=== PATIENT | male | born 1955 | race Caucasian/White ===

== ENCOUNTER 2020-12-31 11:57 | Outpatient (CLI) | payer MEDICARE, SELFPAY ==
--- NOTE | 2020-12-31 12:44 | ECG_ITS ---
Measurements Intervals [place] Rate: 61 P: 73 [place]: 195 QRS: 36 QRSD: 105 T: 48 QT: 390 QTc: 395 Interpretive Statements SINUS RHYTHM BASELINE ARTIFACT- I, II, III, AVR, AVL, AVF NORMAL ECG Electronically Signed On 12-31-2020 13:18:14 CDT by Bob Harris D.O.
[2020-12-31 13:21] LABS: Basophils Absolute Auto 0.1 K/mm3 (0.0-0.1); Basophils Percent Auto 1.2 % (0.2-1.2); Eosinophils Absolute Auto 0.2 K/mm3 (0-0.3); Eosinophils Percent Auto 2.8 % (0-4.4); Hematocrit 41.8 % (42.0-52.0); Hemoglobin 14.5 g/dL (14.0-18.0); Immature Granulocyte Absolute 0.01 K/mm3 (0.00-0.031); Immature Granulocyte Percent A 0.2 % (0-0.5); Lymphocytes Absolute Auto 1.55 K/mm3 (0.9-3.2); Lymphocytes Percent Auto 25.9 % (18.3-44.2); Mean Corpuscular HGB Conc 34.7 g/dl (32-36); Mean Corpuscular Hemoglobin 32.6 pg (26-34); Mean Corpuscular Volume 93.9 fl (80-100); Mean Platelet Volume 9.1 fl (7.4-10.4); Monocytes Absolute Auto 0.6 K/mm3 (0.1-0.6); Monocytes Percent Auto 9.4 % (2.6-8.5); Neutrophils Absolute Auto 3.6 K/mm3 (1.3-6.7); Neutrophils Percent Auto 60.5 % (45.5-73.1); Platelet Count Result 246 k/mm3 (150-375); Red Blood Count 4.45 M/mm3 (4.6-6.20); Red Cell Distribution Width 11.6 % (11.5-14.5)
[2020-12-31 13:27] LABS: Urine Cotinine NEGATIVE
[2020-12-31 13:32] LABS: Hemoglobin A1C 4.9 % (<5.7)
[2020-12-31 13:37] LABS: Albumin Level 4.7 g/dL (3.5-5.1)
[2020-12-31 13:41] LABS: Anion Gap 7 mmol/L (8-16); Blood Urea Nitrogen 16 mg/dL (9-20); Calcium 9.3 mg/dL (8.4-10.2); Carbon Dioxide 32 mmol/L (22-30); Chloride 96 mmol/L (98-107); Estimated Glomerular Filt Rate > 60; Glucose 114 mg/dL (75-110); Potassium 3.9 mmol/L (3.4-5.0); Sodium 135 mmol/L (137-145)
== END 2020-12-31 11:58 | disposition home or self-care (01) ==
PROVIDERS: Anesthesiology; PCP Student in an Organized Health Care Education/Training Program; Visit Provider Orthopaedic Surgery
DX: Z01.818 Encounter for other preprocedural examination (principal); M17.12 Unilateral primary osteoarthritis, left knee; I10 Essential (primary) hypertension; Z51.81 Encounter for therapeutic drug level monitoring; Z79.899 Other long term (current) drug therapy
CPT/HCPCS: 36415; 80048; 80307; 82040; 83036; 85025; 93005

== ENCOUNTER → 2021-01-09 00:34 | Outpatient (CLI) | payer MEDICARE, BC, SELFPAY ==
[2021-01-09 18:53] LABS: SARS-CoV-2 RNA PCR Negative
== END ==
PROVIDERS: PCP Student in an Organized Health Care Education/Training Program; Visit Provider Orthopaedic Surgery
DX: Z01.812 Encounter for preprocedural laboratory examination (principal); Z20.822 Contact with and (suspected) exposure to COVID-19
CPT/HCPCS: C9803; U0003; U0005

== ENCOUNTER 2021-01-13 00:15 | Emergency (ER) | payer MEDICARE, BC, SELFPAY ==
[2021-01-13] VITALS (37 sets, daily range): BP systolic 133–188; BP diastolic 64–95; PULSE 86–103; RESP 16–32; TEMP 36.8–39.6; O2SAT 95–100
--- NOTE | ~2021-01-13 | XR_ITS ---
EXAMINATION: XR chest 1V portable EXAM DATE: 01/13/2021 01:52 INDICATION: Fever, back pain. TECHNIQUE: Frontal and lateral projections of the chest obtained and reviewed. There is no prior dede dy for comparison. FINDINGS: The lungs are clear. There are no pleural effusions. The cardiomediastinal silhouette is within normal limits. There is no pneumothorax suspected. The bones and soft tissues are unremarkab le. IMPRESSION: No acute cardiopulmonary findings. Reviewed, dictated and finalized at location A.
--- NOTE | ~2021-01-13 | CT_ITS ---
EXAMINATION: CT abdomen pelvis w con EXAM DATE: 01/13/2021 04:16 INDICATION: Abdominal pain, back pain TECHNIQUE: Spiral CT of the abdomen and pelvis was performed following intravenous injection of 100 m L Omnipaque 350. Axial, coronal and sagittal images of the abdomen and pelvis were reviewed. The do se-length product (DLP) for this examination was 719.72 mGy-cm. The exposure was tailored according to patient size (auto mA exposure control), and iterative reconstruction (ASIR) was used as additiona l dose reduction technique. Comparison is made to prior examination from 07/07/2010. FINDINGS: There is 2.1 cm left adrenal gland lesion, and a smaller right adrenal gland nodule, adenom as correlating with prior study. The liver, spleen and pancreas are unremarkable. There are cholecy stectomy clips. Portal and splenic veins are patent. Kidneys enhance symmetrically. There is no hy dronephrosis. There is mild prostatomegaly. The bladder is unremarkable. There is no retroperitone al or pelvic lymphadenopathy. There is mild to moderate scattered arteriosclerotic disease. Small bilateral inguinal fat-containing hernias. Small umbilical fat-containing hernia. There are no findings to suggest appendicitis. The stomach and small bowel are unremarkable. There is expected amount of colonic stool. There is mild sigmoid colonic diverticulosis. There is no adjac ent inflammatory change to suggest diverticulitis. No free intraperitoneal gas. The heart is bijan l in size. There are no pericardial or pleural effusions. Bibasilar subsegmental atelectasis. Right middle lobe granuloma. There are no osteoblastic or osteolytic lesions identified. Chronic bilatera l L5 spondylolysis with grade 2 anterolisthesis L5 on S1 and severe disc disease at that level. IMPRESSION: 0 1. No acute intra-abdominal findings. 2. Colonic diverticulosis. 3. Mild prostatomegaly. 4. Small fat-containing hernias. 5. Adrenal adenomas. 6. Chronic L5 spondylolysis, grade 2 anterolisthesis. Reviewed, dictated and finalized at location A.
--- NOTE | 2021-01-13 01:35 | ECG_ITS ---
Measurements Intervals [place] Rate: 93 P: 70 [place]: 173 QRS: -9 QRSD: 107 T: 34 QT: 347 QTc: 432 Interpretive Statements SINUS RHYTHM ATRIAL PREMATURE COMPLEXES BORDERLINE T WAVE ABNORMALITY- INFERIOR LEADS BASELINE ARTIFACT- I, II, III, AVR, AVL, AVF, V2-V6 BORDERLINE ECG Electronically Signed On 01-13-2021 8:27:45 CDT by Bob Harris D.O.
[2021-01-13] MEDS: SODIUM CHLORIDE 0.9% IV 1,000 ML 999 ML IV CONT ×3 (01:58→05:23)
[2021-01-13] MEDS: KETOROLAC 30 MG/ML VIAL (*BKC) IV PUSH (01:58)
--- NOTE | 2021-01-13 02:03 | ED.GENADULT ---
HPI - General Adult General Chief complaint: Back Pain/Injury Stated complaint: lower back pain Time Seen by Provider: 01/13/21 01:24 History of Present Illness HPI narrative: Patient is a 65-year-old gentleman with body aches. Patient reports that since Monday he has been having body aches to the point that he has pain with ambulating. Patient reports this began after he pushed a lawnmower up the hill and is subsequently felt sore since then. The patient reports the pain is worse with movement and improved with rest. Patient reported that he has been having fevers for the last 3 days reports that he has had some body aches with this as well patient denies sick contacts denies Covid exposure reports that he has had the Covid vaccine. Related Data Home Medications Medication Instructions Recorded Confirmed allopurinol 100 mg PO QAM 12/31/20 12/31/20 cholecalciferol (vitamin D3) 25 mcg PO DAILY 12/31/20 12/31/20 citalopram 20 mg PO QAM 12/31/20 12/31/20 lisinopril-hydrochlorothiazide 1 tablet PO QAM 12/31/20 12/31/20 loratadine [Claritin] 10 mg PO DAILY 12/31/20 12/31/20 Allergies Allergy/AdvReac Type Severity Reaction Status Date / Time No Known Allergies Allergy Mild Verified 01/13/21 01:13 Review of Systems Review of Systems: Narrative: A 10 system review of systems was completed on the patient and is negative except for what is stated in the HPI. Nursing and ancillary documentation was reviewed. [facility] Family History Family History Father Hypertension Mother Hypertension Other Diabetes mellitus Social History Social History Smoking status: Never smoker Additional smoking assessment comments: DENIES ANY FORM OF TOBACCO USE Alcohol intake: current Drinks per week: 21 Substance use: current Substance use type: marijuana Living arrangements: with family Gender identity (if verbalized by the patient): Male Spiritual care concerns: No Exam Narrative: Exam Narrative: GENERAL: Well-appearing, well-nourished, and in no acute distress. HEAD: Normocephalic, atraumatic. EYES: PERRLA and EOMI. ENT: Nares clear, no rhinorrhea or epistaxis. Mucous membranes moist. NECK: Supple. CHEST: Clear to auscultation. No respiratory distress. HEART: Regular rate and rhythm. No murmur heard. Normal peripheral pulses. ABDOMEN: Soft, nontender, nondistended, normal active bowel sounds. EXTREMITIES: Normal range of motion. No edema. SKIN: Warm, dry, no rash. NEURO: No focal deficits. Alert and oriented x3. PSYCH: Normal mood and affect. Course Vital Signs Vital signs: Vital Signs Temperature 36.9 C 01/13/21 00:27 Pulse Rate 92 01/13/21 00:27 Respiratory Rate 18 01/13/21 00:27 Blood Pressure 173/94 H 01/13/21 00:27 Pulse Oximetry 100 01/13/21 00:27 Temperature 36.8 C 01/13/21 05:01 Pulse Rate 96 01/13/21 06:01 Respiratory Rate 24 H 01/13/21 06:01 Blood Pressure 159/83 H 01/13/21 06:01 Pulse Oximetry 96 01/13/21 06:01 Medical Decision Making Vital Signs Vital Signs: Vital Signs Temperature 36.9 C 01/13/21 00:27 Pulse Rate 92 01/13/21 00:27 Respiratory Rate 18 01/13/21 00:27 Blood Pressure 173/94 H 01/13/21 00:27 Pulse Oximetry 100 01/13/21 00:27 Temperature 36.8 C 01/13/21 05:01 Pulse Rate 96 01/13/21 06:01 Respiratory Rate 24 H 01/13/21 06:01 Blood Pressure 159/83 H 01/13/21 06:01 Pulse Oximetry 96 01/13/21 06:01 Lab Data Result diagrams: 01/13/21 01:55 01/13/21 01:55 Labs: Lab Results 01/13/21 01/13/21 01/13/21 Range/Units 01:55 01:55 01:55 WBC 6.9 (4.5-10.0) K/mm3 RBC 4.77 (4.6-6.20) M/mm3 Hgb 15.7 (14.0-18.0) g/dL Hct 44.9 (42.0-52.0) % MCV 94.1 (80-100) fl MCH 32.9 (26-34) pg MCHC 35.0 (32-36) g/dl RDW 11.7 (11.
[2021-01-13 02:08] LABS: Basophils Percent Auto 0.3 % (0.2-1.2); Eosinophils Percent Auto 0.1 % (0-4.4); Hematocrit 44.9 % (42.0-52.0); Hemoglobin 15.7 g/dL (14.0-18.0); Immature Granulocyte Absolute 0.05 K/mm3 (0.00-0.031); Immature Granulocyte Percent A 0.7 % (0-0.5); Immature Platelet Fraction Pct 2.5 % (0.9-11.2); Lymphocytes Absolute Auto 0.29 K/mm3 (0.9-3.2); Lymphocytes Percent Auto 4.2 % (18.3-44.2); Mean Corpuscular Hemoglobin 32.9 pg (26-34); Mean Corpuscular Volume 94.1 fl (80-100); Mean Platelet Volume 9.3 fl (7.4-10.4); Monocytes Absolute Auto 0.2 K/mm3 (0.1-0.6); Monocytes Percent Auto 2.7 % (2.6-8.5); Neutrophils Absolute Auto 6.4 K/mm3 (1.3-6.7); Platelet Count Result 144 k/mm3 (150-375); Red Blood Count 4.77 M/mm3 (4.6-6.20); Red Cell Distribution Width 11.7 % (11.5-14.5); White Blood Count 6.9 K/mm3 (4.5-10.0)
[2021-01-13 02:22] LABS: Alanine Aminotransferase 33 U/L (4-50); Albumin Level 4.6 g/dL (3.5-5.1); Alkaline Phosphatase 81 U/L (38-126); Anion Gap 7 mmol/L (8-16); Aspartate Amino Transferase 53 U/L (17-59); Bilirubin,Total 0.8 mg/dL (0.2-1.3); Blood Urea Nitrogen 18 mg/dL (9-20); Calcium 9.5 mg/dL (8.4-10.2); Carbon Dioxide 30 mmol/L (22-30); Chloride 92 mmol/L (98-107); Estimated CRCL calculation 67 ml/min; Estimated Glomerular Filt Rate > 60; Glucose 178 mg/dL (75-110); Potassium 4.1 mmol/L (3.4-5.0); Sodium 129 mmol/L (137-145)
[2021-01-13 02:23] LABS: Lactic Acid Reflex 2.3 mmol/L (0.7-2.1)
[2021-01-13 02:29] LABS: Troponin I 0.023 ng/mL (0.000-0.034)
[2021-01-13] MEDS: MORPHINE SULFATE (*CRX) 4 MG/ML INJ IV PUSH (02:47)
[2021-01-13 03:32] LABS: Add Urine Microscopic? YES; Appearance Urine Clear (Clear); Bacteria Urine Trace /hpf; Bilirubin Urine Negative (Negative); Blood Urine 1+ (Negative); Color Urine Yellow (Yellow); Glucose Urine UA 1+ mg/dL (Negative); Ketones Urine 1+ mg/dL (Negative); Leukocyte Esterase Ur Negative LEU/UL (Negative); Mucus Urine Rare /lpf; Nitrate Urine Negative (Negative); Protein Urine 2+ mg/dL (Negative); Specific Grav Ur 1.029 (1.001-1.035); Urobilinogen Urine Negative mg/dL (<2.0); WBC Urine 0-3 /hpf
[2021-01-13] MEDS: HYDROmorphone HCL INJ (*CRX) 1 MG/ML SYR IV PUSH ×2 (04:01→05:24)
[2021-01-13 05:04] LABS: Reflex Lactic Acid Yes or No Add Lactic
[2021-01-13] MEDS: CYCLOBENZAPRINE HCL 10 MG TABLET PO (05:23)
--- NOTE | 2021-01-13 07:03 | PC.NURSE ---
PT requested discharge instructions prior to infusion being completed. RN to remove IV once medication is completed.
[2021-01-13 21:08] LABS: SARS-CoV-2 RNA PCR Negative
== END 2021-01-13 07:36 | disposition home or self-care (01) ==
PROVIDERS: Emergency Provider Emergency Medicine; PCP Student in an Organized Health Care Education/Training Program
DX: M54.5 Low back pain (principal); J01.91 Acute recurrent sinusitis, unspecified; Z20.822 Contact with and (suspected) exposure to COVID-19
CPT/HCPCS: 36415; 71045; 74177; 80053; 81001; 83605; 84484; 85025; 85055; 87040; 87077; 87147; 87181; 87186; 87804; 93005; 96361; 96365; 96366; 96375; 96376; 99284; A9270; C9803; J0131; J1170; J1885; J1956; J2270; J7030; Q9967; U0003; U0005

== ENCOUNTER 2021-01-14 06:40 | Inpatient (IN) | payer MEDICARE, BC, SELFPAY ==
[2021-01-14] VITALS (16 sets, daily range): BP systolic 117–159; BP diastolic 74–94; PULSE 86–125; RESP 12–32; TEMP 36.6–38.7; O2SAT 94–100; BMI 27.3
--- NOTE | 2021-01-14 | ECHO_ITS ---
Patient Info Name: Aly Bailey Age: 65 years : 1955 Gender: Male Ht: 70 in Wt: 190 lbs BSA: 2.08 m2 HR: 102 bpm BP: 136 / 92 mmHg Heart Rhythm: Sinus Rhythm, Tachycardia Technical Quality: Good Exam Date: 01/14/2021 4:23 PM Exam Location: [facility] Pulmonary Exam Room: 211 Patient Status: Inpatient Admit Date: 01/14/2021 Staff Ordering Physician: Rajinder Lamar MD Make Up Editor: Julieta Dey RDCS Attending Provider: Gurjit Andre MD Referring Physician: Willard RAMIREZ; Exam Type: CA echo doppler color flow Study Info Indications - AFIB BACTEREMIA Complete two-dimensional, color flow and Doppler transthoracic echocardiogram is performed. Summary 1. Complete two-dimensional, color flow and Doppler transthoracic echocardiogram is performed. 2. Normal left ventricular size with moderate concentric hypertrophy and good systolic function of all segments. No segmental wall motion abnormalities. Ejection fraction visually is 55-60%. Normal diastolic function. 3. Left atrial chamber dimension is moderately enlarged. 4. Mild pulmonary hypertension, estimated pulmonary arterial systolic pressure is 39 mmHg. 5. No vegetation seen. Trivial mitral and tricuspid regurgitation noted. 6. Normal sinus rhythm with frequent APCs. Left Ventricle Left ventricular chamber dimension is normal. Left ventricular systolic function is normal, estimated at 55-60%. There is moderately increased left ventricular wall thickness. Left ventricular septal wall motion is normal. The left ventricular diastolic function is normal. Right Ventricle Right ventricular chamber dimension is normal. Right ventricular systolic function is normal. Left Atria Left atrial chamber dimension is moderately enlarged. Right Atria Right atrial chamber dimension is normal. Aortic Valve The aortic valve is trileaflet. There is no aortic valve sclerosis. There is no aortic valve stenosis. There is no aortic valve regurgitation. Pulmonic Valve The pulmonic valve is normal. There is no pulmonic valve stenosis. There is no pulmonic regurgitation. Mitral Valve The mitral valve has thickened leaflets. There is no mitral valve stenosis. There is trace mitral valve regurgitation. Tricuspid Valve The tricuspid valve leaflets are normal. There is no significant tricuspid valve stenosis. There is trace tricuspid valve regurgitation. Mild pulmonary hypertension, estimated pulmonary arterial systolic pressure is 39 mmHg. Pericardium/Pleural The pericardium appears normal. There is no pericardial effusion. Inferior Vena Cava Normal inferior vena cava with >50% collapse upon inspiration consistent with Empty right atrial pressure, 10 mmHg. Aorta The aortic root size at the sinus of Valsalva is normal. The prox ascending aorta size is normal. Left Ventricular Outflow Tract Name Value Normal LVOT 2D LVOT Diameter 2.1 cm LVOT Doppler LVOT Peak Gradient 4 mmHg LVOT Mean Gradient 3 mmHg LVOT VTI 19 cm
--- NOTE | ~2021-01-14 | US_ITS ---
EXAMINATION: US venous doppler [facility] DATE: 01/22/2021 10:36 INDICATION: Fever. TECHNIQUE: Grayscale ultrasound images without and with compression and Doppler ultrasound images of the bilateral lower extremity veins were obtained. COMPARISON: None. FINDINGS: The visualized portions of right common femoral vein, profunda (deep) femoral vein, femoral vein, pop liteal vein, peroneal veins, posterior tibial veins, and greater saphenous vein outflow are patent. The visualized portions of left common femoral vein, profunda femoral vein, femoral vein, popliteal v ein, peroneal veins, posterior tibial veins, and greater saphenous vein outflow are patent. IMPRESSION: 1. No deep venous thrombosis. Reviewed, dictated and finalized at location B.
--- NOTE | ~2021-01-14 | XR_ITS ---
XR abdomen NG/feed tube rechec INDICATION: Evaluate feeding tube position. TECHNIQUE: Limited KUB perform for evaluating NG tube . COMPARISON: No prior studies for comparison. FINDINGS: NG tube tip in the duodenum. Visualized bowel gas pattern is unremarkable. IMPRESSION: 1: Feeding tube tip in the duodenum. Reviewed, dictated and finalized at location B.
--- NOTE | ~2021-01-14 | US_ITS ---
EXAMINATION: US abdomen limited DATE: 01/14/2021 14:07 INDICATION: Abnormal liver function tests. TECHNIQUE: Multiple grayscale and Doppler ultrasound images of the abdomen were obtained. COMPARISON: CT abdomen and pelvis 01/13/2021 FINDINGS: The visualized portions of the head and body of the pancreas are normal. The liver is bijan l without focal lesion. There is normal flow in main portal vein. The gallbladder is absent. The comm on duct is normal and measures 5 mm. Right kidney is normal in size. IMPRESSION: 1. Normal right upper quadrant ultrasound status post cholecystectomy. Reviewed, dictated and finalized at location A.
--- NOTE | ~2021-01-14 | XR_ITS ---
EXAMINATION: XR chest 1V portable INDICATION: Respiratory failure TECHNIQUE: Portable AP chest at 0520 hours COMPARISON: 02/02/2021 FINDINGS: The endotracheal tube ends approximately 2.8 cm above the carissa. The feeding tube is follo wed as far as the stomach. Its tip is beyond the inferior margin of the radiograph. Bibasilar airspac e opacities persist without significant change. There is no pleural effusion or pneumothorax. The car diomediastinal silhouette is stable. IMPRESSION: 1. Stable bibasilar airspace opacities, consistent with atelectasis versus pneumonia. Reviewed, dictated and finalized at location A. IMPRESSION: 1. Stable bibasilar airspace opacities, consistent with atelectasis versus pneu monia.
--- NOTE | ~2021-01-14 | CT_ITS ---
EXAMINATION: CT BRAIN W/O DATE: 01/23/2021 14:36 INDICATION: Confusion. Patient is combative. TECHNIQUE: Computed tomography (CT) of the head was performed without intravenous contrast. The dose- length product was 756.67 mGy-cm. Automated exposure control and iterative reconstruction technique w ere employed. COMPARISON: No prior studies for comparison. FINDINGS: Normal brain parenchymal volume for age. Normal peterson-white differentiation. No acute intrac ranial hemorrhage, infarction, mass or mass effect. There are scattered mild periventricular and subc ortical white matter changes, most likely related to small vessel ischemic disease (microangiopathy). There is intracranial atherosclerosis. No ventriculomegaly or midline shift. Midline sagittal images demonstrate a normal corpus callosum, c raniovertebral junction and sella turcica. Basilar cisterns are patent. Minimal mucosal thickening of the right maxillary sinus. Mastoids are pneumatized. IMPRESSION: 1. No acute intracranial abnormality. Reviewed, dictated and finalized at location A.
--- NOTE | ~2021-01-14 | XR_ITS ---
EXAMINATION: XR fl Dobhoff insert/rad w img DATE: 01/23/2021 14:20 INDICATION: Altered mental status. TECHNIQUE: I placed a nasoenteric tube with fluoroscopic guidance. One image was obtained. Fluoroscop y exposure time was 2.8 minutes. COMPARISON: CT abdomen and pelvis 01/13/2021 FINDINGS: The nasoenteric tube tip is in the second portion the duodenum. IMPRESSION: 1. Fluoroscopy guided nasoenteric tube placement with tip in the second portion of the duodenum. Reviewed, dictated and finalized at location A.
--- NOTE | ~2021-01-14 | XR_ITS ---
XR chest 1V portable 01/27/2021 10:40 Indication: Shortness of breath Procedure: AP portable chest Comparison: 01/15/2021 Findings: Feeding tube in the stomach. Heart size normal. Patchy bilateral infiltrates, right greater than left. No significant effusion or pneumothorax. No acute osseous abnormality. Impression: 1: Patchy bilateral infiltrates which may represent asymmetric edema or pneumonia. Reviewed, dictated and finalized at location B. Impression: 1: Patchy bilateral infiltrates which may represent asymmetric edema or pneumon ia.
--- NOTE | ~2021-01-14 | CT_ITS ---
EXAMINATION: CT brain wo con DATE: 01/27/2021 12:58 CDT INDICATION: Altered mental status TECHNIQUE: Computed tomography (CT) of the abdomen and pelvis was performed without and with intraven ous contrast using a total of 130 mL Omnipaque-350 intravenous contrast with a double-bolus technique for simultaneous opacification of the renal parenchyma and renal collecting system. The dose-length product was 681.00 mGy-cm. Automated exposure control and iterative reconstruction technique were emp loyed. COMPARISON: CT dated 01/23/2021 FINDINGS: Mild atrophy. There are scattered mild periventricular and subcortical white matter changes, most lik asa related to small vessel ischemic disease (microangiopathy). No ventriculomegaly or midline shift. No acute intracranial hemorrhage, infarction, mass or mass effect. Basilar cisterns are patent. Ther e is intracranial atherosclerosis. IMPRESSION: 1. No acute intracranial abnormality. Reviewed, dictated and finalized at location B.
--- NOTE | ~2021-01-14 | XR_ITS ---
EXAMINATION: XR chest 1V portable INDICATION: Possible aspiration, shortness of breath, fever TECHNIQUE: Portable AP chest at 0908 hours COMPARISON: 01/13/2021 FINDINGS: There is mild atelectasis. No focal airspace opacities are identified. The heart size is up per limits of normal for technique. There is no pleural effusion or pneumothorax. IMPRESSION: 1. No acute cardiopulmonary abnormality. Reviewed, dictated and finalized at location B.
--- NOTE | ~2021-01-14 | XR_ITS ---
EXAMINATION: XR lumbar puncture diagnostic DATE: 01/28/2021 14:00 INDICATION: Altered mental status. TECHNIQUE: A timeout was performed to verify the patient's name, date of , and procedure to be performed. The skin overlying the L3-L4 level was prepped and draped in usual sterile fashion. Sub cutaneous 1% lidocaine was used for local anesthesia. A 20 gauge spinal needle was advanced under fl uoroscopic guidance. The needle was removed and the entry site was cleaned and dressed. There were n o immediate complications. Fluoroscopy exposure time was 0.1 minutes. The total number of images was 1. FINDINGS: Real-time fluoroscopy demonstrates the needle at the L3-L4 level. The opening pressure was 21 cm water (Normal range is variably defined as 6-20 cm water and up to 25 cm water in obese patient s. Pressure >25 cm water is one of the modified Dandy criteria for idiopathic intracranial hypertensi on). 11 mL of clear, von-colored fluid was collected in 4 tubes. IMPRESSION: 1. Successful fluoro-guided lumbar puncture. Traumatic tap. Reviewed, dictated and finalized at location A.
--- NOTE | ~2021-01-14 | US_ITS ---
EXAMINATION: US venous doppler [facility] DATE: 02/02/2021 10:51 INDICATION: Left lower limb swelling TECHNIQUE: Nuno scale images without and with compression and Doppler images of the left lower extrem ity veins were obtained. COMPARISON: 01/22/2021 FINDINGS: The left common femoral vein, profunda femoral vein, femoral vein, popliteal vein, peroneal trunk, posterior tibial veins, and greater saphenous vein are patent. IMPRESSION: 1. Patent left lower extremity veins. No evidence of deep venous thrombosis. Reviewed, dictated and finalized at location A.
--- NOTE | ~2021-01-14 | XR_ITS ---
XR chest 1V portable DATE: 01/31/2021 05:55 INDICATION: Intubation TECHNIQUE: Portable AP chest on 01/31/2021 at 0515 hours COMPARISON: 01/30/2021 portable AP chest at 0515 hours FINDINGS: ET tube in satisfactory position 2.4 cm above carissa. Feeding tube in stomach. Mild elevation right diaphragm. Mild atelectasis or infiltrate at the lung bases. No pleural effusion or pneumothorax. Heart size likely within normal range considering magnification/with AP projection. Diffuse osteopenia. IMPRESSION: No significant change since 01/30/2021 Reviewed, dictated and finalized at location A.
--- NOTE | ~2021-01-14 | XR_ITS ---
XR chest 1V portable DATE: 01/30/2021 05:22 INDICATION: Intubation TECHNIQUE: Portable AP chest on 01/30/2021 at 0515 hours COMPARISON: 01/29/2021 portable AP chest at 0848 hours FINDINGS: ET tube in satisfactory position 4.5 cm above carissa. Mild elevation of right leaf of diaphragm. Minimal atelectasis at the lung bases. Lungs otherwise tatyana ear clear. No pleural effusion or pulmonary vascular congestion or pneumothorax. Diffuse osteopenia. Levoscoliosis and degenerative change of the thoracic spine. Heart size is within normal range. Aortic calcification. IMPRESSION: ET tube in satisfactory position Minimal atelectasis at the lung bases Reviewed, dictated and finalized at location A.
--- NOTE | ~2021-01-14 | CT_ITS ---
EXAMINATION: CT brain wo con DATE: 01/18/2021 11:59 INDICATION: Altered mental status. TECHNIQUE: Computed tomography (CT) of the head was performed without intravenous contrast. The mA wa s adjusted according to patient size. Iterative reconstruction technique was employed. The dose-lengt h product was 681.00 mGy-cm. COMPARISON: None FINDINGS: There is no intracranial hemorrhage, acute infarction, or abnormal intracranial mass lesion . There are scattered areas of low attenuation in the cerebral white matter, which is within normal l imits for the patient's age. The ventricles are normal in size. The orbits are normal. There is mild mucosal thickening in the paranasal sinuses. The mastoid air cells are normal. IMPRESSION: 1. Normal aging brain. Reviewed, dictated and finalized at location B. IMPRESSION: 1. Normal aging brain.
--- NOTE | ~2021-01-14 | XR_ITS ---
EXAMINATION: XR chest 1V portable INDICATION: Respiratory failure TECHNIQUE: Portable AP chest at 0520 hours COMPARISON: 02/01/2021 FINDINGS: The endotracheal tube ends approximately 2.8 cm above the carissa. The feeding tube is follo wed as far as the stomach. Its tip is beyond the inferior margin of the radiograph. Patchy bibasilar airspace opacities persist without significant change. There is no pleural effusion or pneumothorax. The cardiomediastinal silhouette is stable. Surgical clips in the right upper quadrant are likely fro m prior cholecystectomy. IMPRESSION: 1. Stable bibasilar airspace opacities, consistent with atelectasis versus pneumonia. Reviewed, dictated and finalized at location A. IMPRESSION: 1. Stable bibasilar airspace opacities, consistent with atelectasis versus pneu monia.
--- NOTE | ~2021-01-14 | MR_ITS ---
EXAMINATION: MR brain/brain stem wo/w con DATE: 01/28/2021 11:41 INDICATION: Altered mental status. TECHNIQUE: Magnetic resonance imaging (MRI) of the brain and brainstem was performed without and with 16 mL MultiHance intravenous contrast. Sequences included sagittal and axial T1-weighted FSE, axial diffusion-weighted FS EPI, axial T2*-weighted GRE, axial T2-weighted FLAIR Propeller, and axial T2-we ighted Propeller. Postcontrast sequences included axial and coronal T1-weighted FSE. Apparent diffusi on coefficient (ADC) maps were created. COMPARISON: Head CT 01/27/2021 FINDINGS: There are scattered areas of nonspecific increased T2-weighted signal intensity in the cere bral white matter, which is within normal limits for the patient's age. There is no intracranial hemo rrhage, acute infarction, or abnormal intracranial mass lesion. The ventricles are normal in size. Th ere is mild mucosal thickening in the paranasal sinuses. There is anteroposterior elongation of the o cular globes. The mastoid air cells are normal. IMPRESSION: 1. Normal aging brain. Reviewed, dictated and finalized at location A. IMPRESSION: 1. Normal aging brain.
--- NOTE | ~2021-01-14 | XR_ITS ---
EXAMINATION: XR chest ET placement EXAM DATE: 01/29/2021 08:54 INDICATION: Et tube placement TECHNIQUE: Portable AP frontal chest x-ray was obtained. Comparison is made to prior examination from 01/28/2021. FINDINGS: Endotracheal tube tip is 2.3 centimeters above the carissa. There is a nasogastric tube see n with tip collimated off the study, but below the left hemidiaphragm. There is been interval improvement in previously seen bilateral ill-defined abnormal reticulation, ai rspace disease, and in the cardiac size, which has normalized. Could be interval improvement in CHF e xacerbation. There are no sizable pleural effusions. There is no pneumothorax suspected. The bone s and soft tissues are unremarkable. There is no significant interval change compared to prior exam. IMPRESSION: 1. Tubes in position. 2. Normalization of heart size and improvement in edema or pneumonia, with some residual suspected o n the right. Reviewed, dictated and finalized at location A. IMPRESSION: 1. Tubes in position. 2. Normalization of heart size and improvement in edema or pneumonia, with alessandra e residual suspected on the right.
--- NOTE | ~2021-01-14 | CT_ITS ---
EXAMINATION: CTA chest PE protocol EXAM DATE: 01/14/2021 08:36 INDICATION: Tachypnea, elevated d dimer, fever. Back pain. TECHNIQUE: Spiral CTA of the chest (pulmonary arteries) was performed with 100 cc Omnipaque 350 intr avenous contrast injection. Images were acquired during the pulmonary arterial phase. Coronal maxi mum intensity projection 3D-reconstructions were created by the technologist on dedicated workstation . Axial, coronal and sagittal reformatted images were reviewed. The dose-length product (DLP) for t his examination was 578.03 mGy-cm. The exposure was tailored according to patient size (auto mA exp osure control), and iterative reconstruction (ASIR) was used as additional dose reduction technique. There is no prior study for comparison. FINDINGS: Pulmonary arteries are well opacified and without intraluminal filling defects. No thora cic aortic dissection. The lungs are clear. There is trace right pleural effusion. Small amount of dependent subsegmental atelectasis. Tracheobronchial tree is patent. There is no mediastinal, hil ar or axillary lymphadenopathy. There is no pneumothorax. Heart normal in size. There is mild c oronary arterial calcification, arterial sclerosis. Left adrenal 2.1 cm adenoma. There are cholecyst ectomy clips. There is thoracic spondylosis without osteoblastic or osteolytic lesions identified. IMPRESSION: 1. No pulmonary emboli. 2. Trace right pleural effusion. 3. Minimal dependent atelectasis. Reviewed, dictated and finalized at location A.
--- NOTE | ~2021-01-14 | XR_ITS ---
EXAMINATION: XR chest 1V portable INDICATION: Respiratory failure TECHNIQUE: Portable AP chest at 0518 hours COMPARISON: 02/04/2021 FINDINGS: The endotracheal tube ends approximately 3.7 cm above the carissa. The feeding tube is follo wed as far as the stomach. Its tip is beyond the inferior margin of the radiograph. Bibasilar airspac e opacities persist without significant change. There is no pleural effusion or pneumothorax. The car diomediastinal silhouette is stable. IMPRESSION: 1. Stable bibasilar airspace opacity, consistent with atelectasis versus pneumonia. Reviewed, dictated and finalized at location A. IMPRESSION: 1. Stable bibasilar airspace opacity, consistent with atelectasis versus pneumo gage.
--- NOTE | ~2021-01-14 | MR_ITS ---
EXAMINATION: MR thoracic spine wo/w con DATE: 02/11/2021 12:37 INDICATION: Epidural abscess. TECHNIQUE: Magnetic resonance imaging (MRI) of the thoracic spine was performed without and with 15 m L MultiHance intravenous contrast. Sequences included sagittal and axial T2-weighted FSE, sagittal ST IR FSE, and sagittal and axial T1-weighted FSE. Postcontrast sequences included sagittal and axial T1 -weighted FS FSE. COMPARISON: Chest CT 01/14/2021 FINDINGS: There is 7 degrees levocurvature of thoracic spine spine. There is mild chronic anterior we dging of T5-L1 vertebral bodies with Schmorl's nodes at many levels. There is mild to moderately decr eased disc height at most thoracic levels. At T5-T6, there is mildly decreased disc height loss and d isc enhancement. There is bone marrow edema and enhancement involving T5 and T6 vertebral bodies. The re is edema and enhancement of the paraspinal fat at T5-T6. The discs are bulging at T1-T2, T2-T3, T5 -T6, T7-T8, T8-T9, T9-T10, T10-T11, and T11-T12 with mild central canal stenosis. There is multilevel mild facet joint osteoarthritis. At T11-T12, there is severe right facet joint osteoarthritis. There is mild neural foraminal stenosis at a few levels bilaterally. At T11-T12, there is moderate right n eural foraminal stenosis. The spinal cord signal intensity is normal. IMPRESSION: 1. Discitis and osteomyelitis at T5-T6. Reviewed, dictated and finalized at location B.
--- NOTE | ~2021-01-14 | XR_ITS ---
EXAMINATION: XR chest 1V portable INDICATION: Respiratory failure TECHNIQUE: Portable AP chest at 0516 hours COMPARISON: 01/31/2021 FINDINGS: The endotracheal tube ends approximately 2.8 cm above the carissa. The feeding tube is follo wed as far as the stomach. Its tip is beyond the inferior margin of the radiograph. There is no pleur al effusion or pneumothorax. Patchy bibasilar airspace opacities are unchanged. The cardiomediastinal silhouette is stable. IMPRESSION: 1. Stable bibasilar airspace opacities, consistent with atelectasis versus pneumonia. Reviewed, dictated and finalized at location A. IMPRESSION: 1. Stable bibasilar airspace opacities, consistent with atelectasis versus pneu monia.
--- NOTE | ~2021-01-14 | XR_ITS ---
XR chest 1V portable 02/07/2021 12:55 Indication: Fever. Dyspnea. Procedure: AP portable chest Comparison: Comparison to multiple prior studies sequentially, with oldest reviewed study dated 12/2020. Findings: There is improving patchy bilateral airspace disease, compatible with pneumonia. No signifi cant pleural effusion or pneumothorax. Impression: 1: Improving patchy bilateral airspace disease, compatible with pneumonia. Reviewed, dictated and finalized at location A. Impression: 1: Improving patchy bilateral airspace disease, compatible with pneumonia.
--- NOTE | ~2021-01-14 | MR_ITS ---
EXAMINATION: MR lumbar spine wo/w con DATE: 02/11/2021 12:37 INDICATION: Epidural abscess. TECHNIQUE: Magnetic resonance imaging (MRI) of the lumbar spine was performed without and with 15 mL MultiHance intravenous contrast. Sequences included sagittal T2-weighted FSE, sagittal T2-weighted FS FSE, and sagittal and axial T1-weighted FSE. Postcontrast sequences included axial T2-weighted FSE a nd axial and sagittal T1-weighted FS FSE. COMPARISON: Lumbar spine CT 01/14/2021, CT abdomen and pelvis 07/07/2010 FINDINGS: There are chronic bilateral L5 pars defects. There is 6 mm anterolisthesis of L5 on S1. The re is chronic degenerative mild height loss of L5 inferior endplate and S1 superior endplate. There i s mildly decreased disc height at L1-L2 and moderately decreased disc height from L2-L3 through L4-L5 . There is chronic obliteration of the L5-S1 disc. There is now fluid in the L5-S1 disc space. The pr ior CT demonstrated [id number]. There is edema and enhancement of the epidural fat from L4-L5 throu gh S1. There is bone marrow edema and enhancement of the superior half of S1 vertebral body, all of L 5 vertebral body, and posterior third of L4 vertebral body. The distal spinal cord signal intensity i s normal. The conus medullaris is at L1. The following disc levels are specifically discussed: L1-L2: The disc is bulging and has an annular fissure. There is mild bilateral facet joint osteoarthr itis. There is no neural foraminal stenosis. There is mild central canal stenosis. L2-L3: The disc is bulging and has an annular fissure. There is moderate left facet joint osteoarthri tis. There is mild bilateral neural foraminal stenosis. There is mild central canal stenosis. L3-L4: The disc is bulging and has an annular fissure. There is mild bilateral facet joint osteoarthr itis. There is moderate bilateral neural foraminal stenosis. There is mild central canal stenosis. L4-L5: The disc is bulging and has an annular fissure. There is mild bilateral facet joint osteoarthr itis. There is mild bilateral neural foraminal stenosis. There is mild central canal stenosis. L5-S1: There is severe bilateral facet joint osteoarthritis. There is moderate right and mild left ne ural foraminal stenosis. There is mild central canal stenosis. IMPRESSION: 1. Bone marrow edema and enhancement involving L4, L5, and S1 with enhancement of the epidural fat fr om L4 to S1, consistent with osteomyelitis and epidural phlegmon. Fluid in the L5-S1 disc space may b e an expected finding given the severity of degenerative disc disease at this level, but the surround ing findings suggest superinfection of the fluid. Reviewed, dictated and finalized at location B. IMPRESSION: 1. Bone marrow edema and enhancement involving L4, L5, and S1 with enhancement of the epidural fat from L4 to S1, consistent with osteomyelitis and epidural p hlegmon. Fluid in the L5-S1 disc space may be an expected finding given the sev erity of degenerative disc disease at this level, but the surrounding findings suggest superinfection of the fluid.
--- NOTE | ~2021-01-14 | XR_ITS ---
XR chest 1V portable 02/06/2021 05:27 Indication: Respiratory failure Procedure: AP portable chest Comparison: Comparison to multiple prior studies sequentially, with oldest reviewed study dated 11/2020. Findings: Cardiomegaly with mild interstitial edema. Interval removal of endotracheal and NG tubes. N o significant effusion or pneumothorax. Impression: 1: Cardiomegaly with mild interstitial edema. Pneumonia less favored. Reviewed, dictated and finalized at location A. Impression: 1: Cardiomegaly with mild interstitial edema. Pneumonia less favored.
--- NOTE | ~2021-01-14 | XR_ITS ---
XR chest 1V portable 01/28/2021 16:35 Indication: Fever. History of hypertension. Procedure: AP portable chest Comparison: 01/27/2021 Findings: Bilateral perihilar interstitial infiltrates with peribronchial thickening. No pleural effu luana or pneumothorax. Feeding tube in the stomach. Impression: 1: Bilateral perihilar interstitial infiltrates both which may represent pneumonia or mild edema. Reviewed, dictated and finalized at location B. Impression: 1: Bilateral perihilar interstitial infiltrates both which may represent pneumo gage or mild edema.
--- NOTE | ~2021-01-14 | CT_ITS ---
EXAMINATION: CT lumbar spine wo [facility] EXAM DATE: 01/14/2021 08:36 INDICATION: Back pain. Fever. TECHNIQUE: Spiral CT of the lumbar spine was performed without contrast. Axial, coronal and sagittal images were reviewed. The dose-length product (DLP) for this examination was 646.61 mGy-cm. The e xposure was tailored according to patient size (auto mA exposure control), and iterative reconstructi on (ASIR) was used as additional dose reduction technique. There is no prior study for comparison. FINDINGS: Portions of the kidneys were imaged, there is no hydronephrosis. Chronic bilateral L5 spond ylolysis with 5 mm anterolisthesis grade 1 anterolisthesis L5 on S1, severe disc disease. I can disc phenomenon at this level. Moderate disc disease at the other imaged thoracolumbar levels. No endplate erosive change. Sacrum and sacroiliac joints appear intact, no fractures. Vertebral body heights rel atively well-maintained. Normal appendix. Level by level evaluation: T11-12: There is a mild diffuse disc bulge. Facet arthropathy: Mild to moderate right, mild left. Neural foraminal stenosis: Moderate to severe right, no left. Central canal stenosis: Minimal. T12-L1: There is a minimal diffuse disc bulge. Facet arthropathy: None. Neural foraminal stenosis: No stenosis. Central canal stenosis: No stenosis. L1-L2: There is a mild diffuse disc bulge. Facet arthropathy: Minimal. Neural foraminal stenosis: Mild to moderate left. Central canal stenosis: Mild. L2-L3: There is a mild to moderate diffuse disc bulge. Facet arthropathy: Mild. Neural foraminal stenosis: Moderate left, mild to moderate right. Central canal stenosis: Mild. L3-L4: There is a moderate diffuse disc bulge. Facet arthropathy: Mild. Neural foraminal stenosis: Moderate right, mild to moderate left. Central canal stenosis: Mild. L4-L5: There is a mild to moderate diffuse disc bulge. Facet arthropathy: Mild to moderate. Neural foraminal stenosis: Mild to moderate bilateral. Central canal stenosis: Mild. L5-S1: There is a moderate diffuse disc bulge. Facet arthropathy: Moderate. Neural foraminal stenosis: Moderate to severe right, moderate left. Central canal stenosis: No stenosis. IMPRESSION: 1. No acute lumbar findings. 2. L5-S1 grade 1 anterolisthesis, bilateral spondylolysis, moderate to severe disc disease and right neural foraminal stenosis. 3. Less spondylosis other levels. Reviewed, dictated and finalized at location A.
--- NOTE | 2021-01-14 06:54 | PC.NURSE ---
Pt presents to ED with . Pt states he had lab work done and was called this morning with positive culture results and was advised to present to ED. Pt states she noticed that pt was a little confused this morning and that he has been tachypneic with an elevated pulse. Pt febrile, tachycardic, tachypneic and diaphoretic at this time. Pt abdominal breathing and states he becomes sob with activity; covid negative. O2 saturation 96% on room air. Pt alert and oriented x4 at this time, per . Breathing is even but labored while at rest. Pt in no obvious distress and vitals are stable. Pt resting on cart in its lowest position with call button and personal items within reach. Advised to press call button for assistance.
--- NOTE | 2021-01-14 07:10 | ECG_ITS ---
Measurements Intervals [place] Rate: 111 P: [place]: 0 QRS: 70 QRSD: 95 T: 3 QT: 311 QTc: 424 Interpretive Statements MULTIFOCAL ATRIAL TACHYCARDIA ATRIAL PREMATURE COMPLEXES NONSPECIFIC T-WAVE ABNORMALITY- INFERIOR LEADS BASELINE ARTIFACT- I, III, AVR, AVL, AVF ABNORMAL ECG Electronically Signed On 01-14-2021 7:36:04 CDT by Bob Harris D.O.
[2021-01-14 07:23] LABS: Hemoglobin 13.9 g/dL (14.0-18.0); Immature Platelet Fraction Pct 5.1 % (0.9-11.2); Mean Corpuscular HGB Conc 35.6 g/dl (32-36); Mean Corpuscular Hemoglobin 32.3 pg (26-34); Mean Corpuscular Volume 90.7 fl (80-100); Mean Platelet Volume 10.2 fl (7.4-10.4); Platelet Count Result 74 k/mm3 (150-375); Red Cell Distribution Width 11.4 % (11.5-14.5); White Blood Count 7.3 K/mm3 (4.5-10.0)
[2021-01-14 07:27] LABS: Glucose Point of Care 181 (65-105)
--- NOTE | 2021-01-14 07:32 | ED.RECABL ---
HPI - Recheck/Abnormal Lab/Rx General Chief Complaint: Recheck/Abnormal Lab/Rx Stated Complaint: covid + Time Seen by Provider: 01/14/21 07:01 Source: patient Mode of arrival: ambulatory Limitations: no limitations History of Present Illness HPI narrative: This is 65 year old male who presents to ER for evaluation of positive blood cultures. Patient was evaluated in ER yesterday for low back pain, fever, and myalgia. He appears to have had an unremarkable chest xray, CT abdomen and pelvis so he was discharged home on levaquin . He reports he continues to have fever but his back pain has improved. He denies cough, chest pain, abdominal pain, urinary or bowel incontinence. HE denies leg weakness, numbness or tingling. His is also concerned because his heart rate and respiratory rate are elevated. His covid test was negative from yesterday. complaint: abnormal lab Related Data Home Medications Medication Instructions Recorded Confirmed allopurinol 100 mg PO QAM 12/31/20 12/31/20 cholecalciferol (vitamin D3) 25 mcg PO DAILY 12/31/20 01/14/21 citalopram 20 mg PO QAM 12/31/20 01/14/21 lisinopril-hydrochlorothiazide 1 tablet PO QAM 12/31/20 01/14/21 loratadine [Claritin] 10 mg PO DAILY 12/31/20 01/14/21 Allergies Allergy/AdvReac Type Severity Reaction Status Date / Time No Known Allergies Allergy Mild Verified 01/13/21 01:13 Review of Systems Review of Systems: All systems reviewed & are unremarkable except as noted in HPI and below Constitutional: Constitutional: Reports fever(s) Cardiovascular: Cardiovascular: Denies chest pain, Denies rapid heart rate and Denies slow heart rate Respiratory: Respiratory: Denies cough and Denies dyspnea Gastrointestinal: Gastrointestinal: Denies abdominal pain, Denies nausea and Denies vomiting Genitourinary: Genitourinary: Denies urinary frequency and Denies urinary incontinence Musculoskeletal: Musculoskeletal: Reports back pain and Reports myalgias Neurologic: Denies headache(s) and Denies numbness PMFSH Past Medical History Medical History (Updated 01/14/21 @ 17:44 by Blank Lagunas MD) Alcohol abuse Anxiety Gout Hypertension Osteoarthritis Wrists, knees. Surgical History Surgical History (Updated 01/14/21 @ 13:00 by Asha Pedersen PA-C) History of basal cell carcinoma excision Removed from the chest, arm, shoulder. History of cholecystectomy History of tonsillectomy Family History Family History Father Hypertension Cerebrovascular accident Mother Hypertension Other Diabetes mellitus Social History Social History (Updated 01/14/21 @ 13:09 by Asha Pedersen PA-C) Social History: Surrogate decision maker: Brenda Bailey, spouse. Code status: Full code. Smoking status: Never smoker Alcohol intake: current Drinks per week: 35 Substance use: never Substance use type: marijuana Additional living arrangements comments: Lives in [place] with his . 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 Gender identity (if verbalized by the patient): Male Spiritual care concerns: No Exam Const: General: alert Orientation/consciousness: patient oriented x3 Eyes: Pupils: Equal, round and reactive pupils present EOM: EOMs intact bilaterally Chest: Chest palpation & inspection: normal inspection of the chest Resp: Effort & Inspection: normal respiratory effort and no retractions Auscultation: clear to auscultation bilaterally Cardio: Rate: tachycardic Heart sounds: no murmurs GI: GI Palp: Yes Soft to palpation, No Tenderness to palpation present (GI), No Guarding due to palpation present (GI) and No Rigid due to palpation Auscultation: normal bowel sounds Skin: General skin exam: normal color Other: hot to touch, abrasion to his left leg but no infection seen Neuro: General: patient oriented x
[2021-01-14 07:34] LABS: INR 1.4; Prothrombin Time 17.4 Seconds (11.1-14.7)
[2021-01-14 07:37] LABS: Partial Thromboplastin Time 39.8 SECONDS (22.3-36.8)
[2021-01-14 07:44] LABS: Giant Platelets Present; Lymphocytes Absolute Manual 0.29 K/mm3 (1.1-4.5); Monocytes Absolute Manual 0.29 K/mm3 (0.1-0.90); Monocytes Percent Manual 4 % (3-9); Neutrophils Percent Manual 92 % (46-73); Platelet Estimate Decreased (Adequate); Total Cells Counted 100
[2021-01-14 07:46] LABS: Lactic Acid Reflex 1.6 mmol/L (0.7-2.1)
[2021-01-14 07:48] LABS: Alanine Aminotransferase 60 U/L (4-50); Albumin Level 3.7 g/dL (3.5-5.1); Alkaline Phosphatase 81 U/L (38-126); Anion Gap 10 mmol/L (8-16); Aspartate Amino Transferase 84 U/L (17-59); Bilirubin,Total 1.1 mg/dL (0.2-1.3); Blood Urea Nitrogen 16 mg/dL (9-20); Calcium 8.9 mg/dL (8.4-10.2); Carbon Dioxide 21 mmol/L (22-30); Chloride 92 mmol/L (98-107); Estimated CRCL calculation 94 ml/min; Estimated Glomerular Filt Rate > 60; Glucose 186 mg/dL (75-110); Sodium 123 mmol/L (137-145)
[2021-01-14] MEDS: SODIUM CHLORIDE 0.9% IV 1,000 ML 999 ML IV CONT (07:51)
[2021-01-14 08:02] LABS: Alveolar/Arterial O2 Gradient 46.5 mmHg; Base Excess ABG 0.6 mEq/l (+/-2.0); Carboxyhemoglobin 0.7 % THb (0-2.0); Fractional Inspired Oxygen 21 %; HCO3 ABG 23.2 mEq/l (22.0-26.0); Methemoglobin ABG 0.3 %THb (0-1.5); Oxygen Content ABG 17.7 %vol (16.0-22.0); Oxygen Saturation ABG 94.7 % (95.0-100.0); Oxyhemoglobin 93.1 % THb (90.0-100.0); PCO2 ABG 31.1 mmHg (35.0-45.0); PO2 FiO2 Ratio Arterial Blood 3.14 %; Reduced Hemoglobin 5.9 %THb (0-5.0); Total Hemoglobin 13.5 g/dL (12.0-18.0)
[2021-01-14 08:03] LABS: Device ROOM AIR; Site Drawn LEFT BRACHIAL
[2021-01-14 08:04] LABS: Add Urine Microscopic? YES; Appearance Urine Cloudy (Clear); Bilirubin Urine Negative (Negative); Blood Urine 1+ (Negative); Calcium Oxalate Crystals Urine Present /hpf; Color Urine Yellow (Yellow); Glucose Urine UA Negative (Negative); Ketones Urine Trace mg/dL (Negative); Leukocyte Esterase Ur Negative LEU/UL (Negative); Mucus Urine Rare /lpf; Nitrate Urine Negative (Negative); Protein Urine 2+ mg/dL (Negative); Specific Grav Ur 1.017 (1.001-1.035); Squamous Epithelial Cell Urine Rare /hpf (Few); Urobilinogen Urine Negative mg/dL (<2.0); WBC Urine 0-3 /hpf
[2021-01-14 08:18] LABS: CRP 31.3 mg/dL (<1.0)
--- NOTE | 2021-01-14 11:20 | ADMIMU ---
This patient, Aly Bailey, was admitted to IMU status, and placed in IMU Room 211-01. Patient/family oriented to hospital policies and general routines including ID bracelet, bed and alarms, visiting hours, pain management, procedures, bathroom and other care routines, personal items, smoking policy, room service/diet, and visiting hours. Valuables list has been completed. Information on how to activate the Rapid Response Team has been discussed. Patient/Family are encouraged to report perceived risks to care and to ask questions if they do not understand what they are told or what they should do.
--- NOTE | 2021-01-14 11:30 | PM.CNCAR ---
Assessment and Plan Assessment and plan (1) Atrial fibrillation: Code(s): I48.91 - Unspecified atrial fibrillation Status: Acute Assessment and Plan: He was found to be in AFib with controlled heart rate. Risk factor for AFib is alcoholism. Obtain echocardiogram. Start metoprolol 25 mg b.i.d. with holding parameters (2) Bacteremia: Code(s): R78.81 - Bacteremia Status: Acute Assessment and Plan: Unsure the source of bacteremia but patient has lower back pain. Will obtain echocardiogram. (3) Alcoholism: Code(s): F10.20 - Alcohol dependence, uncomplicated Status: Acute History of Present Illness History of Present Illness Consult date/time: Date of service 01/14/21 11:30 Requesting physician: Blank Lagunas MD Consult reason: chest pain Reason For Visit: bacteremia,new onset afib Narrative: This is a 65-year-old patient with past history of hypertension, gout who apparently came to [facility] on January 13 with back pain and had fever. He had blood cultures that came out positive. Patient was called and readmitted to the hospital. Cardiac consult was called because he was found to be in AFib with heart rate between 80-100 beats per minute. He denies chest pain, shortness of breath, palpitations, syncope. He admits to some dizziness when standing up from sitting position. He only has lower back pain. Week ago he was having some sinus issues but not anymore. He drinks 6-7 beers everyday but denies tobacco use. He reports a skin lesion was removed on his left lower extremity recently for suspicion for cancer. Temperature 38.6? centigrade, elevated heart rate at around 110 beats per minute, elevated blood pressure. White cell count 7 K, creatinine 0.7, mild elevation liver enzymes AST 86, serum sodium 123, blood cultures 2/2 g positive cocci in clusters. CTA thorax no pulmonary embolism. X-ray of the lumbar spine L5 and S1 there is some disc disease. EKG reviewed and analyzed myself shows sinus tachycardia with premature atrial contractions. Review of Systems Constitutional: Constitutional: Reports chills, Reports fever(s) and Denies poor appetite Eyes: Eyes: Denies eye discharge, Denies loss of vision, Denies eye pain and Denies photophobia ENT: Denies dizziness, Denies epistaxis, Denies nasal congestion and Denies sore throat Cardiovascular: Cardiovascular: Denies chest pain, Denies syncope, Denies pedal edema, Denies leg edema, Denies palpitations, Denies dyspnea, Denies dyspnea on exertion and Denies orthopnea Respiratory: Respiratory: Denies cough, Denies dyspnea, Denies dyspnea on exertion and Denies wheezing Gastrointestinal: Gastrointestinal: Denies abdominal pain, Denies diarrhea, Denies nausea and Denies vomiting Genitourinary: Genitourinary: Denies hematuria, Denies genital lesions and Denies dysuria Musculoskeletal: Musculoskeletal: Denies arthralgias, Denies joint swelling, Denies numbness and Reports other (Back pain) Integumentary/Breasts: Skin/Breast: Denies pruritus and Denies rash Neurologic: Denies dizziness, Denies syncope, Denies loss of vision and Denies numbness Psychiatric: Psychiatric: Denies anxiety and Denies depression Endocrine: Endocrine: Denies cold intolerance, Denies heat intolerance and Denies palpitations Hematologic/Lymphatic: Hematologic/Lymphatic: Denies easy bleeding and Denies easy bruising Allergic/Immunologic: Allergic/Immunologic: Denies urticaria and Denies wheezing PMFSH Past Medical History Medical History Cholecystectomy planned Gout Hypertension Family History Family History Father Hypertension Cerebrovascular accident Mother Hypertension Other Diabetes mellitus Social History Social History Smoking status: Never smoker Additional smoking
--- NOTE | 2021-01-14 12:45 | PM.IMHP ---
H&P: HPI History of Present Illness Date/Time: 01/14/21 12:45 Chief Complaint: Positive blood cultures. Narrative: This is a 65-year-old male with hypertension, gout, anxiety, and daily alcohol consumption who presented to the emergency department earlier today via private vehicle from home with reports of positive blood cultures that were obtained yesterday morning. He was scheduled for a left knee replacement yesterday however that was postponed as he has not been feeling well since the weekend. In fact he was seen in the emergency department in the engraver machine hours on 01/13/21 with complaints of pretty significant body aches and low back pain which he attributed to pushing his riding lawnmower up a hill after it . He was febrile with a temperature up to 101.7? but no obvious source of infection was found. He received 3 liters of normal saline due to a slight increase in his lactic acid, and he was sent home with Levaquin for possible sinusitis due to reports of congestion related to seasonal allergies. Today he received a phone call that his blood cultures were positive and he was directed to the emergency department. He was found to be in atrial fibrillation which is a new diagnosis for him. His sodium level was also moderately low, down 12 from labs drawn on 12/31/2020. At the time my evaluation he seems slightly disoriented and he was holding his IV catheter in his hand when I walked into the room; he was not able to tell me why he pulled out. He does admit to drinking approximately 6 beers every night and his last drink was about 3 days ago as he was told he had to stop drinking prior to his surgery. He denies ever having signs or symptoms of alcohol withdrawal. He currently denies headache, sweats, nausea, vomiting, diarrhea, dysuria, and hallucinations. He reports that his body aches and low back pain have significantly improved. No saddle anesthesia, paresthesias, or incontinence. He has no open wounds or injuries. Review of Systems Review of Systems: Narrative: Twelve systems were reviewed with pertinent positives and negatives as per HPI. He has seasonal rhinitis which has been pretty bad last couple of weeks due to the change in season. No anosmia or dysgeusia. He denies otalgia and odynophagia. He has not been exposed to COVID 19 to his knowledge and received both shots in the vaccine series a couple of months ago. Appetite has been a bit diminished but he denies nausea and vomiting. No dysuria. Except as documented, all other systems were reviewed and are negative. [facility] Past Medical History Medical History Alcohol abuse Anxiety Gout Hypertension Osteoarthritis Wrists, knees. Surgical History Surgical History (Updated 01/14/21 @ 13:00 by Asha Pedersen PA-C) History of basal cell carcinoma excision Removed from the chest, arm, shoulder. History of cholecystectomy History of tonsillectomy Family History Family History Father Hypertension Cerebrovascular accident Mother Hypertension Other Diabetes mellitus Social History Social History Social History: Surrogate decision maker: Brenda Bailey, spouse. Code status: Full code. Smoking status: Never smoker Alcohol intake: current Drinks per week: 35 Substance use: never Substance use type: marijuana Additional living arrangements comments: Lives in [place] with his . 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 Gender identity (if verbalized by the patient): Male Spiritual care concerns: No Meds Home Medications and Allergies Home Medications Medication Instructions Recorded Confirmed Type allopurinol 100 mg PO QAM 12/31/20 12/31/20 History cholecalciferol (vitamin D3) 25 mcg PO DAILY 12/31/20 0
--- NOTE | 2021-01-14 13:02 | WPDINFPN2 ---
Progress Note: A&P Assessment and Plan (1) Bacteremia: Code(s): R78.81 - Bacteremia Status: Acute Assessment and Plan: s aureus bacteremia REC Vanc and Ancef, TTE, LS spine MRI if deteriorates Subjective Date/time seen: 01/14/21 13:02 Objective Data Vital Signs Vital Signs: Vital Signs - 24 hr 01/14/21 06:43 01/14/21 06:48 01/14/21 07:28 Temperature 38.7 C H 38.7 C H Pulse Rate 125 H 121 H 111 H Respiratory Rate 24 H 32 H 31 H Blood Pressure 159/94 H 159/94 H 146/81 H Pulse Oximetry 94 96 94 01/14/21 08:43 01/14/21 09:35 01/14/21 10:57 Temperature 37.6 C H Pulse Rate 98 88 Respiratory Rate 17 18 Blood Pressure 132/85 132/84 Pulse Oximetry 100 99 01/14/21 12:00 Temperature 36.6 C Pulse Rate 86 Respiratory Rate 12 Blood Pressure 136/92 H Pulse Oximetry 97 Intake/Output Intake/Output: Intake & Output 01/11/21 01/12/21 01/13/21 01/14/21 23:59 23:59 23:59 23:59 Intake Total 1400 Balance 1400 Meds/Results Medications: Active Medications Generic Name Dose Route Start Last Admin Trade Name Freq PRN Reason Stop Dose Admin Vancomycin HCl 1,250 mg in 250 mls @ 200 mls/hr 01/14/21 21:00 Vancomycin 1,250 Mg/D5w 250 Ml IVPB Q12H APRYL Acetaminophen 1,000 mg in 100 mls @ 400 mls/hr 01/14/21 09:24 Ofirmev 1,000 Mg Ivpb IVPB 01/15/21 09:25 Q6H PRN Mild Pain (1-3) or Fever Sodium Chloride 1,000 mls @ 125 mls/hr 01/14/21 09:25 Normal Saline Iv IV CONT .Q8H APRYL Cefazolin Sodium 1 gm in 50 mls @ 100 mls/hr 01/14/21 13:05 Ancef 1 Gm/D5w 50 Ml Pm IVPB Q8H APRYL Metoprolol Tartrate 25 mg 01/14/21 12:00 Metoprolol Tartrate 25 Mg Tablet PO Q12HR APRYL Radiology Results: ITS Impressions Chest CTA 01/14/21 08:39 IMPRESSION: 1. No pulmonary emboli. 2. Trace right pleural effusion. 3. Minimal dependent atelectasis. Lumbar Spine CT 01/14/21 08:45 IMPRESSION: 1. No acute lumbar findings. 2. L5-S1 grade 1 anterolisthesis, bilateral spondylolysis, moderate to severe disc disease and right neural foraminal stenosis. 3. Less spondylosis other levels. Labs Labs: Laboratory Results - last 24 hr 01/14/21 01/14/21 01/14/21 07:15 07:16 07:16 WBC 7.3 RBC 4.30 L Hgb 13.9 L Hct 39.0 L MCV 90.7 MCH 32.3 MCHC 35.6 RDW 11.4 L Plt Count 74 L MPV 10.2 Immature Gran % (Auto) Not Reportable Neut % (Auto) Not Reportable Lymph % (Auto) Not Reportable [place] % (Auto) Not Reportable Eos % (Auto) Not Reportable Baso % (Auto) Not Reportable Lymph # (Auto) Not Reportable [place] # (Auto) Not Reportable Eos # (Auto) Not Reportable Baso # (Auto) Not Reportable Abs Immat Gran (auto) Not Reportable Absolute Neuts (auto) Not Reportable Absolute Nucleated RBC Not Reportable Total Counted 100 Neutrophils % (Manual) 92 H Lymphocytes % (Manual) 4.0 L Monocytes % (Manual) 4 Nucleated RBC % Not Reportable Abs Lymphs (Manual) 0.29 L Abs Monocytes (Manual) 0.29 Platelet Estimate Decreased Giant Platelets Present % Immature Plt Fraction 5.1 PT 17.4 H INR 1.4 APTT 39.8 H D-Dimer 7.40 H Puncture Site ABG pH ABG pCO2 ABG pO2 ABG PO2/FiO2 Ratio ABG HCO3 ABG O2 Saturation ABG O2 Content ABG Base Excess A-a Gradient Oxyhemoglobin Carboxyhemoglobin Methemoglobin Reduced Hemoglobin Total Hemoglobin O2 Delivery Device O2 Liters/Min FiO2 Sodium Potassium Chloride Carbon Dioxide Anion Gap BUN Creatinine Estim Creat Clear Calc Estimated GFR Glucose POC Capillary Glucose Lactic Acid Calcium Total Bilirubin AST ALT Alkaline Phosphatase C-Reactive Protein Total Protein Albumin Urine Color Urine Appearance Urine pH Ur Specific [place] Urine Protein Urine
[2021-01-14] MEDS: METOPROLOL TARTRATE 25 MG TABLET PO ×2 (13:14→20:37)
[2021-01-14 14:04] LABS: Sodium 129 mmol/L (137-145)
[2021-01-14 14:07] LABS: Magnesium 1.5 mg/dL (1.6-2.3)
[2021-01-14 14:13] LABS: Hemoglobin A1C 5.1 % (<5.7)
[2021-01-14 14:28] LABS: Creatinine Urine 16.5 mg/dL; Sodium Urine Random 17 meq/L
[2021-01-14 14:42] LABS: Hepatitis B Surface Antigen Negative (Negative)
[2021-01-14 14:48] LABS: HAV RESULT Negative (Negative); Hepatitis B Core IgM Result Negative (Negative)
[2021-01-14 15:00] LABS: Hepatitis C Virus Antibody Negative (Negative)
[2021-01-14] MEDS: allopurinoL 100 MG TABLET PO (15:44)
[2021-01-14] MEDS: CHOLECALCIFEROL 1,000 UNITS TABLET 1000 UNITS PO (15:44)
[2021-01-14] MEDS: lisinopriL 20 MG TABLET PO (15:45)
[2021-01-14] MEDS: THIAMINE HCL 200 MG/2 ML VIAL 100 MG IV PUSH (15:45)
[2021-01-14] MEDS: LORATADINE 10 MG TABLET PO (15:45)
[2021-01-14] MEDS: HYDROcodone/acetaminophen (*CRX) 5-325 MG TABLET 1 TAB PO (17:13)
[2021-01-14] MEDS: MAGNESIUM SULF 2 GM/WATER 50ML 2 GM/50 ML BAG IVPB (17:23)
[2021-01-14 18:17] LABS: Sodium 126 mmol/L (137-145)
[2021-01-14 22:22] LABS: Anion Gap 2 mmol/L (8-16); Blood Urea Nitrogen 15 mg/dL (9-20); Calcium 8.4 mg/dL (8.4-10.2); Carbon Dioxide 31 mmol/L (22-30); Chloride 90 mmol/L (98-107); Estimated CRCL calculation 94 ml/min; Estimated Glomerular Filt Rate > 60; Glucose 148 mg/dL (75-110); Potassium 3.2 mmol/L (3.4-5.0); Sodium 123 mmol/L (137-145)
[2021-01-14] MEDS: chlordiazePOXIDE (*CRX) 25 MG CAPSULE PO (23:57)
[2021-01-14] MEDS: SODIUM CHLORIDE 0.9% IV 1,000 ML 100 ML IV CONT (23:57)
[2021-01-14] MEDS: LORazepam INJ (*CRX) 2 MG/ML VIAL IV PUSH (23:57)
[2021-01-15] VITALS (39 sets, daily range): BP systolic 65–175; BP diastolic 46–119; PULSE 56–131; RESP 16–44; TEMP 36.2–39.5; O2SAT 84–100
[2021-01-15] MEDS: HALOPERIDOL LACTATE 5 MG/ML VIAL 10 MG IM (01:38)
[2021-01-15 01:49] LABS: Sodium 125 mmol/L (137-145)
[2021-01-15] MEDS: LORazepam INJ (*CRX) 2 MG/ML VIAL IV PUSH ×3 (03:03→09:39)
--- NOTE | 2021-01-15 06:18 | PM.EVENT ---
Event Note Event Note Event Note: Nursing staff called to notify me that the patient had a CIWA score of 23. Patient reported having visual hallucinations of bugs on the ceiling. He was also reporting that the nursing staff had dropped his pills into the water pitcher in that he could see his pills sitting at the bottom other water pitcher. The patient was restless and unable to remain in bed. He was moderately tremulous. The patient told nursing staff that this is usually how he gets when he cannot drink alcohol. Subsequently Librium was ordered. The patient already had an order for Ativan 1 mg q.3 hours p.r.n. for CIWA scores greater than 8. However the and 1 time order of Ativan 2 mg IV was ordered. Nursing staff initially reported to me that the patient did not improve with Ativan and seemed to be more agitated. A 1 time order for IM Haldol was given. However, on repeat discussion nursing staff actually stated that the patient did improve for approximately 30 minutes but then became progressively worse. As the patient at the time of my evaluation was having mumbling nonsensical speech. He was unable to follow commands and was restless. He was mildly diaphoretic. He was unable to answer orientation questions. He was tremulous at rest. His CIWA score was again 22 or 23. The patient was given additional 2 mg of IV Ativan and was mildly improved in his level of agitation but his CIWA score remained at 21. I initially gave orders to increase the patient's Librium up to 50 mg p.o. q.6 hours but given the patient's altered mental status I am unsure if he can safely take oral medications. Instead the patient Ativan has been increased to 2 mg of Ativan to 2 hours. Will monitor the patient's condition closely. If he becomes more agitated or worsening symptoms of withdrawal he may benefit from transfer to the ICU for Precedex drip. 40 minutes was spent in critical care activities including multiple reassessments the patient's condition. This case had a high probability of a clinically significant, sudden, or life threatening deterioration of this patient's condition which required my full and direct attention, intervention and personal management.
--- NOTE | 2021-01-15 06:33 | CONS_ITS ---
DATE OF CONSULTATION: 01/14/2021 REASON FOR CONSULTATION: Staph aureus bacteremia. HISTORY OF PRESENT ILLNESS: I was not notified of this consult until approximately 45 minutes ago. The patient was in his usual state of health until about a day and a half before the present admission when he developed lumbosacral back pain both central and bilaterally with radiation to the bilateral hips. 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 No sweats. He presented to the emergency room, was given levofloxacin and an oral prescription to take home with him, also analgesics and muscle relaxers. Fever became worse early this morning and he presented back to the emergency room. He also was called with positive blood cultures. He has had no recent antibiotics. Otherwise, no new chest pain, cough, dyspnea, abdominal HISTORY OF PRESENT ILLNESS: The patient denies prior bloodstream infection. He has multiple skin trauma due to yard work and housework. He has arthralgias in his wrists and hands as well, more long-term. He has no prosthetic devices in place. ALLERGIES: NONE KNOWN. PRESENT MEDICATIONS: No immunosuppressants systemically. HABITS: No tobacco. Uses marijuana. Alcohol to excess. PAST MEDICAL HISTORY: Skin lesion, left posterior calf, seen by Dr. Marie and no intervention is planned. He has had previous basal cell carcinoma, cholecystectomy, anxiety, gout, hypertension. He reports his left knee is [id number]. FAMILY HISTORY: Not pertinent to his present illness. SOCIAL HISTORY: He is . Works. Lives locally. REVIEW OF SYSTEMS: 14-point review otherwise negative. PHYSICAL EXAMINATION: GENERAL: Middle-aged male, appears his actual age. No acute distress. VITAL SIGNS: On the , his T-max up to 39.6, and he was afebrile by the time of discharge. On return early this morning, temperature 38.7, 86, 12, 136/92. SKIN: Warm and dry. He has multiple abrasions. No cellulitis. EENT: The conjunctivae are normal. Pupils equal, round. The oropharynx, oral mucosa normal. Teeth in good repair. NECK: No masses or meningismus. LUNGS: Clear to auscultation and percussion. BACK: Tender in the sacral region. There is no cellulitis. No sinus tracts. CARDIAC: Regular rate and rhythm. No murmur, gallop, or rub. Pulses are 2+. ABDOMEN: Nontender, soft. No organomegaly. No masses. EXTREMITIES: No clubbing, cyanosis, or edema. MUSCULOSKELETAL: He has no joint effusions on the left. Good range of motion. No erythema. LABORATORY DATA: Blood cultures from first emergency room visit, Staph aureus, susceptibilities pending. Repeat blood cultures done. White count normal, hemoglobin 13.9, platelets are 74,000 down from 246,000 two weeks ago. Differential showed a left shift. Blood gases 7.49, 31, 66, 95% on room air. He has hyponatremia. BUN 16, creatinine 0.7, glucose 186. His hemoglobin A1c on 12/31 was 4.9%. Transaminases twice normal. CRP 31. Urinalysis, multiple abnormalities not suggestive of infection. RADIOLOGY: Lumbar spine CT, chronic skeletal abnormalities. No evidence of infection. CT of the chest, atelectasis and tiny pleural effusion. CT of the abdomen and pelvis yesterday, adrenal adenomas, prostatomegaly, diverticulosis. Chest x-ray normal. ASSESSMENT: 1. Fever, back pain, and myalgias due to Staph aureus bacteremia. Suspect cutaneous source. Less likely endocarditis, other endovascular infection, lower respiratory tract infection, bone and joint. Other causes of his fever are unlikely including coronavirus infection. 2. Degenerative joint disease, left knee, not infected by symptoms nor exam. 3. Alcohol to excess. RECOMMENDATIO
[2021-01-15 06:40] LABS: Hematocrit 36.3 % (42.0-52.0); Hemoglobin 13.1 g/dL (14.0-18.0); Immature Platelet Fraction Pct 5.7 % (0.9-11.2); Mean Corpuscular HGB Conc 36.1 g/dl (32-36); Mean Corpuscular Hemoglobin 32.8 pg (26-34); Mean Corpuscular Volume 90.8 fl (80-100); Mean Platelet Volume 10.2 fl (7.4-10.4); Platelet Count Result 72 k/mm3 (150-375); Red Cell Distribution Width 11.4 % (11.5-14.5); White Blood Count 7.2 K/mm3 (4.5-10.0)
[2021-01-15 06:49] LABS: Alanine Aminotransferase 59 U/L (4-50); Albumin Level 3.5 g/dL (3.5-5.1); Alkaline Phosphatase 77 U/L (38-126); Anion Gap 5 mmol/L (8-16); Aspartate Amino Transferase 77 U/L (17-59); Bilirubin,Total 0.8 mg/dL (0.2-1.3); Blood Urea Nitrogen 14 mg/dL (9-20); Calcium 8.1 mg/dL (8.4-10.2); Carbon Dioxide 29 mmol/L (22-30); Chloride 92 mmol/L (98-107); Estimated CRCL calculation 74 ml/min; Estimated Glomerular Filt Rate > 60; Glucose 124 mg/dL (75-110); Magnesium 1.6 mg/dL (1.6-2.3); Partial Thromboplastin Time 39.9 SECONDS (22.3-36.8); Potassium 3.3 mmol/L (3.4-5.0); Sodium 126 mmol/L (137-145)
[2021-01-15 06:55] LABS: INR 1.1; Prothrombin Time 15.1 Seconds (11.1-14.7)
[2021-01-15] MEDS: METOPROLOL TARTRATE INJ 5 MG/5 ML VIAL IV PUSH ×2 (08:59→21:03)
--- NOTE | 2021-01-15 09:03 | PM.IMPN ---
Progress Note: A&P Assessment and Plan (1) Septicemia: Code(s): A41.9 - Sepsis, unspecified organism Status: Acute Assessment and Plan: Present on admission and supported by fever, tachycardia, and tachypnea in the setting of bacteremia. Lactic acid level was elevated in the ED on 01/13 for which he received 3 liters normal saline. Lactic acid today was improved. / blood cultures positive for Staphylococcus aureus in both aerobic and anaerobic bottles. He returned to the ED and BCx repeated. He received 1 dose of cefepime and vancomycin the emergency department on 01/14/2021. Dr. Sorensen was consulted and his input is appreciated. He recommends vancomycin and Ancef day #2. Consider TTE and lumbar MRI if deteriorates. Surface Echo does not show any vegetations. Lumbar CT showing no acute findings. BCx growing ENRIKE so Vanco stopped; Repeat BCx have also returned positive. Source unclear but possibly skin. Contineu abx. (2) Alcohol withdrawal delirium: Code(s): F10.231 - Alcohol dependence with withdrawal delirium Status: Acute Assessment and Plan: Patient A&O x4 initially but seemed a bit confused. He developed acute delirium from alcohol withdrawal. Doubt meningitis. Not controlled with Ativan. He micheal be moved to the ICU for Precedex. Consider CT brain once stable. Discussed with director of social media marketing. updated. Critical care time spent 42 minutes. (3) Tachyarrhythmia: Code(s): R00.0 - Tachycardia, unspecified Status: Acute Assessment and Plan: EKG consistent with MAT. Rhythm strips also consistent with MAT. Do not see any evidence of AFib. Oral metoprolol started but was stopped since patient is NPO. Echo with EF 55-60% with normal diastolic dysfunction and mild pulm HTN. TSH normal. Will change to IV Lopressor. Discussed with cardiology. 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 (4) Hyponatremia: Code(s): E87.1 - Hypo-osmolality and hyponatremia Status: Acute Assessment and Plan: Sodium was 135 on 12/31/2020 but down to 129 on 01/13. Probably multifactorial from his Celexa, HCTZ, beer potanemia and/or dehydration. Jesús low at 17. He received appropriate IV fluids in the ED. Na dropped to 123 but better today at 126. Monitor closely. Continue IV fluids (5) Hypertension: Code(s): I10 - Essential (primary) hypertension Status: Inactive Assessment and Plan: Blood pressures were reviewed on 01/15. BP elevated related to his withdrawal symptoms. Lisinopril and HCTZ on hold. Monitor. (6) Elevated LFTs: Code(s): R79.89 - Other specified abnormal findings of blood chemistry Status: Acute Assessment and Plan: Likely due to longstanding alcohol abuse as his coags are slightly prolonged and platelets are moderately decreased. RUQ showing normal right upper quadrant ultrasound status post cholecystectomy. Hepatitis panel negative. Suspect alcoholic hepatitis. (7) Alcoholism: Code(s): F10.20 - Alcohol dependence, uncomplicated Status: Acute Assessment and Plan: present who states patient only drinks beer and can drink 12-18 beers per day. Continue Folate and Thiamine IV. As above. Will provide information about AA when he is more awake and alert (8) Thrombocytopenia: Code(s): D69.6 - Thrombocytopenia, unspecified Status: Acute Assessment and Plan: Plt count was normal earlier this month but 144K on his first ED visit and now 72K. Suspect related to the toxic effects of the alcohol. Could be sequestered if he has enlarged spleen or from the septicemia. Follow. (9) Anxiety: Code(s): F41.9 - Anxiety disorder, unspecified Status: Inactive Assessment and Plan: As above. Citalopram currently on hold given hyponatremia and his clinical condition. (10) Gout: Code(s): M10.9 - Gout, unspecified Status
[2021-01-15 09:06] LABS: Alveolar/Arterial O2 Gradient 157.3 mmHg; Base Excess ABG 2.2 mEq/l (+/-2.0); Device NASAL CANNULA; Fractional Inspired Oxygen 36 %; HCO3 ABG 24.8 mEq/l (22.0-26.0); Oxygen Content ABG 17.4 %vol (16.0-22.0); Oxygen Saturation ABG 93.9 % (95.0-100.0); Oxyhemoglobin 92.4 % THb (90.0-100.0); PCO2 ABG 32.2 mmHg (35.0-45.0); PO2 FiO2 Ratio Arterial Blood 1.72 %; Site Drawn LEFT BRACHIAL; Total Hemoglobin 13.4 g/dL (12.0-18.0)
[2021-01-15 09:07] LABS: pH ABG 7.504 (7.350-7.450)
[2021-01-15 10:17] LABS: Sodium 126 mmol/L (137-145)
--- NOTE | 2021-01-15 10:35 | PM.PNCARD ---
Progress Note: A&P Additional Plan 65-year-old man with: Multifocal atrial tachycardia in the setting of ethanol withdrawal/delirium tremens. I do not believe the patient has atrial fibrillation. For the time being I will leave him on a low dose of metoprolol that was started yesterday. This probably does not have to be continued once his state of sympathetic tone settles down. Will follow with you peripherally at this does not appear to be primarily a cardiac matter however. Nic Gregorio MD [facility] Subjective Date/time seen: Date of service: 01/15/21 10:35 Interval history: Follow-up visit in this 65-year-old man with: Concern regarding atrial fibrillation with rapid ventricular response. Personal review of the patient's electrocardiogram strip that are on the chart appears more likely the patient has multifocal atrial tachycardia than zee atrial fibrillation. Since yesterday patient has developed zee delirium tremens related to ethanol withdrawal. He remains on low-dose of metoprolol. Discussion with the patient's in the room regarding the cardiac rhythm and that I do not do not believe he has atrial fibrillation which is obviously very favorable new since he does not have to be anticoagulated. Exam Const: Other: Incoherent 65-year-old man Obtunded in zee delirium tremens Eyes: Sclera: sclerae normal Neck: Neck: supple Cardio: Rate: tachycardic Rhythm: abnormal rhythm irregularly irregular GI: GI Palp: Yes Soft to palpation Neuro: Other: Incoherent patient and delirium tremens Extrem: General: normal to inspection Objective Data Vital Signs Vital Signs: Vital Signs - 24 hr 01/14/21 10:57 01/14/21 12:00 01/14/21 13:14 Temperature 36.6 C Pulse Rate 88 86 91 Respiratory Rate 18 12 Blood Pressure 132/84 136/92 H Pulse Oximetry 99 97 01/14/21 14:00 01/14/21 16:00 01/14/21 18:00 Temperature 37.3 C Pulse Rate 86 93 98 Respiratory Rate 12 Blood Pressure 122/74 Pulse Oximetry 94 01/14/21 19:44 01/14/21 19:53 01/14/21 20:00 Temperature 37.3 C Pulse Rate 98 98 Respiratory Rate 16 16 Blood Pressure 117/75 117/75 Pulse Oximetry 94 97 94 01/14/21 20:37 01/14/21 22:00 01/15/21 00:00 Temperature 36.2 C L Pulse Rate 109 H 109 H 111 H Respiratory Rate 22 H Blood Pressure 145/73 H Pulse Oximetry 92 01/15/21 02:00 01/15/21 03:00 01/15/21 03:15 Temperature Pulse Rate 114 H Respiratory Rate Blood Pressure 169/96 H 154/72 H Pulse Oximetry 01/15/21 03:40 01/15/21 05:27 01/15/21 05:46 Temperature 36.6 C Pulse Rate 114 H 122 H Respiratory Rate 22 H Blood Pressure 154/72 H 158/76 H Pulse Oximetry 94 01/15/21 05:50 01/15/21 08:00 01/15/21 09:16 Temperature 37.6 C H Pulse Rate 128 H Respiratory Rate 36 H Blood Pressure 158/76 H 167/118 H Pulse Oximetry 84 L 94 Intake/Output Intake/Output: Intake & Output 01/12/21 01/13/21 01/14/21 01/15/21 23:59 23:59 23:59 23:59 Intake Total 2090 450 Output Total 300 550 Balance 1790 -100 Meds/Results Medications: Active Medications Generic Name Dose Route Start Last Admin Trade Name Freq PRN Reason Stop Dose Admin Hydrocodone Bitart/Acetaminophen 1 tab 01/14/21 13:52 01/14/21 17:13 Hydrocodone/Acetaminophen (*Crx) 5-325 Mg Tablet PO 1 tab Q6H PRN Administration pain Allopurinol 100 mg 01/14/21 09:00 01/15/21 10:30 Allopurinol 100 Mg Tablet PO Not Given QAM APRYL Folic Acid 1 mg 01/16/21 09:00 Folic Acid 1 Mg/0.2 Ml Inj IV PUSH QAM APRYL Vancomycin HCl 1,250 mg in 250 mls @ 200 mls/hr 01/14/21 21:00 01/14/21 20:40 Vancomycin 1,250 Mg/D5w 250 Ml IVPB Infused Q12H APRYL Infusion Sodium Chloride 1,000 mls @ 125 mls/hr 01/14/21 09:25 01/14/21 20:06 Normal Saline Iv IV CONT Not Given .Q8H APRYL Cefazolin Sodium 1 gm in 50 mls @ 100 mls/hr 01/14/21 14:00 01/15/21 06:00 Ancef 1 Gm/D5w 50 Ml Pm
[2021-01-15] MEDS: FOLIC ACID 1 MG/0.2 ML INJ IV PUSH (10:36)
[2021-01-15] MEDS: THIAMINE HCL 200 MG/2 ML VIAL 100 MG IV PUSH (10:37)
[2021-01-15] MEDS: SODIUM CHLORIDE 0.9% IV 1,000 ML 100 ML IV CONT ×2 (10:38→21:01)
[2021-01-15] MEDS: dexmedeTOMIDine 400 MCG/100 ML 400 MCG/100 ML BAG 21.65 MCG IV CONT (11:34)
--- NOTE | 2021-01-15 11:42 | WPDCNINT ---
Assessment and Plan Assessment and plan (1) Bacteremia: Code(s): R78.81 - Bacteremia Status: Acute Assessment and Plan: Patient Staph aureus bacteremia -infectious disease following the patient, continue vancomycin Ancef -echocardiogram 01/14/2021: Showed normal LV size with moderate concentric hypertrophy and good systolic function, EF 55-60%. Normal diastolic dysfunction. Left atrium moderately enlarged, mild pulmonary hypertension with RVSP of 39 mmHg, no vegetations seen. -repeat blood cultures also positive for gram-positive cocci 2/2 bottles (2) Sepsis: Code(s): A41.9 - Sepsis, unspecified organism Status: Acute Assessment and Plan: Sepsis due staph bacteremia -patient tachycardic tachypneic which also be secondary to alcohol withdrawal -patient is febrile, Tylenol has been ordered -continue antibiotics as above (3) Tachyarrhythmia: Code(s): R00.0 - Tachycardia, unspecified Status: Acute Assessment and Plan: Tachyarrhythmias likely related to her adrenergic surge secondary to sepsis, alcohol withdrawal -EKG showed multifocal atrial tachycardia, cardiology following the patient -continue metoprolol (4) Thrombocytopenia: Code(s): D69.6 - Thrombocytopenia, unspecified Status: Acute Assessment and Plan: Thrombocytopenia likely related to sepsis and/or chronic alcohol abuse -no obvious bleeding noted, will continue to monitor platelet level (5) Alcoholism: Code(s): F10.20 - Alcohol dependence, uncomplicated Status: Acute Assessment and Plan: Patient is a chronic alcoholic, has not been drinking 2-3 days prior to admission as he was not feeling too well -currently no alcohol withdrawal with possible delirium tremens, received multiple doses of Ativan and Haldol -patient transferred to ICU and started on Precedex infusion -continue thiamine, folic acid Additional Plan Discuss with patient's at bedside and updated her with patient's condition, plan of care. I answered all questions regarding the staph bacteremia, updated her with results of the echocardiogram and the right upper quadrant ultrasound. Code status: Full code Critical care time spent: 49 minutes This dictation may have been done utilizing a voice recognition system. Attempts have been made to correct errors. However, there may be uncorrected grammatical, spelling, and recognition errors present. Due to a high probability of clinically significant, life threatening deterioration, the patient required my highest level of preparedness to intervene emergently and I personally spent this critical care time directly and personally managing the patient. This critical care time included obtaining a history; examining the patient; pulse oximetry; ordering and review of studies; arranging urgent treatment with development of a management plan; evaluation of patient's response to treatment; frequent reassessment; and discussions with other providers. It was exclusive of separately billable procedures and treating other patients and teaching time. 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 He denies any leg weakness, numbness, tingling, cough, chest pain, abdominal pain, E urea bowel incontinence. Patient was tachycardic and tachypn
[2021-01-15] MEDS: MAGNESIUM SULF 2 GM/WATER 50ML 2 GM/50 ML BAG IVPB (11:44)
[2021-01-15] MEDS: SODIUM CHLORIDE 0.9% IV 1,000 ML 999 ML (14:19)
[2021-01-15 14:42] LABS: Sodium 126 mmol/L (137-145)
--- NOTE | 2021-01-15 14:59 | WPDINFPN2 ---
Progress Note: A&P Assessment and Plan (1) Bacteremia: Code(s): R78.81 - Bacteremia Status: Acute Assessment and Plan: 1. ENRIKE bacteremia with infection, skin source likely, still + 2. Alcoholism 3. Hypotension, possibly due to septic shock REC Stop Vanc and adjsut Ancef dosing. Await TTE. Redo BCs. Subjective Date/time seen: 01/15/21 14:59 Interval history: Lightly sedated. Exam Narrative: Exam Narrative: t max 39.5 Const: General: no acute distress Other: appears ill Eyes: General: appearance normal, both eyes and all related structures Resp: Effort & Inspection: normal respiratory effort Auscultation: clear to auscultation bilaterally Cardio: Rate: bradycardic Rhythm: regular rhythm Heart sounds: no gallops and no murmurs GI: Inspection: non-distended GI Palp: Yes Soft to palpation, No Tenderness to palpation present (GI) and No Guarding due to palpation present (GI) Skin: General skin exam: normal color and no rashes or lesions noted Objective Data Vital Signs Vital Signs: Vital Signs - 24 hr 01/14/21 16:00 01/14/21 18:00 01/14/21 19:44 Temperature 37.3 C 37.3 C Pulse Rate 93 98 98 Pulse Rate [Bilateral Monitor] Respiratory Rate 12 16 Blood Pressure 122/74 117/75 Pulse Oximetry 94 94 01/14/21 19:53 01/14/21 20:00 01/14/21 20:37 Temperature Pulse Rate 98 109 H Pulse Rate [Bilateral Monitor] Respiratory Rate 16 Blood Pressure 117/75 Pulse Oximetry 97 94 01/14/21 22:00 01/15/21 00:00 01/15/21 02:00 Temperature 36.2 C L Pulse Rate 109 H 111 H 114 H Pulse Rate [Bilateral Monitor] Respiratory Rate 22 H Blood Pressure 145/73 H Pulse Oximetry 92 01/15/21 03:00 01/15/21 03:15 01/15/21 03:40 Temperature 36.6 C Pulse Rate 114 H Pulse Rate [Bilateral Monitor] Respiratory Rate 22 H Blood Pressure 169/96 H 154/72 H 154/72 H Pulse Oximetry 94 01/15/21 05:27 01/15/21 05:46 01/15/21 05:50 Temperature Pulse Rate 122 H Pulse Rate [Bilateral Monitor] Respiratory Rate Blood Pressure 158/76 H 158/76 H Pulse Oximetry 01/15/21 08:00 01/15/21 09:16 01/15/21 10:00 Temperature 37.6 C H Pulse Rate 131 H 122 H Pulse Rate [Bilateral Monitor] Respiratory Rate 36 H Blood Pressure 167/118 H Pulse Oximetry 92 94 01/15/21 11:34 01/15/21 11:46 01/15/21 11:47 Temperature 39.5 C H Pulse Rate 126 H 120 H 130 H Pulse Rate [Bilateral Monitor] Respiratory Rate 44 H 30 H 41 H Blood Pressure 175/119 H Pulse Oximetry 93 01/15/21 11:54 01/15/21 11:56 01/15/21 12:00 Temperature 39.5 C H Pulse Rate 121 H 101 H Pulse Rate [Bilateral Monitor] 129 H Respiratory Rate 35 H Blood Pressure Pulse Oximetry 92 01/15/21 12:26 01/15/21 12:32 01/15/21 13:01 Temperature 38.9 C H Pulse Rate 97 72 Pulse Rate [Bilateral Monitor] Respiratory Rate 29 H 30 H Blood Pressure Pulse Oximetry 01/15/21 13:16 01/15/21 13:25 01/15/21 13:29 Temperature Pulse Rate 67 62 61 Pulse Rate [Bilateral Monitor] Respiratory Rate 23 H 29 H Blood Pressure Pulse Oximetry 01/15/21 13:31 01/15/21 14:00 01/15/21 14:17 Temperature 37.4 C Pulse Rate 62 66 56 L Pulse Rate [Bilateral Monitor] Respiratory Rate 28 H 24 H 29 H Blood Pressure 66/48 L 65/46 L Pulse Oximetry 100 98 01/15/21 14:30 Temperature Pulse Rate Pulse Rate [Bilateral Monitor] Respiratory Rate Blood Pressure 77/66 L Pulse Oximetry Intake/Output Intake/Output: Intake & Output 01/12/21 01/13/21 01/14/21 01/15/21 23:59 23:59 23:59 23:59 Intake Total 0 2160 Output Total 300 550 Balance 1790 1610 Meds/Results Medications: Active Medications Generic Name Dose Route Start Last Admin Trade Name Freq PRN Reason Stop Dose Admin Allopurinol 100 mg 01/14/21 09:00 01/15/21 10:30 Allopurinol 100 Mg Tablet PO Not Given QAM [facility] Folic Acid 1 mg 01/16/21 09:00
[2021-01-15 18:18] LABS: Sodium 126 mmol/L (137-145)
[2021-01-15] MEDS: ceFAZolin 2 GM/D5W 50 ML 2 GM/50 ML BAG IVPB (21:04)
[2021-01-15] MEDS: dexmedeTOMIDine 400 MCG/100 ML 400 MCG/100 ML BAG 6.5 MCG IV CONT (22:09)
[2021-01-16] VITALS (34 sets, daily range): BP systolic 101–147; BP diastolic 63–109; PULSE 64–101; RESP 17–32; TEMP 36.4–38.5; O2SAT 90–97
[2021-01-16] MEDS: dexmedeTOMIDine 400 MCG/100 ML 400 MCG/100 ML BAG 28.15 MCG IV CONT ×2 (03:38→06:57)
[2021-01-16] MEDS: METOPROLOL TARTRATE INJ 5 MG/5 ML VIAL IV PUSH (04:10)
[2021-01-16 05:09] LABS: Basophils Percent Auto 0.2 % (0.2-1.2); Eosinophils Percent Auto 0.2 % (0-4.4); Hemoglobin 10.7 g/dL (14.0-18.0); Immature Granulocyte Absolute 0.03 K/mm3 (0.00-0.031); Immature Granulocyte Percent A 0.6 % (0-0.5); Immature Platelet Fraction Pct 9.8 % (0.9-11.2); Lymphocytes Absolute Auto 0.55 K/mm3 (0.9-3.2); Lymphocytes Percent Auto 11.9 % (18.3-44.2); Mean Corpuscular HGB Conc 35.7 g/dl (32-36); Mean Corpuscular Hemoglobin 32.2 pg (26-34); Mean Corpuscular Volume 90.4 fl (80-100); Mean Platelet Volume 11.1 fl (7.4-10.4); Monocytes Absolute Auto 0.5 K/mm3 (0.1-0.6); Monocytes Percent Auto 9.9 % (2.6-8.5); Neutrophils Absolute Auto 3.6 K/mm3 (1.3-6.7); Neutrophils Percent Auto 77.2 % (45.5-73.1); Platelet Count Result 56 k/mm3 (150-375); Red Blood Count 3.32 M/mm3 (4.6-6.20); Red Cell Distribution Width 11.7 % (11.5-14.5); White Blood Count 4.6 K/mm3 (4.5-10.0)
[2021-01-16 05:13] LABS: Lactic Acid Reflex 1.4 mmol/L (0.7-2.1)
[2021-01-16 05:38] LABS: Alanine Aminotransferase 81 U/L (4-50); Alkaline Phosphatase 134 U/L (38-126); Anion Gap 6 mmol/L (8-16); Aspartate Amino Transferase 115 U/L (17-59); Bilirubin,Total 0.8 mg/dL (0.2-1.3); Blood Urea Nitrogen 24 mg/dL (9-20); CRP 20.5 mg/dL (<1.0); Carbon Dioxide 24 mmol/L (22-30); Chloride 98 mmol/L (98-107); Estimated CRCL calculation 94 ml/min; Estimated Glomerular Filt Rate > 60; Glucose 130 mg/dL (75-110); Phosphorus 2.2 mg/dL (2.5-4.5); Potassium 3.6 mmol/L (3.4-5.0); Sodium 128 mmol/L (137-145)
[2021-01-16] MEDS: ceFAZolin 2 GM/D5W 50 ML 2 GM/50 ML BAG IVPB ×3 (05:57→21:08)
[2021-01-16 06:21] LABS: Folic Acid 18.4 ng/mL (2.76->20); Vitamin B12 > 1000.0 pg/mL (239-931)
[2021-01-16] MEDS: SODIUM CHLORIDE 0.9% IV 1,000 ML 100 ML IV CONT ×2 (06:56→21:23)
[2021-01-16] MEDS: SODIUM PHOSPHATE 20 MM in DEXTROSE 5% IN WATER 250 ML 50 MM IVPB (08:29)
[2021-01-16] MEDS: THIAMINE HCL 200 MG/2 ML VIAL 100 MG IV PUSH (08:29)
--- NOTE | 2021-01-16 08:57 | WPDINTPN ---
Progress Note: A&P Assessment and Plan (1) Bacteremia: Code(s): R78.81 - Bacteremia Status: Acute Assessment and Plan: Patient Staph aureus bacteremia 01/13/2021 -infectious disease following the patient, continue Ancef,, mycin discontinue -echocardiogram 01/14/2021: Showed normal LV size with moderate concentric hypertrophy and good systolic function, EF 55-60%. Normal diastolic dysfunction. Left atrium moderately enlarged, mild pulmonary hypertension with RVSP of 39 mmHg, no vegetations seen. -repeat blood cultures 01/14/2021 also positive for gram-positive cocci 2/2 bottles -another set of cultures have been obtained this morning on 01/16/2021 (2) Sepsis: Code(s): A41.9 - Sepsis, unspecified organism Status: Acute Assessment and Plan: Sepsis due staph bacteremia -patient tachycardic tachypneic which also be secondary to alcohol withdrawal -patient is febrile, Tylenol has been ordered -continue antibiotics as above (3) Tachyarrhythmia: Code(s): R00.0 - Tachycardia, unspecified Status: Acute Assessment and Plan: Improved with possible Precedex Tachyarrhythmias likely related to her adrenergic surge secondary to sepsis, alcohol withdrawal -EKG showed multifocal atrial tachycardia, cardiology following the patient -metoprolol on hold as patient was slightly hypotensive last evening which improved with IV fluid bolus (4) Thrombocytopenia: Code(s): D69.6 - Thrombocytopenia, unspecified Status: Acute Assessment and Plan: Thrombocytopenia likely related to sepsis and/or chronic alcohol abuse -no obvious bleeding noted, will continue to monitor platelet level (5) Alcoholism: Code(s): F10.20 - Alcohol dependence, uncomplicated Status: Acute Assessment and Plan: Patient is a chronic alcoholic, has not been drinking 2-3 days prior to admission as he was not feeling too well -transferred to the ICU on 01/15/2021 for alcohol withdrawal with possible delirium tremens, received multiple doses of Ativan and Haldol in the IMU -on Precedex infusion, p.r.n. Ativan -continue thiamine, folic acid Additional Plan Discuss with patient's at bedside and updated her with patient's condition, plan of care. I answered all questions.. Code status: Full code Critical care time spent: 35 minutes This dictation may have been done utilizing a voice recognition system. Attempts have been made to correct errors. However, there may be uncorrected grammatical, spelling, and recognition errors present. Due to a high probability of clinically significant, life threatening deterioration, the patient required my highest level of preparedness to intervene emergently and I personally spent this critical care time directly and personally managing the patient. This critical care time included obtaining a history; examining the patient; pulse oximetry; ordering and review of studies; arranging urgent treatment with development of a management plan; evaluation of patient's response to treatment; frequent reassessment; and discussions with other providers. It was exclusive of separately billable procedures and treating other patients and teaching time. Please see Assessment and Plan section and the rest of the note for further information on patient assessment and treatment Subjective Date/time seen: 01/16/21 08:57 Interval history: Reason for consult: Alcohol withdrawal, delirium tremens, staph aureus bacteremia 01/16/2021: Patient on Precedex infusion, sedated, does not open his eyes or follow simple commands, adequate urine output, hemodynamically stable, on 3 L nasal cannula with good O2 sats. Patient has been febrile with a T-max of 101.3? this morning. No issues overnight Review of Systems Review of Systems: ROS unobtainable: Yes unobtainable due to medical condition and unobtainable due to mental status Exam Const: General: comfortable and no acute distress H
[2021-01-16] MEDS: FOLIC ACID 1 MG/0.2 ML INJ IV PUSH (09:33)
--- NOTE | 2021-01-16 14:15 | PM.IMPN ---
Progress Note: A&P Assessment and Plan (1) Septicemia: Code(s): A41.9 - Sepsis, unspecified organism Status: Acute Assessment and Plan: Present on admission and supported by fever, tachycardia, and tachypnea in the setting of bacteremia. Lactic acid level was elevated in the ED on 01/13 for which he received 3 liters normal saline. Lactic acid today was improved. Blood cultures 01/13 positive for Staphylococcus aureus in both aerobic and anaerobic bottles. He returned to the ED and BCx repeated. He received 1 dose of cefepime and vancomycin the emergency department on 01/14/2021. Dr. Sorensen was consulted and his input is appreciated. He recommended vancomycin and Ancef but BCx growing ENRIKE so abx narrowed to Ancef Day #3. Repeat BCx 01/14 also positive for Staph aureus. Consider TTE and/or lumbar MRI if needed. Surface Echo does not show any vegetations. Lumbar CT showing no acute findings. Repeat BCx 01/16 pending. Source unclear but possibly skin. (2) Alcohol withdrawal delirium: Code(s): F10.231 - Alcohol dependence with withdrawal delirium Status: Acute Assessment and Plan: Patient A&O x4 initially but seemed a bit confused. He then developed acute delirium from alcohol withdrawal. Doubt meningitis. Not controlled with Ativan so he was moved to the ICU for Precedex. Consider CT brain once stable. (3) Tachyarrhythmia: Code(s): R00.0 - Tachycardia, unspecified Status: Acute Assessment and Plan: EKG consistent with MAT. Rhythm strips also consistent with MAT. Do not see any evidence of AFib. Oral metoprolol started but was stopped since patient is NPO. Echo with EF 55-60% with normal diastolic dysfunction and mild pulm HTN. TSH normal. Currently on scheduled IV Lopressor. 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 Continue tele (4) Hyponatremia: Code(s): E87.1 - Hypo-osmolality and hyponatremia Status: Acute Assessment and Plan: Sodium was 135 on 12/31/2020 but down to 129 on 01/13. Probably multifactorial from his Celexa, HCTZ, beer potanemia and/or dehydration. Jesús low at 17. He received appropriate IV fluids in the ED. Na dropped to 123 but better today at 128. Monitor closely. Continue IV fluids (5) Hypertension: Code(s): I10 - Essential (primary) hypertension Status: Inactive Assessment and Plan: Blood pressures were reviewed on 01/16. BP elevated related to his withdrawal symptoms. Lisinopril and HCTZ on hold. BP better with the Precedex. Monitor. (6) Elevated LFTs: Code(s): R79.89 - Other specified abnormal findings of blood chemistry Status: Acute Assessment and Plan: Likely due to longstanding alcohol abuse as his coags are slightly prolonged and platelets are decreased. RUQ showing normal right upper quadrant ultrasound status post cholecystectomy. Hepatitis panel negative. Suspect alcoholic hepatitis. Follow LFTs. (7) Alcoholism: Code(s): F10.20 - Alcohol dependence, uncomplicated Status: Acute Assessment and Plan: present who states patient only drinks beer and can drink 12-18 beers per day. Continue Folate and Thiamine IV. As above. Will provide information about AA when he is more awake and alert (8) Thrombocytopenia: Code(s): D69.6 - Thrombocytopenia, unspecified Status: Acute Assessment and Plan: Plt count was normal earlier this month but 144K on his first ED visit and now 56K today. Suspect related to the toxic effects of the alcohol. Could be sequestered if he has enlarged spleen or from the septicemia. Follow. (9) Anxiety: Code(s): F41.9 - Anxiety disorder, unspecified Status: Inactive Assessment and Plan: As above. Citalopram currently on hold given hyponatremia and his clinical condition. (10) Gout: Code(s): M10.9 - Gout, unspecified Status: Inactive
[2021-01-16] MEDS: dexmedeTOMIDine 400 MCG/100 ML 400 MCG/100 ML BAG 21.65 MCG IV CONT (14:57)
--- NOTE | 2021-01-16 15:30 | PM.PNCARD ---
Progress Note: A&P Assessment and Plan (1) Atrial arrhythmia: Code(s): I49.8 - Other specified cardiac arrhythmias Status: Acute Assessment and Plan: Probable multifocal atrial tachycardia rather than atrial fibrillation although P waves are not clearly seen on the telemetry strips today. On IV metoprolol, for the time being. Will check an EKG. Discussed with the patient's . (2) Bacteremia: Code(s): R78.81 - Bacteremia Status: Acute Assessment and Plan: Unsure the source of bacteremia; Dr. Sorensen thought it may be from skin lesions. Echo showed no vegetations. BAck pain but No obvious diskitis. On antibiotic therapy. (3) Alcoholism: Code(s): F10.20 - Alcohol dependence, uncomplicated Status: Acute Assessment and Plan: In withdrawal, on Precedex now. Subjective Date/time seen: 01/16/21 15:30 Interval history: Follow-up visit in this 65-year-old man with: Atrial arrhythmia which appears to be atrial tachycardia. Also bacteremia, and alcohol withdrawal. Echo showed EF 55-60%, no significant valve disease, no vegetations. 01/15/2021: Personal review of the patient's electrocardiogram strip that are on the chart appears more likely the patient has multifocal atrial tachycardia than zee atrial fibrillation. Since yesterday patient has developed zee delirium tremens related to ethanol withdrawal. He remains on low-dose of metoprolol. Discussion with the patient's in the room regarding the cardiac rhythm and that I do not do not believe he has atrial fibrillation which is obviously very favorable new since he does not have to be anticoagulated. Date of service 01/16/2021: Patient went into DT's; transferred to ICU and sedated with Precedex. Metoprolol changed to IV. Getting IV antibiotic. Family at bedside. Telemetry shows occasional irregular rhythm, difficult to see P waves, probably multifocal atrial tachycardia, some pauses of less than 3 seconds. 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 Repeat blood cultures done this morning. Review of Systems Review of Systems: Narrative: ROS obtained from EMR, , nursing staff ROS unobtainable: Yes unobtainable due to medical condition and unobtainable due to mental status Cardiovascular: Cardiovascular: Reports no additional cardiovascular complaints Respiratory: Respiratory: Reports no additional respiratory complaints Gastrointestinal: Gastrointestinal: Reports no additional gastrointestinal complaints Integumentary/Breasts: Skin/Breast: Reports system reviewed and no additional complaints, except as docu Neurologic: Reports Abnormal speech present Psychiatric: Psychiatric: Reports confusion Exam Narrative: Exam Narrative: Sedated, confused, somewhat tachypneic white male with at bedside, mumbling incoherently at times. Const: General: no acute distress and uncomfortable HENMT: Mouth: Yes dry mucous membranes Eyes: EOM: EOMs intact bilaterally Neck: Neck: supple Resp: Effort & Inspection: abnormal respiratory effort (Tachypneic) Auscultation: clear to auscultation bilaterally Cardio: Rate: regular rate Rhythm: regular rhythm Heart sounds: no murmurs GI: Inspection: non-distended GI Palp: Yes Soft to palpation, No Firmness to palpation present (GI) and No Tenderness to palpation present (GI) Urinary Catheter: Urinary Catheter: patent and draining and urine clear Skin: Lesions: lesion noted (Excoriation of right lower extremity) Neuro: Cognition (Neuro): abnormal cognition Speech: No normal speech Extrem: General: no edema and no pedal edema Psych: Mental Status: mental status grossly abnormal Objective Data Vital Signs Vital Signs: Vital Signs - 24 hr 01/15/21 16:00 01/15/21 16:02 01/15/21 16:08 Temperature Pulse Rate 73 65 Pulse Rate [Bilateral Monitor] 81 Respiratory Rat
[2021-01-16] MEDS: dexmedeTOMIDine 400 MCG/100 ML 400 MCG/100 ML BAG 25.98 MCG IV CONT (19:29)
[2021-01-16] MEDS: dexmedeTOMIDine 400 MCG/100 ML 400 MCG/100 ML BAG 23.82 MCG IV CONT (23:35)
[2021-01-17] VITALS (37 sets, daily range): BP systolic 110–157; BP diastolic 67–107; PULSE 74–121; RESP 15–39; TEMP 36.8–37.6; O2SAT 87–99
[2021-01-17] MEDS: dexmedeTOMIDine 400 MCG/100 ML 400 MCG/100 ML BAG 28.15 MCG IV CONT ×3 (02:00→11:15)
[2021-01-17 03:57] LABS: Hematocrit 35.8 % (42.0-52.0); Hemoglobin 12.7 g/dL (14.0-18.0); Immature Platelet Fraction Pct 7.5 % (0.9-11.2); Mean Corpuscular HGB Conc 35.5 g/dl (32-36); Mean Corpuscular Hemoglobin 32.2 pg (26-34); Mean Corpuscular Volume 90.6 fl (80-100); Mean Platelet Volume 11.4 fl (7.4-10.4); Platelet Count Result 106 k/mm3 (150-375); Red Blood Count 3.95 M/mm3 (4.6-6.20); Red Cell Distribution Width 11.9 % (11.5-14.5)
[2021-01-17 04:29] LABS: Alanine Aminotransferase 66 U/L (4-50); Alkaline Phosphatase 123 U/L (38-126); Anion Gap 6 mmol/L (8-16); Aspartate Amino Transferase 70 U/L (17-59); Bilirubin,Total 0.8 mg/dL (0.2-1.3); Blood Urea Nitrogen 24 mg/dL (9-20); CRP 21.7 mg/dL (<1.0); Calcium 8.1 mg/dL (8.4-10.2); Carbon Dioxide 26 mmol/L (22-30); Chloride 101 mmol/L (98-107); Estimated CRCL calculation 108 ml/min; Estimated Glomerular Filt Rate > 60; Glucose 131 mg/dL (75-110); Magnesium 1.8 mg/dL (1.6-2.3); Phosphorus 2.3 mg/dL (2.5-4.5); Potassium 3.7 mmol/L (3.4-5.0); Sodium 133 mmol/L (137-145)
[2021-01-17 05:49] LABS: Osmolality, Urine 176 mOsm/kg (50-1200)
[2021-01-17] MEDS: ceFAZolin 2 GM/D5W 50 ML 2 GM/50 ML BAG IVPB ×3 (06:00→21:06)
[2021-01-17] MEDS: SODIUM CHLORIDE 0.9% IV 1,000 ML 100 ML IV CONT ×2 (06:00→18:16)
--- NOTE | 2021-01-17 07:00 | ECG_ITS ---
Measurements Intervals [place] Rate: 85 P: [place]: 0 QRS: 81 QRSD: 99 T: 20 QT: 402 QTc: 479 Interpretive Statements ATRIAL FIBRILLATION T WAVE ABNORMALITY IN ANTERIOR LEADS- CONSIDER ISCHEMIA BASELINE ARTIFACT- V4-V5 ABNORMAL ECG Electronically Signed On 01-17-2021 9:08:31 CDT by Bob Harris D.O.
[2021-01-17] MEDS: chlordiazePOXIDE (*CRX) 25 MG CAPSULE 50 MG PO ×4 (08:11→23:51)
[2021-01-17] MEDS: dexmedeTOMIDine 400 MCG/100 ML 400 MCG/100 ML BAG 32.48 MCG IV CONT (08:13)
--- NOTE | 2021-01-17 09:00 | WPDINTPN ---
Progress Note: A&P Assessment and Plan (1) Bacteremia: Code(s): R78.81 - Bacteremia Status: Acute Assessment and Plan: Patient Staph aureus bacteremia 01/13/2021 -infectious disease following the patient, continue Ancef, vancomycin was discontinued -echocardiogram 01/14/2021: Showed normal LV size with moderate concentric hypertrophy and good systolic function, EF 55-60%. Normal diastolic dysfunction. Left atrium moderately enlarged, mild pulmonary hypertension with RVSP of 39 mmHg, no vegetations seen. -repeat blood cultures 01/14/2021 also positive for gram-positive cocci 2/2 bottles -another set of cultures have been obtained this morning on 01/16/2021 which is pending - Lumbar CT showing no acute findings (2) Sepsis: Code(s): A41.9 - Sepsis, unspecified organism Status: Acute Assessment and Plan: Sepsis due staph bacteremia -patient tachycardic tachypneic which also be secondary to alcohol withdrawal -patient is febrile, Tylenol has been ordered -continue antibiotics as above (3) Tachyarrhythmia: Code(s): R00.0 - Tachycardia, unspecified Status: Acute Assessment and Plan: Improved with possible Precedex Tachyarrhythmias likely related to her adrenergic surge secondary to sepsis, alcohol withdrawal -EKG showed multifocal atrial tachycardia, cardiology following the patient -metoprolol on hold as patient was slightly hypotensive last evening which improved with IV fluid bolus (4) Thrombocytopenia: Code(s): D69.6 - Thrombocytopenia, unspecified Status: Acute Assessment and Plan: Thrombocytopenia likely related to sepsis and/or chronic alcohol abuse -no obvious bleeding noted, will continue to monitor platelet level -improving (5) Alcoholism: Code(s): F10.20 - Alcohol dependence, uncomplicated Status: Acute Assessment and Plan: Patient is a chronic alcoholic, has not been drinking 2-3 days prior to admission as he was not feeling too well -transferred to the ICU on 01/15/2021 for alcohol withdrawal with possible delirium tremens, received multiple doses of Ativan and Haldol in the IMU -on Precedex infusion, p.r.n. Ativan -wean Precedex as tolerated -continue thiamine, folic acid Additional Plan Discuss with patient's at bedside and updated her with patient's condition, plan of care. I answered all questions.. Code status: Full code Critical care time spent: 33 minutes This dictation may have been done utilizing a voice recognition system. Attempts have been made to correct errors. However, there may be uncorrected grammatical, spelling, and recognition errors present. Due to a high probability of clinically significant, life threatening deterioration, the patient required my highest level of preparedness to intervene emergently and I personally spent this critical care time directly and personally managing the patient. This critical care time included obtaining a history; examining the patient; pulse oximetry; ordering and review of studies; arranging urgent treatment with development of a management plan; evaluation of patient's response to treatment; frequent reassessment; and discussions with other providers. It was exclusive of separately billable procedures and treating other patients and teaching time. 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 Patient denies any chest pain, shortness of breath abdominal pain. Patient able to follow all commands. States he is hungry and was to eat some breakfast. Patient remains on Precedex infusion at 1.3
[2021-01-17] MEDS: THIAMINE HCL 200 MG/2 ML VIAL 100 MG IV PUSH (09:23)
[2021-01-17] MEDS: FOLIC ACID 1 MG/0.2 ML INJ IV PUSH (09:24)
--- NOTE | 2021-01-17 09:49 | PM.PNCARD ---
Progress Note: A&P Assessment and Plan (1) Atrial arrhythmia: Code(s): I49.8 - Other specified cardiac arrhythmias Status: Acute Assessment and Plan: Has multifocal atrial tachycardia and now atrial fibrillation with a controlled rate. IV metoprolol held because of low blood pressure which has resolved. Resume low dose BB. Discussed with Dr. Lei; will start a heparin drip to prevent cardioembolic events (2) Abnormal EKG: Code(s): R94.31 - Abnormal electrocardiogram [ECG] [EKG] Status: Acute Assessment and Plan: EKG now shows some anterior T-wave inversions suggestive of ischemia/CAD. Asymptomatic. Add aspirin/PPI. Resume low dose BB. Hold off on statin 2nd elevated LFTs. Ischemia evaluation at a later date. (3) Bacteremia: Code(s): R78.81 - Bacteremia Status: Acute Assessment and Plan: Unsure the source of bacteremia; Dr. Sorensen thought it may be from skin lesions. Echo showed no vegetations. BAck pain but No obvious diskitis. Repeat blood cultures pending On antibiotic therapy. (4) Alcoholism: Code(s): F10.20 - Alcohol dependence, uncomplicated Status: Acute Assessment and Plan: In withdrawal, on Precedex now, improving. Subjective Date/time seen: 01/17/21 09:49 Interval history: Follow-up visit in this 65-year-old man with: Atrial arrhythmia which appears to be atrial tachycardia and atrial fib. Also bacteremia, and alcohol withdrawal. Echo showed EF 55-60%, no significant valve disease, no vegetations. 01/15/2021: Personal review of the patient's electrocardiogram strip that are on the chart appears more likely the patient has multifocal atrial tachycardia than zee atrial fibrillation. Since yesterday patient has developed zee delirium tremens related to ethanol withdrawal. He remains on low-dose of metoprolol. Discussion with the patient's in the room regarding the cardiac rhythm and that I do not do not believe he has atrial fibrillation which is obviously very favorable new since he does not have to be anticoagulated. 01/16/2021: Patient went into DT's; transferred to ICU and sedated with Precedex. Metoprolol changed to IV. Getting IV antibiotic. Family at bedside. Telemetry shows occasional irregular rhythm, difficult to see P waves, probably multifocal atrial tachycardia, some pauses of less than 3 seconds. 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 Repeat blood cultures done this morning. Date of service 01/17/2021: Patient stable overnight, waking up, a little more oriented. Denies any chest discomfort, shortness of breath or stomach problems. Telemetry suggests AFib rather than MAT. Review of Systems Constitutional: Constitutional: Reports fatigue, Reports lethargy and Reports weakness Eyes: Eyes: Reports no additional eye complaints ENT: Denies epistaxis Cardiovascular: Cardiovascular: Denies chest pain, Denies leg edema, Denies lightheadedness and Denies palpitations Respiratory: Respiratory: Denies cough, Denies dyspnea and Denies dyspnea on exertion Gastrointestinal: Gastrointestinal: Denies abdominal pain, Denies hematochezia and Denies hematemesis Genitourinary: Genitourinary: Reports no additional male genitourinary complaints Musculoskeletal: Musculoskeletal: Reports back pain and Reports arthralgias (Chronic knee pain and back pain) Integumentary/Breasts: Skin/Breast: Reports wounds (Small excoriations lower extremity) Neurologic: Reports confusion Psychiatric: Psychiatric: Reports confusion Exam Narrative: Exam Narrative: Patient arouses easily, sitting up in bed, answers questions, rambling and confused historian. Const: General: comfortable, no acute distress and confusion Orientation/consciousness: confusion HENMT: Gris
[2021-01-17 11:03] LABS: INR 1.5
[2021-01-17 11:04] LABS: Partial Thromboplastin Time 34.2 SECONDS (22.3-36.8)
[2021-01-17 11:20] LABS: Basophils Percent Auto 0.3 % (0.2-1.2); Eosinophils Percent Auto 0.2 % (0-4.4); Hematocrit 34.5 % (42.0-52.0); Hemoglobin 12.1 g/dL (14.0-18.0); Immature Granulocyte Absolute 0.09 K/mm3 (0.00-0.031); Immature Granulocyte Percent A 1.4 % (0-0.5); Immature Platelet Fraction Pct 7.7 % (0.9-11.2); Lymphocytes Absolute Auto 0.69 K/mm3 (0.9-3.2); Mean Corpuscular HGB Conc 35.1 g/dl (32-36); Mean Corpuscular Hemoglobin 31.8 pg (26-34); Mean Corpuscular Volume 90.6 fl (80-100); Mean Platelet Volume 11.1 fl (7.4-10.4); Monocytes Absolute Auto 0.5 K/mm3 (0.1-0.6); Monocytes Percent Auto 8.3 % (2.6-8.5); Neutrophils Percent Auto 78.8 % (45.5-73.1); Platelet Count Result 117 k/mm3 (150-375); Red Blood Count 3.81 M/mm3 (4.6-6.20); Red Cell Distribution Width 12.1 % (11.5-14.5); White Blood Count 6.3 K/mm3 (4.5-10.0)
[2021-01-17] MEDS: HEPARIN SODIUM 5,000 UNITS/ML VIAL 6500 UNITS IV PUSH (11:21)
[2021-01-17] MEDS: HEPARIN SOD/D5W 100 UNITS/ML 25,000 UNITS/250 ML BAG 14 UNITS IV CONT (11:22)
[2021-01-17] MEDS: METOPROLOL TARTRATE INJ 5 MG/5 ML VIAL IV PUSH ×3 (11:32→23:51)
--- NOTE | 2021-01-17 17:41 | PM.IMPN ---
Progress Note: A&P Assessment and Plan (1) Septicemia: Code(s): A41.9 - Sepsis, unspecified organism Status: Acute Assessment and Plan: Present on admission and supported by fever, tachycardia, and tachypnea in the setting of bacteremia. Lactic acid level was elevated in the ED on 01/13 for which he received 3 liters normal saline. Lactic acid improved. Blood cultures 01/13 positive for Staphylococcus aureus in both aerobic and anaerobic bottles. He returned to the ED and received 1 dose of cefepime and vancomycin on 01/14/[address] Sorensen was consulted and he recommended vancomycin and Ancef. BCx from 01/13 and 01/14 both growing ENRIKE so abx narrowed to Ancef Day #4. Surface Echo does not show any vegetations. Lumbar CT showing no acute findings. Repeat BCx 01/16 (1of2) are positive still. Consider TTE and/or lumbar MRI. Source unclear but possibly skin. Continue the same. (2) Alcohol withdrawal delirium: Code(s): F10.231 - Alcohol dependence with withdrawal delirium Status: Acute Assessment and Plan: Patient A&O x4 initially but seemed a bit confused. He then developed acute delirium from alcohol withdrawal 01/15 and moved to ICU for Precedex. Consider CT brain once stable. Weaning off Precedex as he toelrates. Continue Thiamine and Folate. (3) Tachyarrhythmia: Code(s): R00.0 - Tachycardia, unspecified Status: Acute Assessment and Plan: EKG on admission consistent with MAT. Rhythm strips also consistent with MAT. Oral metoprolol started but changed to IV metoprolol since patient is NPO. Echo with EF 55-60% with normal diastolic dysfunction and mild pulm HTN. TSH normal. Metoprolol IV stopped yesterday morning but back on this now since it appears patient is in AFib. Heparin drip started. Continue tele. Appreciate Cardiology input. (4) Hyponatremia: Code(s): E87.1 - Hypo-osmolality and hyponatremia Status: Acute Assessment and Plan: Sodium was 135 on 12/31/2020 but down to 129 on 01/13. Probably multifactorial from his Celexa, HCTZ, beer potanemia and/or dehydration. Jesús low at 17. He received appropriate IV fluids in the ED. Na dropped to 123 but better today at 133. Monitor closely. Continue IV fluids (5) Hypertension: Code(s): I10 - Essential (primary) hypertension Status: Inactive Assessment and Plan: Blood pressures were reviewed on 01/17. BP still elevated at times. Lisinopril and HCTZ on hold. Oral Metoprolol also placed on hold. BP better overall with the Precedex and IV Lopressor resumed. Monitor. (6) Elevated LFTs: Code(s): R79.89 - Other specified abnormal findings of blood chemistry Status: Acute Assessment and Plan: Likely due to longstanding alcohol abuse as his coags are slightly prolonged and platelets are decreased. RUQ showing normal right upper quadrant ultrasound status post cholecystectomy. Hepatitis panel negative. LFTs improving. Suspect alcoholic hepatitis. Follow LFTs. (7) Alcoholism: Code(s): F10.20 - Alcohol dependence, uncomplicated Status: Acute Assessment and Plan: stated patient only drinks beer and can drink 12-18 beers per day. As above. Continue Folate and Thiamine IV. Will provide information about AA when he is more awake and alert. (8) Thrombocytopenia: Code(s): D69.6 - Thrombocytopenia, unspecified Status: Acute Assessment and Plan: Plt count was normal earlier this month but dropped to 56K; better at 106K today. Suspect related to the toxic effects of the alcohol. Could be sequestered if he has enlarged spleen and/or from the septicemia. Follow. (9) Anxiety: Code(s): F41.9 - Anxiety disorder, unspecified Status: Inactive Assessment and Plan: As above. Citalopram currently on hold given hyponatremia and his clinical condition. Hyponatremia
[2021-01-17 18:55] LABS: Partial Thromboplastin Time 63.5 SECONDS (22.3-36.8)
[2021-01-17] MEDS: HEPARIN SODIUM 5,000 UNITS/ML VIAL 3000 UNITS IV PUSH (19:32)
[2021-01-17] MEDS: ALBUTEROL SULFATE NEB 2.5 MG/0.5 ML INH INHALATION (20:58)
[2021-01-17] MEDS: IPRATROPIUM BR 0.02% INH SOLN 0.5 MG/2.5 ML VIAL INHALATION (20:59)
[2021-01-18] VITALS (42 sets, daily range): BP systolic 124–166; BP diastolic 55–87; PULSE 63–108; RESP 18–40; TEMP 36.4–37.1; O2SAT 92–100
[2021-01-18] MEDS: HEPARIN SOD/D5W 100 UNITS/ML 25,000 UNITS/250 ML BAG 16 UNITS IV CONT ×2 (01:50→18:56)
[2021-01-18] MEDS: ALBUTEROL SULFATE NEB 2.5 MG/0.5 ML INH INHALATION ×4 (01:53→20:30)
[2021-01-18] MEDS: IPRATROPIUM BR 0.02% INH SOLN 0.5 MG/2.5 ML VIAL INHALATION ×4 (01:53→20:30)
[2021-01-18] MEDS: dexmedeTOMIDine 400 MCG/100 ML 400 MCG/100 ML BAG IV CONT (02:50)
[2021-01-18 02:52] LABS: Basophils Percent Auto 0.4 % (0.2-1.2); Eosinophils Percent Auto 0.1 % (0-4.4); Hematocrit 34.6 % (42.0-52.0); Hemoglobin 12.1 g/dL (14.0-18.0); Immature Granulocyte Percent A 1.4 % (0-0.5); Lymphocytes Absolute Auto 0.73 K/mm3 (0.9-3.2); Lymphocytes Percent Auto 10.1 % (18.3-44.2); Mean Corpuscular Hemoglobin 32.3 pg (26-34); Mean Corpuscular Volume 92.3 fl (80-100); Mean Platelet Volume 10.7 fl (7.4-10.4); Monocytes Absolute Auto 0.5 K/mm3 (0.1-0.6); Monocytes Percent Auto 6.2 % (2.6-8.5); Neutrophils Absolute Auto 5.9 K/mm3 (1.3-6.7); Neutrophils Percent Auto 81.8 % (45.5-73.1); Platelet Count Result 162 k/mm3 (150-375); Red Blood Count 3.75 M/mm3 (4.6-6.20); Red Cell Distribution Width 12.4 % (11.5-14.5); White Blood Count 7.2 K/mm3 (4.5-10.0)
[2021-01-18 03:14] LABS: Alanine Aminotransferase 53 U/L (4-50); Albumin Level 2.8 g/dL (3.5-5.1); Alkaline Phosphatase 137 U/L (38-126); Anion Gap 6 mmol/L (8-16); Aspartate Amino Transferase 74 U/L (17-59); Bilirubin,Total 0.8 mg/dL (0.2-1.3); Blood Urea Nitrogen 14 mg/dL (9-20); Calcium 7.8 mg/dL (8.4-10.2); Carbon Dioxide 27 mmol/L (22-30); Chloride 99 mmol/L (98-107); Estimated CRCL calculation 94 ml/min; Estimated Glomerular Filt Rate > 60; Glucose 101 mg/dL (75-110); Magnesium 1.7 mg/dL (1.6-2.3); Phosphorus 2.4 mg/dL (2.5-4.5); Potassium 2.9 mmol/L (3.4-5.0); Sodium 132 mmol/L (137-145)
[2021-01-18] MEDS: SODIUM CHLORIDE 0.9% IV 1,000 ML 100 ML IV CONT (03:22)
[2021-01-18] MEDS: ceFAZolin 2 GM/D5W 50 ML 2 GM/50 ML BAG IVPB ×3 (05:54→21:00)
[2021-01-18] MEDS: METOPROLOL TARTRATE INJ 5 MG/5 ML VIAL IV PUSH (06:10)
[2021-01-18] MEDS: chlordiazePOXIDE (*CRX) 25 MG CAPSULE 50 MG PO ×2 (06:28→17:10)
--- NOTE | 2021-01-18 06:38 | PC.NURSE ---
At 0510 this morning, artifact was noted on the pharmacy operations coordinator. This nurse went to check on patient. Patient was pulling telemetry leads off, trying to bite his pulse oximeter off, taking oxygen per nasal cannula off, and had removed his gown. Charge nurse was called in to assist with patient. Patient at this time was alert only to self with garbled speech and poor safety awareness. He continued to remove monitoring devices as we were placing them back on him. It was noted that patient had also removed both his peripheral IV accesses. Patient is very agitated at this time. Precedex was turned up to maximum ordered dose.
[2021-01-18 08:54] LABS: Partial Thromboplastin Time 88.7 SECONDS (22.3-36.8)
--- NOTE | 2021-01-18 08:55 | WPDINTPN ---
Progress Note: A&P Assessment and Plan (1) Bacteremia: Code(s): R78.81 - Bacteremia Status: Acute Assessment and Plan: Patient Staph aureus bacteremia 01/13/2021 -infectious disease following the patient, continue Ancef, vancomycin was discontinued -echocardiogram 01/14/2021: Showed normal LV size with moderate concentric hypertrophy and good systolic function, EF 55-60%. Normal diastolic dysfunction. Left atrium moderately enlarged, mild pulmonary hypertension with RVSP of 39 mmHg, no vegetations seen. -repeat blood cultures 01/14/2021 also positive for gram-positive cocci 2/2 bottles -another set of cultures have been obtained this morning on 01/16/2021 gram-positive cocci in 1/2 bottles - Lumbar CT showing no acute findings (2) Sepsis: Code(s): A41.9 - Sepsis, unspecified organism Status: Acute Assessment and Plan: Sepsis due staph bacteremia -patient tachycardic tachypneic which also be secondary to alcohol withdrawal secondary to adrenergic surge -patient is afebrile -continue antibiotics as above (3) Tachyarrhythmia: Code(s): R00.0 - Tachycardia, unspecified Status: Acute Assessment and Plan: EKG on 0 01/17 showed atrial fibrillation, cardiology started patient on metoprolol -initial EKG did show multifocal atrial tachycardia but now in AFib with and rate controlled. -started on heparin infusion to prevent cardioembolic event (4) Thrombocytopenia: Code(s): D69.6 - Thrombocytopenia, unspecified Status: Acute Assessment and Plan: RESOLVED Thrombocytopenia likely related to sepsis and/or chronic alcohol abuse -no obvious bleeding noted, will continue to monitor platelet level -improving (5) Alcoholism: Code(s): F10.20 - Alcohol dependence, uncomplicated Status: Acute Assessment and Plan: Patient is a chronic alcoholic, has not been drinking 2-3 days prior to admission as he was not feeling too well. (patient drinks approximately 18 beers per day) -transferred to the ICU on 01/15/2021 for alcohol withdrawal with possible delirium tremens, received multiple doses of Ativan and Haldol in the IMU -on Precedex infusion, p.r.n. Ativan, wean Precedex as tolerated -continue thiamine, folic acid -patient was agitated earlier this morning, pulling on leads, lines. Precedex was increased -if patient is more awake during the day, will try a low dose of Seroquel at night Additional Plan Discuss with patient's at bedside and updated her with patient's condition, plan of care. I answered all questions.. Code status: Full code Critical care time spent: 34 minutes This dictation may have been done utilizing a voice recognition system. Attempts have been made to correct errors. However, there may be uncorrected grammatical, spelling, and recognition errors present. Due to a high probability of clinically significant, life threatening deterioration, the patient required my highest level of preparedness to intervene emergently and I personally spent this critical care time directly and personally managing the patient. This critical care time included obtaining a history; examining the patient; pulse oximetry; ordering and review of studies; arranging urgent treatment with development of a management plan; evaluation of patient's response to treatment; frequent reassessment; and discussions with other providers. It was exclusive of separately billable procedures and treating other patients and teaching time. Please see Assessment and Plan section and the rest of the note for further information on patient assessment and treatment Subjective Date/time seen: 01/18/21 08:55 Interval history: Reason for consult: Alcohol withdrawal, delirium tremens, staph aureus bacteremia 01/18/2021: Patient has been okay until this morning when he started getting restless, pulling out his leads an IV lines. Patient has been agitated early this morning a bedside RN, Pr
[2021-01-18] MEDS: dexmedeTOMIDine 400 MCG/100 ML 400 MCG/100 ML BAG 28.15 MCG IV CONT (08:58)
[2021-01-18] MEDS: FOLIC ACID 1 MG/0.2 ML INJ IV PUSH (09:00)
[2021-01-18] MEDS: PANTOPRAZOLE SODIUM IV 40 MG VIAL IV PUSH (09:00)
[2021-01-18] MEDS: FUROSEMIDE INJ 40 MG/4 ML VIAL IV PUSH (09:00)
[2021-01-18] MEDS: THIAMINE HCL 200 MG/2 ML VIAL 100 MG IV PUSH (09:01)
--- NOTE | 2021-01-18 09:22 | PM.PNCARD ---
Progress Note: A&P Additional Plan 65-year-old man with: Atrial arrhythmias, last week appear to be in multifocal atrial tachycardia. Now appears to have zee atrial fibrillation but heart rate is very well controlled. He is anticoagulated with heparin. Principal health problem is decompensated delirium tremens. We will continue to follow with you but at this time there are no specific additional cardiac recommendations. Nic Gregorio MD [facility] Subjective Date/time seen: Date of service: 01/18/21 09:22 Interval history: Follow-up visit in this 65-year-old man with: Atrial arrhythmia which appears to be atrial tachycardia and atrial fib. Also bacteremia, and alcohol withdrawal. Echo showed EF 55-60%, no significant valve disease, no vegetations. 01/15/2021: Personal review of the patient's electrocardiogram strip that are on the chart appears more likely the patient has multifocal atrial tachycardia than zee atrial fibrillation. Since yesterday patient has developed zee delirium tremens related to ethanol withdrawal. He remains on low-dose of metoprolol. Discussion with the patient's in the room regarding the cardiac rhythm and that I do not do not believe he has atrial fibrillation which is obviously very favorable new since he does not have to be anticoagulated. 01/16/2021: Patient went into DT's; transferred to ICU and sedated with Precedex. Metoprolol changed to IV. Getting IV antibiotic. Family at bedside. Telemetry shows occasional irregular rhythm, difficult to see P waves, probably multifocal atrial tachycardia, some pauses of less than 3 seconds. 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 Repeat blood cultures done this morning. Date of service 01/17/2021: Patient stable overnight, waking up, a little more oriented. Denies any chest discomfort, shortness of breath or stomach problems. Telemetry suggests AFib rather than MAT. Date of service 01/18/2021: Patient in the ICU sedated with Precedex still having problems with decompensated delirium tremens. Telemetry appears to show atrial fibrillation heart rate is well controlled and the patient is anticoagulated with heparin. Does respond to noxious stimulation Exam Const: Other: Sedated white male in ICU room 5. Does respond to painful stimuli. HENMT: Mouth: Yes dry mucous membranes Eyes: Sclera: sclerae normal Neck: Neck: supple and no JVD Resp: Effort & Inspection: normal respiratory effort Other: Scattered rhonchi Cardio: Rhythm: abnormal rhythm irregularly irregular GI: GI Palp: Yes Soft to palpation Auscultation: normal bowel sounds Skin: General skin exam: normal color Neuro: Other: Sedated Extrem: General: normal to inspection Objective Data Vital Signs Vital Signs: Vital Signs - 24 hr 01/17/21 10:00 01/17/21 10:15 01/17/21 11:15 Temperature Pulse Rate 80 80 80 Pulse Rate [Bilateral Monitor] Respiratory Rate 24 H 24 H 24 H Blood Pressure 119/103 H Pulse Oximetry 93 01/17/21 12:00 01/17/21 12:15 01/17/21 12:30 Temperature 37.2 C Pulse Rate 121 H 92 121 H Pulse Rate [Bilateral Monitor] Respiratory Rate 26 H 26 H Blood Pressure 133/76 Pulse Oximetry 98 01/17/21 14:00 01/17/21 15:00 01/17/21 16:00 Temperature 36.8 C Pulse Rate 74 74 74 Pulse Rate [Bilateral Monitor] Respiratory Rate 18 26 H 26 H Blood Pressure 134/77 125/67 Pulse Oximetry 95 96 01/17/21 17:00 01/17/21 18:00 01/17/21 18:50 Temperature Pulse Rate 83 83 83 Pulse Rate [Bilateral Monitor] Respiratory Rate 15 15 15 Blood Pressure 138/81 Pulse Oximetry 95 01/17/21 20:00 01/17/21 20:23 01/17/21 20:59 Temperature 37.5 C Pulse Rate 101 H 93 97 Pulse Rate [Bilateral Monitor] 96 Respiratory Rate 32 H 24 H 28 H Blood Pressure 151/85 H Pulse Oximetry 98 93 01/17/21 21:05 01/17/21 22:00 01/17/21 23:49 Temperature 37.6 C H Pulse Rate 100 101 H 101 H Pulse Rate [Bilateral
--- NOTE | 2021-01-18 10:20 | PC.NURSE ---
Spouse to bedside. Updated her on plan of care and overnight changes. Spouse stated I asked for me to be called about any changes .
--- NOTE | 2021-01-18 11:40 | PC.NURSE ---
Patient transferred to CT scan via bed without issue with RN x2 at bedside.
[2021-01-18] MEDS: dexmedeTOMIDine 400 MCG/100 ML 400 MCG/100 ML BAG 17.32 MCG IV CONT (13:09)
--- NOTE | 2021-01-18 13:20 | PM.IMPN ---
Progress Note: A&P Assessment and Plan (1) Septicemia: Code(s): A41.9 - Sepsis, unspecified organism Status: Acute Assessment and Plan: Present on admission and supported by fever, tachycardia, and tachypnea in the setting of bacteremia. Seen in ED on 01/13 and had BCx drawn. BCX 01/13 positive for Staphylococcus aureus and he returned to the ED on 01/14 and received 1 dose of cefepime and vancomycin. BCx repeated. Dr. Sorensen was consulted and he recommended vancomycin and Ancef. BCx from 01/13 and 01/14 both growing ENRIKE so abx narrowed to Ancef Day #5. Surface Echo does not show any vegetations. Lumbar CT showing no acute findings. Repeat BCx 01/16 (1of2) are positive still. Consider TTE and/or lumbar MRI. Source unclear but possibly skin. No fevers and WBC normal. Continue the same. (2) Alcohol withdrawal delirium: Code(s): F10.231 - Alcohol dependence with withdrawal delirium Status: Acute Assessment and Plan: Patient A&O x4 on admission but seemed a bit confused. He then developed acute delirium from alcohol withdrawal 01/15 and moved to ICU for Precedex. CT brain normal. Better day yesterday but much worse today. Continue Precedex and wean as he tolerates. Continue Thiamine and Folate. (3) Atrial fibrillation: Code(s): I48.91 - Unspecified atrial fibrillation Status: Acute Assessment and Plan: EKG on admission consistent with MAT. Rhythm strips also consistent with MAT. Oral metoprolol started but changed to IV metoprolol since patient was NPO. Echo with EF 55-60% with normal diastolic dysfunction and mild pulm HTN. TSH normal. Patient did convert to AFib. Lopressor IV stopped today. Heparin drip started. Continue tele. Appreciate Cardiology input. (4) Hyponatremia: Code(s): E87.1 - Hypo-osmolality and hyponatremia Status: Acute Assessment and Plan: Sodium was 135 on 12/31/2020 but down to 129 on 01/13. Probably multifactorial from his Celexa, HCTZ, beer potomania and/or dehydration. Jesús low at 17. He received appropriate IV fluids in the ED. Na dropped to 123 but better today at 132. Monitor closely. Continue IV fluids (5) Hypertension: Code(s): I10 - Essential (primary) hypertension Status: Inactive Assessment and Plan: Blood pressures were reviewed on 01/18. BP stable. Lisinopril and HCTZ on hold. Oral Metoprolol also placed on hold. IV Lopressor stopped. Monitor. (6) Elevated LFTs: Code(s): R79.89 - Other specified abnormal findings of blood chemistry Status: Acute Assessment and Plan: Likely due to longstanding alcohol abuse as his coags are slightly prolonged and platelets are decreased. RUQ showing normal right upper quadrant ultrasound status post cholecystectomy. Hepatitis panel negative. LFTs up and down but stable overall. Suspect alcoholic hepatitis. Follow LFTs. (7) Alcoholism: Code(s): F10.20 - Alcohol dependence, uncomplicated Status: Acute Assessment and Plan: stated patient only drinks beer and can drink 12-18 beers per day. As above. Continue Folate and Thiamine IV. Will provide information about AA when he is more awake and alert. (8) Thrombocytopenia: Code(s): D69.6 - Thrombocytopenia, unspecified Status: Acute Assessment and Plan: Plt count was normal earlier this month but dropped to 56K but now normal today. Suspect related to the toxic effects of the alcohol. Could be sequestered if he has enlarged spleen and/or from the septicemia. Follow. (9) Anxiety: Code(s): F41.9 - Anxiety disorder, unspecified Status: Inactive Assessment and Plan: As above. Citalopram currently on hold given hyponatremia and his clinical condition. Hyponatremia better. Resume when taking oral intake and mental status better. (10) Gout: Code(s): M10.9 - Gout, unspecified S
[2021-01-18] MEDS: ASPIRIN 81 MG CHEWABLE TABLET PO (17:11)
[2021-01-18] MEDS: dexmedeTOMIDine 400 MCG/100 ML 400 MCG/100 ML BAG 12.99 MCG IV CONT (18:55)
[2021-01-19] VITALS (28 sets, daily range): BP systolic 114–159; BP diastolic 63–100; PULSE 67–116; RESP 20–31; TEMP 36.4–38.6; O2SAT 90–98
[2021-01-19] MEDS: chlordiazePOXIDE (*CRX) 25 MG CAPSULE 50 MG PO ×5 (00:28→23:20)
[2021-01-19] MEDS: dexmedeTOMIDine 400 MCG/100 ML 400 MCG/100 ML BAG 12.99 MCG IV CONT (00:42)
[2021-01-19] MEDS: ALBUTEROL SULFATE NEB 2.5 MG/0.5 ML INH INHALATION ×4 (02:27→20:51)
[2021-01-19] MEDS: IPRATROPIUM BR 0.02% INH SOLN 0.5 MG/2.5 ML VIAL INHALATION ×4 (02:28→20:51)
[2021-01-19 04:58] LABS: Hematocrit 35.2 % (42.0-52.0); Hemoglobin 12.5 g/dL (14.0-18.0); Mean Corpuscular HGB Conc 35.5 g/dl (32-36); Mean Corpuscular Hemoglobin 31.8 pg (26-34); Mean Corpuscular Volume 89.6 fl (80-100); Mean Platelet Volume 10.3 fl (7.4-10.4); Platelet Count Result 256 k/mm3 (150-375); Red Blood Count 3.93 M/mm3 (4.6-6.20); Red Cell Distribution Width 12.2 % (11.5-14.5); White Blood Count 9.2 K/mm3 (4.5-10.0)
[2021-01-19 05:11] LABS: Partial Thromboplastin Time 80.7 SECONDS (22.3-36.8)
[2021-01-19 05:13] LABS: Alanine Aminotransferase 37 U/L (4-50); Albumin Level 2.7 g/dL (3.5-5.1); Alkaline Phosphatase 106 U/L (38-126); Anion Gap 4 mmol/L (8-16); Aspartate Amino Transferase 42 U/L (17-59); Bilirubin,Total 0.7 mg/dL (0.2-1.3); Blood Urea Nitrogen 15 mg/dL (9-20); Calcium 7.7 mg/dL (8.4-10.2); Carbon Dioxide 29 mmol/L (22-30); Chloride 99 mmol/L (98-107); Estimated CRCL calculation 108 ml/min; Estimated Glomerular Filt Rate > 60; Glucose 130 mg/dL (75-110); Magnesium 1.7 mg/dL (1.6-2.3); Phosphorus 2.7 mg/dL (2.5-4.5); Potassium 3.3 mmol/L (3.4-5.0); Sodium 132 mmol/L (137-145)
[2021-01-19] MEDS: ceFAZolin 2 GM/D5W 50 ML 2 GM/50 ML BAG IVPB ×3 (05:33→21:50)
[2021-01-19] MEDS: THIAMINE HCL 200 MG/2 ML VIAL 100 MG IV PUSH (08:36)
[2021-01-19] MEDS: ASPIRIN 81 MG CHEWABLE TABLET PO (08:37)
[2021-01-19] MEDS: PANTOPRAZOLE SODIUM IV 40 MG VIAL IV PUSH (08:37)
[2021-01-19] MEDS: POTASSIUM CHLORIDE 20 MEQ TABLET 40 MEQ PO (08:38)
[2021-01-19] MEDS: FOLIC ACID 1 MG/0.2 ML INJ IV PUSH (08:42)
[2021-01-19] MEDS: dexmedeTOMIDine 400 MCG/100 ML 400 MCG/100 ML BAG 10.83 MCG IV CONT (08:42)
[2021-01-19] MEDS: MAGNESIUM SULF 2 GM/WATER 50ML 2 GM/50 ML BAG IVPB (08:49)
--- NOTE | 2021-01-19 10:12 | PM.PNCARD ---
Progress Note: A&P Assessment and Plan (1) Atrial arrhythmia: Code(s): I49.8 - Other specified cardiac arrhythmias Status: Acute Assessment and Plan: Patient remains in atrial fibrillation with controlled ventricular rate. IV metoprolol held because of low blood pressure. May resume low dose BB. Patient is on unfractionated heparin, may switch low molecular weight heparin (2) Abnormal EKG: Code(s): R94.31 - Abnormal electrocardiogram [ECG] [EKG] Status: Acute Assessment and Plan: EKG now shows some anterior T-wave inversions suggestive of ischemia/CAD. Asymptomatic. May add low-dose beta-giuliano Ischemia evaluation at a later date as clinically indicated. (3) Bacteremia: Code(s): R78.81 - Bacteremia Status: Acute Assessment and Plan: Management as per ICU team and Infectious Disease (4) Alcoholism: Code(s): F10.20 - Alcohol dependence, uncomplicated Status: Acute Assessment and Plan: Management as per primary team. Patient was in DTs Additional Plan Plan discussed with the ICU physician and ICU team Subjective Date/time seen: 01/19/21 10:12 Interval history: 65yo male with alcoholism and HTN here for bacteremia. Patient initially seen in ED clergy member hours of 01/13 for body aches, low back pain and fever and felt to have sinusitis and d/c home with Levaquin. BCx drawn returned positive and pateint directed back to the ED on 01/14 and admitted. He developed DTs and ultimately moved to ICU on 01/15 and started on Precedex. No issues overnight but this morning he became agitated requiring Precedex to be advanced to 1.6. SOme improvement and bale to decrease to 0.9mcg/kg/hr now. Patient unable to provide history. Date of service 01/19/2021-patient remains delirious. His was patient's bedside. On telemetry, he is in atrial fibrillation with heart rates in 80s. Exam Narrative: Exam Narrative: PHYSICAL EXAMINATION: GENERAL: Delirious, mildly agitated MENTAL STATUS: Delirious EYES: eyes closed EARS: External ears appear normal NOSE: Normal and patent, no discharge MOUTH: Mucous membranes dry NECK: Supple, no JVD CHEST: Decreased breath sounds HEART: Normal rate, irregular rhythm ABDOMEN: Soft NEUROLOGICAL: Delirious, mildly agitated MUSCULOSKELETAL: No major deformity, no amputation EXTREMITIES: No pedal edema, no clubbing, no cyanosis SKIN: no rash on the exposed area, no cyanosis Objective Data Vital Signs Vital Signs: Vital Signs - 24 hr 01/18/21 10:23 01/18/21 12:00 01/18/21 12:12 Temperature 36.4 C L Pulse Rate 63 74 74 Pulse Rate [Bilateral Monitor] 76 Respiratory Rate 24 H 32 H 32 H Blood Pressure 131/76 Pulse Oximetry 98 01/18/21 13:09 01/18/21 13:42 01/18/21 13:52 Temperature Pulse Rate 72 75 79 Pulse Rate [Bilateral Monitor] Respiratory Rate 26 H 20 20 Blood Pressure Pulse Oximetry 01/18/21 14:00 01/18/21 16:00 01/18/21 18:00 Temperature 36.9 C Pulse Rate 75 76 73 Pulse Rate [Bilateral Monitor] 76 Respiratory Rate 25 H 23 H 23 H Blood Pressure 131/76 128/78 133/87 Pulse Oximetry 97 95 94 01/18/21 18:55 01/18/21 20:00 01/18/21 20:30 Temperature 36.8 C Pulse Rate 69 70 70 Pulse Rate [Bilateral Monitor] 70 Respiratory Rate 26 H 24 H 24 H Blood Pressure 147/64 H Pulse Oximetry 95 96 01/18/21 20:38 01/18/21 22:00 01/19/21 00:00 Temperature 36.7 C Pulse Rate 71 73 71 Pulse Rate [Bilateral Monitor] 71 Respiratory Rate 22 H 26 H 27 H Blood Pressure 150/71 H 145/93 H Pulse Oximetry 93 97 01/19/21 02:00 01/19/21 02:28 01/19/21 02:36 Temperature Pulse Rate 69 67 73 Pulse Rate [Bilateral Monitor] Respiratory Rate 30 H 24 H 24 H Blood Pressure 116/79 Pulse Oximetry 91
--- NOTE | 2021-01-19 10:49 | WPDINTPN ---
Progress Note: A&P Assessment and Plan (1) Bacteremia: Code(s): R78.81 - Bacteremia Status: Acute Assessment and Plan: Patient Staph aureus bacteremia 01/13/2021 -infectious disease following the patient, continue Ancef, vancomycin was discontinued -echocardiogram 01/14/2021: Showed normal LV size with moderate concentric hypertrophy and good systolic function, EF 55-60%. Normal diastolic dysfunction. Left atrium moderately enlarged, mild pulmonary hypertension with RVSP of 39 mmHg, no vegetations seen. -repeat blood cultures 01/14/2021 also positive for gram-positive cocci 2/2 bottles -another set of cultures have been obtained this morning on 01/16/2021 gram-positive cocci in 1/2 bottles - Lumbar CT showing no acute findings (2) Sepsis: Code(s): A41.9 - Sepsis, unspecified organism Status: Acute Assessment and Plan: Sepsis due staph bacteremia -patient tachycardic tachypneic which also be secondary to alcohol withdrawal secondary to adrenergic surge -patient is afebrile -continue antibiotics as above (3) Tachyarrhythmia: Code(s): R00.0 - Tachycardia, unspecified Status: Acute Assessment and Plan: EKG on 0 01/17 showed atrial fibrillation, cardiology started patient on metoprolol -initial EKG did show multifocal atrial tachycardia but now in AFib with and rate controlled. -discussed with Cardiology, switch heparin infusion to therapeutic Lovenox (4) Thrombocytopenia: Code(s): D69.6 - Thrombocytopenia, unspecified Status: Acute Assessment and Plan: RESOLVED Thrombocytopenia likely related to sepsis and/or chronic alcohol abuse -no obvious bleeding noted, will continue to monitor platelet level -improving (5) Alcoholism: Code(s): F10.20 - Alcohol dependence, uncomplicated Status: Acute Assessment and Plan: Patient is a chronic alcoholic, has not been drinking 2-3 days prior to admission as he was not feeling too well. (patient drinks approximately 18 beers per day) -transferred to the ICU on 01/15/2021 for alcohol withdrawal with possible delirium tremens, received multiple doses of Ativan and Haldol in the IMU -continue thiamine, folic acid -on Precedex infusion, wean Precedex as tolerated -have ordered low-dose Seroquel Additional Plan Discuss with patient's at bedside and updated her with patient's condition, plan of care. I answered all questions.. Code status: Full code Critical care time spent: 33 minutes This dictation may have been done utilizing a voice recognition system. Attempts have been made to correct errors. However, there may be uncorrected grammatical, spelling, and recognition errors present. Due to a high probability of clinically significant, life threatening deterioration, the patient required my highest level of preparedness to intervene emergently and I personally spent this critical care time directly and personally managing the patient. This critical care time included obtaining a history; examining the patient; pulse oximetry; ordering and review of studies; arranging urgent treatment with development of a management plan; evaluation of patient's response to treatment; frequent reassessment; and discussions with other providers. It was exclusive of separately billable procedures and treating other patients and teaching time. Please see Assessment and Plan section and the rest of the note for further information on patient assessment and treatment Subjective Date/time seen: 01/19/21 10:49 Interval history: Reason for consult: Alcohol withdrawal, delirium tremens, staph aureus bacteremia 01/19/2021: Patient more awake this morning, oriented x3, answers to questions with a little garbled speech. Complains of pain in his back. Denies any shortness of breath, abdominal pain, nausea vomiting denies any chest pain. Patient is hemodynamically stable. Patient currently on Precedex which is being weaned. Rev
[2021-01-19] MEDS: QUEtiapine FUMARATE 12.5 MG TABLET PO ×2 (11:39→20:17)
[2021-01-19] MEDS: ENOXAPARIN 100 MG/ML SYRINGE 87 MG SUB-Q ×2 (11:39→20:16)
--- NOTE | 2021-01-19 17:27 | PM.IMPN ---
Progress Note: A&P Assessment and Plan (1) Abnormal EKG: Code(s): R94.31 - Abnormal electrocardiogram [ECG] [EKG] Status: Acute (2) Atrial arrhythmia: Code(s): I49.8 - Other specified cardiac arrhythmias Status: Acute (3) Atrial fibrillation: Code(s): I48.91 - Unspecified atrial fibrillation Status: Acute (4) Bacteremia: Code(s): R78.81 - Bacteremia Status: Acute (5) Alcoholism: Code(s): F10.20 - Alcohol dependence, uncomplicated Status: Acute (6) Alcohol abuse: Code(s): F10.10 - Alcohol abuse, uncomplicated Status: Acute (7) Elevated LFTs: Code(s): R79.89 - Other specified abnormal findings of blood chemistry Status: Acute (8) Sepsis: Code(s): A41.9 - Sepsis, unspecified organism Status: Acute (9) Hyponatremia: Code(s): E87.1 - Hypo-osmolality and hyponatremia Status: Acute (10) Thrombocytopenia: Code(s): D69.6 - Thrombocytopenia, unspecified Status: Acute (11) Bacteremia: Code(s): R78.81 - Bacteremia Status: Acute (12) Confusion: Code(s): R41.0 - Disorientation, unspecified Status: Acute (13) Alcohol withdrawal delirium: Code(s): F10.231 - Alcohol dependence with withdrawal delirium Status: Acute (14) Septicemia: Code(s): A41.9 - Sepsis, unspecified organism Status: Acute Additional Plan # sepsis: Present on admission and supported by fever, tachycardia, and tachypnea in the setting of bacteremia. Seen in ED on 01/13 and had BCx drawn. BCX 01/13 positive for Staphylococcus aureus and he returned to the ED on 01/14 and received 1 dose of cefepime and vancomycin. BCx repeated. Dr. Sorensen was consulted and he recommended vancomycin and Ancef. BCx from 01/13 and 01/14 both growing ENRIKE so abx narrowed to Ancef Day #6. Echo does not show any vegetations. Lumbar CT showing no acute findings. Repeat BCx 01/16 (1of2) are positive still. Consider CALIN and/or lumbar MRI. Source unclear but possibly skin. No fevers and WBC normal. Continue the same. # MSSA bacteremia: on ancef. vancomycin discontinued. ECHo 01/14/2021: Showed normal LV size with moderate concentric hypertrophy and good systolic function, EF 55-60%. Normal diastolic dysfunction. Left atrium moderately enlarged, mild pulmonary hypertension with RVSP of 39 mmHg, no vegetations seen. # Alcohol withdrawal delirium: Patient A&O x4 on admission but seemed a bit confused. He then developed acute delirium from alcohol withdrawal 01/15 and moved to ICU for Precedex. CT brain normal. Continue Precedex and wean as he tolerates. Continue Thiamine and Folate. # Atrial fibrillation: EKG on admission consistent with MAT. Rhythm strips also consistent with MAT. Oral metoprolol started but changed to IV metoprolol since patient was NPO. Echo with EF 55-60% with normal diastolic dysfunction and mild pulm HTN. TSH normal. Patient did convert to AFib. Lopressor IV stopped . Heparin drip started. Continue tele. Appreciate Cardiology input. # Hyponatremia: Sodium was 135 on 12/31/2020 but down to 129 on 01/13. Probably multifactorial from his Celexa, HCTZ, beer potomania and/or dehydration. Jesús low at 17. He received appropriate IV fluids in the ED. Na dropped to 123 but better today at 132. Monitor closely. Continue IV fluids # Hypertension: BP stable. Lisinopril and HCTZ on hold. Oral Metoprolol also placed on hold. IV Lopressor stopped. Monitor. # Elevated LFTs: Likely due to longstanding alcohol abuse as his coags are slightly prolonged and platelets are decreased. RUQ showing normal right upper quadrant ultrasound status post cholecystectomy. Hepatitis panel negative. LFTs up and down but stable overall. Suspect alcoholic hepatitis. Follow LFTs. # Alcoholism: stated patient only drinks beer and can drink 12-18 beers per day. As above. Continue Folate and Thiamine IV. Will pr
[2021-01-19] MEDS: dexmedeTOMIDine 400 MCG/100 ML 400 MCG/100 ML BAG IV CONT (19:50)
[2021-01-20] VITALS (23 sets, daily range): BP systolic 103–155; BP diastolic 58–97; PULSE 80–143; RESP 18–31; TEMP 36.4–37.1; O2SAT 91–98; BMI 27.6
[2021-01-20] MEDS: ALBUTEROL SULFATE NEB 2.5 MG/0.5 ML INH INHALATION ×4 (02:19→19:43)
[2021-01-20] MEDS: IPRATROPIUM BR 0.02% INH SOLN 0.5 MG/2.5 ML VIAL INHALATION ×4 (02:19→19:43)
[2021-01-20 04:56] LABS: Hematocrit 40.3 % (42.0-52.0); Hemoglobin 13.9 g/dL (14.0-18.0); Mean Corpuscular HGB Conc 34.5 g/dl (32-36); Mean Corpuscular Volume 92.6 fl (80-100); Mean Platelet Volume 9.7 fl (7.4-10.4); Platelet Count Result 357 k/mm3 (150-375); Red Blood Count 4.35 M/mm3 (4.6-6.20); Red Cell Distribution Width 12.7 % (11.5-14.5); White Blood Count 9.4 K/mm3 (4.5-10.0)
[2021-01-20 05:11] LABS: Alanine Aminotransferase 43 U/L (4-50); Albumin Level 2.9 g/dL (3.5-5.1); Alkaline Phosphatase 133 U/L (38-126); Anion Gap 4 mmol/L (8-16); Aspartate Amino Transferase 65 U/L (17-59); Bilirubin,Total 0.8 mg/dL (0.2-1.3); Blood Urea Nitrogen 12 mg/dL (9-20); Calcium 7.9 mg/dL (8.4-10.2); Carbon Dioxide 31 mmol/L (22-30); Chloride 99 mmol/L (98-107); Estimated CRCL calculation 108 ml/min; Estimated Glomerular Filt Rate > 60; Glucose 107 mg/dL (75-110); Magnesium 1.8 mg/dL (1.6-2.3); Partial Thromboplastin Time 48.4 SECONDS (22.3-36.8); Phosphorus 2.7 mg/dL (2.5-4.5); Potassium 3.4 mmol/L (3.4-5.0); Sodium 134 mmol/L (137-145)
[2021-01-20] MEDS: chlordiazePOXIDE (*CRX) 25 MG CAPSULE 50 MG PO ×3 (06:00→17:53)
[2021-01-20] MEDS: ceFAZolin 2 GM/D5W 50 ML 2 GM/50 ML BAG IVPB ×3 (06:01→21:05)
--- NOTE | 2021-01-20 08:22 | PM.PNCARD ---
Progress Note: A&P Additional Plan 65-year-old man with: Acute onset of atrial fibrillation during this hospitalization in the setting of alcoholic withdrawal/delirium tremens. His delirium seems to be clearing he persists in atrial fibrillation he is hemodynamically stable in the arrhythmia. He has been anticoagulated since the onset of the AF with heparin and now with Lovenox. If this persists we should be planning to electrically cardiovert him during this admission. Nic Gregorio MD [facility] Subjective Date/time seen: Date of service: 01/20/21 08:22 Interval history: 65yo male with alcoholism and HTN here for bacteremia. 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 BCx drawn returned positive and pateint directed back to the ED on 01/14 and admitted. He developed DTs and ultimately moved to ICU on 01/15 and started on Precedex. No issues overnight but this morning he became agitated requiring Precedex to be advanced to 1.6. SOme improvement and bale to decrease to 0.9mcg/kg/hr now. Patient unable to provide history. Date of service 01/19/2021-patient remains delirious. His was patient's bedside. On telemetry, he is in atrial fibrillation with heart rates in 80s. Date of service 01/20/2021: Patient is more coherent today, DTs appear to be clearing. He is no longer sedated with Precedex and probably for that reason is more tachycardic. Low-dose of beta-giuliano started today by the core shaper, patient has not received dosage yet. Currently anticoagulated with low molecular weight heparin Exam Const: General: comfortable and no acute distress Other: Chronically ill-appearing white male who is responsive and answers questions appropriately. No longer delirious HENMT: Mouth: Yes moist mucous membranes Eyes: Sclera: sclerae normal Pupils: Equal, round and reactive pupils present Neck: Neck: supple and no JVD Thyroid: thyroid normal Resp: Other: Breath sounds with some central rhonchi bilaterally Cardio: Rhythm: abnormal rhythm irregularly irregular GI: GI Palp: Yes Soft to palpation Auscultation: normal bowel sounds Skin: General skin exam: normal color Neuro: Other: Appears to be oriented answers questions appropriately, not oriented to date Extrem: General: normal to inspection Objective Data Vital Signs Vital Signs: Vital Signs - 24 hr 01/19/21 08:42 01/19/21 10:00 01/19/21 12:00 Temperature 36.9 C Pulse Rate 90 80 80 Pulse Rate [Bilateral Monitor] 82 Respiratory Rate 26 H 31 H 28 H Blood Pressure 142/79 H 138/88 Pulse Oximetry 91 92 01/19/21 13:00 01/19/21 13:05 01/19/21 13:27 Temperature Pulse Rate 80 71 74 Pulse Rate [Bilateral Monitor] Respiratory Rate 28 H 20 Blood Pressure Pulse Oximetry 92 01/19/21 13:39 01/19/21 14:00 01/19/21 14:56 Temperature Pulse Rate 87 84 77 Pulse Rate [Bilateral Monitor] Respiratory Rate 20 27 H 21 H Blood Pressure 114/90 Pulse Oximetry 95 01/19/21 16:00 01/19/21 18:00 01/19/21 19:50 Temperature 36.4 C Pulse Rate 77 97 116 H Pulse Rate [Bilateral Monitor] 77 Respiratory Rate 25 H 22 H 20 Blood Pressure 125/63 151/97 H Pulse Oximetry 93 93 01/19/21 19:57 01/19/21 20:00 01/19/21 20:27 Temperature 38.2 C H 38.2 C H 38.6 C H Pulse Rate 106 H Pulse Rate [Bilateral Monitor] 98 Respiratory Rate 28 H Blood Pressure 159/98 H Pulse Oximetry 93 01/19/21 20:51 01/19/21 20:52 01/19/21 20:59 Temperature Pulse Rate 98 103 H 95 Pulse Rate [Bilateral Monitor] Respiratory Rate 22 H 25 H 24 H Blood Pressure Pulse Oximetry 94 01/19/21 22:00 01/19/21 23:50 01/20/21 00:00 Temperature 37.0 C Pulse Rate 92 81 Pulse Rate [Bilateral Monitor] 80 Respiratory Rate 29 H 21 H Blood Pressure 130/76 113/77 Pulse Oximetry 94 95 92 01/20/21 02:00 01/20/21 02:19
[2021-01-20] MEDS: ENOXAPARIN 100 MG/ML SYRINGE 87 MG SUB-Q ×2 (08:59→20:59)
[2021-01-20] MEDS: PANTOPRAZOLE SODIUM IV 40 MG VIAL IV PUSH (08:59)
[2021-01-20] MEDS: QUEtiapine FUMARATE 12.5 MG TABLET PO ×2 (09:00→21:08)
[2021-01-20] MEDS: THIAMINE HCL 200 MG/2 ML VIAL 100 MG IV PUSH (09:00)
[2021-01-20] MEDS: ASPIRIN 81 MG CHEWABLE TABLET PO (09:00)
[2021-01-20] MEDS: POTASSIUM CHLORIDE 20 MEQ TABLET 40 MEQ PO (09:05)
[2021-01-20] MEDS: FUROSEMIDE INJ 40 MG/4 ML VIAL IV PUSH (09:05)
[2021-01-20] MEDS: MAGNESIUM SULF 2 GM/WATER 50ML 2 GM/50 ML BAG IVPB (09:05)
[2021-01-20] MEDS: METOPROLOL TARTRATE 25 MG TABLET PO ×2 (09:29→20:59)
--- NOTE | 2021-01-20 09:41 | WPDINTPN ---
Progress Note: A&P Assessment and Plan (1) Bacteremia: Code(s): R78.81 - Bacteremia Status: Acute Assessment and Plan: Patient Staph aureus bacteremia 01/13/2021 -infectious disease following the patient, continue Ancef, vancomycin was discontinued -echocardiogram 01/14/2021: Showed normal LV size with moderate concentric hypertrophy and good systolic function, EF 55-60%. Normal diastolic dysfunction. Left atrium moderately enlarged, mild pulmonary hypertension with RVSP of 39 mmHg, no vegetations seen. -repeat blood cultures 01/14/2021 also positive for gram-positive cocci 2/2 bottles -another set of cultures have been obtained this morning on 01/16/2021 gram-positive cocci in 1/2 bottles - Lumbar CT showing no acute findings (2) Sepsis: Code(s): A41.9 - Sepsis, unspecified organism Status: Acute Assessment and Plan: Sepsis due staph bacteremia -patient tachycardic tachypneic which also be secondary to alcohol withdrawal secondary to adrenergic surge -patient is afebrile -continue antibiotics as above (3) Tachyarrhythmia: Code(s): R00.0 - Tachycardia, unspecified Status: Acute Assessment and Plan: EKG on 0 01/17 showed atrial fibrillation, cardiology started patient on metoprolol -initial EKG did show multifocal atrial tachycardia but now in AFib with and rate controlled. -patient in AFib RVR, hypertensive, will start oral metoprolol -p.r.n. hydralazine for blood pressures -discuss with Cardiology, possible plan for electrical cardioversion in 1-2 days (4) Thrombocytopenia: Code(s): D69.6 - Thrombocytopenia, unspecified Status: Acute Assessment and Plan: RESOLVED Thrombocytopenia likely related to sepsis and/or chronic alcohol abuse -no obvious bleeding noted, will continue to monitor platelet level -improving (5) Alcoholism: Code(s): F10.20 - Alcohol dependence, uncomplicated Status: Acute Assessment and Plan: Patient is a chronic alcoholic, has not been drinking 2-3 days prior to admission as he was not feeling too well. (patient drinks approximately 18 beers per day) -transferred to the ICU on 01/15/2021 for alcohol withdrawal with possible delirium tremens, received multiple doses of Ativan and Haldol in the IMU -continue thiamine, folic acid -patient has been off Precedex infusion -continue Librium and low-dose Seroquel Additional Plan Discuss with patient's at bedside and updated her with patient's condition, plan of care. I answered all questions.. Code status: Full code Critical care time spent: 34 minutes This dictation may have been done utilizing a voice recognition system. Attempts have been made to correct errors. However, there may be uncorrected grammatical, spelling, and recognition errors present. Due to a high probability of clinically significant, life threatening deterioration, the patient required my highest level of preparedness to intervene emergently and I personally spent this critical care time directly and personally managing the patient. This critical care time included obtaining a history; examining the patient; pulse oximetry; ordering and review of studies; arranging urgent treatment with development of a management plan; evaluation of patient's response to treatment; frequent reassessment; and discussions with other providers. It was exclusive of separately billable procedures and treating other patients and teaching time. Please see Assessment and Plan section and the rest of the note for further information on patient assessment and treatment Subjective Date/time seen: 01/20/21 09:41 Interval history: Reason for consult: Alcohol withdrawal, delirium tremens, staph aureus bacteremia 01/20/2021: Patient more awake this morning, oriented x3, answers to questions, continues to have garbled speech, he does follow commands in all extremities. Complains of pain in his back and thigh he denies any short
[2021-01-20] MEDS: FOLIC ACID 1 MG/0.2 ML INJ IV PUSH (09:49)
[2021-01-20] MEDS: LORazepam INJ (*CRX) 2 MG/ML VIAL 1 MG IV PUSH (12:11)
--- NOTE | 2021-01-20 13:24 | PM.IMPN ---
Progress Note: A&P Additional Plan # sepsis: Present on admission and supported by fever, tachycardia, and tachypnea in the setting of bacteremia. Seen in ED on 01/13 and had BCx drawn. BCX 01/13 positive for Staphylococcus aureus and he returned to the ED on 01/14 and received 1 dose of cefepime and vancomycin. BCx repeated. Dr. Sorensen was consulted and he recommended vancomycin and Ancef. BCx from 01/13 and 01/14 both growing ENRIKE so abx narrowed to Ancef Day #6. Echo does not show any vegetations. Lumbar CT showing no acute findings. Repeat BCx 01/16 (1of2) are positive still. Consider CALIN and/or lumbar MRI. Source unclear but possibly skin. No fevers and WBC normal. Continue the same. # MSSA bacteremia: on ancef. vancomycin discontinued. ECHO 01/14/2021: Showed normal LV size with moderate concentric hypertrophy and good systolic function, EF 55-60%. Normal diastolic dysfunction. Left atrium moderately enlarged, mild pulmonary hypertension with RVSP of 39 mmHg, no vegetations seen. # Alcohol withdrawal delirium: Patient A&O x4 on admission but seemed a bit confused. He then developed acute delirium from alcohol withdrawal 01/15 and moved to ICU for Precedex. CT brain normal. Continue Precedex and wean as he tolerates. Continue Thiamine and Folate. continue current care for his alcohol withdrawal, slowing improving. # Atrial fibrillation: EKG on admission consistent with MAT. Rhythm strips also consistent with MAT. Oral metoprolol started but changed to IV metoprolol since patient was NPO. ECHO with EF 55-60% with normal diastolic dysfunction and mild pulm HTN. TSH normal. Patient did convert to AFib. Lopressor IV stopped . Heparin drip started. Continue tele. Appreciate Cardiology input. # Hyponatremia: Sodium was 135 on 12/31/2020 but down to 129 on 01/13. Probably multifactorial from his Celexa, HCTZ, beer potomania and/or dehydration. Jesús low at 17. He received appropriate IV fluids in the ED. Na dropped to 123 but better today at 132. Monitor closely. Continue IV fluids # Hypertension: BP stable. Lisinopril and HCTZ on hold. Oral Metoprolol also placed on hold. IV Lopressor stopped. Monitor. # Elevated LFTs: Likely due to longstanding alcohol abuse as his coags are slightly prolonged and platelets are decreased. RUQ showing normal right upper quadrant ultrasound status post cholecystectomy. Hepatitis panel negative. LFTs up and down but stable overall. Suspect alcoholic hepatitis. Follow LFTs. # Alcoholism: stated patient only drinks beer and can drink 12-18 beers per day. As above. Continue Folate and Thiamine IV. Will provide information about AA when he is more awake and alert. # Thrombocytopenia: Plt count was normal earlier this month but dropped to 56K but now normal. Suspect related to the toxic effects of the alcohol. Could be sequestered if he has enlarged spleen and/or from the septicemia. Follow. # Anxiety: As above. Citalopram currently on hold given hyponatremia and his clinical condition. Hyponatremia better. Resume when taking oral intake and mental status better. # Gout: No acute issues. Holding allopurinol for now. # DVT prophylaxis: lovenox # code status: full code Subjective Date/time seen: 01/20/21 13:24 Interval history: 65yo male with alcoholism and HTN here for bacteremia. 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 BCx drawn returned positive and pateint directed back to the ED on 01/14 and admitted. He developed DTs and ultimately moved to ICU on 01/15 and started on Precedex. No issues overnight, he is more awke, working with therapyp this am, no sob, chest pain.no fever. he is off precedex since this am. at bedside. Review of Systems Review of Systems: ROS unobtainable: Yes unobtainable due to mental status Exam Narrative: Exam Narr
--- NOTE | 2021-01-20 14:40 | WPDINFPN2 ---
Progress Note: A&P Assessment and Plan (1) Bacteremia: Code(s): R78.81 - Bacteremia Status: Acute Assessment and Plan: 1. ENRIKE bacteremia with infection, skin source likely, still + 01/16 1/2 sets. TTE no significant valvular heart disease 2. Alcoholism 3. Hypotension, possibly due to septic shock REC (antibiotic #7 / 4-6 weeks) Ancef # 6. Suggest CALIN. Redo BCs. Subjective Date/time seen: 01/20/21 14:40 Interval history: feels ok eating a little Exam Narrative: Exam Narrative: t max 38.6 Const: General: no acute distress Eyes: General: appearance normal, both eyes and all related structures Resp: Effort & Inspection: normal respiratory effort Auscultation: clear to auscultation bilaterally and diminished lung sounds Cardio: Rate: regular rate Rhythm: regular rhythm Heart sounds: no murmurs GI: Inspection: non-distended GI Palp: Yes Soft to palpation and No Tenderness to palpation present (GI) Objective Data Vital Signs Vital Signs: Vital Signs - 24 hr 01/19/21 14:56 01/19/21 16:00 01/19/21 18:00 Temperature 36.4 C Pulse Rate 77 77 97 Pulse Rate [Bilateral Monitor] 77 Respiratory Rate 21 H 25 H 22 H Blood Pressure 125/63 151/97 H Pulse Oximetry 93 93 01/19/21 19:50 01/19/21 19:57 01/19/21 20:00 Temperature 38.2 C H 38.2 C H Pulse Rate 116 H 106 H Pulse Rate [Bilateral Monitor] 98 Respiratory Rate 20 28 H Blood Pressure 159/98 H Pulse Oximetry 93 01/19/21 20:27 01/19/21 20:51 01/19/21 20:52 Temperature 38.6 C H Pulse Rate 98 103 H Pulse Rate [Bilateral Monitor] Respiratory Rate 22 H 25 H Blood Pressure Pulse Oximetry 94 01/19/21 20:59 01/19/21 22:00 01/19/21 23:50 Temperature Pulse Rate 95 92 Pulse Rate [Bilateral Monitor] Respiratory Rate 24 H 29 H Blood Pressure 130/76 Pulse Oximetry 94 95 01/20/21 00:00 01/20/21 02:00 01/20/21 02:19 Temperature 37.0 C Pulse Rate 81 81 97 Pulse Rate [Bilateral Monitor] 80 Respiratory Rate 21 H 28 H 24 H Blood Pressure 113/77 155/97 H Pulse Oximetry 92 96 01/20/21 02:28 01/20/21 04:00 01/20/21 06:00 Temperature 37.1 C Pulse Rate 96 100 106 H Pulse Rate [Bilateral Monitor] 100 Respiratory Rate 23 H 20 31 H Blood Pressure 151/80 H 146/77 H Pulse Oximetry 97 94 01/20/21 07:35 01/20/21 07:46 01/20/21 08:00 Temperature 36.7 C Pulse Rate 110 H 102 H 118 H Pulse Rate [Bilateral Monitor] 118 H Respiratory Rate 18 18 28 H Blood Pressure 154/69 H Pulse Oximetry 97 96 01/20/21 09:29 01/20/21 10:00 01/20/21 12:00 Temperature 36.4 C Pulse Rate 131 H 106 H 97 Pulse Rate [Bilateral Monitor] 97 Respiratory Rate 29 H 23 H Blood Pressure 127/64 116/85 Pulse Oximetry 91 98 01/20/21 14:00 Temperature Pulse Rate 95 Pulse Rate [Bilateral Monitor] Respiratory Rate 24 H Blood Pressure 103/79 Pulse Oximetry 93 Intake/Output Intake/Output: Intake & Output 01/17/21 01/18/21 01/19/21 01/20/21 23:59 23:59 23:59 23:59 Intake Total 5190 2927 1720 960 Output Total 1400 3850 1675 575 Balance 3790 -923 45 385 Meds/Results Medications: Active Medications Generic Name Dose Route Start Last Admin Trade Name Freq PRN Reason Stop Dose Admin Albuterol 2.5 mg 01/17/21 20:00 01/20/21 13:21 Albuterol Sulfate Neb 2.5 Mg/0.5 Ml Inh INHALATION 2.5 mg Q6HRT [facility] Administration Allopurinol 100 mg 01/14/21 09:00 01/15/21 10:30 Allopurinol 100 Mg Tablet PO Not Given QAM [facility] Aspirin 81 mg 01/18/21 08:00 01/20/21 09:00 Aspirin 81 Mg Chewable Tablet PO 81 mg DAILY@0800 [facility] Administration Chlordiazepoxide HCl 50 mg 01/17/21 07:10 01/20/21 12:11 Chlordiazepoxide (*Crx) 25 Mg Capsule PO 50 mg Q6HR [facility] Administration Enoxaparin Sodium 87 mg 01/19/21 10:50 01/20/21 08:59 Enoxaparin 100 Mg/Ml Syringe SUB-Q 87 mg Q12HR [facility] Administration Folic Acid 1 mg 01/16/21 09:00 01/20/21 09:49 Folic Acid 1 Mg
[2021-01-20] MEDS: METOPROLOL TARTRATE INJ 5 MG/5 ML VIAL IV PUSH (19:55)
[2021-01-21] VITALS (31 sets, daily range): BP systolic 113–166; BP diastolic 60–97; PULSE 82–138; RESP 18–36; TEMP 36.8–38; O2SAT 92–97
--- NOTE | 2021-01-21 | PC.NURSE ---
Held 0000 librium dose, patient drowsy and not wanting to drink any fluids at this time.
[2021-01-21] MEDS: IPRATROPIUM BR 0.02% INH SOLN 0.5 MG/2.5 ML VIAL INHALATION ×4 (01:47→19:35)
[2021-01-21] MEDS: ALBUTEROL SULFATE NEB 2.5 MG/0.5 ML INH INHALATION ×4 (01:47→19:35)
[2021-01-21] MEDS: chlordiazePOXIDE (*CRX) 25 MG CAPSULE 50 MG PO (02:25)
[2021-01-21] MEDS: hydrALAZINE HCL 20 MG/ML VIAL 10 MG IV PUSH ×2 (02:26→18:15)
[2021-01-21] MEDS: METOPROLOL TARTRATE INJ 5 MG/5 ML VIAL IV PUSH ×3 (03:26→16:33)
[2021-01-21 04:45] LABS: Basophils Percent Auto 0.4 % (0.2-1.2); Eosinophils Absolute Auto 0.1 K/mm3 (0-0.3); Eosinophils Percent Auto 0.6 % (0-4.4); Hematocrit 38.7 % (42.0-52.0); Hemoglobin 13.3 g/dL (14.0-18.0); Immature Granulocyte Absolute 0.14 K/mm3 (0.00-0.031); Immature Granulocyte Percent A 1.3 % (0-0.5); Lymphocytes Absolute Auto 1.22 K/mm3 (0.9-3.2); Lymphocytes Percent Auto 11.2 % (18.3-44.2); Mean Corpuscular HGB Conc 34.4 g/dl (32-36); Mean Platelet Volume 9.5 fl (7.4-10.4); Monocytes Absolute Auto 0.7 K/mm3 (0.1-0.6); Monocytes Percent Auto 6.6 % (2.6-8.5); Neutrophils Absolute Auto 8.7 K/mm3 (1.3-6.7); Neutrophils Percent Auto 79.9 % (45.5-73.1); Platelet Count Result 444 k/mm3 (150-375); Red Blood Count 4.16 M/mm3 (4.6-6.20); Red Cell Distribution Width 12.9 % (11.5-14.5); White Blood Count 10.9 K/mm3 (4.5-10.0)
[2021-01-21 05:14] LABS: Alanine Aminotransferase 51 U/L (4-50); Alkaline Phosphatase 158 U/L (38-126); Anion Gap 5 mmol/L (8-16); Aspartate Amino Transferase 85 U/L (17-59); Bilirubin,Total 0.8 mg/dL (0.2-1.3); Blood Urea Nitrogen 14 mg/dL (9-20); Calcium 7.9 mg/dL (8.4-10.2); Carbon Dioxide 28 mmol/L (22-30); Chloride 102 mmol/L (98-107); Estimated CRCL calculation 94 ml/min; Estimated Glomerular Filt Rate > 60; Glucose 111 mg/dL (75-110); Magnesium 1.9 mg/dL (1.6-2.3); Phosphorus 2.9 mg/dL (2.5-4.5); Potassium 3.6 mmol/L (3.4-5.0); Sodium 135 mmol/L (137-145)
[2021-01-21] MEDS: ceFAZolin 2 GM/D5W 50 ML 2 GM/50 ML BAG IVPB ×3 (05:51→21:39)
[2021-01-21] MEDS: ASPIRIN 81 MG CHEWABLE TABLET PO (08:44)
[2021-01-21] MEDS: FUROSEMIDE INJ 40 MG/4 ML VIAL IV PUSH (08:44)
[2021-01-21] MEDS: THIAMINE HCL 200 MG/2 ML VIAL 100 MG IV PUSH (08:45)
[2021-01-21] MEDS: chlordiazePOXIDE (*CRX) 25 MG CAPSULE PO ×3 (08:45→21:35)
[2021-01-21] MEDS: QUEtiapine FUMARATE 12.5 MG TABLET PO ×2 (08:45→21:31)
[2021-01-21] MEDS: ENOXAPARIN 100 MG/ML SYRINGE 87 MG SUB-Q ×2 (08:45→21:31)
[2021-01-21] MEDS: PANTOPRAZOLE SODIUM IV 40 MG VIAL IV PUSH (08:46)
[2021-01-21] MEDS: FOLIC ACID 1 MG/0.2 ML INJ IV PUSH (08:48)
[2021-01-21] MEDS: METOPROLOL TARTRATE 50 MG TAB PO ×2 (08:49→21:31)
--- NOTE | 2021-01-21 09:19 | WPDINTPN ---
Progress Note: A&P Assessment and Plan (1) Bacteremia: Code(s): R78.81 - Bacteremia Status: Acute Assessment and Plan: Patient Staph aureus bacteremia 01/13/2021 -infectious disease following the patient, continue Ancef, -transthoracic echocardiogram 01/14/2021: Showed normal LV size with moderate concentric hypertrophy and good systolic function, EF 55-60%. Normal diastolic dysfunction. Left atrium moderately enlarged, mild pulmonary hypertension with RVSP of 39 mmHg, no vegetations seen. - 01/14/2021 blood cultures also positive Staph aureus 2/2 bottles -01/16/2021 blood cultures staph aureus 1 of 2 bottless - Lumbar CT showing no acute findings -discussed with infectious disease, requested the patient get a CALIN, have updated cardiology -repeated blood cultures on 01/21/2021 (2) Sepsis: Code(s): A41.9 - Sepsis, unspecified organism Status: Acute Assessment and Plan: Sepsis due staph bacteremia -patient tachycardic tachypneic which also be secondary to alcohol withdrawal secondary to adrenergic surge -patient is afebrile -continue antibiotics as above (3) Tachyarrhythmia: Code(s): R00.0 - Tachycardia, unspecified Status: Acute Assessment and Plan: EKG on 0 01/17 showed atrial fibrillation, cardiology started patient on metoprolol -initial EKG did show multifocal atrial tachycardia but now in AFib with and rate controlled. -patient in AFib RVR, hypertensive, will start oral metoprolol -p.r.n. hydralazine for blood pressures -therapeutic low -discuss with Cardiology, possible plan for electrical cardioversion (4) Thrombocytopenia: Code(s): D69.6 - Thrombocytopenia, unspecified Status: Acute Assessment and Plan: RESOLVED Thrombocytopenia likely related to sepsis and/or chronic alcohol abuse -no obvious bleeding noted, will continue to monitor platelet level -improving (5) Alcoholism: Code(s): F10.20 - Alcohol dependence, uncomplicated Status: Acute Assessment and Plan: Patient is a chronic alcoholic, has not been drinking 2-3 days prior to admission as he was not feeling too well. (patient drinks approximately 18 beers per day) -transferred to the ICU on 01/15/2021 for alcohol withdrawal with possible delirium tremens, received multiple doses of Ativan and Haldol in the IMU -continue thiamine, folic acid -patient has been off Precedex infusion -Decrease dose of Librium Librium and continue low-dose Seroquel Additional Plan Discuss with patient's at bedside and updated her with patient's condition, plan of care. I answered all questions.. Code status: Full code Critical care time spent: 35 minutes This dictation may have been done utilizing a voice recognition system. Attempts have been made to correct errors. However, there may be uncorrected grammatical, spelling, and recognition errors present. Due to a high probability of clinically significant, life threatening deterioration, the patient required my highest level of preparedness to intervene emergently and I personally spent this critical care time directly and personally managing the patient. This critical care time included obtaining a history; examining the patient; pulse oximetry; ordering and review of studies; arranging urgent treatment with development of a management plan; evaluation of patient's response to treatment; frequent reassessment; and discussions with other providers. It was exclusive of separately billable procedures and treating other patients and teaching time. Please see Assessment and Plan section and the rest of the note for further information on patient assessment and treatment Subjective Date/time seen: 01/21/21 09:19 Interval history: Reason for consult: Alcohol withdrawal, delirium tremens, staph aureus bacteremia 01/21/2021: Patient awake but less perked up this morning though answers a few questions, knows he is in the hospital but did not kno
--- NOTE | 2021-01-21 10:49 | PCDIET ---
ICU Rounding Note: Patient consumed 0-15% of meals on 01/20/21. Per , patient taking some of the supplements, but is inconsistent with intake. Recommend changing Ensure Compact (220kcal, 9g protein) to Ensure Enlive (350kcal, 20g protein) twice daily and continuing Frozen Nutritional Treat (300kcal, 9g protein) once per day. Diet has been liberalized to regular. Encouraged to request snacks between meals to maximize intake. MD considering NG placement if no significant improvement in intakes over the next 24 hours. Last recorded weight is 87kg which is stable. Bowel Motility: Last documented BM on 01/17/21. Labs Reviewed: WBC (10.9), Hct (13.3), Hct (38.7), Glu (111), Na (135), Alb (3.0), Stephanie Ca (8.7) Meds Noted: Albuterol, Ancef, Librium, Folic Acid, Hydralazine, Atrovent, Lopressor, Protonix, Thiamine, Vitamin D, Lasix Additional Notes: No pressure sores reported. Following daily in ICU rounds. Assessing/reassessing every 3 days.
--- NOTE | 2021-01-21 11:00 | PM.PNCARD ---
Progress Note: A&P Assessment and Plan (1) Atrial arrhythmia: Code(s): I49.8 - Other specified cardiac arrhythmias Status: Acute Assessment and Plan: Patient remains in atrial fibrillation with controlled ventricular rate. Heart rate is uncontrolled. Will change his metoprolol to 50 mg Q 8 hours. Continue anticoagulation. Replace potassium 40 mEq p.o. x1 (2) Abnormal EKG: Code(s): R94.31 - Abnormal electrocardiogram [ECG] [EKG] Status: Acute Assessment and Plan: EKG now shows some anterior T-wave inversions suggestive of ischemia/CAD. Asymptomatic. Ischemia evaluation at a later date as clinically indicated. (3) Bacteremia: Code(s): R78.81 - Bacteremia Status: Acute Assessment and Plan: Management as per ICU team and Infectious Disease (4) Alcoholism: Code(s): F10.20 - Alcohol dependence, uncomplicated Status: Acute Assessment and Plan: Management as per primary team. Patient was in DTs Subjective Date/time seen: 01/21/21 11:00 Interval history: 65yo male with alcoholism and HTN here for bacteremia. Patient initially seen in ED early morning babysitter hours of 01/13 for body aches, low back pain and fever and felt to have sinusitis and d/c home with Levaquin. BCx drawn returned positive and pateint directed back to the ED on 01/14 and admitted. He developed DTs and ultimately moved to ICU on 01/15 and started on Precedex. No issues overnight but this morning he became agitated requiring Precedex to be advanced to 1.6. SOme improvement and bale to decrease to 0.9mcg/kg/hr now. Patient unable to provide history. Date of service 01/19/2021-patient remains delirious. His was patient's bedside. On telemetry, he is in atrial fibrillation with heart rates in 80s. Date of service 01/20/2021: Patient is more coherent today, DTs appear to be clearing. He is no longer sedated with Precedex and probably for that reason is more tachycardic. Low-dose of beta-giuliano started today by the formulator, patient has not received dosage yet. Currently anticoagulated with low molecular weight heparin foot Date of service 01/21/2021: Confused but does respond and answer some basic questions. He denies any chest pain or shortness of breath. He is tachycardic this morning. Still in atrial fibrillation Review of Systems Review of Systems: ROS unobtainable: Yes unobtainable due to medical condition and unobtainable due to mental status Constitutional: Constitutional: Reports chills, Reports fatigue, Reports fever(s), Reports lethargy, Denies poor appetite and Reports weakness Eyes: Eyes: Reports no additional eye complaints, Denies eye discharge, Denies loss of vision, Denies eye pain and Denies photophobia ENT: Denies dizziness, Denies epistaxis, Denies nasal congestion and Denies sore throat Cardiovascular: Cardiovascular: Reports no additional cardiovascular complaints, Denies chest pain, Denies syncope, Denies pedal edema, Denies leg edema, Denies lightheadedness, Denies palpitations, Denies dyspnea, Denies dyspnea on exertion and Denies orthopnea Respiratory: Respiratory: Reports no additional respiratory complaints, Denies cough, Denies dyspnea, Denies dyspnea on exertion and Denies wheezing Gastrointestinal: Gastrointestinal: Reports no additional gastrointestinal complaints, Denies abdominal pain, Denies hematochezia, Denies diarrhea, Denies nausea, Denies vomiting and Denies hematemesis Genitourinary: Genitourinary: Reports no additional male genitourinary complaints, Denies hematuria, Denies genital lesions and Denies dysuria Musculoskeletal: Musculoskeletal: Reports back pain, Reports arthralgias (Chronic knee pain and back pain), Denies joint swelling, Denies numbness and Reports other (Back pain) Integume
[2021-01-21] MEDS: lisinopriL 20 MG TABLET PO (12:05)
--- NOTE | 2021-01-21 13:09 | PM.IMPN ---
Progress Note: A&P Assessment and Plan (1) Atrial arrhythmia: Code(s): I49.8 - Other specified cardiac arrhythmias Status: Acute (2) Sepsis: Code(s): A41.9 - Sepsis, unspecified organism Status: Acute (3) Hyponatremia: Code(s): E87.1 - Hypo-osmolality and hyponatremia Status: Acute (4) Thrombocytopenia: Code(s): D69.6 - Thrombocytopenia, unspecified Status: Acute (5) Bacteremia: Code(s): R78.81 - Bacteremia Status: Acute (6) Confusion: Code(s): R41.0 - Disorientation, unspecified Status: Acute (7) Alcohol withdrawal delirium: Code(s): F10.231 - Alcohol dependence with withdrawal delirium Status: Acute (8) Alcohol abuse: Code(s): F10.10 - Alcohol abuse, uncomplicated Status: Acute (9) Elevated LFTs: Code(s): R79.89 - Other specified abnormal findings of blood chemistry Status: Acute Additional Plan # sepsis: Present on admission and supported by fever, tachycardia, and tachypnea in the setting of bacteremia. Seen in ED on 01/13 and had BCx drawn. BCX 01/13 positive for Staphylococcus aureus and he returned to the ED on 01/14 and received 1 dose of cefepime and vancomycin. BCx repeated. Dr. Sorensen was consulted and he recommended vancomycin and Ancef. BCx from 01/13 and 01/14 both growing ENRIKE so abx narrowed to Ancef Day #6. Echo does not show any vegetations. Lumbar CT showing no acute findings. Repeat BCx 01/16 (1of2) are positive still. Consider CALIN and/or lumbar MRI. Source unclear but possibly skin. No fevers and WBC normal. Continue the same. CALIN planed this evenign or tomororw by cardiology. # MSSA bacteremia: on ancef. vancomycin discontinued. ECHO 01/14/2021: Showed normal LV size with moderate concentric hypertrophy and good systolic function, EF 55-60%. Normal diastolic dysfunction. Left atrium moderately enlarged, mild pulmonary hypertension with RVSP of 39 mmHg, no vegetations seen. # Alcohol withdrawal delirium: Patient A&O x4 on admission but seemed a bit confused. He then developed acute delirium from alcohol withdrawal 01/15 and moved to ICU for Precedex. CT brain normal. Continue Precedex and wean as he tolerates. Continue Thiamine and Folate. continue current care for his alcohol withdrawal, slowing improving. more somonlent today. suggest dc seroquel? limit use of librium # Atrial fibrillation: EKG on admission consistent with MAT. Rhythm strips also consistent with MAT. Oral metoprolol started but changed to IV metoprolol since patient was NPO. ECHO with EF 55-60% with normal diastolic dysfunction and mild pulm HTN. TSH normal. Patient did convert to AFib. Lopressor IV stopped . Heparin drip started. Continue tele. Appreciate Cardiology input. # Hyponatremia: Sodium was 135 on 12/31/2020 but down to 129 on 01/13. Probably multifactorial from his Celexa, HCTZ, beer potomania and/or dehydration. Jesús low at 17. He received appropriate IV fluids in the ED. Na dropped to 123 but better today at 132. Monitor closely. Continue IV fluids # Hypertension: BP stable. Lisinopril and HCTZ on hold. Oral Metoprolol also placed on hold. IV Lopressor stopped. Monitor. # Elevated LFTs: Likely due to longstanding alcohol abuse as his coags are slightly prolonged and platelets are decreased. RUQ showing normal right upper quadrant ultrasound status post cholecystectomy. Hepatitis panel negative. LFTs up and down but stable overall. Suspect alcoholic hepatitis. Follow LFTs. # Alcoholism: stated patient only drinks beer and can drink 12-18 beers per day. As above. Continue Folate and Thiamine IV. Will provide information about AA when he is more awake and alert. # Thrombocytopenia: Plt count was normal earlier this month but dropped to 56K but now normal. Suspect related to the toxic effects of the alcohol. Could be sequestered if he has enlarged spleen and/or from the septi
[2021-01-21] MEDS: LORazepam INJ (*CRX) 2 MG/ML VIAL 1 MG IV PUSH (18:45)
--- NOTE | 2021-01-21 18:52 | PC.NURSE ---
PATIENT VERY AGITATED, PULLING OFF CLOTHES, TRYING TO GET OUT OF BED. HR 130, RESP 30. GAVE HIM HIS SCHEDULED DOSE OF LIBRIUM WITH ICE CREAM. STILL CURSING, TRYING TO GET OUT OF BED AND PULLING ON EVERYTHING. GAVE ATIVAN 1 MG IV ORDERED FOR AGITATION,. WILL CONTINEU
[2021-01-22] VITALS (45 sets, daily range): BP systolic 114–169; BP diastolic 10–109; PULSE 75–124; RESP 14–27; TEMP 36.5–38.7; O2SAT 93–97
[2021-01-22] MEDS: ALBUTEROL SULFATE NEB 2.5 MG/0.5 ML INH INHALATION ×4 (02:04→20:46)
[2021-01-22] MEDS: IPRATROPIUM BR 0.02% INH SOLN 0.5 MG/2.5 ML VIAL INHALATION ×4 (02:04→20:46)
--- NOTE | 2021-01-22 03:08 | PC.NURSE ---
Attempted to give pt librium in approx. 1/2 teaspoon pudding. Pt spit pill and pudding out.
[2021-01-22 04:09] LABS: Basophils Percent Auto 0.3 % (0.2-1.2); Eosinophils Percent Auto 0.3 % (0-4.4); Hematocrit 36.9 % (42.0-52.0); Hemoglobin 12.5 g/dL (14.0-18.0); Immature Granulocyte Absolute 0.15 K/mm3 (0.00-0.031); Immature Granulocyte Percent A 1.3 % (0-0.5); Lymphocytes Absolute Auto 1.08 K/mm3 (0.9-3.2); Lymphocytes Percent Auto 9.4 % (18.3-44.2); Mean Corpuscular HGB Conc 33.9 g/dl (32-36); Mean Corpuscular Hemoglobin 32.1 pg (26-34); Mean Corpuscular Volume 94.9 fl (80-100); Mean Platelet Volume 9.2 fl (7.4-10.4); Monocytes Absolute Auto 0.7 K/mm3 (0.1-0.6); Monocytes Percent Auto 5.9 % (2.6-8.5); Neutrophils Absolute Auto 9.5 K/mm3 (1.3-6.7); Neutrophils Percent Auto 82.8 % (45.5-73.1); Platelet Count Result 456 k/mm3 (150-375); Red Blood Count 3.89 M/mm3 (4.6-6.20); White Blood Count 11.5 K/mm3 (4.5-10.0)
[2021-01-22 04:21] LABS: Anion Gap 4 mmol/L (8-16); Blood Urea Nitrogen 15 mg/dL (9-20); Carbon Dioxide 29 mmol/L (22-30); Chloride 103 mmol/L (98-107); Estimated CRCL calculation 94 ml/min; Estimated Glomerular Filt Rate > 60; Glucose 119 mg/dL (75-110); INR 1.8; Prothrombin Time 21.6 Seconds (11.1-14.7); Sodium 136 mmol/L (137-145)
[2021-01-22 04:22] LABS: Partial Thromboplastin Time 43.9 SECONDS (22.3-36.8)
[2021-01-22] MEDS: METOPROLOL TARTRATE 50 MG TAB PO (06:13)
[2021-01-22] MEDS: ceFAZolin 2 GM/D5W 50 ML 2 GM/50 ML BAG IVPB ×3 (06:23→22:52)
[2021-01-22] MEDS: hydrALAZINE HCL 20 MG/ML VIAL 10 MG IV PUSH (06:28)
--- NOTE | 2021-01-22 06:45 | PC.NURSE ---
Pt will not keep O2 sat on, kicking legs out of bed, continually moaning, restless and confused. Continues to pull at [place], repeatedly disconnecting stat lock.
--- NOTE | 2021-01-22 08:30 | WPDINTPN ---
Progress Note: A&P Assessment and Plan (1) Bacteremia: Code(s): R78.81 - Bacteremia Status: Acute Assessment and Plan: Patient Staph aureus bacteremia 01/13/2021 -infectious disease following the patient, continue Ancef, -transthoracic echocardiogram 01/14/2021: Showed normal LV size with moderate concentric hypertrophy and good systolic function, EF 55-60%. Normal diastolic dysfunction. Left atrium moderately enlarged, mild pulmonary hypertension with RVSP of 39 mmHg, no vegetations seen. - 01/14/2021 blood cultures also positive Staph aureus 2/2 bottles -01/16/2021 blood cultures staph aureus 1 of 2 bottless - Lumbar CT showing no acute findings -discussed with infectious disease, requested the patient get a CALIN, cardiology has plan for CALIN today -repeated blood cultures on 01/21/2021 - (2) Sepsis: Code(s): A41.9 - Sepsis, unspecified organism Status: Acute Assessment and Plan: Sepsis due staph bacteremia -patient tachycardic tachypneic which also be secondary to alcohol withdrawal secondary to adrenergic surge -patient is afebrile -continue antibiotics as above (3) Tachyarrhythmia: Code(s): R00.0 - Tachycardia, unspecified Status: Acute Assessment and Plan: EKG on 0 01/17 showed atrial fibrillation, cardiology started patient on metoprolol -initial EKG did show multifocal atrial tachycardia but now in AFib with and rate controlled. -patient in AFib RVR, hypertensive, will start oral metoprolol -p.r.n. hydralazine for blood pressures -therapeutic low -discuss with Cardiology, possible plan for electrical cardioversion today (4) Thrombocytopenia: Code(s): D69.6 - Thrombocytopenia, unspecified Status: Acute Assessment and Plan: RESOLVED Thrombocytopenia likely related to sepsis and/or chronic alcohol abuse -no obvious bleeding noted, will continue to monitor platelet level -improving (5) Alcoholism: Code(s): F10.20 - Alcohol dependence, uncomplicated Status: Acute Assessment and Plan: Patient is a chronic alcoholic, has not been drinking 2-3 days prior to admission as he was not feeling too well. (patient drinks approximately 18 beers per day) -transferred to the ICU on 01/15/2021 for alcohol withdrawal with possible delirium tremens, received multiple doses of Ativan and Haldol in the IMU -continue thiamine, folic acid -patient has been off Precedex infusion -patient delirious, will hold Librium and Seroquel. -also has a history of chronic back pain on Flexeril and Sutton at home, will restart Sutton patient could going into opioid withdrawal. If unable to take oral pills, will give a dose of morphine (6) Delirium: Code(s): R41.0 - Disorientation, unspecified Status: Acute Assessment and Plan: Could be multifactorial, related to Staph aureus bacteremia, encephalopathy related to alcohol and/or opioid withdrawal -patient more somnolent this morning, will hold Librium and Seroquel -have ordered Sutton for pain and possible opioid withdrawal. If unable to take pills will give a dose of morphine IV Additional Plan Discuss with patient's at bedside and updated her with patient's condition, plan of care. I answered all questions.. Code status: Full code Critical care time spent: 33 minutes This dictation may have been done utilizing a voice recognition system. Attempts have been made to correct errors. However, there may be uncorrected grammatical, spelling, and recognition errors present. Due to a high probability of clinically significant, life threatening deterioration, the patient required my highest level of preparedness to intervene emergently and I personally spent this critical care time directly and personally managing the patient. This critical care time included obtaining a history; examining the patient; pulse oximetry; ordering and review of studies; arranging urgent treatment with development of a manag
--- NOTE | 2021-01-22 08:33 | PCPTNOTE ---
Attempted PT eval. RN stated to hold therapy as pt has fever and decreased level of alertness. Will try again at later time.
[2021-01-22] MEDS: PANTOPRAZOLE SODIUM IV 40 MG VIAL IV PUSH (09:19)
[2021-01-22] MEDS: ENOXAPARIN 100 MG/ML SYRINGE 87 MG SUB-Q ×2 (09:19→19:49)
[2021-01-22] MEDS: THIAMINE HCL 200 MG/2 ML VIAL 100 MG IV PUSH (09:20)
--- NOTE | 2021-01-22 09:24 | PCOTNOTE ---
Attempted to see patient for skilled OT session this AM. GALO spoke with RN before entering pt's room. Per RN, patient is very out of it today and even more sedated than yesterday, and reports patient would have increased difficulty with participating and does not see benefit of therapy this date. Hold therapy this date and will continue per Plan of Care tomorrow.
[2021-01-22] MEDS: HYDROcodone/acetaminophen (*CRX) 5-325 MG TABLET 1 TAB PO (09:31)
[2021-01-22] MEDS: ASPIRIN 81 MG CHEWABLE TABLET PO (09:33)
[2021-01-22] MEDS: lisinopriL 20 MG TABLET PO (09:33)
[2021-01-22] MEDS: FOLIC ACID 1 MG/0.2 ML INJ IV PUSH (10:08)
--- NOTE | 2021-01-22 10:52 | PCDIET ---
Nutrition Follow-Up Complete: Nutrition Diagnosis: Inadequate oral intake related to poor appetite as evidenced by intakes 15-40%. Nutrition Goal: Patient to consume 75% of meals/supplements or greater. Goal not met. Patient currently NPO for CALIN, but intakes have been relatively poor for 7 days. Discussed with team during rounds. Recommend Jevity 1.2 at 20mL/hr via NG tube. Would advance by 10mL/hr every 8 hours, as tolerated, toward goal of 75mL/hr which will provide 1980kcal, 91g protein and 1331mL free water over 22 hours/day. Recommend 30mL water flush every 4 hours. Recommend close monitoring for signs/symptoms of refeeding syndrome. Last recorded weight is 86.5 kg which is down slightly from last review. -I/O. Bowel Motility: Last documented BM on 01/17/21. Recommend adding medication(s) to promote BM, if medically appropriate. Labs Reviewed: WBC (11.5), Hgb (12.5), Hct (36.9), Glu (119), Na (136), Ca (8.0) Meds Noted: Protonix, Vitamin D, Thiamine, [place], Albuterol, Ancef, MVI/minerals, Folic Acid, Hydralazine, Atrovent, Lisinopril, Lopressor Additional Notes: Left lower leg with documented scab; no pressure sores. Will continue to monitor with same goal. Nutrition Monitoring and Evaluation: Follow up in 3 days.
[2021-01-22] MEDS: SODIUM CHLORIDE 0.9% IV 500 ML (11:02)
--- NOTE | 2021-01-22 11:36 | PC.NURSE ---
1132 - pt confused and uncooperative prior to procedure, at bedside and consented for procedure. in waiting room during procedure, Dr Deng spoke to post procedure. Pt cardioverted after CALIN with 150 joules.
--- NOTE | 2021-01-22 11:43 | ECG_ITS ---
Measurements Intervals [place] Rate: 85 P: [place]: 0 QRS: 72 QRSD: 84 T: 31 QT: 395 QTc: 471 Interpretive Statements SINUS RHYTHM ATRIAL COUPLET AND ATRIAL PREMATURE COMPLEXES DELAYED PRECORDIAL R/S TRANSITION T WAVE ABNORMALITY IN ANTERIOR LEADS- CONSIDER ISCHEMIA BASELINE ARTIFACT- I, II, III, AVL ABNORMAL ECG Electronically Signed On 01-22-2021 12:47:18 CDT by Bob Harris D.O.
--- NOTE | 2021-01-22 11:44 | WPDTECDV ---
CALIN with Cardioversion Date of procedure: 01/22/21 Procedure Type: 1. Multiplanar transesophageal echocardiography with color flow and pulse wave Doppler 2. Agitated saline study 3. Electrical cardioversion 4. Moderate sedation Diagnosis: Persistent staphylococcus bacteremia-rule out endocarditis, atrial fibrillation Indications: Bacteremia, atrial fibrillation Description of Procedure: Patient cannot give consent on his own. Consent was obtained by talking to the patient's . Risks discussed included esophageal rupture perforation, need for emergency surgery, bleeding, pain, infection, adverse reaction to anesthesia, a skin irritation burn from a shocking pad, shocking into a more problematic heart rhythm, stroke, . Verbal consent was obtained over the phone. Patient is in the ICU and was kept in the ICU. 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 After time-out was taken, procedure was started. Procedure start time 11:09 a.m. Procedure stop time 11:30 a.m. Benzocaine spray to hypopharynx x1 for topical anesthetic as well as a total of 5 mg of Versed and 100 mcg of fentanyl given in divided dosages for moderate sedation. Medications were administered patient was monitored by Aye Castro RN Complications: None Blood loss: None Sedation: As above Findings: Left ventricular size and function was normal with ejection fraction 65-70%. LVH was seen. At least moderate left atrial enlargement. Left atrial appendage was free of thrombus. Pulse wave velocities of 50 70 centimeters/second. No pericardial effusion. Aortic root is normal in size measuring 3.4 cm. There is mild atherosclerosis of the aorta. Atrial septum is intact without color flow or agitated saline evidence of shunting. The mitral valve is normal with [id number] mitral regurgitation. No evidence of endocarditis. The tricuspid valve is also normal with mild tricuspid regurgitation. Pulmonic valve is grossly normal without significant pulmonic insufficiency. Aortic valve is trileaflet with trace to mild aortic insufficiency. No clear evidence of vegetation noted on any valves. Right atrium is normal in size. Normal right ventricular size and function. Cardioversion: 150 joules of biphasic synchronized energy was used x1 to restore sinus rhythm from atrial fibrillation. Conclusion: 1. Normal left ventricular size and function with ejection fraction 65-70% 2. Moderate left atrial enlargement 3. Normal left atrial appendage 4. [id number] mitral regurgitation with mild tricuspid regurgitation 5. No evidence of endocarditis 6. Negative agitated saline study 7. Successful cheondoism of sinus rhythm using 150 joules of biphasic synchronized energy 8. Moderate sedation
--- NOTE | 2021-01-22 12:22 | PC.NURSE ---
ACLIN/Cardioversion done at [address] Deng. Converted to sinus rhythm with PACs. Tolerated procedure well.
[2021-01-22] MEDS: METOPROLOL TARTRATE INJ 5 MG/5 ML VIAL IV PUSH ×2 (15:11→19:46)
--- NOTE | 2021-01-22 16:09 | PM.IMPN ---
Progress Note: A&P Assessment and Plan (1) Delirium: Code(s): R41.0 - Disorientation, unspecified Status: Acute (2) Septicemia: Code(s): A41.9 - Sepsis, unspecified organism Status: Acute (3) Alcohol withdrawal delirium: Code(s): F10.231 - Alcohol dependence with withdrawal delirium Status: Acute (4) Tachyarrhythmia: Code(s): R00.0 - Tachycardia, unspecified Status: Acute (5) Thrombocytopenia: Code(s): D69.6 - Thrombocytopenia, unspecified Status: Acute (6) Bacteremia: Code(s): R78.81 - Bacteremia Status: Acute (7) Atrial fibrillation: Code(s): I48.91 - Unspecified atrial fibrillation Status: Acute (8) Elevated LFTs: Code(s): R79.89 - Other specified abnormal findings of blood chemistry Status: Acute (9) Sepsis: Code(s): A41.9 - Sepsis, unspecified organism Status: Acute Additional Plan # sepsis: Present on admission and supported by fever, tachycardia, and tachypnea in the setting of bacteremia. Seen in ED on 01/13 and had BCx drawn. BCX 01/13 positive for Staphylococcus aureus and he returned to the ED on 01/14 and received 1 dose of cefepime and vancomycin. BCx repeated. Dr. Sorensen was consulted and he recommended vancomycin and Ancef. BCx from 01/13 and 01/14 both growing ENRIKE so abx narrowed to Ancef Day #6. Echo does not show any vegetations. Lumbar CT showing no acute findings. Repeat BCx 01/16 (1of2) are positive still. Consider CALIN and/or lumbar MRI. Source unclear but possibly skin. No fevers and WBC normal. Continue the same. CALIN 01/22: no signs of endocarditis. 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 potentially could be the inciting event for his sepsis. # MSSA bacteremia: on ancef. vancomycin discontinued. ECHO 01/14/2021: Showed normal LV size with moderate concentric hypertrophy and good systolic function, EF 55-60%. Normal diastolic dysfunction. Left atrium moderately enlarged, mild pulmonary hypertension with RVSP of 39 mmHg, no vegetations seen. CALIN negative for Endocarditis. still febrile. repeat cutlures pending. on ancef per infecitous disease. # Alcohol withdrawal delirium: Patient A&O x4 on admission but seemed a bit confused. He then developed acute delirium from alcohol withdrawal 01/15 and moved to ICU for Precedex. CT brain normal. Continue Precedex and wean as he tolerates. Continue Thiamine and Folate. continue current care for his alcohol withdrawal, slowing improving. more somonlent today. suggest dc seroquel? limit use of librium # Atrial fibrillation: EKG on admission consistent with MAT. Rhythm strips also consistent with MAT. Oral metoprolol started but changed to IV metoprolol since patient was NPO. ECHO with EF 55-60% with normal diastolic dysfunction and mild pulm HTN. TSH normal. Patient did convert to AFib. Lopressor IV stopped . Heparin drip started. Continue tele. Appreciate Cardiology input. s/p cardioverson this am. on sinus rhythm now. # Hyponatremia: Sodium was 135 on 12/31/2020 but down to 129 on 01/13. Probably multifactorial from his Celexa, HCTZ, beer potomania and/or dehydration. Jesús low at 17. He received appropriate IV fluids in the ED. Na dropped to 123 but better today at 132. Monitor closely. Continue IV fluids # Hypertension: BP stable. Lisinopril and HCTZ on hold. Oral Metoprolol also placed on hold. IV Lopressor stopped. Monitor. # Elevated LFTs: Likely due to longstanding alcohol abuse as his coags are slightly prolonged and platelets are decreased. RUQ showing normal right upper quadrant ultrasound status post cholecystectomy. Hepatitis panel negative. LFTs up and down but stable overall. Suspect alcoholic hepatitis. Follow LFTs. # Alcoholism: stated patient only drinks beer and can drink 12-18 beers per day. As above. Continue Folate and Thiamine IV. Will provide information about AA whe
--- NOTE | 2021-01-22 16:14 | WPDINFPN2 ---
Progress Note: A&P Assessment and Plan (1) Bacteremia: Code(s): R78.81 - Bacteremia Status: Acute Assessment and Plan: 1. ENRIKE bacteremia with infection, skin source likely, CALIN demonstrates no IE. Other causes of his fever are unlikely 2. Alcoholism 3. Hypotension, possibly due to septic shock REC (antibiotic #9 / 28 days) Ancef # 8, continue. Updated family at bedside Subjective Date/time seen: 01/22/21 16:14 Interval history: arouses but lethargic, sedated for his CALIN earlier today Exam Narrative: Exam Narrative: t max 38.7 Const: General: no acute distress Eyes: General: appearance normal, both eyes and all related structures Resp: Effort & Inspection: normal respiratory effort Auscultation: clear to auscultation bilaterally and diminished lung sounds Cardio: Rate: tachycardic Rhythm: regular rhythm Heart sounds: no murmurs GI: Inspection: non-distended GI Palp: Yes Soft to palpation and No Tenderness to palpation present (GI) Skin: General skin exam: no rashes or lesions noted Objective Data Vital Signs Vital Signs: Vital Signs - 24 hr 01/21/21 16:33 01/21/21 16:34 01/21/21 18:00 Temperature Pulse Rate 113 H 129 H 125 H Pulse Rate [Bilateral Monitor] Respiratory Rate 20 Blood Pressure 166/97 H Pulse Oximetry 94 01/21/21 18:15 01/21/21 19:00 01/21/21 19:35 Temperature 37.3 C Pulse Rate 108 H Pulse Rate [Bilateral Monitor] 128 H Respiratory Rate 24 H Blood Pressure Pulse Oximetry 01/21/21 19:45 01/21/21 20:00 01/21/21 21:20 Temperature 36.9 C Pulse Rate 99 101 H 104 H Pulse Rate [Bilateral Monitor] 104 H Respiratory Rate 26 H 18 20 Blood Pressure 128/76 Pulse Oximetry 94 94 01/21/21 21:31 01/21/21 22:00 01/22/21 00:00 Temperature 38.7 C H Pulse Rate 101 H 102 H 106 H Pulse Rate [Bilateral Monitor] 120 H Respiratory Rate 20 27 H Blood Pressure 149/60 H 145/61 H Pulse Oximetry 93 94 01/22/21 00:22 01/22/21 00:29 01/22/21 00:59 Temperature 38.7 C H 38.7 C H 37.0 C Pulse Rate 110 H Pulse Rate [Bilateral Monitor] Respiratory Rate Blood Pressure Pulse Oximetry 01/22/21 02:00 01/22/21 02:05 01/22/21 02:12 Temperature Pulse Rate 106 H 110 H 108 H Pulse Rate [Bilateral Monitor] Respiratory Rate 24 H 22 H 20 Blood Pressure 120/70 Pulse Oximetry 93 01/22/21 03:03 01/22/21 04:00 01/22/21 06:00 Temperature 37.0 C Pulse Rate 97 110 H Pulse Rate [Bilateral Monitor] 117 H 86 Respiratory Rate 23 H 14 Blood Pressure 133/93 H 132/82 169/109 H Pulse Oximetry 93 94 01/22/21 06:13 01/22/21 07:16 01/22/21 07:52 Temperature Pulse Rate 120 H 110 H Pulse Rate [Bilateral Monitor] 108 H Respiratory Rate 18 Blood Pressure 155/98 H Pulse Oximetry 96 01/22/21 08:00 01/22/21 08:33 01/22/21 09:42 Temperature 37.6 C H 37.7 C H 37.6 C H Pulse Rate 115 H Pulse Rate [Bilateral Monitor] 115 H Respiratory Rate 23 H Blood Pressure 144/106 H Pulse Oximetry 95 01/22/21 10:00 01/22/21 11:08 01/22/21 11:15 Temperature Pulse Rate 86 117 H 107 H Pulse Rate [Bilateral Monitor] Respiratory Rate 16 16 Blood Pressure 126/92 H 155/101 H Pulse Oximetry 94 96 01/22/21 11:20 01/22/21 11:25 01/22/21 11:32 Temperature Pulse Rate 107 H 110 H 83 Pulse Rate [Bilateral Monitor] Respiratory Rate 16 16 16 Blood Pressure 165/10 H 138/96 H 122/82 Pulse Oximetry 96 96 95 01/22/21 11:45 01/22/21 12:00 01/22/21 12:15 Temperature 37.3 C Pulse Rate 89 79 83 Pulse Rate [Bilateral Monitor] 75 Respiratory Rate 18 16 26 H Blood Pressure 141/56 H 138/68 114/74 Pulse Oximetry 95 97 94 01/22/21 12:30 01/22/21 12:45 01/22/21 13:00 Temperature Pulse Rate 81 81 81 Pulse Rate [Bilateral Monitor] Respiratory Rate 22 H 21 H 21 H Blood Pressure 132/74 121/78 132/81 Pulse Oximetry 96 97 97 01/22/21 13:50 01/22/21 14:00 01/22/21 15:11 Temperat
[2021-01-22] MEDS: LORazepam INJ (*CRX) 2 MG/ML VIAL 1 MG IV PUSH (21:47)
[2021-01-22] MEDS: dexmedeTOMIDine 400 MCG/100 ML 400 MCG/100 ML BAG IV CONT (22:14)
[2021-01-23] VITALS (29 sets, daily range): BP systolic 106–173; BP diastolic 46–90; PULSE 70–102; RESP 13–29; TEMP 36.8–37.6; O2SAT 92–100
[2021-01-23] MEDS: ALBUTEROL SULFATE NEB 2.5 MG/0.5 ML INH INHALATION ×2 (02:41→08:18)
[2021-01-23] MEDS: IPRATROPIUM BR 0.02% INH SOLN 0.5 MG/2.5 ML VIAL INHALATION ×2 (02:41→08:18)
[2021-01-23] MEDS: dexmedeTOMIDine 400 MCG/100 ML 400 MCG/100 ML BAG 12.98 MCG IV CONT (03:13)
[2021-01-23] MEDS: METOPROLOL TARTRATE INJ 5 MG/5 ML VIAL IV PUSH ×4 (04:03→20:15)
[2021-01-23] MEDS: ceFAZolin 2 GM/D5W 50 ML 2 GM/50 ML BAG IVPB ×3 (05:03→22:50)
--- NOTE | 2021-01-23 09:17 | PM.PNCARD ---
Progress Note: A&P Assessment and Plan (1) Atrial arrhythmia: Code(s): I49.8 - Other specified cardiac arrhythmias Status: Acute Assessment and Plan: Patient remains in atrial fibrillation with controlled ventricular rate. Heart rate is uncontrolled. Continue anticoagulation. (2) Abnormal EKG: Code(s): R94.31 - Abnormal electrocardiogram [ECG] [EKG] Status: Acute Assessment and Plan: EKG now shows some anterior T-wave inversions suggestive of ischemia/CAD. Asymptomatic. Ischemia evaluation at a later date as clinically indicated. (3) Bacteremia: Code(s): R78.81 - Bacteremia Status: Acute Assessment and Plan: Management as per ICU team and Infectious Disease (4) Alcoholism: Code(s): F10.20 - Alcohol dependence, uncomplicated Status: Acute Assessment and Plan: Management as per primary team. Patient was in DTs Subjective Date/time seen: 01/23/21 09:17 Interval history: 65yo male with alcoholism and HTN here for bacteremia. Patient initially seen in ED rig operator hours of 01/13 for body aches, low back pain and fever and felt to have sinusitis and d/c home with Levaquin. BCx drawn returned positive and pateint directed back to the ED on 01/14 and admitted. He developed DTs and ultimately moved to ICU on 01/15 and started on Precedex. No issues overnight but this morning he became agitated requiring Precedex to be advanced to 1.6. SOme improvement and bale to decrease to 0.9mcg/kg/hr now. Patient unable to provide history. Date of service 01/19/2021-patient remains delirious. His was patient's bedside. On telemetry, he is in atrial fibrillation with heart rates in 80s. Date of service 01/20/2021: Patient is more coherent today, DTs appear to be clearing. He is no longer sedated with Precedex and probably for that reason is more tachycardic. Low-dose of beta-giuliano started today by the tool grinder operator surface, patient has not received dosage yet. Currently anticoagulated with low molecular weight heparin foot Date of service 01/21/2021: Confused but does respond and answer some basic questions. He denies any chest pain or shortness of breath. He is tachycardic this morning. Still in atrial fibrillation Date of service 01/23/2021: Successful CALIN guided cardioversion yesterday. Remains in sinus rhythm. Still confused. No evidence of vegetations seen on valves. No chest pain Review of Systems Review of Systems: ROS unobtainable: Yes unobtainable due to medical condition and unobtainable due to mental status Constitutional: Constitutional: Reports chills, Reports fatigue, Reports fever(s), Reports lethargy, Denies poor appetite and Reports weakness Eyes: Eyes: Reports no additional eye complaints, Denies eye discharge, Denies loss of vision, Denies eye pain and Denies photophobia ENT: Denies dizziness, Denies epistaxis, Denies nasal congestion and Denies sore throat Cardiovascular: Cardiovascular: Reports no additional cardiovascular complaints, Denies chest pain, Denies syncope, Denies pedal edema, Denies leg edema, Denies lightheadedness, Denies palpitations, Denies dyspnea, Denies dyspnea on exertion and Denies orthopnea Respiratory: Respiratory: Reports no additional respiratory complaints, Denies cough, Denies dyspnea, Denies dyspnea on exertion and Denies wheezing Gastrointestinal: Gastrointestinal: Reports no additional gastrointestinal complaints, Denies abdominal pain, Denies hematochezia, Denies diarrhea, Denies nausea, Denies vomiting and Denies hematemesis Genitourinary: Genitourinary: Reports no additional male genitourinary complaints, Denies hematuria, Denies genital lesions and Denies dysuria Musculoskeletal: Musculoskeletal: Reports back pain, Reports arthralgias (Chronic kn
[2021-01-23] MEDS: ENOXAPARIN 100 MG/ML SYRINGE 87 MG SUB-Q ×2 (09:50→20:15)
[2021-01-23] MEDS: FOLIC ACID 1 MG/0.2 ML INJ IV PUSH (09:50)
[2021-01-23] MEDS: PANTOPRAZOLE SODIUM IV 40 MG VIAL IV PUSH (09:51)
[2021-01-23] MEDS: ASPIRIN 81 MG CHEWABLE TABLET PO (09:51)
[2021-01-23] MEDS: THIAMINE HCL 200 MG/2 ML VIAL 100 MG IV PUSH (09:52)
[2021-01-23] MEDS: lisinopriL 20 MG TABLET PO (09:52)
[2021-01-23] MEDS: HYDROcodone/acetaminophen (*CRX) 5-325 MG TABLET 1 TAB PO (09:54)
--- NOTE | 2021-01-23 11:46 | WPDINTPN ---
Progress Note: A&P Assessment and Plan (1) Bacteremia: Code(s): R78.81 - Bacteremia Status: Acute Assessment and Plan: ENRIKE bacteremia 01/13/2021 -infectious disease following the patient, continue Ancef, -transthoracic echocardiogram 01/14/2021: Showed normal LV size with moderate concentric hypertrophy and good systolic function, EF 55-60%. Normal diastolic dysfunction. Left atrium moderately enlarged, mild pulmonary hypertension with RVSP of 39 mmHg, no vegetations seen. - 01/14/2021 blood cultures also positive Staph aureus 2/2 bottles -01/16/2021 blood cultures staph aureus 1 of 2 bottless - Lumbar CT showing no acute findings -discussed with infectious disease, requested the patient get a CALIN, cardiology has plan for CALIN today -repeated blood cultures on 01/21/2021 negative to date (2) Sepsis: Code(s): A41.9 - Sepsis, unspecified organism Status: Acute Assessment and Plan: Sepsis due staph bacteremia -patient tachycardic tachypneic which also be secondary to alcohol withdrawal secondary to adrenergic surge -patient is afebrile -continue antibiotics as above (3) Tachyarrhythmia: Code(s): R00.0 - Tachycardia, unspecified Status: Acute Assessment and Plan: EKG on 0 01/17 showed atrial fibrillation, cardiology started patient on metoprolol -initial EKG did show multifocal atrial tachycardia but now in AFib with and rate controlled. -patient in AFib RVR, hypertensive, will start oral metoprolol -p.r.n. hydralazine for blood pressures -therapeutic low -discuss with Cardiology, possible plan for electrical cardioversion today (4) Thrombocytopenia: Code(s): D69.6 - Thrombocytopenia, unspecified Status: Acute Assessment and Plan: RESOLVED Thrombocytopenia likely related to sepsis and/or chronic alcohol abuse -no obvious bleeding noted, will continue to monitor platelet level -improving (5) Alcoholism: Code(s): F10.20 - Alcohol dependence, uncomplicated Status: Acute Assessment and Plan: Patient is a chronic alcoholic, has not been drinking 2-3 days prior to admission as he was not feeling too well. (patient drinks approximately 18 beers per day) -transferred to the ICU on 01/15/2021 for alcohol withdrawal with possible delirium tremens, received multiple doses of Ativan and Haldol in the IMU -continue thiamine, folic acid -patient has been off Precedex infusion -patient delirious, will hold Librium and Seroquel. -also has a history of chronic back pain on Flexeril and Ethel at home, will restart Ethel patient could going into opioid withdrawal. If unable to take oral pills, will give a dose of morphine (6) Delirium: Code(s): R41.0 - Disorientation, unspecified Status: Acute Assessment and Plan: Could be multifactorial, related to Staph aureus bacteremia, encephalopathy related to alcohol and/or opioid withdrawal -patient more somnolent this morning, will hold Librium and Seroquel -have ordered Ethel for pain and possible opioid withdrawal. If unable to take pills will give a dose of morphine IV Additional Plan Will attempt to place Dobb Brenda feeding tube and start low dose tube feedings with head of the bed elevated to > 30 degrees at all times. Discuss with patient's at bedside and updated her with patient's condition, plan of care. I answered all questions.. Code status: Full code Critical care time spent: 33 minutes This dictation may have been done utilizing a voice recognition system. Attempts have been made to correct errors. However, there may be uncorrected grammatical, spelling, and recognition errors present. Due to a high probability of clinically significant, life threatening deterioration, the patient required my highest level of preparedness to intervene emergently and I personally spent this critical care time directly and personally managing the patient. This critical care time included obtai
[2021-01-23 13:52] LABS: Hematocrit 36.1 % (42.0-52.0); Hemoglobin 11.9 g/dL (14.0-18.0); Mean Corpuscular Hemoglobin 32.2 pg (26-34); Mean Corpuscular Volume 97.8 fl (80-100); Mean Platelet Volume 9.2 fl (7.4-10.4); Platelet Count Result 508 k/mm3 (150-375); Red Blood Count 3.69 M/mm3 (4.6-6.20); Red Cell Distribution Width 13.1 % (11.5-14.5); White Blood Count 9.8 K/mm3 (4.5-10.0)
[2021-01-23 14:02] LABS: Alanine Aminotransferase 39 U/L (4-50); Alkaline Phosphatase 123 U/L (38-126); Anion Gap 3 mmol/L (8-16); Aspartate Amino Transferase 54 U/L (17-59); Bilirubin,Total 0.7 mg/dL (0.2-1.3); Blood Urea Nitrogen 22 mg/dL (9-20); Calcium 8.5 mg/dL (8.4-10.2); Carbon Dioxide 33 mmol/L (22-30); Chloride 103 mmol/L (98-107); Estimated CRCL calculation 83 ml/min; Estimated Glomerular Filt Rate > 60; Glucose 104 mg/dL (75-110); Potassium 4.5 mmol/L (3.4-5.0); Sodium 139 mmol/L (137-145)
--- NOTE | 2021-01-23 14:16 | PM.IMPN ---
Progress Note: A&P Assessment and Plan (1) Delirium: Code(s): R41.0 - Disorientation, unspecified Status: Acute (2) Septicemia: Code(s): A41.9 - Sepsis, unspecified organism Status: Acute (3) Alcohol withdrawal delirium: Code(s): F10.231 - Alcohol dependence with withdrawal delirium Status: Acute (4) Tachyarrhythmia: Code(s): R00.0 - Tachycardia, unspecified Status: Acute (5) Thrombocytopenia: Code(s): D69.6 - Thrombocytopenia, unspecified Status: Acute (6) Bacteremia: Code(s): R78.81 - Bacteremia Status: Acute (7) Atrial fibrillation: Code(s): I48.91 - Unspecified atrial fibrillation Status: Acute (8) Elevated LFTs: Code(s): R79.89 - Other specified abnormal findings of blood chemistry Status: Acute (9) Sepsis: Code(s): A41.9 - Sepsis, unspecified organism Status: Acute Additional Plan # sepsis: Present on admission and supported by fever, tachycardia, and tachypnea in the setting of bacteremia. Seen in ED on 01/13 and had BCx drawn. BCX 01/13 positive for Staphylococcus aureus and he returned to the ED on 01/14 and received 1 dose of cefepime and vancomycin. BCx repeated. Dr. Sorensen was consulted and he recommended vancomycin and Ancef. BCx from 01/13 and 01/14 both growing ENRIKE so abx narrowed to Ancef Day #6. Echo does not show any vegetations. Lumbar CT showing no acute findings. Repeat BCx 01/16 (1of2) are positive still. Consider CALIN and/or lumbar MRI. Source unclear but possibly skin. No fevers and WBC normal. Continue the same. CALIN 01/22: no signs of endocarditis. he had a insect bite ACID DUMPER on his calf area which has now scabbed. potentially could be the inciting event for his sepsis. will check MRI lumbar and thoracic spine. contineu to remain febrile and encephalopathic. ? lumbar puncutre. will get ct head to further evaluate if any new changes. # MSSA bacteremia: on ancef. vancomycin discontinued. ECHO 01/14/2021: Showed normal LV size with moderate concentric hypertrophy and good systolic function, EF 55-60%. Normal diastolic dysfunction. Left atrium moderately enlarged, mild pulmonary hypertension with RVSP of 39 mmHg, no vegetations seen. CALIN negative for Endocarditis. still febrile. repeat cutlures pending. on ancef per infecitous disease. # Alcohol withdrawal delirium: Patient A&O x4 on admission but seemed a bit confused. He then developed acute delirium from alcohol withdrawal 01/15 and moved to ICU for Precedex. CT brain normal. Continue Precedex and wean as he tolerates. Continue Thiamine and Folate. continue current care for his alcohol withdrawal, slowing improving. remains somnolent. dc seroquel and librium . currently on precedex as well. # Atrial fibrillation: EKG on admission consistent with MAT. Rhythm strips also consistent with MAT. Oral metoprolol started but changed to IV metoprolol since patient was NPO. ECHO with EF 55-60% with normal diastolic dysfunction and mild pulm HTN. TSH normal. Patient did convert to AFib. Lopressor IV stopped . Heparin drip started. Continue tele. Appreciate Cardiology input. s/p cardioverson 01/21. currently on sinus rhythm now. # Hyponatremia: Sodium was 135 on 12/31/2020 but down to 129 on 01/13. Probably multifactorial from his Celexa, HCTZ, beer potomania and/or dehydration. Jesús low at 17. He received appropriate IV fluids in the ED. Na dropped to 123 but better today at 132. Monitor closely. Continue IV fluids # Hypertension: BP stable. Lisinopril and HCTZ on hold. Oral Metoprolol also placed on hold. IV Lopressor stopped. Monitor. # Elevated LFTs: Likely due to longstanding alcohol abuse as his coags are slightly prolonged and platelets are decreased. RUQ showing normal right upper quadrant ultrasound status post cholecystectomy. Hepatitis panel negative. LFTs up and down but stable overall. Suspect alcoholic hepatitis.
[2021-01-23] MEDS: HYDROcodone/acetaminophen (*CRX) 5-325 MG TABLET 1 TAB FEED TUBE (15:32)
[2021-01-23] MEDS: MIDAZOLAM HCL (*CRX) 2 MG/2 ML VIAL 1 MG IV PUSH ×2 (15:32→19:26)
[2021-01-23] MEDS: LORazepam INJ (*CRX) 2 MG/ML VIAL 1 MG IV PUSH (16:21)
[2021-01-23] MEDS: HALOPERIDOL LACTATE 5 MG/ML VIAL IV PUSH ×2 (17:34→20:19)
[2021-01-23] MEDS: dexmedeTOMIDine 400 MCG/100 ML 400 MCG/100 ML BAG IV CONT (17:51)
[2021-01-24] VITALS (22 sets, daily range): BP systolic 104–168; BP diastolic 59–106; PULSE 70–106; RESP 11–20; TEMP 36.7–37.8; O2SAT 95–100
[2021-01-24] MEDS: dexmedeTOMIDine 400 MCG/100 ML 400 MCG/100 ML BAG 15.14 MCG IV CONT (01:42)
[2021-01-24] MEDS: METOPROLOL TARTRATE INJ 5 MG/5 ML VIAL IV PUSH ×2 (03:45→08:04)
[2021-01-24 04:28] LABS: Basophils Absolute Auto 0.1 K/mm3 (0.0-0.1); Basophils Percent Auto 0.5 % (0.2-1.2); Eosinophils Absolute Auto 0.1 K/mm3 (0-0.3); Eosinophils Percent Auto 0.8 % (0-4.4); Hematocrit 37.7 % (42.0-52.0); Hemoglobin 12.4 g/dL (14.0-18.0); Lymphocytes Absolute Auto 1.08 K/mm3 (0.9-3.2); Lymphocytes Percent Auto 11.3 % (18.3-44.2); Mean Corpuscular HGB Conc 32.9 g/dl (32-36); Mean Corpuscular Volume 97.4 fl (80-100); Mean Platelet Volume 8.9 fl (7.4-10.4); Monocytes Absolute Auto 0.7 K/mm3 (0.1-0.6); Monocytes Percent Auto 7.4 % (2.6-8.5); Neutrophils Absolute Auto 7.6 K/mm3 (1.3-6.7); Platelet Count Result 518 k/mm3 (150-375); Red Blood Count 3.87 M/mm3 (4.6-6.20); Red Cell Distribution Width 12.9 % (11.5-14.5); White Blood Count 9.6 K/mm3 (4.5-10.0)
[2021-01-24] MEDS: fentaNYL CITRATE INJ (*CRX) 100 MCG/2 ML VIAL 25 MCG IV PUSH ×3 (04:36→16:31)
[2021-01-24 04:40] LABS: Alanine Aminotransferase 33 U/L (4-50); Albumin Level 3.3 g/dL (3.5-5.1); Alkaline Phosphatase 126 U/L (38-126); Anion Gap 5 mmol/L (8-16); Aspartate Amino Transferase 48 U/L (17-59); Bilirubin,Total 0.8 mg/dL (0.2-1.3); Blood Urea Nitrogen 22 mg/dL (9-20); Carbon Dioxide 32 mmol/L (22-30); Chloride 102 mmol/L (98-107); Estimated CRCL calculation 83 ml/min; Estimated Glomerular Filt Rate > 60; Glucose 126 mg/dL (75-110); Potassium 4.1 mmol/L (3.4-5.0); Sodium 139 mmol/L (137-145)
[2021-01-24] MEDS: ceFAZolin 2 GM/D5W 50 ML 2 GM/50 ML BAG IVPB ×3 (05:11→22:54)
[2021-01-24] MEDS: ENOXAPARIN 100 MG/ML SYRINGE 87 MG SUB-Q ×2 (08:00→20:35)
[2021-01-24] MEDS: PANTOPRAZOLE SODIUM IV 40 MG VIAL IV PUSH (08:01)
[2021-01-24] MEDS: lisinopriL 20 MG TABLET FEED TUBE (08:01)
[2021-01-24] MEDS: ASPIRIN 81 MG CHEWABLE TABLET FEED TUBE (08:01)
[2021-01-24] MEDS: FOLIC ACID 1 MG/0.2 ML INJ IV PUSH (08:46)
--- NOTE | 2021-01-24 09:30 | PM.PNCARD ---
Progress Note: A&P Assessment and Plan (1) Atrial arrhythmia: Code(s): I49.8 - Other specified cardiac arrhythmias Status: Acute Assessment and Plan: Status post CALIN guided cardioversion 2 days ago. Remains in sinus rhythm. Will discontinue his IV metoprolol and switch him to metoprolol tartrate 50 mg p.o. q.12 hours. Continue anticoagulation (2) Abnormal EKG: Code(s): R94.31 - Abnormal electrocardiogram [ECG] [EKG] Status: Acute Assessment and Plan: EKG now shows some anterior T-wave inversions suggestive of ischemia/CAD. Asymptomatic. Ischemia evaluation at a later date as clinically indicated. (3) Bacteremia: Code(s): R78.81 - Bacteremia Status: Acute Assessment and Plan: Management as per ICU team and Infectious Disease (4) Alcoholism: Code(s): F10.20 - Alcohol dependence, uncomplicated Status: Acute Assessment and Plan: Management as per primary team. Patient was in DTs Subjective Date/time seen: 01/24/21 09:30 Interval history: 65yo male with alcoholism and HTN here for bacteremia. 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 BCx drawn returned positive and pateint directed back to the ED on 01/14 and admitted. He developed DTs and ultimately moved to ICU on 01/15 and started on Precedex. No issues overnight but this morning he became agitated requiring Precedex to be advanced to 1.6. SOme improvement and bale to decrease to 0.9mcg/kg/hr now. Patient unable to provide history. Date of service 01/19/2021-patient remains delirious. His was patient's bedside. On telemetry, he is in atrial fibrillation with heart rates in 80s. Date of service 01/20/2021: Patient is more coherent today, DTs appear to be clearing. He is no longer sedated with Precedex and probably for that reason is more tachycardic. Low-dose of beta-giuliano started today by the property maintenance supervisor, patient has not received dosage yet. Currently anticoagulated with low molecular weight heparin foot Date of service 01/21/2021: Confused but does respond and answer some basic questions. He denies any chest pain or shortness of breath. He is tachycardic this morning. Still in atrial fibrillation Date of service 01/23/2021: Successful CALIN guided cardioversion yesterday. Remains in sinus rhythm. Still confused. No evidence of vegetations seen on valves. No chest pain Date of service 01/24/2021: Remains in sinus rhythm. Still confused and unfortunately received a lot of sedatives last night. No chest pain Review of Systems Review of Systems: ROS unobtainable: Yes unobtainable due to medical condition and unobtainable due to mental status Constitutional: Constitutional: Reports chills, Reports fatigue, Reports fever(s), Reports lethargy, Denies poor appetite and Reports weakness Eyes: Eyes: Reports no additional eye complaints, Denies eye discharge, Denies loss of vision, Denies eye pain and Denies photophobia ENT: Denies dizziness, Denies epistaxis, Denies nasal congestion and Denies sore throat Cardiovascular: Cardiovascular: Reports no additional cardiovascular complaints, Denies chest pain, Denies syncope, Denies pedal edema, Denies leg edema, Denies lightheadedness, Denies palpitations, Denies dyspnea, Denies dyspnea on exertion and Denies orthopnea Respiratory: Respiratory: Reports no additional respiratory complaints, Denies cough, Denies dyspnea, Denies dyspnea on exertion and Denies wheezing Gastrointestinal: Gastrointestinal: Reports no additional gastrointestinal complaints, Denies abdominal pain, Denies hematochezia, Denies diarrhea, Denies nausea, Denies vomiting and Denies hematemesis Genitourinary: Genitourinary: Reports no additional male gen
[2021-01-24] MEDS: METOPROLOL TARTRATE 50 MG TAB PO ×2 (10:42→20:36)
[2021-01-24] MEDS: LACTATED RINGERS 1,000 ML 50 ML IV CONT (11:12)
--- NOTE | 2021-01-24 12:00 | WPDINTPN ---
Progress Note: A&P Assessment and Plan (1) Bacteremia: Code(s): R78.81 - Bacteremia Status: Acute Assessment and Plan: ENRIKE bacteremia 01/13/2021 -infectious disease following the patient, continue Ancef, -transthoracic echocardiogram 01/14/2021: Showed normal LV size with moderate concentric hypertrophy and good systolic function, EF 55-60%. Normal diastolic dysfunction. Left atrium moderately enlarged, mild pulmonary hypertension with RVSP of 39 mmHg, no vegetations seen. - 01/14/2021 blood cultures also positive Staph aureus 2/2 bottles -01/16/2021 blood cultures staph aureus 1 of 2 bottless - Lumbar CT showing no acute findings -discussed with infectious disease, requested the patient get a CALIN, cardiology has plan for CALIN today -repeated blood cultures on 01/21/2021 negative to date (2) Sepsis: Code(s): A41.9 - Sepsis, unspecified organism Status: Acute Assessment and Plan: Sepsis due staph bacteremia -patient tachycardic tachypneic which also be secondary to alcohol withdrawal secondary to adrenergic surge -patient is afebrile -continue antibiotics as above (3) Tachyarrhythmia: Code(s): R00.0 - Tachycardia, unspecified Status: Acute Assessment and Plan: EKG on 0 01/17 showed atrial fibrillation, cardiology started patient on metoprolol -initial EKG did show multifocal atrial tachycardia but now in AFib with and rate controlled. -patient in AFib RVR, hypertensive, will start oral metoprolol -p.r.n. hydralazine for blood pressures -therapeutic low -discuss with Cardiology, possible plan for electrical cardioversion today (4) Thrombocytopenia: Code(s): D69.6 - Thrombocytopenia, unspecified Status: Acute Assessment and Plan: RESOLVED Thrombocytopenia likely related to sepsis and/or chronic alcohol abuse -no obvious bleeding noted, will continue to monitor platelet level -improving (5) Alcoholism: Code(s): F10.20 - Alcohol dependence, uncomplicated Status: Acute Assessment and Plan: Patient is a chronic alcoholic, has not been drinking 2-3 days prior to admission as he was not feeling too well. (patient drinks approximately 18 beers per day) -transferred to the ICU on 01/15/2021 for alcohol withdrawal with possible delirium tremens, received multiple doses of Ativan and Haldol in the IMU -continue thiamine, folic acid -patient has been off Precedex infusion -patient delirious, will hold Librium and Seroquel. -also has a history of chronic back pain on Flexeril and [place] at home, will restart [place] patient could going into opioid withdrawal. If unable to take oral pills, will give a dose of morphine (6) Delirium: Code(s): R41.0 - Disorientation, unspecified Status: Acute Assessment and Plan: Could be multifactorial, related to Staph aureus bacteremia, encephalopathy related to alcohol and/or opioid withdrawal Currently on Precedex at low-dose drip as well as p.r.n. Versed and fentanyl as needed. The patient is high risk for re-intubation and will continue to monitor him closely in the intensive care unit. Subjective Date/time seen: 01/24/21 12:00 Interval history: The patient became very agitated last night and required multiple doses of IV narcotics, IV benzodiazepines and an increase in his Precedex dose. This morning he is more lethargic than he was yesterday but still protecting his airway and still able to follow some commands. His Precedex doses down to 0.2 mcg/kg/min this morning. I have discontinued his haloperidol. He does not appear to be in any pain. An NG tube was placed yesterday successfully and he is tolerating trophic tube feeds with his head of the bed elevated. Review of Systems Review of Systems: All systems reviewed & are unremarkable except as noted in HPI and below Exam Const: General: comfortable, no acute distress, confusion and lethargic HENMT: Head: normocephalic and atraumat
--- NOTE | 2021-01-24 12:34 | PCPTNOTE ---
Pt unable to participate in therapy today due to disorientation and confusion. Due to current status, PT to be decreased to 2-3days a week until pt status improved. Re-assess for changes prn.
--- NOTE | 2021-01-24 12:35 | PM.IMPN ---
Progress Note: A&P Assessment and Plan (1) Delirium: Code(s): R41.0 - Disorientation, unspecified Status: Acute (2) Atrial arrhythmia: Code(s): I49.8 - Other specified cardiac arrhythmias Status: Acute (3) Alcohol withdrawal delirium: Code(s): F10.231 - Alcohol dependence with withdrawal delirium Status: Acute (4) Atrial fibrillation: Code(s): I48.91 - Unspecified atrial fibrillation Status: Acute (5) Bacteremia: Code(s): R78.81 - Bacteremia Status: Acute (6) Sepsis: Code(s): A41.9 - Sepsis, unspecified organism Status: Acute Additional Plan # sepsis: Present on admission and supported by fever, tachycardia, and tachypnea in the setting of bacteremia. Seen in ED on 01/13 and had BCx drawn. BCX 01/13 positive for Staphylococcus aureus and he returned to the ED on 01/14 and received 1 dose of cefepime and vancomycin. BCx repeated. Dr. Sorensen was consulted and he recommended vancomycin and Ancef. BCx from 01/13 and 01/14 both growing ENRIKE so abx narrowed to Ancef Day #6. Echo does not show any vegetations. Lumbar CT showing no acute findings. Repeat BCx 01/16 (1of2) are positive still. Consider CALIN and/or lumbar MRI. Source unclear but possibly skin. No fevers and WBC normal. Continue the same. CALIN 01/22: no signs of endocarditis. he had a insect bite [employer]PECT[employer] on his calf area which has now scabbed. potentially could be the inciting event for his sepsis. will check MRI lumbar and thoracic spine. contineu to remain febrile and encephalopathic. ? lumbar puncutre. CT head negative for any new changes. # MSSA bacteremia: on ancef. vancomycin discontinued. ECHO 01/14/2021: Showed normal LV size with moderate concentric hypertrophy and good systolic function, EF 55-60%. Normal diastolic dysfunction. Left atrium moderately enlarged, mild pulmonary hypertension with RVSP of 39 mmHg, no vegetations seen. CALIN negative for Endocarditis. still febrile. repeat cutlures pending. on ancef per infectious disease. # Alcohol withdrawal delirium: Patient A&O x4 on admission but seemed a bit confused. He then developed acute delirium from alcohol withdrawal 01/15 and moved to ICU for Precedex. CT brain normal. Continue Precedex and wean as he tolerates. Continue Thiamine and Folate. continue current care for his alcohol withdrawal, slowing improving. remains somnolent. dc seroquel and librium . currently on precedex as well. # Atrial fibrillation: EKG on admission consistent with MAT. Rhythm strips also consistent with MAT. Oral metoprolol started but changed to IV metoprolol since patient was NPO. ECHO with EF 55-60% with normal diastolic dysfunction and mild pulm HTN. TSH normal. Patient did convert to AFib. Lopressor IV stopped . Heparin drip started. Continue tele. Appreciate Cardiology input. s/p cardioverson 01/21. currently on sinus rhythm now. # Hyponatremia: Sodium was 135 on 12/31/2020 but down to 129 on 01/13. Probably multifactorial from his Celexa, HCTZ, beer potomania and/or dehydration. Jesús low at 17. He received appropriate IV fluids in the ED. Na dropped to 123 but better today at 132. Monitor closely. Continue IV fluids # Hypertension: BP stable. Lisinopril and HCTZ on hold. Oral Metoprolol also placed on hold. IV Lopressor stopped. Monitor. # Elevated LFTs: Likely due to longstanding alcohol abuse as his coags are slightly prolonged and platelets are decreased. RUQ showing normal right upper quadrant ultrasound status post cholecystectomy. Hepatitis panel negative. LFTs up and down but stable overall. Suspect alcoholic hepatitis. Follow LFTs. # Alcoholism: stated patient only drinks beer and can drink 12-18 beers per day. As above. Continue Folate and Thiamine IV. Will provide information about AA when he is more awake and alert. # Thrombocytopenia: Plt count was normal earlier this month but dropped to 56K but now normal. Mary Jane
[2021-01-24] MEDS: ACETAMINOPHEN 325 MG TABLET 650 MG FEED TUBE (13:33)
[2021-01-24] MEDS: hydrALAZINE HCL 20 MG/ML VIAL 10 MG IV PUSH ×2 (13:36→22:54)
--- NOTE | 2021-01-24 13:44 | PCOTNOTE ---
OT skilled treatment frequency decreased to 2-3x/wk due to patient cognitive status and ability to participate in skilled therapy at this time. Will increase/alter frequency as medically appropriate.
[2021-01-24] MEDS: dexmedeTOMIDine 400 MCG/100 ML 400 MCG/100 ML BAG IV CONT (19:51)
[2021-01-25] VITALS (20 sets, daily range): BP systolic 115–174; BP diastolic 51–97; PULSE 83–148; RESP 16–35; TEMP 36.8–38.2; O2SAT 96–98
[2021-01-25 01:10] LABS: Glucose Point of Care 119 (65-105)
[2021-01-25 04:42] LABS: Basophils Percent Auto 0.4 % (0.2-1.2); Eosinophils Percent Auto 0.5 % (0-4.4); Hematocrit 36.4 % (42.0-52.0); Hemoglobin 12.3 g/dL (14.0-18.0); Immature Granulocyte Absolute 0.07 K/mm3 (0.00-0.031); Immature Granulocyte Percent A 0.9 % (0-0.5); Lymphocytes Absolute Auto 1.03 K/mm3 (0.9-3.2); Lymphocytes Percent Auto 13.2 % (18.3-44.2); Mean Corpuscular HGB Conc 33.8 g/dl (32-36); Mean Corpuscular Hemoglobin 31.5 pg (26-34); Mean Corpuscular Volume 93.3 fl (80-100); Mean Platelet Volume 8.7 fl (7.4-10.4); Monocytes Absolute Auto 0.7 K/mm3 (0.1-0.6); Monocytes Percent Auto 9.2 % (2.6-8.5); Neutrophils Absolute Auto 5.9 K/mm3 (1.3-6.7); Neutrophils Percent Auto 75.8 % (45.5-73.1); Platelet Count Result 525 k/mm3 (150-375); Red Cell Distribution Width 12.8 % (11.5-14.5); White Blood Count 7.8 K/mm3 (4.5-10.0)
[2021-01-25 04:58] LABS: Alanine Aminotransferase 30 U/L (4-50); Alkaline Phosphatase 119 U/L (38-126); Anion Gap 3 mmol/L (8-16); Aspartate Amino Transferase 44 U/L (17-59); Bilirubin,Total 0.6 mg/dL (0.2-1.3); Blood Urea Nitrogen 17 mg/dL (9-20); Calcium 8.3 mg/dL (8.4-10.2); Carbon Dioxide 31 mmol/L (22-30); Chloride 104 mmol/L (98-107); Estimated CRCL calculation 94 ml/min; Estimated Glomerular Filt Rate > 60; Glucose 133 mg/dL (75-110); Potassium 3.8 mmol/L (3.4-5.0); Sodium 138 mmol/L (137-145)
[2021-01-25] MEDS: ceFAZolin 2 GM/D5W 50 ML 2 GM/50 ML BAG IVPB ×3 (05:30→21:59)
[2021-01-25] MEDS: LACTATED RINGERS 1,000 ML 50 ML IV CONT (05:49)
[2021-01-25] MEDS: METOPROLOL TARTRATE 50 MG TAB PO ×2 (08:02→20:36)
[2021-01-25] MEDS: ENOXAPARIN 100 MG/ML SYRINGE 87 MG SUB-Q ×2 (08:02→20:36)
[2021-01-25] MEDS: lisinopriL 20 MG TABLET FEED TUBE (08:02)
[2021-01-25] MEDS: PANTOPRAZOLE SODIUM IV 40 MG VIAL IV PUSH (08:02)
[2021-01-25] MEDS: ASPIRIN 81 MG CHEWABLE TABLET FEED TUBE (08:04)
[2021-01-25] MEDS: FOLIC ACID 1 MG/0.2 ML INJ IV PUSH (08:04)
--- NOTE | 2021-01-25 11:33 | PCDIET ---
Nutrition Follow-Up Complete: Nutrition Diagnosis: Inadequate oral intake related to poor appetite as evidenced by intakes 15-40%. Nutrition Goal: Patient to consume 75% of meals/supplements or greater. Goal no longer applicable. Dobhoff in place with Jevity 1.5 at 20mL/hr infusing. Recommend increasing slowly toward goal of 70mL/hr x 22 hours/day for 2310kcal, 98g protein and 1170mL free water. Recommend continuing with 30mL water flush every 4 hours. MD provided verbal order with plan to discontinue IV fluids once tube feedings reach goal. Last recorded weight is 80.1 kg which is down from last review. -I/O. Bowel Motility: No documented BM. Discussed with MD. Labs Reviewed: Hgb (12.3), Hct (36.4), Glu (133), Alb (3.0), Stephanie Ca (9.1) Meds Noted: Albuterol, Ancef, Fentanyl, Folic Acid, Hydralazine, LR at 50mL/hr, Lisinopril, Lopressor, Versed, Protonix, Vitamin D Additional Notes: Left lower leg and back scabs documented. Will continue to monitor with new goal: patient to meet estimated nutritional needs. Nutrition Monitoring and Evaluation: Follow up every Monday/Monday.
[2021-01-25] MEDS: hydrALAZINE HCL 20 MG/ML VIAL 10 MG IV PUSH ×2 (12:06→16:11)
[2021-01-25] MEDS: ACETAMINOPHEN 325 MG TABLET 650 MG FEED TUBE ×2 (12:11→18:08)
--- NOTE | 2021-01-25 13:20 | WPDINTPN ---
Progress Note: A&P Assessment and Plan (1) Bacteremia: Code(s): R78.81 - Bacteremia Status: Acute Assessment and Plan: ENRIKE bacteremia 01/13/2021 -infectious disease following the patient, continue Ancef, -transthoracic echocardiogram 01/14/2021: Showed normal LV size with moderate concentric hypertrophy and good systolic function, EF 55-60%. Normal diastolic dysfunction. Left atrium moderately enlarged, mild pulmonary hypertension with RVSP of 39 mmHg, no vegetations seen. - 01/14/2021 blood cultures also positive Staph aureus 2/2 bottles -01/16/2021 blood cultures staph aureus 1 of 2 bottless -01/21/2021 blood cultures negative x2 - Lumbar CT showing no acute findings -CALIN on 01/22/2021 showed no evidence of endocarditis -repeated blood cultures on 01/21/2021 negative to date (2) Sepsis: Code(s): A41.9 - Sepsis, unspecified organism Status: Acute Assessment and Plan: Sepsis due staph bacteremia -patient tachycardic tachypneic which also be secondary to alcohol withdrawal secondary to adrenergic surge -patient is afebrile -continue antibiotics as above (3) Tachyarrhythmia: Code(s): R00.0 - Tachycardia, unspecified Status: Acute Assessment and Plan: EKG on 01/17 showed atrial fibrillation, cardiology started patient on metoprolol -initial EKG did show multifocal atrial tachycardia but now in AFib with and rate controlled. -patient in AFib RVR, hypertensive, will start oral metoprolol -p.r.n. hydralazine for blood pressures -continue therapeutic Lovenox -cardioversion on 01/22/2021 with successful conversion to sinus rhythm (4) Thrombocytopenia: Code(s): D69.6 - Thrombocytopenia, unspecified Status: Acute Assessment and Plan: RESOLVED (5) Alcoholism: Code(s): F10.20 - Alcohol dependence, uncomplicated Status: Acute Assessment and Plan: Patient is a chronic alcoholic, has not been drinking 2-3 days prior to admission as he was not feeling too well. (patient drinks approximately 18 beers per day) -transferred to the ICU on 01/15/2021 for alcohol withdrawal with possible delirium tremens, received multiple doses of Ativan and Haldol in the IMU -continue thiamine, folic acid -patient has been off Precedex infusion -patient delirious, will hold Librium and Seroquel. -also has a history of chronic back pain on Flexeril and [place] at home, will restart [place] patient could going into opioid withdrawal. Patient has been fentanyl p.r.n. (6) Delirium: Code(s): R41.0 - Disorientation, unspecified Status: Acute Assessment and Plan: Could be multifactorial, related to Staph aureus bacteremia, encephalopathy related to alcohol and/or opioid withdrawal Currently on Precedex at low-dose drip as well as p.r.n. -p.r.n. fentanyl and Versed also been ordered The patient is high risk for re-intubation and will continue to monitor him closely in the intensive care unit. Additional Plan Patient has a Dobbhoff tube and started on tube feeds, will increase to goal since he is tolerating well. Discuss with patient's at bedside and updated her with patient's condition, plan of care. I answered all questions.. Code status: Full code Critical care time spent: 35 minutes This dictation may have been done utilizing a voice recognition system. Attempts have been made to correct errors. However, there may be uncorrected grammatical, spelling, and recognition errors present. Due to a high probability of clinically significant, life threatening deterioration, the patient required my highest level of preparedness to intervene emergently and I personally spent this critical care time directly and personally managing the patient. This critical care time included obtaining a history; examining the patient; pulse oximetry; ordering and review of studies; arranging urgent treatment with development of a management plan; evaluation of patient's r
--- NOTE | 2021-01-25 14:33 | PM.PNCARD ---
Progress Note: A&P Assessment and Plan (1) Atrial arrhythmia: Code(s): I49.8 - Other specified cardiac arrhythmias Status: Acute Assessment and Plan: Appears to be back in multifocal atrial tachycardia but not atrial fibrillation status post CALIN guided cardioversion. Continue systemic anticoagulation and metoprolol tartrate. Treatment for MAT to focus on underlying medical conditions and supportive care. Continue telemetry. (2) Atrial fibrillation: Code(s): I48.91 - Unspecified atrial fibrillation Status: Acute Assessment and Plan: Resolved status post cardioversion. Continue systemic anticoagulation without interruption. Continue beta-giuliano therapy. (3) Altered mental status: Code(s): R41.82 - Altered mental status, unspecified Status: Acute Assessment and Plan: Per primary service. Off sedation, remains unresponsive. (4) Abnormal EKG: Code(s): R94.31 - Abnormal electrocardiogram [ECG] [EKG] Status: Acute Assessment and Plan: EKG now shows some anterior T-wave inversions suggestive of ischemia/CAD. Asymptomatic. Ischemia evaluation at a later date as clinically indicated. Patient remains confused. This will be deferred until he is further recovered. (5) Bacteremia: Code(s): R78.81 - Bacteremia Status: Acute Assessment and Plan: Management as per ICU team and Infectious Disease (6) Alcoholism: Code(s): F10.20 - Alcohol dependence, uncomplicated Status: Acute Assessment and Plan: Management as per primary team. Patient was in DTs Time Spent With Patient Time with patient: 15 - 25 minutes Subjective Date/time seen: Date of service: 01/25/21 14:33 Interval history: 65yo male with alcoholism and HTN here for bacteremia. 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 BCx drawn returned positive and pateint directed back to the ED on 01/14 and admitted. He developed DTs and ultimately moved to ICU on 01/15 and started on Precedex. Telemetry reveals probable multifocal atrial tachycardia not atrial fibrillation. Off sedation, at bedside states patient is still not interacting with her. Hemodynamically stable, BP elevated. Intermittent low-grade fevers noted. Not answering questions or following commands at bedside. Review of Systems Review of Systems: ROS unobtainable: Yes unobtainable due to medical condition and unobtainable due to mental status Constitutional: Constitutional: Reports chills, Reports fatigue, Reports fever(s), Reports lethargy, Denies poor appetite and Reports weakness Eyes: Eyes: Reports no additional eye complaints, Denies eye discharge, Denies loss of vision, Denies eye pain and Denies photophobia ENT: Denies dizziness, Denies epistaxis, Denies nasal congestion and Denies sore throat Cardiovascular: Cardiovascular: Reports no additional cardiovascular complaints, Denies chest pain, Denies syncope, Denies pedal edema, Denies leg edema, Denies lightheadedness, Denies palpitations, Denies dyspnea, Denies dyspnea on exertion and Denies orthopnea Respiratory: Respiratory: Reports no additional respiratory complaints, Denies cough, Denies dyspnea, Denies dyspnea on exertion and Denies wheezing Gastrointestinal: Gastrointestinal: Reports no additional gastrointestinal complaints, Denies abdominal pain, Denies hematochezia, Denies diarrhea, Denies nausea, Denies vomiting and Denies hematemesis Genitourinary: Genitourinary: Reports no additional male genitourinary complaints, Denies hematuria, Denies genital lesions and Denies dysuria Musculoskeletal: Musculoskeletal: Reports back pain, Reports arthralgias (Chronic knee pain and back pain), Denies joint swelling, Denies
--- NOTE | 2021-01-25 14:38 | PM.IMPN ---
Progress Note: A&P Additional Plan # sepsis: Present on admission and supported by fever, tachycardia, and tachypnea in the setting of bacteremia. Seen in ED on 01/13 and had BCx drawn. BCX 01/13 positive for Staphylococcus aureus and he returned to the ED on 01/14 and received 1 dose of cefepime and vancomycin. BCx repeated. Dr. Sorensen was consulted and he recommended vancomycin and Ancef. BCx from 01/13 and 01/14 both growing ENRIKE so abx narrowed to Ancef Day #6. Echo does not show any vegetations. Lumbar CT showing no acute findings. Repeat BCx 01/16 (1of2) are positive still. Consider CALIN and/or lumbar MRI. Source unclear but possibly skin. No fevers and WBC normal. Continue the same. CALIN 01/22: no signs of endocarditis. he had a insect bite [employer]OB PL[employer]SEL[employer] on his calf area which has now scabbed. potentially could be the inciting event for his sepsis. will check MRI lumbar and thoracic spine, this could not be done due to restlessness. continue to remain febrile and encephalopathic. ? lumbar puncture. CT head negative for any new changes. # MSSA bacteremia: on ancef. vancomycin discontinued. ECHO 01/14/2021: Showed normal LV size with moderate concentric hypertrophy and good systolic function, EF 55-60%. Normal diastolic dysfunction. Left atrium moderately enlarged, mild pulmonary hypertension with RVSP of 39 mmHg, no vegetations seen. CALIN negative for Endocarditis. still febrile. repeat cutlures pending. on ancef per infectious disease. last blood culture has been negative so far which is reassuring. # Alcohol withdrawal delirium: Patient A&O x4 on admission but seemed a bit confused. He then developed acute delirium from alcohol withdrawal 01/15 and moved to ICU for Precedex. CT brain normal. Continue Precedex and wean as he tolerates. Continue Thiamine and Folate. continue current care for his alcohol withdrawal, slowing improving. remains somnolent. dc seroquel and librium . currently on precedex as well. precedex has been now truned off. still deliriious signficantly. intensivit considering neuro consult, EEG # Atrial fibrillation: EKG on admission consistent with MAT. Rhythm strips also consistent with MAT. Oral metoprolol started but changed to IV metoprolol since patient was NPO. ECHO with EF 55-60% with normal diastolic dysfunction and mild pulm HTN. TSH normal. Patient did convert to AFib. Lopressor IV stopped . Heparin drip started. Continue tele. Appreciate Cardiology input. s/p cardioverson 01/21. currently on sinus rhythm now. # Hyponatremia: Sodium was 135 on 12/31/2020 but down to 129 on 01/13. Probably multifactorial from his Celexa, HCTZ, beer potomania and/or dehydration. Jesús low at 17. He received appropriate IV fluids in the ED. Na dropped to 123 but better today at 132. Monitor closely. Continue IV fluids # Hypertension: BP stable. Lisinopril and HCTZ on hold. Oral Metoprolol also placed on hold. IV Lopressor stopped. Monitor. # Elevated LFTs: Likely due to longstanding alcohol abuse as his coags are slightly prolonged and platelets are decreased. RUQ showing normal right upper quadrant ultrasound status post cholecystectomy. Hepatitis panel negative. LFTs up and down but stable overall. Suspect alcoholic hepatitis. Follow LFTs. # Alcoholism: stated patient only drinks beer and can drink 12-18 beers per day. As above. Continue Folate and Thiamine IV. Will provide information about AA when he is more awake and alert. # Thrombocytopenia: Plt count was normal earlier this month but dropped to 56K but now normal. Suspect related to the toxic effects of the alcohol. Could be sequestered if he has enlarged spleen and/or from the septicemia. Follow. # Anxiety: As above. Citalopram currently on hold given hyponatremia and his clinical condition. Hyponatremia better. Resume when taking oral intake and mental status better. # Gout: No acute issues. Holding allopurinol for now. # DVT prophylax
[2021-01-25] MEDS: METOPROLOL TARTRATE INJ 5 MG/5 ML VIAL IV PUSH (18:48)
[2021-01-25] MEDS: QUEtiapine FUMARATE 12.5 MG TABLET PO (20:37)
[2021-01-26] VITALS (23 sets, daily range): BP systolic 108–161; BP diastolic 38–84; PULSE 76–140; RESP 21–34; TEMP 36.8–37.6; O2SAT 96–98
[2021-01-26] MEDS: hydrALAZINE HCL 20 MG/ML VIAL 10 MG IV PUSH ×2 (01:02→07:16)
[2021-01-26] MEDS: LACTATED RINGERS 1,000 ML 50 ML IV CONT (02:26)
[2021-01-26 04:55] LABS: Basophils Absolute Auto 0.1 K/mm3 (0.0-0.1); Basophils Percent Auto 0.6 % (0.2-1.2); Eosinophils Percent Auto 0.3 % (0-4.4); Hematocrit 36.1 % (42.0-52.0); Hemoglobin 12.1 g/dL (14.0-18.0); Immature Granulocyte Absolute 0.07 K/mm3 (0.00-0.031); Immature Granulocyte Percent A 0.8 % (0-0.5); Lymphocytes Absolute Auto 1.19 K/mm3 (0.9-3.2); Lymphocytes Percent Auto 13.8 % (18.3-44.2); Mean Corpuscular HGB Conc 33.5 g/dl (32-36); Mean Corpuscular Hemoglobin 31.8 pg (26-34); Mean Corpuscular Volume 94.8 fl (80-100); Mean Platelet Volume 8.9 fl (7.4-10.4); Monocytes Absolute Auto 0.7 K/mm3 (0.1-0.6); Monocytes Percent Auto 8.1 % (2.6-8.5); Neutrophils Absolute Auto 6.6 K/mm3 (1.3-6.7); Neutrophils Percent Auto 76.4 % (45.5-73.1); Platelet Count Result 599 k/mm3 (150-375); Red Blood Count 3.81 M/mm3 (4.6-6.20); Red Cell Distribution Width 12.9 % (11.5-14.5); White Blood Count 8.7 K/mm3 (4.5-10.0)
[2021-01-26 05:08] LABS: Alanine Aminotransferase 28 U/L (4-50); Albumin Level 2.9 g/dL (3.5-5.1); Alkaline Phosphatase 103 U/L (38-126); Anion Gap 3 mmol/L (8-16); Aspartate Amino Transferase 39 U/L (17-59); Bilirubin,Total 0.4 mg/dL (0.2-1.3); Blood Urea Nitrogen 20 mg/dL (9-20); Calcium 8.6 mg/dL (8.4-10.2); Carbon Dioxide 32 mmol/L (22-30); Chloride 106 mmol/L (98-107); Estimated CRCL calculation 108 ml/min; Estimated Glomerular Filt Rate > 60; Glucose 142 mg/dL (75-110); Phosphorus 3.5 mg/dL (2.5-4.5); Potassium 3.7 mmol/L (3.4-5.0); Sodium 141 mmol/L (137-145)
[2021-01-26] MEDS: ceFAZolin 2 GM/D5W 50 ML 2 GM/50 ML BAG IVPB ×3 (06:19→21:02)
[2021-01-26] MEDS: METOPROLOL TARTRATE 50 MG TAB PO ×2 (07:17→20:16)
[2021-01-26] MEDS: ENOXAPARIN 100 MG/ML SYRINGE 87 MG SUB-Q ×2 (07:17→20:16)
[2021-01-26] MEDS: ASPIRIN 81 MG CHEWABLE TABLET FEED TUBE (07:18)
[2021-01-26] MEDS: lisinopriL 20 MG TABLET FEED TUBE (07:18)
[2021-01-26] MEDS: PANTOPRAZOLE SODIUM IV 40 MG VIAL IV PUSH (07:18)
[2021-01-26] MEDS: FOLIC ACID 1 MG/0.2 ML INJ IV PUSH (07:25)
--- NOTE | 2021-01-26 08:15 | WPDINTPN ---
Progress Note: A&P Assessment and Plan (1) Bacteremia: Code(s): R78.81 - Bacteremia Status: Acute Assessment and Plan: ENRIKE bacteremia 01/13/2021 -infectious disease following the patient, continue Ancef (initiated on 01/15/2021) -transthoracic echocardiogram 01/14/2021: Showed normal LV size with moderate concentric hypertrophy and good systolic function, EF 55-60%. Normal diastolic dysfunction. Left atrium moderately enlarged, mild pulmonary hypertension with RVSP of 39 mmHg, no vegetations seen. - 01/14/2021 blood cultures also positive Staph aureus 2/2 bottles -01/16/2021 blood cultures staph aureus 1 of 2 bottless -01/21/2021 blood cultures negative x2 - Lumbar CT showing no acute findings -CALIN on 01/22/2021 showed no evidence of endocarditis -repeated blood cultures on 01/21/2021 negative to date (2) Sepsis: Code(s): A41.9 - Sepsis, unspecified organism Status: Acute Assessment and Plan: Sepsis due staph bacteremia -patient tachycardic tachypneic which also be secondary to alcohol withdrawal secondary to adrenergic surge -patient is afebrile -continue antibiotics as above (3) Tachyarrhythmia: Code(s): R00.0 - Tachycardia, unspecified Status: Acute Assessment and Plan: EKG on 01/17 showed atrial fibrillation, cardiology started patient on metoprolol -initial EKG did show multifocal atrial tachycardia but now in AFib with and rate controlled. -patient in AFib RVR, hypertensive, will start oral metoprolol -p.r.n. hydralazine for blood pressures -continue therapeutic Lovenox -cardioversion on 01/22/2021 with successful conversion to sinus rhythm (4) Thrombocytopenia: Code(s): D69.6 - Thrombocytopenia, unspecified Status: Acute Assessment and Plan: RESOLVED (5) Alcoholism: Code(s): F10.20 - Alcohol dependence, uncomplicated Status: Acute Assessment and Plan: Patient is a chronic alcoholic, has not been drinking 2-3 days prior to admission as he was not feeling too well. (patient drinks approximately 18 beers per day) -transferred to the ICU on 01/15/2021 for alcohol withdrawal with possible delirium tremens, received multiple doses of Ativan and Haldol in the IMU -continue thiamine, folic acid -patient has been off Precedex infusion -patient delirious, will hold Librium and Seroquel. -also has a history of chronic back pain on Flexeril and Bicknell at home, will restart Bicknell patient could going into opioid withdrawal. (6) Delirium: Code(s): R41.0 - Disorientation, unspecified Status: Acute Assessment and Plan: Could be multifactorial, related to Staph aureus bacteremia, encephalopathy related to alcohol and/or opioid withdrawal Currently on Precedex at low-dose drip as well as p.r.n. -p.r.n. fentanyl and Versed also been ordered -The patient is high risk for re-intubation and will continue to monitor him closely in the intensive care unit. -neurology has been consulted Additional Plan Patient has a Dobbhoff tube and started on tube feeds, will increase to goal since he is tolerating well. Discuss with patient's at bedside and updated her with patient's condition, plan of care. I answered all questions.. Code status: Full code Critical care time spent: 34 minutes This dictation may have been done utilizing a voice recognition system. Attempts have been made to correct errors. However, there may be uncorrected grammatical, spelling, and recognition errors present. Due to a high probability of clinically significant, life threatening deterioration, the patient required my highest level of preparedness to intervene emergently and I personally spent this critical care time directly and personally managing the patient. This critical care time included obtaining a history; examining the patient; pulse oximetry; ordering and review of studies; arranging urgent treatment with development of a management plan; kina
--- NOTE | 2021-01-26 09:13 | PM.PNCARD ---
Progress Note: A&P Assessment and Plan (1) Atrial arrhythmia: Code(s): I49.8 - Other specified cardiac arrhythmias Status: Acute Assessment and Plan: Patient is CALIN guided cardioversion; on telemetry, sinus rhythm with PACs. Continue systemic anticoagulation and metoprolol tartrate. Continue telemetry. (2) Atrial fibrillation: Code(s): I48.91 - Unspecified atrial fibrillation Status: Acute Assessment and Plan: Resolved status post cardioversion. Continue systemic anticoagulation and beta-giuliano (3) Altered mental status: Code(s): R41.82 - Altered mental status, unspecified Status: Acute Assessment and Plan: Per primary service. Off sedation, remains unresponsive. Neurological evaluation for encephalopathy (4) Abnormal EKG: Code(s): R94.31 - Abnormal electrocardiogram [ECG] [EKG] Status: Acute Assessment and Plan: (5) Bacteremia: Code(s): R78.81 - Bacteremia Status: Acute Assessment and Plan: Management as per ICU team and Infectious Disease (6) Alcoholism: Code(s): F10.20 - Alcohol dependence, uncomplicated Status: Acute Assessment and Plan: Management as per primary team. Patient was in DTs Subjective Date/time seen: 01/26/21 09:13 Interval history: 01/25/2021: Patient OFF Precedex infusion since 01/25/2021. Patient has not been agitated through the night. He is confused, withdrawn and not communicating. Patient does open his eyes but does not follow commands. Hemodynamically stable, rate controlled, sinus rhythm with possible PVCs PACs. Urine output has been adequate, patient is afebrile urine output has been low, patient tolerating tube feeds at 60 mL/hr via at Dobbhoff tube Date of Service: 01/26/2021: Patient remains delirious. On telemetry, he is in sinus rhythm with PACs. Exam Narrative: Exam Narrative: PHYSICAL EXAMINATION: GENERAL: Obtunded MENTAL STATUS: Obtained EYES: Eyes closed EARS: External ears appear normal NOSE: NG tube in place MOUTH: Mucous membranes dry NECK: no JVD CHEST: Degrees of HEART: Normal rate, ectopic beats ABDOMEN: Soft NEUROLOGICAL: Obtunded MUSCULOSKELETAL: no amputation EXTREMITIES: No pedal edema, Objective Data Vital Signs Vital Signs: Vital Signs - 24 hr 01/25/21 10:00 01/25/21 12:00 01/25/21 12:11 Temperature 37.2 C 37.6 C H Pulse Rate 86 94 Respiratory Rate 24 H 34 H Blood Pressure 140/74 174/94 H Pulse Oximetry 96 96 01/25/21 12:21 01/25/21 13:11 01/25/21 14:00 Temperature 37.6 C H 37.7 C H Pulse Rate 106 H Respiratory Rate 32 H Blood Pressure 155/63 H Pulse Oximetry 96 01/25/21 16:00 01/25/21 18:00 01/25/21 18:08 Temperature 38.2 C H Pulse Rate 114 H 124 H Respiratory Rate 34 H 20 Blood Pressure 167/79 H 164/76 H Pulse Oximetry 96 96 01/25/21 18:44 01/25/21 18:48 01/25/21 20:00 Temperature 36.8 C Pulse Rate 148 H 141 H 98 Respiratory Rate 30 H Blood Pressure 115/54 L Pulse Oximetry 98 01/25/21 20:36 01/25/21 22:00 01/26/21 00:00 Temperature 36.8 C Pulse Rate 104 H 83 91 Respiratory Rate 35 H 34 H Blood Pressure 153/51 H 156/54 H Pulse Oximetry 98 97 01/26/21 02:00 01/26/21 04:00 01/26/21 05:48 Temperature Pulse Rate 97 118 H 107 H Respiratory Rate 23 H 28 H Blood Pressure 143/63 H 145/70 H Pulse Oximetry 97 97 01/26/21 06:00 01/26/21 07:17 01/26/21 07:19 Temperature 37.6 C H 37.1 C Pulse Rate 102 H 109 H 102 H Respiratory Rate 26 H 22 H Blood Pressure 161/46 H Pulse Oximetry 96 98 01/26/21 07:32 01/26/21 08:00 Temperature 37.1 C Pulse Rate 119 H 91 Respiratory Rate 27 H 28 H Blood Pressure 108/38 L Pulse Oximetry 97 98 Intake/Output Intake/Output: Intake & Output 01/23/21 01/24/21 01/25/21 0
--- NOTE | 2021-01-26 09:37 | PCOTNOTE ---
Addendum entered by GALO Rothman 01/26/21 13:00: Orders cancelled, will renew orders when patient is able to increase participation Original Note: Per RN, patient unable to awaken today and previous date and patient would not benefit from OT/PT. Patient being placed on hold for therapy until able to participate more. Will continue plan of care or re-assess then.
--- NOTE | 2021-01-26 10:19 | PM.IMPN ---
Progress Note: A&P Assessment and Plan (1) Septicemia: Code(s): A41.9 - Sepsis, unspecified organism Status: Acute Assessment and Plan: Present on admission and supported by fever, tachycardia, and tachypnea in the setting of bacteremia. Seen in ED on 01/13 and had BCx drawn. BCX 01/13 positive for Staphylococcus aureus and he returned to the ED on 01/14 and received 1 dose of cefepime and vancomycin. BCx repeated. Dr. Sorensen was consulted and he recommended vancomycin and Ancef. BCx from 01/13 and 01/14 both growing ENRIKE so abx narrowed to Ancef. Echo 01/14 does not show any vegetations. Lumbar CT showing no acute findings. Repeat BCx 01/16 (1of2) are positive still. BCx 01/21 NGTD. Source unclear but possibly skin. Still with low grade fevers but WBC normal. CALIN 01/22: no signs of endocarditis. Continue Cefazolin (antibiotic #13 / days) Ancef # 12. (2) Alcohol withdrawal delirium: Code(s): F10.231 - Alcohol dependence with withdrawal delirium Status: Acute Assessment and Plan: Patient A&O x4 on admission but seemed a bit confused. He then developed acute delirium from alcohol withdrawal 01/15 and moved to ICU for Precedex. CT brain normal. Precedex was weaned off. Librium on hold as well due to the somnolent state. Has been on Thiamine and Folate. Remains on a low dose Seroquiel. Neurology following. EEG ordered. CT brain from 01/23 showing no acute findings. Consider MRI brain. (3) Atrial fibrillation: Code(s): I48.91 - Unspecified atrial fibrillation Status: Acute Assessment and Plan: EKG on admission consistent with MAT. Rhythm strips also consistent with MAT. Oral metoprolol started but changed to IV metoprolol since patient was NPO. Echo with EF 55-60% with normal diastolic dysfunction and mild pulm HTN. TSH normal. Patient did convert to AFib. Heparin drip started but changed to Lovenox. Cardioversion 01/22 successfully back to NSR. Still with PACs and probable MAT on tele. Continue tele. Appreciate Cardiology input. Contineu metoprolol. (4) Hyponatremia: Code(s): E87.1 - Hypo-osmolality and hyponatremia Status: Acute Assessment and Plan: Sodium was 135 on 12/31/2020 but down to 129 on 01/13. Probably multifactorial from his Celexa, HCTZ, beer potomania and/or dehydration. Jesús low at 17. He received appropriate IV fluids in the ED. Na normal now. (5) Alcoholism: Code(s): F10.20 - Alcohol dependence, uncomplicated Status: Acute Assessment and Plan: stated patient only drinks beer and can drink 12-18 beers per day. As above. Continue Folate and Thiamine IV. Will provide information about AA when he is more awake and alert. (6) DVT prophylaxis: Code(s): Z29.9 - Encounter for prophylactic measures, unspecified Status: Acute Assessment and Plan: Lovenox Subjective Date/time seen: 01/26/21 10:19 Interval history: 65yo male with alcoholism and HTN here for bacteremia. 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 BCx drawn returned positive and pateint directed back to the ED on 01/14 and admitted. He developed DTs and ultimately moved to ICU on 01/15 and started on Precedex. Off precedex on 01/25. CALIN with cardioversion 01/22. Patietn taking off Precedex and restraints yesterday. Not waking up much. Neurology plans for EEG. Pateint unresponsive and unable to provide hx. His was in the room and she was updated on course of treatment. Review of Systems Review of Systems: ROS unobtainable: Yes unobtainable due to mental status Exam Narrative: Exam Narrative: Tm 100.8 98.7 123/44 91 25 98% ra Gen - somnolent, NARD HEENT - NGT secured. PERRL. dry mm Neck - supple. negative Kernigs Chest - clear anteriorly and i the flanks CV - irregularly irregular; t
--- NOTE | 2021-01-26 10:56 | WPDNEURCNPN ---
Assessment and Plan Assessment and plan (1) Altered mental status: Code(s): R41.82 - Altered mental status, unspecified Status: Acute Additional Plan the whole record has been reviewed , Examination today at time consistent with less movement on the left side as compared to the right, will obtain the EEG and consider further discussion with the family at this stage eeg will be guiding factor pursue further for the CT scan to evaluate with the he has any focal brain involvement Consult date: 01/26/21 Time Seen: 10:00 HPI: Aly Bailey is a 65 year old male admitted to the hospital on 01/14 for the positive blood culture in addition to the history of underlying 1. Hypertension 2. Gout 3. Anxiety 4. Daily alcohol consumption. 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 but he was febrile with temperature of up to 101.7 initially he received 3L of normal saline due to slight increase in lactic acid was sent home with [facility] for possible sinusitis due to report of congestion related to seasonal allergies subsequently received a call that the blood cultures were positive and was directed to the emergency room that time he was found to be in atrial fibrillation with sodium was low repeat lab was drawn he was noted to be disoriented he was unable to tell anything further to the physician at that time as trying to pull out his IV catheter he was drinking 6 beers every night and his last drink was about 3 days ago though he denied ever having the test signs of alcohol withdrawal. During the hospitalization he was noted to have bacteremia with Staph aureus and he was started on vanc and Ancef and further studies were recommended including TTE and lumbosacral spine MRI most recently is being treated with obstructive sleep apnea bacteremia with infection he TTE was nonsignificant involvement of valve and was also being treated for septic shock. Transesophageal echocardiogram did not reveal shunt from right to left but he had some valvular disease. Neurology consultation has been obtained because still is unresponsive to the verbal commands and rather restless EEG has also been requested Review of Systems Review of Systems: All systems reviewed & are unremarkable except as noted in HPI and below PMFSH Past Medical History Medical History Alcohol abuse Anxiety Gout Hypertension Osteoarthritis Wrists, knees. Surgical History Surgical History History of basal cell carcinoma excision Removed from the chest, arm, shoulder. History of cholecystectomy History of tonsillectomy Family History Family History Father Hypertension Cerebrovascular accident Mother Hypertension Other Diabetes mellitus Social History Social History Social History: Surrogate decision maker: Brenda Bailey, spouse. Code status: Full code. Smoking status: Never smoker Alcohol intake: current Drinks per week: 35 Substance use: never Substance use type: marijuana Additional living arrangements comments: Lives in [place] with his . 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 Gender identity (if verbalized by the patient): Male Spiritual care concerns: No Meds Home Medications and Allergies Home Medications Medication Instructions Recorded Confirmed Type allopurinol 100 mg PO QAM 12/31/20 01/18/21 History cholecalciferol (vitamin D3) 25 mcg PO DAILY 12/31/20 01/14/21 History citalopram 20 mg PO QAM 12/31/20 01/14/21 History lisinop
--- NOTE | 2021-01-26 11:03 | PCDIET ---
Nutrition Follow-Up Complete: Nutrition Diagnosis: Inadequate oral intake related to poor appetite as evidenced by intakes 15-40%. Nutrition Goal: Patient to meet estimated nutritional needs. Goal in progress. Patient tolerating Jevity 1.5 at 60mL/hr via Dobhoff which is advancing toward goal rate of 70mL/hr. Receiving 30mL water flush every 4 hours. Last recorded weight is 79.6 kg which is slightly decreased from last review. Bowel Motility: RN reports small BM earlier this morning. Discussed during rounds. Labs Reviewed: Hgb (12.1), Hct (36.1), Glu (142), Cr (0.6), Alb (2.9) Meds Noted: Albuterol, Fentanyl, Lisinopril, Lopressor, Ancef, Folic Acid, Precedex, Hydralazine, Protonix, LR at 50mL/hr Additional Notes: Neurology has been consulted. No pressure ulcers reported. Will continue to monitor with same goal. Nutrition Monitoring and Evaluation: Follow up every Monday/Monday.
[2021-01-26] MEDS: THIAMINE HCL 200 MG/2 ML VIAL 100 MG IV PUSH (11:05)
--- NOTE | 2021-01-26 13:00 | PCPTNOTE ---
PT orders are being cancelled due to change in medical status.
[2021-01-26] MEDS: METOPROLOL TARTRATE INJ 5 MG/5 ML VIAL IV PUSH (15:00)
[2021-01-27] VITALS (17 sets, daily range): BP systolic 111–166; BP diastolic 46–82; PULSE 65–132; RESP 18–41; TEMP 36.5–37.2; O2SAT 91–98
[2021-01-27] MEDS: hydrALAZINE HCL 20 MG/ML VIAL 10 MG IV PUSH (00:06)
[2021-01-27] MEDS: fentaNYL CITRATE INJ (*CRX) 100 MCG/2 ML VIAL 25 MCG IV PUSH ×2 (00:06→04:19)
[2021-01-27] MEDS: LACTATED RINGERS 1,000 ML 50 ML IV CONT (00:08)
[2021-01-27] MEDS: METOPROLOL TARTRATE INJ 5 MG/5 ML VIAL IV PUSH ×2 (04:20→16:23)
[2021-01-27 04:41] LABS: Basophils Absolute Auto 0.1 K/mm3 (0.0-0.1); Basophils Percent Auto 0.7 % (0.2-1.2); Eosinophils Absolute Auto 0.1 K/mm3 (0-0.3); Eosinophils Percent Auto 0.7 % (0-4.4); Hematocrit 37.5 % (42.0-52.0); Hemoglobin 12.2 g/dL (14.0-18.0); Immature Granulocyte Percent A 0.9 % (0-0.5); Lymphocytes Absolute Auto 1.35 K/mm3 (0.9-3.2); Lymphocytes Percent Auto 12.6 % (18.3-44.2); Mean Corpuscular HGB Conc 32.5 g/dl (32-36); Mean Corpuscular Hemoglobin 31.1 pg (26-34); Mean Corpuscular Volume 95.7 fl (80-100); Monocytes Absolute Auto 0.8 K/mm3 (0.1-0.6); Monocytes Percent Auto 7.8 % (2.6-8.5); Neutrophils Absolute Auto 8.3 K/mm3 (1.3-6.7); Neutrophils Percent Auto 77.3 % (45.5-73.1); Platelet Count Result 702 k/mm3 (150-375); Red Blood Count 3.92 M/mm3 (4.6-6.20); White Blood Count 10.7 K/mm3 (4.5-10.0)
[2021-01-27 04:59] LABS: Anion Gap 1 mmol/L (8-16); Blood Urea Nitrogen 21 mg/dL (9-20); CRP 7.7 mg/dL (<1.0); Calcium 8.9 mg/dL (8.4-10.2); Carbon Dioxide 34 mmol/L (22-30); Chloride 107 mmol/L (98-107); Estimated CRCL calculation 108 ml/min; Estimated Glomerular Filt Rate > 60; Glucose 154 mg/dL (75-110); Phosphorus 3.5 mg/dL (2.5-4.5); Potassium 4.1 mmol/L (3.4-5.0); Sodium 142 mmol/L (137-145)
[2021-01-27] MEDS: ceFAZolin 2 GM/D5W 50 ML 2 GM/50 ML BAG IVPB (05:00)
[2021-01-27] MEDS: ENOXAPARIN 100 MG/ML SYRINGE 87 MG SUB-Q (08:07)
[2021-01-27] MEDS: PANTOPRAZOLE SODIUM IV 40 MG VIAL IV PUSH (08:08)
[2021-01-27] MEDS: THIAMINE HCL 200 MG/2 ML VIAL 100 MG IV PUSH (08:08)
[2021-01-27] MEDS: METOPROLOL TARTRATE 50 MG TAB PO ×2 (08:08→20:11)
[2021-01-27] MEDS: lisinopriL 20 MG TABLET FEED TUBE (08:09)
[2021-01-27] MEDS: ASPIRIN 81 MG CHEWABLE TABLET FEED TUBE (08:13)
--- NOTE | 2021-01-27 10:01 | PM.IMPN ---
Progress Note: A&P Assessment and Plan (1) Septicemia: Code(s): A41.9 - Sepsis, unspecified organism Status: Acute Assessment and Plan: Present on admission and supported by fever, tachycardia, and tachypnea in the setting of bacteremia. Seen in ED on 01/13 and had BCx drawn. BCX 01/13 positive for Staphylococcus aureus and he returned to the ED on 01/14 and received 1 dose of cefepime and vancomycin. BCx repeated. Dr. Sorensen was consulted and he recommended vancomycin and Ancef. BCx from 01/13 and 01/14 both growing ENRIKE so abx narrowed to Ancef. Echo 01/14 does not show any vegetations. Lumbar CT showing no acute findings. Repeat BCx 01/16 (1of2) are positive still. BCx 01/21 NGTD. Source unclear but possibly skin. Still with low grade fevers but WBC normal. CALIN 01/22 showing no signs of endocarditis. Given his persistent symptoms and tachypnea, will adjust abx to Rocephin and Vacno at meningitic doses. Antibiotic # days. Also add Acyclovir. Check brain MRI. If this show no acute findings or evidence of recent CVA, then will proceed with LP. Hold Lovenox 40 minutes spent on critical care time for this pateint (2) Alcohol withdrawal delirium: Code(s): F10.231 - Alcohol dependence with withdrawal delirium Status: Acute Assessment and Plan: Patient A&O x4 on admission but seemed a bit confused. He then developed acute delirium from alcohol withdrawal 01/15 and moved to ICU for Precedex. CT brain normal. Precedex was weaned off. Librium on hold as well due to the somnolent state. Has been on Thiamine and Folate. Remains on a low dose Seroquiel. Neurology following. EEG showing abnormal record due to the presence of bihemispheric theta and delta activity. These abnormalities are suggestive of organic or metabolic encephalopathy or postictal state. CT brain from 01/23 showing no acute findings. As above. Check MRI brain. Also check ABG and CXR now. (3) Atrial fibrillation: Code(s): I48.91 - Unspecified atrial fibrillation Status: Acute Assessment and Plan: EKG on admission consistent with MAT. Rhythm strips also consistent with MAT. Oral metoprolol started but changed to IV metoprolol since patient was NPO. Echo with EF 55-60% with normal diastolic dysfunction and mild pulm HTN. TSH normal. Patient developed AFib. Heparin drip started but changed to Lovenox. Cardioversion 01/22 successfully back to NSR. Still with PACs and probable MAT on tele. Continue tele. Appreciate Cardiology input. Contineu metoprolol. Hold Lovenox in case LP needed. (4) Hyponatremia: Code(s): E87.1 - Hypo-osmolality and hyponatremia Status: Acute Assessment and Plan: Sodium was 135 on 12/31/2020 but down to 129 on 01/13. Probably multifactorial from his Celexa, HCTZ, beer potomania and/or dehydration. Jesús low at 17. He received appropriate IV fluids in the ED. Na normal now. Stop IV fluids since at TF goal. (5) Alcoholism: Code(s): F10.20 - Alcohol dependence, uncomplicated Status: Acute Assessment and Plan: stated patient only drinks beer and can drink 12-18 beers per day. As above. Continue Folate and Thiamine IV. Will provide information about AA when he is more awake and alert. (6) DVT prophylaxis: Code(s): Z29.9 - Encounter for prophylactic measures, unspecified Status: Acute Assessment and Plan: Lovenox on hold; continue SCDs Subjective Date/time seen: 01/27/21 10:01 Interval history: 65yo male with alcoholism and HTN here for bacteremia. Patient initially seen in ED case briefer hours of 01/13 for body aches, low back pain and fever and felt to have sinusitis and d/c home with Levaquin. BCx drawn returned positive and pateint directed back to the ED on 01/14 and admitted. He developed DTs and ultimately moved to ICU on 01/15 and started on Precedex. Off precedex on 01/25. CALIN with cardi
--- NOTE | 2021-01-27 10:02 | WPDNEUROLOGY ---
Neurology EEG Report General Information Date of Study: 01/26/21 TEST EEG DIAGNOSIS encephalopathy CONDITION OF RECORDING lethargic EEG NUMBER [id number] CLINICAL HISTORY no particular history available patient is in ICU unresponsive to commands and at this particular time is not on sedation EEG DESCRIPTION whole record consists of low to medium voltage 5 to 7 hertz per 2nd theta admixed with 3 to 4 hertz per 2nd low to medium voltage delta activity. No evidence of any paroxysmal .non paroxysmal, nonfocal, nonlateralizing. IMPRESSION abnormal record due to the presence of bihemispheric theta and delta activity. These abnormalities are suggestive of organic or metabolic encephalopathy or postictal state clinical correlation recommended. There is no evidence of any paroxysmal activity throughout the tracing.
[2021-01-27 10:47] LABS: Alveolar/Arterial O2 Gradient 24.1 mmHg; Base Excess ABG 5.1 mEq/l (+/-2.0); Fractional Inspired Oxygen 21 %; HCO3 ABG 29.6 mEq/l (22.0-26.0); Oxygen Content ABG 16.8 %vol (16.0-22.0); Oxygen Saturation ABG 95.5 % (95.0-100.0); Oxyhemoglobin 93.6 % THb (90.0-100.0); PCO2 ABG 43.1 mmHg (35.0-45.0); PO2 FiO2 Ratio Arterial Blood 3.52 %; Total Hemoglobin 12.7 g/dL (12.0-18.0); pH ABG 7.454 (7.350-7.450)
[2021-01-27 10:48] LABS: Device ROOM AIR; Modified Allen's Test Pass; Site Drawn LEFT RADIAL
--- NOTE | 2021-01-27 10:51 | PM.PNCARD ---
Progress Note: A&P Additional Plan 65-year-old man with: Paroxysmal atrial fibrillation also previous to that evidence of multifocal atrial tachycardia maintaining sinus rhythm following CALIN/cardioversion earlier this week. We will continue to follow the patient during this hospital stay but at this point there are no additional cardiac recommendations to make. Obviously the principal clinical concern is the patient's very poor mental status. Nic Gregorio MD [facility] Subjective Date/time seen: Date of service: 01/27/21 10:51 Interval history: 65-year-old man with: Evidence on telemetry initially of multifocal atrial tachycardia than zee atrial fibrillation in the setting of alcoholic delirium tremens. Patient is now out of ICU on the floor is maintaining sinus rhythm following CALIN cardioversion earlier this week. He is being treated with metoprolol. He mental status is still very poor patient is largely obtunded Exam Const: Other: Chronically ill-appearing gentleman with NG tube in place for feeding in IMU room 205 very poorly responsive HENMT: Mouth: Yes dry mucous membranes Eyes: Sclera: sclerae normal Neck: Neck: supple and no JVD Resp: Effort & Inspection: normal respiratory effort Auscultation: clear to auscultation bilaterally Cardio: Rate: regular rate Rhythm: regular rhythm Other: No significant murmur or gallop GI: GI Palp: Yes Soft to palpation Auscultation: normal bowel sounds Objective Data Vital Signs Vital Signs: Vital Signs - 24 hr 01/26/21 11:12 01/26/21 12:00 01/26/21 13:03 Temperature 37.4 C 37.6 C Pulse Rate 116 H 107 H 112 H Respiratory Rate 21 H 28 H 28 H Blood Pressure 122/57 L 112/62 Pulse Oximetry 96 98 98 01/26/21 13:51 01/26/21 14:16 01/26/21 15:00 Temperature 37.2 C Pulse Rate 93 140 H Respiratory Rate Blood Pressure Pulse Oximetry 01/26/21 15:18 01/26/21 16:00 01/26/21 16:08 Temperature 37.2 C Pulse Rate 106 H 100 Respiratory Rate 34 H 29 H Blood Pressure 157/84 H 139/61 Pulse Oximetry 97 98 01/26/21 18:00 01/26/21 20:00 01/26/21 20:16 Temperature 36.8 C Pulse Rate 94 80 98 Respiratory Rate 24 H Blood Pressure 144/82 H Pulse Oximetry 97 01/26/21 22:00 01/27/21 00:00 01/27/21 02:00 Temperature 36.8 C Pulse Rate 84 89 96 Respiratory Rate 36 H Blood Pressure 166/82 H Pulse Oximetry 97 01/27/21 04:00 01/27/21 04:20 01/27/21 06:00 Temperature 37.1 C Pulse Rate 132 H 125 H 116 H Respiratory Rate 41 H Blood Pressure 166/77 H Pulse Oximetry 98 01/27/21 08:00 01/27/21 08:08 Temperature 36.8 C Pulse Rate 108 H 118 H Respiratory Rate 18 Blood Pressure 150/80 H Pulse Oximetry 98 Intake/Output Intake/Output: Intake & Output 01/24/21 01/25/21 01/26/21 01/27/21 23:59 23:59 23:59 23:59 Intake Total 747 1445 3993 1266 Output Total 800 223 450 7271 Balance -53 670 3418 266 Meds/Results Medications: Active Medications Generic Name Dose Route Start Last Admin Trade Name Freq PRN Reason Stop Dose Admin Acetaminophen 650 mg 01/24/21 12:48 01/25/21 18:08 Acetaminophen 325 Mg Tablet FEED TUBE 650 mg Q6H PRN Administration Mild Pain (1-3) or Fever Albuterol 2.5 mg 01/23/21 12:00 Albuterol Sulfate Neb 2.5 Mg/0.5 Ml Inh INHALATION Q6HRT PRN Dyspnea Allopurinol 100 mg 01/14/21 09:00 01/15/21 10:30 Allopurinol 100 Mg Tablet PO Not Given [facility] Aspirin 81 mg 01/24/21 08:00 01/27/21 08:13 Aspirin 81 Mg Chewable Tablet FEED TUBE 81 mg DAILY@0800 [facility] Administration Chlordiazepoxide HCl 25 mg 01/21/21 09:00 01/22/21 03:07 Chlordiazepoxide (*Crx) 25 Mg Capsule PO Not Given Q6H [facility] Enoxaparin Sodium 87 mg 01/19/21 10:50 01/27/21 08:07 Enoxaparin 100 Mg/Ml Syringe SUB-Q 87 mg Q12HR [facility] Administration Fentanyl Citrate 25 mcg 01/23/21 21:10 01/27/21 04:19 Fentanyl Citrate Inj (*Crx) 100 Mcg/2 Ml Vial
--- NOTE | 2021-01-27 11:34 | PCDIET ---
Nutrition Follow-Up Complete: Nutrition Diagnosis: Inadequate oral intake related to poor appetite as evidenced by intakes 15-40%. Nutrition Goal: Patient to meet estimated nutritional needs. Goal met. Patient tolerating Jevity 1.5 at 70mL/hr with 30mL water flush every 4 hours. Discussed recommendation to stop IV fluids with Dr. Fernández earlier today; noted fluids have been discontinued. Last recorded weight is 80.6 kg which is increased from last review. +I/O. Bowel Motility: BM x 1 today. Labs Reviewed: WBC (10.7), Hct (12.2), Hct (37.5), Glu (154), BUN (21), Cr (0.6), Alb (3.0) Meds Noted: Ancef, Fentanyl, Lisinopril, Protonix, Folic Acid, Lopressor, Versed, Thiamine, Apresoline, MVI/minerals, Vitamin D Additional Notes: Left lower leg and back with scabs. No documented pressure ulcers. Transfer to IMU noted. Nutrition Monitoring and Evaluation: Follow up every Monday/Monday.
[2021-01-27] MEDS: FOLIC ACID 1 MG/0.2 ML INJ IV PUSH (11:56)
--- NOTE | 2021-01-27 12:42 | WPDNEUROPN ---
Objective Data Vital Signs Vital Signs: Vital Signs - 24 hr 01/26/21 13:03 01/26/21 13:51 01/26/21 14:16 Temperature 37.6 C 37.2 C Pulse Rate 112 H 93 Respiratory Rate 28 H Blood Pressure 112/62 Pulse Oximetry 98 01/26/21 15:00 01/26/21 15:18 01/26/21 16:00 Temperature 37.2 C Pulse Rate 140 H 106 H 100 Respiratory Rate 34 H 29 H Blood Pressure 157/84 H Pulse Oximetry 97 98 01/26/21 16:08 01/26/21 18:00 01/26/21 20:00 Temperature 36.8 C Pulse Rate 94 80 Respiratory Rate 24 H Blood Pressure 139/61 144/82 H Pulse Oximetry 97 01/26/21 20:16 01/26/21 22:00 01/27/21 00:00 Temperature 36.8 C Pulse Rate 98 84 89 Respiratory Rate 36 H Blood Pressure 166/82 H Pulse Oximetry 97 01/27/21 02:00 01/27/21 04:00 01/27/21 04:20 Temperature 37.1 C Pulse Rate 96 132 H 125 H Respiratory Rate 41 H Blood Pressure 166/77 H Pulse Oximetry 98 01/27/21 06:00 01/27/21 08:00 01/27/21 08:08 Temperature 36.8 C Pulse Rate 116 H 108 H 118 H Respiratory Rate 18 Blood Pressure 150/80 H Pulse Oximetry 98 01/27/21 12:00 Temperature 36.5 C Pulse Rate 82 Respiratory Rate 28 H Blood Pressure 132/79 Pulse Oximetry 91 Intake/Output Intake/Output: Intake & Output 01/24/21 01/25/21 01/26/21 01/27/21 23:59 23:59 23:59 23:59 Intake Total 747 1445 3993 1528 Output Total 800 473 817 2058 Balance -53 670 4298 528 Meds/Results Medications: Active Medications Generic Name Dose Route Start Last Admin Trade Name Freq PRN Reason Stop Dose Admin Acetaminophen 650 mg 01/24/21 12:48 01/25/21 18:08 Acetaminophen 325 Mg Tablet FEED TUBE 650 mg Q6H PRN Administration Mild Pain (1-3) or Fever Albuterol 2.5 mg 01/23/21 12:00 Albuterol Sulfate Neb 2.5 Mg/0.5 Ml Inh INHALATION Q6HRT PRN Dyspnea Allopurinol 100 mg 01/14/21 09:00 01/15/21 10:30 Allopurinol 100 Mg Tablet PO Not Given QAM [facility] Aspirin 81 mg 01/24/21 08:00 01/27/21 08:13 Aspirin 81 Mg Chewable Tablet FEED TUBE 81 mg DAILY@0800 [facility] Administration Chlordiazepoxide HCl 25 mg 01/21/21 09:00 01/22/21 03:07 Chlordiazepoxide (*Crx) 25 Mg Capsule PO Not Given Q6H [facility] Enoxaparin Sodium 87 mg 01/19/21 10:50 01/27/21 08:07 Enoxaparin 100 Mg/Ml Syringe SUB-Q 87 mg Q12HR [facility] Administration Fentanyl Citrate 25 mcg 01/23/21 21:10 01/27/21 04:19 Fentanyl Citrate Inj (*Crx) 100 Mcg/2 Ml Vial IV PUSH 25 mcg Q4H PRN Administration Pain Rated 7-10 Folic Acid 1 mg 01/16/21 09:00 01/27/21 11:56 Folic Acid 1 Mg/0.2 Ml Inj IV PUSH 1 mg QAM [facility] Administration Hydralazine HCl 10 mg 01/20/21 09:40 01/27/21 00:06 Hydralazine Hcl 20 Mg/Ml Vial IV PUSH 10 mg Q4H PRN Administration Blood Pressure - High Ceftriaxone Sodium 2 gm in 100 mls @ 200 mls/hr 01/27/21 12:00 Rocephin 2 Gm/D5w 100 Ml IVPB Q12H [facility] Acyclovir Sodium 800 mg/ 266 mls @ 266 mls/hr 01/27/21 14:00 Dextrose IVPB Q8HR [facility] Vancomycin HCl 1,250 mg in 250 mls @ 200 mls/hr 01/27/21 11:00 01/27/21 11:56 Vancomycin 1,250 Mg/D5w 250 Ml IVPB 200 mls/hr Q12H [facility] Administration Dextrose/Sodium Chloride 1,000 mls @ 100 mls/hr 01/27/21 12:10 Dextrose 5% Sodium Chloride 0.45% IV CONT .Q10H [facility] Ampicillin Sodium 2 gm in 100 mls @ 200 mls/hr 01/27/21 13:00 Ampicillin 2 Gm/Ns 100 Ml IVPB Q4HR [facility] Lisinopril 20 mg 01/24/21 09:00 01/27/21 08:09 Lisinopril 20 Mg Tablet FEED TUBE 02/14/21 09:01 20 mg QAM [facility] Administration Metoprolol Tartrate 50 mg 01/24/21 09:35 01/27/21 08:08 Metoprolol Tartrate 50 Mg Tab PO 50 mg Q12HR [facility] Administration Metoprolol Tartrate 5 mg 01/25/21 18:43 01/27/21 04:20 Metoprolol Tartrate Inj 5 Mg/5 Ml Vial IV PUSH 5 mg Q2HR PRN Administration increased heart rate Midazolam HCl 1 mg 01/23/21 14:55 01/23/21 19:26 Midazolam Hcl (*Crx) 2 Mg/2 Ml Vial
[2021-01-27] MEDS: DEXTROSE 5%/0.45% SOD CHL 1,000 ML 100 ML IV CONT (14:34)
[2021-01-27] MEDS: AMPICILLIN 2 GM/NS 100 ML 2 GM/100 ML BAG IVPB ×3 (14:39→20:07)
[2021-01-27] MEDS: ACYCLOVIR SODIUM IVPB 800 MG in DEXTROSE 5% IN WATER 250 ML 266 MG IVPB ×2 (14:43→21:11)
[2021-01-27 18:08] LABS: Glucose Point of Care 151 (65-105)
[2021-01-28] VITALS (25 sets, daily range): BP systolic 115–183; BP diastolic 54–93; PULSE 77–147; RESP 19–30; TEMP 36.6–39.1; O2SAT 94–99
[2021-01-28 00:30] LABS: Glucose Point of Care 169 (65-105)
[2021-01-28] MEDS: AMPICILLIN 2 GM/NS 100 ML 2 GM/100 ML BAG IVPB ×6 (01:12→21:35)
[2021-01-28] MEDS: DEXTROSE 5%/0.45% SOD CHL 1,000 ML 100 ML IV CONT ×2 (01:17→17:49)
[2021-01-28] MEDS: ACYCLOVIR SODIUM IVPB 800 MG in DEXTROSE 5% IN WATER 250 ML 266 MG IVPB ×3 (05:09→21:40)
[2021-01-28 05:33] LABS: Basophils Absolute Auto 0.1 K/mm3 (0.0-0.1); Eosinophils Absolute Auto 0.1 K/mm3 (0-0.3); Eosinophils Percent Auto 0.9 % (0-4.4); Hematocrit 37.5 % (42.0-52.0); Hemoglobin 12.2 g/dL (14.0-18.0); Immature Granulocyte Absolute 0.07 K/mm3 (0.00-0.031); Immature Granulocyte Percent A 0.8 % (0-0.5); Lymphocytes Absolute Auto 1.63 K/mm3 (0.9-3.2); Lymphocytes Percent Auto 18.2 % (18.3-44.2); Mean Corpuscular HGB Conc 32.5 g/dl (32-36); Mean Corpuscular Hemoglobin 31.1 pg (26-34); Mean Corpuscular Volume 95.7 fl (80-100); Mean Platelet Volume 9.3 fl (7.4-10.4); Monocytes Absolute Auto 0.8 K/mm3 (0.1-0.6); Monocytes Percent Auto 9.4 % (2.6-8.5); Neutrophils Absolute Auto 6.3 K/mm3 (1.3-6.7); Neutrophils Percent Auto 69.7 % (45.5-73.1); Platelet Count Result 616 k/mm3 (150-375); Red Blood Count 3.92 M/mm3 (4.6-6.20); Red Cell Distribution Width 12.7 % (11.5-14.5)
[2021-01-28] MEDS: METOPROLOL TARTRATE INJ 5 MG/5 ML VIAL IV PUSH ×3 (05:44→17:44)
[2021-01-28 05:55] LABS: Alanine Aminotransferase 34 U/L (4-50); Albumin Level 3.1 g/dL (3.5-5.1); Alkaline Phosphatase 82 U/L (38-126); Anion Gap 4 mmol/L (8-16); Aspartate Amino Transferase 45 U/L (17-59); Bilirubin,Total 0.5 mg/dL (0.2-1.3); Blood Urea Nitrogen 18 mg/dL (9-20); Calcium 8.5 mg/dL (8.4-10.2); Carbon Dioxide 32 mmol/L (22-30); Chloride 103 mmol/L (98-107); Estimated CRCL calculation 94 ml/min; Estimated Glomerular Filt Rate > 60; Glucose 119 mg/dL (75-110); Magnesium 1.9 mg/dL (1.6-2.3); Phosphorus 3.7 mg/dL (2.5-4.5); Potassium 4.2 mmol/L (3.4-5.0); Sodium 139 mmol/L (137-145)
[2021-01-28] MEDS: lisinopriL 20 MG TABLET FEED TUBE (08:20)
[2021-01-28] MEDS: METOPROLOL TARTRATE 50 MG TAB PO ×2 (08:20→21:40)
[2021-01-28] MEDS: PANTOPRAZOLE SODIUM IV 40 MG VIAL IV PUSH (08:20)
[2021-01-28] MEDS: THIAMINE HCL 200 MG/2 ML VIAL 100 MG IV PUSH (08:20)
[2021-01-28] MEDS: FOLIC ACID 1 MG/0.2 ML INJ IV PUSH (08:23)
[2021-01-28] MEDS: ASPIRIN 81 MG CHEWABLE TABLET FEED TUBE (08:23)
--- NOTE | 2021-01-28 12:09 | PM.PNCARD ---
Progress Note: A&P Assessment and Plan (1) Atrial arrhythmia: Code(s): I49.8 - Other specified cardiac arrhythmias Status: Acute Assessment and Plan: Maintaining sinus rhythm with PACs and history of multifocal atrial tachycardia. No sustained recurrence of atrial fibrillation thus far. Treatment of underlying medical conditions recommendation for multifocal atrial tachycardia. (2) Atrial fibrillation: Code(s): I48.91 - Unspecified atrial fibrillation Status: Acute Assessment and Plan: Resolved status post cardioversion. Continue systemic anticoagulation and beta-giuliano. May increase beta-giuliano if tachyarrhythmia more frequent and or sustained. Discussed at length with pt's at bedside. We will continue to monitor and provide supportive care as appropriate. Prognosis is poor. Please do not hesitate to contact us. All questions answered to his 's satisfaction. (3) Altered mental status: Code(s): R41.82 - Altered mental status, unspecified Status: Acute Assessment and Plan: Per primary service. Off sedation, remains unresponsive. Neurological evaluation for encephalopathy, EEG yesterday, MRI today normal. LP anticipated. (4) Bacteremia: Code(s): R78.81 - Bacteremia Status: Acute Assessment and Plan: Management as per primary service and Infectious Disease (5) Alcoholism: Code(s): F10.20 - Alcohol dependence, uncomplicated Status: Acute Assessment and Plan: Management as per primary team. Patient was in DTs Subjective Date/time seen: Date of service: 01/28/21 12:09 Follow-up for atrial fibrillation status post cardioversion, MAT Patient remains unresponsive. at bedside states he is opening his eyes more, breathing appears more calm. Able to tolerate MRI earlier today. Heart rate had been reasonably controlled sinus rhythm with frequent PACs with intermittent runs of sinus tachycardia with frequent PACs and probable brief SVT runs. He is not responsive to questioning and history is obtained through electronic medical record and his who was at bedside. Review of Systems Review of Systems: All systems reviewed & are unremarkable except as noted in HPI and below ROS unobtainable: Yes unobtainable due to medical condition and unobtainable due to mental status Constitutional: Constitutional: Reports as per HPI, Reports fever(s) and Denies poor appetite Eyes: Eyes: Reports as per HPI, Denies eye discharge, Denies loss of vision and Denies eye pain ENT: Reports as per HPI, Denies dizziness and Denies sore throat Cardiovascular: Cardiovascular: Reports as per HPI, Denies syncope, Denies dyspnea, Denies dyspnea on exertion and Denies orthopnea Respiratory: Respiratory: Reports as per HPI Gastrointestinal: Gastrointestinal: Reports as per HPI Genitourinary: Genitourinary: Reports as per HPI and Denies genital lesions Musculoskeletal: Musculoskeletal: Reports as per HPI, Denies numbness and Reports other (Back pain) Neurologic: Reports as per HPI, Denies dizziness, Denies syncope, Denies loss of vision and Reports weakness Psychiatric: Psychiatric: Reports as per HPI and Reports confusion Endocrine: Endocrine: Denies cold intolerance and Denies heat intolerance Hematologic/Lymphatic: Hematologic/Lymphatic: Reports as per HPI Allergic/Immunologic: Allergic/Immunologic: Reports as per HPI, Denies urticaria and Denies wheezing Exam Narrative: Exam Narrative: PHYSICAL EXAMINATION: GENERAL: Unresponsive, mouth open heavy breathing MENTAL STATUS: unable to obtain as above EYES: Eyes closed EARS: External ears appear normal NOSE: NG tube in place MOUTH: Mucous membranes dry NECK: no JVD CHEST: diminished breath sounds, transmitted upper airway sounds HEART: Regular rate and rhythm, ectopic beats, ml S1/S2, no appreciable murmurs
--- NOTE | 2021-01-28 12:37 | PM.IMPN ---
Progress Note: A&P Assessment and Plan (1) Septicemia: Code(s): A41.9 - Sepsis, unspecified organism Status: Acute Assessment and Plan: Present on admission and supported by fever, tachycardia, and tachypnea in the setting of bacteremia. Seen in ED on 01/13 and had BCx drawn. BCX 01/13 positive for Staphylococcus aureus and he returned to the ED on 01/14 and received 1 dose of cefepime and vancomycin. BCx repeated. Dr. Sorensen was consulted and he recommended vancomycin and Ancef. BCx from 01/13 and 01/14 both growing ENRIKE so abx narrowed to Ancef. Echo 01/14 does not show any vegetations. Lumbar CT showing no acute findings. Repeat BCx 01/16 (1of2) are positive still. BCx 01/21 NGTD. Source unclear but possibly skin. WBC normal and no fevers. CALIN 01/22 showing no signs of endocarditis. Given his persistent symptoms and tachypnea, abx adjusted to Rocephin, Amp and Vacno at meningitic doses. Antibiotic # days. Continue Acyclovir. LP ordered. (2) Alcohol withdrawal delirium: Code(s): F10.231 - Alcohol dependence with withdrawal delirium Status: Acute Assessment and Plan: Patient A&O x4 on admission but seemed a bit confused. He then developed acute delirium from alcohol withdrawal 01/15 and moved to ICU for Precedex. CT brain normal. Precedex was weaned off. Librium on hold as well due to the somnolent state. Has been on Thiamine and Folate. Was on a low dose Seroquel but stopped now. Neurology following. EEG showing abnormal record due to the presence of bihemispheric theta and delta activity. These abnormalities are suggestive of organic or metabolic encephalopathy or postictal state. CT brain from 01/27 showing no acute findings. MRI brain showing no acute findings. LP ordered for today. Ammonia level negative. Neurology following. (3) Atrial fibrillation: Code(s): I48.91 - Unspecified atrial fibrillation Status: Acute Assessment and Plan: EKG on admission consistent with MAT. Rhythm strips also consistent with MAT. Oral metoprolol started but changed to IV metoprolol since patient was NPO. Echo with EF 55-60% with normal diastolic dysfunction and mild pulm HTN. TSH normal. Patient developed AFib. Heparin drip started but changed to Lovenox. Cardioversion 01/22 successfully back to NSR. Still with PACs and probable MAT on tele. Continue tele. Appreciate Cardiology input. Continue metoprolol. Hold Lovenox for LP. (4) Hyponatremia: Code(s): E87.1 - Hypo-osmolality and hyponatremia Status: Acute Assessment and Plan: Sodium was 135 on 12/31/2020 but down to 129 on 01/13. Probably multifactorial from his Celexa, HCTZ, beer potomania and/or dehydration. Jesús low at 17. He received appropriate IV fluids in the ED. Na normal now. (5) Alcoholism: Code(s): F10.20 - Alcohol dependence, uncomplicated Status: Acute Assessment and Plan: stated patient only drinks beer and can drink 12-18 beers per day. As above. Continue Folate and Thiamine IV. Will provide information about AA when he is more awake and alert. (6) DVT prophylaxis: Code(s): Z29.9 - Encounter for prophylactic measures, unspecified Status: Acute Assessment and Plan: Lovenox on hold; continue SCDs Subjective Date/time seen: 01/28/21 12:37 Interval history: 65yo male with alcoholism and HTN here for bacteremia. Patient initially seen in ED supply manager hours of 01/13 for body aches, low back pain and fever and felt to have sinusitis and d/c home with Levaquin. BCx drawn returned positive and pateint directed back to the ED on 01/14 and admitted. He developed DTs and ultimately moved to ICU on 01/15 and started on Precedex. Off precedex on 01/25. CALIN with cardioversion 01/22. Patient has altered mental status. Not able to provide history. Discussed with in the room. Discussed with frame builder. Plan for transfer.
[2021-01-28 14:37] LABS: Glucose CSF 48 mg/dL (40-70)
[2021-01-28 14:38] LABS: Total Protein CSF 597 mg/dL (12-60)
--- NOTE | 2021-01-28 14:43 | PC.NURSE ---
Dr. Fernández notified of patient having shivering/tremor like movements since LP. Pt was stable after procedure but once arriving to the floor while still on stretcher patient started shaking. VS stable: BP 148/102, P 86, T 97.6, 99% RA. Dr. Fernández stated that he will come see patient
[2021-01-28 16:07] LABS: Ammonia < 9 umol/L (9-30)
[2021-01-28] MEDS: hydrALAZINE HCL 20 MG/ML VIAL 10 MG IV PUSH (16:54)
[2021-01-28] MEDS: ACETAMINOPHEN 325 MG TABLET 650 MG FEED TUBE ×2 (16:55→23:22)
[2021-01-28 17:49] LABS: Appearance CSF Clear (Clear); CSF source CSF; Color CSF Colorless (Colorless); Lymphocytes CSF 96 % (40-80); Monocytes CSF 3 % (15-45); Neutrophils CSF 1 % (0-6); Nucleated Cell CSF 40 /uL (0-5); Red Blood Cell CSF 767 (0-2)
--- NOTE | 2021-01-28 20:19 | PC.NURSE ---
This patient, Aly Bailey, was transferred to ICU on 01/28/21 at 2020 per provider order. Personal belongings sent with patient. Report given to Uche BALDERAS. Appropriate documentation sent with patient.
[2021-01-28 23:47] LABS: Vancomycin Trough 8.4 ug/mL (10.0-20.0)
[2021-01-29] VITALS (35 sets, daily range): BP systolic 99–160; BP diastolic 54–93; PULSE 76–134; RESP 16–42; TEMP 36.7–38.7; O2SAT 88–100
[2021-01-29] MEDS: AMPICILLIN 2 GM/NS 100 ML 2 GM/100 ML BAG IVPB ×4 (00:24→14:08)
[2021-01-29 04:49] LABS: Hematocrit 34.5 % (42.0-52.0); Hemoglobin 11.3 g/dL (14.0-18.0); Mean Corpuscular HGB Conc 32.8 g/dl (32-36); Mean Corpuscular Hemoglobin 31.4 pg (26-34); Mean Corpuscular Volume 95.8 fl (80-100); Platelet Count Result 586 k/mm3 (150-375); Red Cell Distribution Width 12.2 % (11.5-14.5); White Blood Count 9.5 K/mm3 (4.5-10.0)
[2021-01-29 05:03] LABS: Anion Gap 3 mmol/L (8-16); Blood Urea Nitrogen 14 mg/dL (9-20); CRP 7.7 mg/dL (<1.0); Calcium 8.5 mg/dL (8.4-10.2); Carbon Dioxide 31 mmol/L (22-30); Chloride 96 mmol/L (98-107); Estimated CRCL calculation 94 ml/min; Estimated Glomerular Filt Rate > 60; Glucose 160 mg/dL (75-110); Sodium 130 mmol/L (137-145)
[2021-01-29] MEDS: ACYCLOVIR SODIUM IVPB 800 MG in DEXTROSE 5% IN WATER 250 ML 266 MG IVPB ×3 (05:21→21:04)
[2021-01-29] MEDS: METOPROLOL TARTRATE INJ 5 MG/5 ML VIAL IV PUSH (06:06)
[2021-01-29] MEDS: FUROSEMIDE INJ 40 MG/4 ML VIAL IV PUSH (07:31)
[2021-01-29 07:34] LABS: Alveolar/Arterial O2 Gradient 30.7 mmHg; Base Excess ABG 0.2 mEq/l (+/-2.0); Fractional Inspired Oxygen 21 %; HCO3 ABG 23.2 mEq/l (22.0-26.0); Oxygen Content ABG 15.5 %vol (16.0-22.0); Oxygen Saturation ABG 96.6 % (95.0-100.0); Oxyhemoglobin 94.8 % THb (90.0-100.0); PCO2 ABG 32.3 mmHg (35.0-45.0); PO2 ABG 80.4 mmHg (80.0-100.0); PO2 FiO2 Ratio Arterial Blood 3.83 %; Total Hemoglobin 11.6 g/dL (12.0-18.0); pH ABG 7.475 (7.350-7.450)
[2021-01-29 07:35] LABS: Device ROOM AIR; Modified Allen's Test Pass; Site Drawn LEFT RADIAL
[2021-01-29 07:50] LABS: Add Urine Microscopic? YES; Appearance Urine Cloudy (Clear); Bacteria Urine Trace /hpf; Bilirubin Urine Negative (Negative); Blood Urine 3+ (Negative); Color Urine Yellow (Yellow); Glucose Urine UA Negative (Negative); Ketones Urine Negative (Negative); Leukocyte Esterase Ur Negative LEU/UL (Negative); Mucus Urine Rare /lpf; Nitrate Urine Negative (Negative); Protein Urine 1+ mg/dL (Negative); RBC Urine >75 /hpf (0-2); Specific Grav Ur 1.019 (1.001-1.035)
[2021-01-29] MEDS: RAPID SEQUENCE INTUBATION KIT 1 EACH (08:05)
[2021-01-29] MEDS: PROPOFOL IV EMULSION 100 ML 7.4 MG (08:15)
[2021-01-29] MEDS: SODIUM CHLORIDE 0.9% IV 500 ML IV CONT (08:50)
[2021-01-29] MEDS: MIDAZOLAM 100MG/NS 100ML(*CRX) 100 MG/100 ML BAG IV CONT (09:00)
[2021-01-29] MEDS: FENTANYL 2,500MCG/NS250ML(*CRX 2,500 MCG/250 ML BAG IV CONT (09:00)
[2021-01-29] MEDS: PANTOPRAZOLE SODIUM IV 40 MG VIAL IV PUSH (09:51)
[2021-01-29] MEDS: THIAMINE HCL 200 MG/2 ML VIAL 100 MG IV PUSH (09:53)
[2021-01-29] MEDS: ASPIRIN 81 MG CHEWABLE TABLET FEED TUBE (09:55)
[2021-01-29] MEDS: METOPROLOL TARTRATE 50 MG TAB PO ×2 (09:55→20:08)
--- NOTE | 2021-01-29 10:16 | PM.IMPN ---
Progress Note: A&P Assessment and Plan (1) Encephalopathy acute: Code(s): G93.40 - Encephalopathy, unspecified Status: Acute Assessment and Plan: While still on Precedex, patient was noted to be somewhat oriented up until 01/21. Librium on hold since 01/21. Precedex was weaned off 01/25. Has been on Thiamine and Folate. Was on a low dose Seroquel but this has been stopped as well. Patient has remained encephalopathic since being off Precedex. Neurology following. EEG 01/27 showing abnormal record due to the presence of bihemispheric theta and delta activity. These abnormalities are suggestive of organic or metabolic encephalopathy or postictal state. CT brain from 01/27 showing no acute findings. MRI brain 01/28 showing no acute findings. Ammonia level negative. LP showing TP 597, R767, W40 with 96% lymphocytes. Path showing chronic inflammation. Gram stain showing moderate WBC but no MO. Sputum growing GPB. CXR showing improvement possibly from atelectasis. Continue IV abx and anti-virals. (2) Acute respiratory failure: Code(s): J96.00 - Acute respiratory failure, unspecified whether with hypoxia or hypercapnia Status: Acute Assessment and Plan: Patient with tachypnea and concern that he was unable to protect his airway and my tire out soon so elected for intubation this morning. Minimize sedation. Appreciate nephrologist input. (3) Septicemia: Code(s): A41.9 - Sepsis, unspecified organism Status: Acute Assessment and Plan: Present on admission and supported by fever, tachycardia, and tachypnea in the setting of ENRIKE bacteremia. Seen in ED on 01/13 and sent home but BCx 01/13 returned positive for Staphylococcus aureus and he returned to the ED on 01/14 and received 1 dose of cefepime and vancomycin and was admitted. Dr. Sorensen was consulted and he recommended vancomycin and Ancef. BCx from 01/13 and 01/14 both growing ENRIKE so abx narrowed to Ancef. TTE 01/14 does not show any vegetations. Lumbar CT showing no acute findings. Repeat BCx 01/16 (1of2) were still positive. BCx 01/21 NGTD. Source unclear but possibly skin. CALIN 01/22 showing no signs of endocarditis. Given his encephalopathy, he was started on menigitic treatment and MRI brain and LP ordered. As above. Antibiotic #16 days. (4) Alcohol withdrawal delirium: Code(s): F10.231 - Alcohol dependence with withdrawal delirium Status: Acute Assessment and Plan: Patient A&O x4 on admission but seemed a bit confused. He then developed acute delirium from alcohol withdrawal 01/15 and moved to ICU for Precedex. CT brain normal. While still on Precedex, patient was awake and able to talk with staff (somewhat oriented up until 01/21). Librium on hold since 01/21. Precedex was weaned off 01/25. Has been on Thiamine and Folate. Was on a low dose Seroquel but this has been stopped as well. Patient has remained encephalopathic since being off Precedex. As above. (5) Atrial fibrillation: Code(s): I48.91 - Unspecified atrial fibrillation Status: Acute Assessment and Plan: EKG on admission consistent with MAT. Rhythm strips also consistent with MAT. Metoprolol started. Echo with EF 55-60% with normal diastolic dysfunction and mild pulm HTN. TSH normal. Patient developed AFib after admission. Heparin drip started but changed to Lovenox. Cardioversion 01/22 successfully back to NSR. Still with PACs with MAT and/or AFib on tele. Continue tele. Appreciate Cardiology input. Continue metoprolol. Resume Lovenox. (6) Hyponatremia: Code(s): E87.1 - Hypo-osmolality and hyponatremia Status: Acute Assessment and Plan: Sodium was 135 on 12/31/2020 but down to 129 on 01/13. Probably multifactorial from his Celexa, HCTZ, beer potomania and/or dehydration. Jesús low at 17. He received appropriate IV fluids in the ED. Na has been normal but dropped to 130 today felt
[2021-01-29 10:27] LABS: Alveolar/Arterial O2 Gradient 236.4 mmHg; Base Excess ABG 3.1 mEq/l (+/-2.0); Carboxyhemoglobin 0.3 % THb (0-2.0); Fractional Inspired Oxygen 70 %; HCO3 ABG 25.8 mEq/l (22.0-26.0); Methemoglobin ABG 0.6 %THb (0-1.5); Oxygen Content ABG 16.3 %vol (16.0-22.0); Oxygen Saturation ABG 99.6 % (95.0-100.0); Oxyhemoglobin 97.7 % THb (90.0-100.0); PO2 ABG 227.2 mmHg (80.0-100.0); PO2 FiO2 Ratio Arterial Blood 3.25 %; Reduced Hemoglobin 1.4 %THb (0-5.0); Total Hemoglobin 11.5 g/dL (12.0-18.0)
[2021-01-29 10:28] LABS: Site Drawn LEFT RADIAL; pH ABG 7.511 (7.350-7.450)
[2021-01-29 10:29] LABS: Arterial Blood Gas PEEP 5 cmH2O; Arterial Blood Gas Tidal Volume 480 ml; Arterial Blood Gas Vent Mode CMV; Arterial Blood Gas Ventilator rate 18 /MIN; Device VENTILATOR; Modified Allen's Test Pass
[2021-01-29] MEDS: FOLIC ACID 1 MG/0.2 ML INJ IV PUSH (10:31)
--- NOTE | 2021-01-29 11:19 | PCNFU ---
Nutrition Follow-Up Complete: Inadequate oral intake related to poor appetite as evidenced by intakes 15-40%. Goal: Patient to consume 75% of meals/supplements or greater. Limited progress towards goal. We will continue current goal. Pt current nutrition is Jevity 1.5. Last recorded weight is 82.1 kg up from 80.5 kg from yesterday. Bowel Motility:+BM reported 01/29 Labs Reviewed:Na 130,Glu 160,Hct 34.5,Hgb 11.3 Meds Noted:Vancomycin, Protonix, Versed, Fentanyl, Thiamine, Lopressor, Folic Acid. Additional Notes:Patient currently on mechanical ventilator. Tube feeding restarted today of Jevity 1.5 at 20 ml/hr advancing by 10 ml/hr q 4hours to goal rate of 70 ml/hr. Free water flush 30 ml q 4 hours. Integumentary: back scab, left lower leg scab. Monitoring: Follow up in Monday/Monday.
[2021-01-29] MEDS: ENOXAPARIN 80 MG/0.8 ML SYRINGE SUB-Q ×2 (11:29→20:08)
--- NOTE | 2021-01-29 12:19 | WPDINTPN ---
Progress Note: A&P Assessment and Plan (1) Encephalopathy acute: Code(s): G93.40 - Encephalopathy, unspecified Status: Acute Assessment and Plan: Likely multifactorial could be related viral encephalitis/meningitis given CSF analysis, toxic metabolic encephalopathy secondary to infection, alcohol related Wernicke's encephalopathy, electrolyte imbalance -continue antibacterial and antivirals -CSF HSV PCR, fungal culture pending -will discuss with infectious disease (2) Bacteremia: Code(s): R78.81 - Bacteremia Status: Acute Assessment and Plan: ENRIKE bacteremia 01/13/2021 -infectious disease following the patient, continue Ancef (initiated on 01/15/2021) -transthoracic echocardiogram 01/14/2021: Showed normal LV size with moderate concentric hypertrophy and good systolic function, EF 55-60%. Normal diastolic dysfunction. Left atrium moderately enlarged, mild pulmonary hypertension with RVSP of 39 mmHg, no vegetations seen. - 01/14/2021 blood cultures also positive Staph aureus 2/2 bottles -01/16/2021 blood cultures staph aureus 1 of 2 bottless -01/21/2021 blood cultures negative x2 - Lumbar CT showing no acute findings -CALIN on 01/22/2021 showed no evidence of endocarditis -repeated blood cultures on 01/21/2021 negative to date (3) Sepsis: Code(s): A41.9 - Sepsis, unspecified organism Status: Acute Assessment and Plan: Sepsis due staph bacteremia -patient tachycardic tachypneic which also be secondary to alcohol withdrawal secondary to adrenergic surge -patient is afebrile -continue antibiotics as above (4) Tachyarrhythmia: Code(s): R00.0 - Tachycardia, unspecified Status: Acute Assessment and Plan: EKG on 0 01/17 showed atrial fibrillation, cardiology started patient on metoprolol -initial EKG did show multifocal atrial tachycardia but now in AFib with and rate controlled. -patient in AFib RVR, hypertensive, will start oral metoprolol -p.r.n. hydralazine for blood pressures -restarted today therapeutic Lovenox (it was on a for LP done on 01/28/2021) -cardioversion on 01/22/2021 with successful conversion to sinus rhythm (5) Alcoholism: Code(s): F10.20 - Alcohol dependence, uncomplicated Status: Acute Assessment and Plan: Patient is a chronic alcoholic, has not been drinking 2-3 days prior to admission as he was not feeling too well. (patient drinks approximately 18 beers per day) -transferred to the ICU on 01/15/2021 for alcohol withdrawal with possible delirium tremens, received multiple doses of Ativan and Haldol in the IMU -continue thiamine, folic acid (6) Hyponatremia: Code(s): E87.1 - Hypo-osmolality and hyponatremia Status: Acute Assessment and Plan: Hyponatremia multifactorial, Lasix was ordered, -maintenance IV fluids have been discontinued Additional Plan Patient has a Dobbhoff tube and started on tube feeds, will increase to goal Discuss with patient's at bedside and updated her with patient's condition, plan of care. I answered all questions.. Code status: Full code Critical care time spent: 47 minutes This dictation may have been done utilizing a voice recognition system. Attempts have been made to correct errors. However, there may be uncorrected grammatical, spelling, and recognition errors present. Due to a high probability of clinically significant, life threatening deterioration, the patient required my highest level of preparedness to intervene emergently and I personally spent this critical care time directly and personally managing the patient. This critical care time included obtaining a history; examining the patient; pulse oximetry; ordering and review of studies; arranging urgent treatment with development of a management plan; evaluation of patient's response to treatment; frequent reassessment; and discussions with other providers. It was exclusive of separately billable procedu
[2021-01-29] MEDS: ACETAMINOPHEN 325 MG TABLET 650 MG FEED TUBE (12:36)
--- NOTE | 2021-01-29 12:37 | PM.PNCARD ---
Progress Note: A&P Additional Plan 65-year-old man with: Paroxysmal atrial fibrillation in the setting alcohol withdrawal/delirium tremens. Underwent CALIN cardioversion last week and is still maintaining sinus rhythm. Current issues are noncardiac but are very serious including ongoing encephalopathy and respiratory failure. No specific cardiac recommendations at this time. Nic Gregorio MD [facility] Subjective Date/time seen: Date of service: 01/29/21 12:37 Interval history: 65-year-old man with: Evidence on telemetry initially of multifocal atrial tachycardia than zee atrial fibrillation in the setting of alcoholic delirium tremens. Patient is now out of ICU on the floor is maintaining sinus rhythm following CALIN cardioversion earlier this week. He is being treated with metoprolol. Yesterday because of encephalopathy heavy mucus secretions had to be put back in the ICU and reintubated again. Concerned that he may have a viral encephalitis. Still maintaining sinus rhythm with beta-giuliano therapy. Exam Narrative: Exam Narrative: PHYSICAL EXAMINATION: GENERAL: Unresponsive, mouth open heavy breathing MENTAL STATUS: unable to obtain as above EYES: Eyes closed EARS: External ears appear normal NOSE: NG tube in place MOUTH: Mucous membranes dry NECK: no JVD CHEST: diminished breath sounds, transmitted upper airway sounds HEART: Regular rate and rhythm, ectopic beats, ml S1/S2, no appreciable murmurs ABDOMEN: Soft, ND, no tenderness, +BS NEUROLOGICAL: limited exam due to unresponsiveness MUSCULOSKELETAL: no amputation limited exam due to unresponsiveness EXTREMITIES: No pedal edema, Const: General: no acute distress Nutritional Appearance: well nourished Limitations: altered mental status Other: Intubated sedated in the ICU HENMT: Head: normocephalic and atraumatic Ears: hearing grossly normal bilaterally General nose exam: Normal external nose present and Normal nares present Face and sinus: no erythema Mouth: Yes dry mucous membranes and No drooling Throat: uvula midline Eyes: General: appearance normal, both eyes and all related structures Alignment and Position: position normal Conjunctivae: conjunctivae normal Sclera: sclerae normal Pupils: Equal, round and reactive pupils present EOM: EOMs intact bilaterally Neck: Neck: normal visual inspection, supple and no JVD Thyroid: thyroid normal Carotids: no bruits Lymphatic: lymphedema not noted Chest: Chest palpation & inspection: normal inspection of the chest and no tenderness Resp: Effort & Inspection: normal respiratory effort and no nasal flaring Auscultation: clear to auscultation bilaterally, no crackles, no rales and no wheezes Other: Breath sounds with some central rhonchi bilaterally Cardio: Jugular venous distension: no JVD Rate: regular rate and tachycardic (freq ectopy) Rhythm: regular rhythm and abnormal rhythm irregularly irregular Heart sounds: S1 normal heart sound present, S2 normal heart sound present, no gallops, no murmurs and no rubs Other: No significant murmur or gallop GI: Inspection: non-distended Auscultation: normal bowel sounds Rectal Exam: deferred : General: No no CVA tenderness Urinary Catheter: Urinary Catheter: patent and draining and urine clear Back/Spine/Pelvis: Back: No no CVA tenderness Cervical Spine: cervical ROM normal Skin: General skin exam: normal color and rashes and/or lesions noted Lesions: lesion noted (Excoriation of lower extremities) Neuro: Cranial nerves: No CN's II-XII intact bilaterally and Yes Equal, round and reactive pupils present Cognition (Neuro): abnormal cognition Motor exam (neuro): no tremors Other: Appears to be oriented answers questions appropriately, not oriented to date Extrem: General: pedal edema present Psych: Appearance: grossly normal and well kempt Mental Status: mental status grossly abnormal Speech and movement: Normal speech and movement pr
--- NOTE | 2021-01-29 13:21 | WPDPROCEDUR ---
Procedures Intubation Intubation Date: 01/29/21 Intubation Time: 07:55 A pre-procedural Time-Out was completed immediately before starting the procedure and confirmed: Patient Identification, Site, Procedure, Patient Position and the Availability of Requisite Equipment: Yes Sedative: etomidate Paralytic: succinylcholine Laryngoscope: fiber optic video scope Assist device used: fiber optic device ET tube size: 8 Tube secured depth (cm): 25 Tube secured location: lips Tube placement confirmation: visualized tube passing through cords, equal breath sounds bilaterally, no breath sounds over epigastrium and confirmation by capnometry Patient tolerated procedure: well Intubation complications: none Additional comments: Intubation procedure was performed by Dr. Vogt under my supervision. Intubation was uneventful. I was present for the entire time of the procedure
--- NOTE | 2021-01-29 14:31 | WPDNEUROPN ---
Progress Note: A&P Assessment and Plan (1) Encephalopathy acute: Code(s): G93.40 - Encephalopathy, unspecified Status: Acute Additional Plan at this stage patient is unresponsive with no focal neurological deficit as mentioned above the MRI of the brain is negative spinal tap has been done no evidence of bacterial infection medications are being continued as such discussed with the family Review of Systems Review of Systems: All systems reviewed & are unremarkable except as noted in HPI and below Exam Const: Nutritional Appearance: average body habitus and well nourished Orientation/consciousness: Other orientation findings Limitations: altered mental status and physical limitations Neuro: General: oriented to person ( unresponsive) and moves all extremities ( no movements of upper or lower extremities) Speech: Other speech findings present (Neuro) ( unresponsive and intubated) Gait exam (Neuro): Unable to assess gait Sensory Exam: other Deep tendon reflexes (DTR's): Right triceps reflex intensity grade: 0, Left triceps reflex intensity grade: 0, Rt Biceps (C5, C6): 0, Left biceps reflex intensity grade: 0, Right brachioradialis reflex intensity grade: 0, Left brachioradialis reflex intensity grade: 0, Right patellar reflex intensity grade: 0, Left patellar reflex intensity grade: 0, Right ankle reflex intensity grade: 0 and Left ankle reflex intensity grade: 0 Plantar Reflex Responses: equivocal: bilateral Objective Data Vital Signs Vital Signs: Vital Signs - 24 hr 01/28/21 15:50 01/28/21 16:00 01/28/21 16:55 Temperature 38.9 C H 38.8 C H Pulse Rate 140 H 104 H Respiratory Rate 30 H Blood Pressure 162/90 H Pulse Oximetry 96 01/28/21 17:44 01/28/21 17:55 01/28/21 18:00 Temperature 39.1 C H Pulse Rate 134 H 120 H Respiratory Rate Blood Pressure Pulse Oximetry 01/28/21 20:00 01/28/21 20:32 01/28/21 20:37 Temperature 36.9 C 38.6 C H Pulse Rate 119 H 107 H 107 H Respiratory Rate 26 H 24 H Blood Pressure 144/77 H 153/91 H Pulse Oximetry 96 97 01/28/21 21:40 01/28/21 22:00 01/28/21 23:22 Temperature 37.7 C H 38.2 C H Pulse Rate 123 H 95 Respiratory Rate 21 H Blood Pressure 157/88 H Pulse Oximetry 99 01/29/21 00:00 01/29/21 00:19 01/29/21 01:22 Temperature 37.2 C 36.8 C Pulse Rate 83 Respiratory Rate 30 H Blood Pressure 145/77 H Pulse Oximetry 92 88 L 01/29/21 01:23 01/29/21 02:00 01/29/21 04:00 Temperature 36.7 C Pulse Rate 98 85 Respiratory Rate 36 H 27 H Blood Pressure 139/92 H 141/82 H Pulse Oximetry 99 99 100 01/29/21 06:00 01/29/21 06:06 01/29/21 08:00 Temperature 38.3 C H Pulse Rate 109 H 134 H 98 Respiratory Rate 19 20 Blood Pressure 158/93 H 160/80 H Pulse Oximetry 98 99 01/29/21 08:15 01/29/21 09:00 01/29/21 09:15 Temperature Pulse Rate 88 80 80 Respiratory Rate 18 18 Blood Pressure Pulse Oximetry 100 01/29/21 09:30 01/29/21 09:55 01/29/21 10:00 Temperature Pulse Rate 80 90 94 Respiratory Rate 18 18 Blood Pressure 101/71 Pulse Oximetry 100 01/29/21 11:10 01/29/21 11:40 01/29/21 12:00 Temperature 38.7 C H Pulse Rate 86 76 78 Respiratory Rate 18 16 Blood Pressure 117/70 Pulse Oximetry 100 100 01/29/21 12:36 Temperature 38.7 C H Pulse Rate Respiratory Rate Blood Pressure Pulse Oximetry Intake/Output Intake/Output: Intake & Output 01/26/21 01/27/21 01/28/21 01/29/21 23:59 23:59 23:59 23:59 Intake Total 3993 2960 3948 1799 Output Total 575 1000 1500 2025 Balance 3418 2748 7581 -544 Meds/Results Medications: Active Medications Generic Name Dose Route Start Last Admin Trade Name Freq PRN Reason Stop Dose Admin Acetaminophen 650 mg 01/24/21 12:48 01/29/21 12:36 Acetaminophen 325 Mg Tablet FEED TUBE 650 mg Q6H PRN Administration Mild Pain (1-3) or Fever Albuterol 2.5 mg 01/23/21 12:00 Albuterol Sulfate Neb 2.5 Mg/0.5
[2021-01-29] MEDS: ALBUTEROL SULFATE NEB 2.5 MG/0.5 ML INH INHALATION (15:02)
--- NOTE | 2021-01-29 15:28 | WPDINFPN2 ---
Progress Note: A&P Assessment and Plan (1) Bacteremia: Code(s): R78.81 - Bacteremia Status: Acute Assessment and Plan: 1. ENRIKE bacteremia with infection, skin source likely, microbiologic cure. 2. Alcoholism 3. Abnormal CSF and decreased LOC, consider HSV 1 superinfection. Not due to S aureus cerebral abscess nor Listeria. 4. Breakthrough fever, consider LRTI due to poor airway clearance, vs [employer] infection as above REC (antibiotic #16 / 28 days) Ctx / ACV / Vanc #3, continue at present dosing, step down based on clinical course and results of CSF testing. Stop ampicillin. Micro in process, needs tracheal aspirate if not yet done. Updated family at bedside Subjective Date/time seen: 01/29/21 15:28 Interval history: re intubated sedated, course reviewed Exam Narrative: Exam Narrative: t max 39.1 Const: General: no acute distress Eyes: General: appearance normal, both eyes and all related structures Other: no HSV 1 lesions perioral Neck: Neck: no JVD Resp: Auscultation: clear to auscultation bilaterally and diminished lung sounds Cardio: Rhythm: regular rhythm Heart sounds: no gallops and no murmurs GI: Inspection: non-distended GI Palp: Yes Soft to palpation and No Tenderness to palpation present (GI) Urinary Catheter: Urinary Catheter: patent and draining Skin: General skin exam: normal color and no rashes or lesions noted Extrem: General: normal to inspection and edema Objective Data Vital Signs Vital Signs: Vital Signs - 24 hr 01/28/21 15:50 01/28/21 16:00 01/28/21 16:55 Temperature 38.9 C H 38.8 C H Pulse Rate 140 H 104 H Respiratory Rate 30 H Blood Pressure 162/90 H Pulse Oximetry 96 01/28/21 17:44 01/28/21 17:55 01/28/21 18:00 Temperature 39.1 C H Pulse Rate 134 H 120 H Respiratory Rate Blood Pressure Pulse Oximetry 01/28/21 20:00 01/28/21 20:32 01/28/21 20:37 Temperature 36.9 C 38.6 C H Pulse Rate 119 H 107 H 107 H Respiratory Rate 26 H 24 H Blood Pressure 144/77 H 153/91 H Pulse Oximetry 96 97 01/28/21 21:40 01/28/21 22:00 01/28/21 23:22 Temperature 37.7 C H 38.2 C H Pulse Rate 123 H 95 Respiratory Rate 21 H Blood Pressure 157/88 H Pulse Oximetry 99 01/29/21 00:00 01/29/21 00:19 01/29/21 01:22 Temperature 37.2 C 36.8 C Pulse Rate 83 Respiratory Rate 30 H Blood Pressure 145/77 H Pulse Oximetry 92 88 L 01/29/21 01:23 01/29/21 02:00 01/29/21 04:00 Temperature 36.7 C Pulse Rate 98 85 Respiratory Rate 36 H 27 H Blood Pressure 139/92 H 141/82 H Pulse Oximetry 99 99 100 01/29/21 06:00 01/29/21 06:06 01/29/21 08:00 Temperature 38.3 C H Pulse Rate 109 H 134 H 98 Respiratory Rate 19 20 Blood Pressure 158/93 H 160/80 H Pulse Oximetry 98 99 01/29/21 08:15 01/29/21 09:00 01/29/21 09:15 Temperature Pulse Rate 88 80 80 Respiratory Rate 18 18 Blood Pressure Pulse Oximetry 100 01/29/21 09:30 01/29/21 09:55 01/29/21 10:00 Temperature Pulse Rate 80 90 94 Respiratory Rate 18 18 Blood Pressure 101/71 Pulse Oximetry 100 01/29/21 11:10 01/29/21 11:40 01/29/21 12:00 Temperature 38.7 C H Pulse Rate 86 76 78 Respiratory Rate 18 16 Blood Pressure 117/70 Pulse Oximetry 100 100 01/29/21 12:36 01/29/21 14:00 01/29/21 15:00 Temperature 38.7 C H Pulse Rate 86 104 H Respiratory Rate 16 16 Blood Pressure 102/54 L Pulse Oximetry 100 100 01/29/21 15:17 Temperature Pulse Rate 101 H Respiratory Rate 16 Blood Pressure Pulse Oximetry Intake/Output Intake/Output: Intake & Output 01/26/21 01/27/21 01/28/21 01/29/21 23:59 23:59 23:59 23:59 Intake Total 3993 2960 3948 2899 Output Total 575 1000 1500 2025 Balance 3418 1960 2448 874 Meds/Results Medications: Active Medications Generic Name Dose Route Start Last Admin Trade Name Freq PRN Reason Stop Dose Admin Acetaminophen 650 mg 01/24/21 12:48 01/29/21 12:36 Acetaminophen 32
[2021-01-30] VITALS (32 sets, daily range): BP systolic 97–144; BP diastolic 56–86; PULSE 71–115; RESP 14–17; TEMP 37.2–38.1; O2SAT 100
[2021-01-30 04:32] LABS: Alveolar/Arterial O2 Gradient 83.6 mmHg; Base Excess ABG 3.8 mEq/l (+/-2.0); Carboxyhemoglobin 0.3 % THb (0-2.0); Device VENTILATOR; Fractional Inspired Oxygen 30 %; HCO3 ABG 27.3 mEq/l (22.0-26.0); Methemoglobin ABG 0.3 %THb (0-1.5); Modified Allen's Test Unable to perform; Oxygen Content ABG 15.6 %vol (16.0-22.0); Oxygen Saturation ABG 97.2 % (95.0-100.0); Oxyhemoglobin 95.6 % THb (90.0-100.0); PCO2 ABG 37.3 mmHg (35.0-45.0); PO2 ABG 86.5 mmHg (80.0-100.0); PO2 FiO2 Ratio Arterial Blood 2.88 %; Reduced Hemoglobin 3.8 %THb (0-5.0); Site Drawn RIGHT RADIAL; Total Hemoglobin 11.5 g/dL (12.0-18.0); pH ABG 7.483 (7.350-7.450)
[2021-01-30 04:33] LABS: Arterial Blood Gas PEEP 5 cmH2O; Arterial Blood Gas Tidal Volume 480 ml; Arterial Blood Gas Vent Mode CMV; Arterial Blood Gas Ventilator rate 16 /MIN
[2021-01-30 04:42] LABS: Basophils Absolute Auto 0.1 K/mm3 (0.0-0.1); Basophils Percent Auto 0.8 % (0.2-1.2); Eosinophils Absolute Auto 0.1 K/mm3 (0-0.3); Eosinophils Percent Auto 1.6 % (0-4.4); Hematocrit 29.9 % (42.0-52.0); Hemoglobin 9.9 g/dL (14.0-18.0); Immature Granulocyte Absolute 0.14 K/mm3 (0.00-0.031); Immature Granulocyte Percent A 1.6 % (0-0.5); Lymphocytes Percent Auto 20.8 % (18.3-44.2); Mean Corpuscular HGB Conc 33.1 g/dl (32-36); Mean Corpuscular Hemoglobin 31.1 pg (26-34); Mean Platelet Volume 8.8 fl (7.4-10.4); Monocytes Absolute Auto 0.9 K/mm3 (0.1-0.6); Monocytes Percent Auto 10.3 % (2.6-8.5); Neutrophils Absolute Auto 5.6 K/mm3 (1.3-6.7); Neutrophils Percent Auto 64.9 % (45.5-73.1); Platelet Count Result 498 k/mm3 (150-375); Red Blood Count 3.18 M/mm3 (4.6-6.20); Red Cell Distribution Width 12.5 % (11.5-14.5); White Blood Count 8.6 K/mm3 (4.5-10.0)
[2021-01-30 05:04] LABS: Lactic Acid Reflex 0.8 mmol/L (0.7-2.1)
[2021-01-30 05:05] LABS: Alanine Aminotransferase 47 U/L (4-50); Albumin Level 2.7 g/dL (3.5-5.1); Alkaline Phosphatase 91 U/L (38-126); Anion Gap 3 mmol/L (8-16); Aspartate Amino Transferase 65 U/L (17-59); Bilirubin,Total 0.4 mg/dL (0.2-1.3); Blood Urea Nitrogen 24 mg/dL (9-20); CRP 8.4 mg/dL (<1.0); Calcium 8.5 mg/dL (8.4-10.2); Carbon Dioxide 29 mmol/L (22-30); Chloride 94 mmol/L (98-107); Estimated CRCL calculation 61 ml/min; Estimated Glomerular Filt Rate > 60; Glucose 101 mg/dL (75-110); Magnesium 1.7 mg/dL (1.6-2.3); Phosphorus 4.1 mg/dL (2.5-4.5); Potassium 3.7 mmol/L (3.4-5.0); Sodium 126 mmol/L (137-145)
[2021-01-30] MEDS: ACYCLOVIR SODIUM IVPB 800 MG in DEXTROSE 5% IN WATER 250 ML 266 MG IVPB ×3 (05:41→21:38)
[2021-01-30] MEDS: FUROSEMIDE INJ 40 MG/4 ML VIAL 20 MG IV PUSH (08:21)
[2021-01-30] MEDS: ASPIRIN 81 MG CHEWABLE TABLET FEED TUBE (08:22)
[2021-01-30] MEDS: lisinopriL 20 MG TABLET FEED TUBE (08:23)
[2021-01-30] MEDS: METOPROLOL TARTRATE 50 MG TAB PO ×2 (08:23→19:51)
[2021-01-30] MEDS: THIAMINE HCL 200 MG/2 ML VIAL 100 MG IV PUSH (08:23)
[2021-01-30] MEDS: PANTOPRAZOLE SODIUM IV 40 MG VIAL IV PUSH (08:25)
[2021-01-30] MEDS: FOLIC ACID 1 MG/0.2 ML INJ IV PUSH (08:27)
[2021-01-30] MEDS: ENOXAPARIN 80 MG/0.8 ML SYRINGE SUB-Q ×2 (08:30→19:51)
--- NOTE | 2021-01-30 09:40 | PM.IMPN ---
Progress Note: A&P Assessment and Plan (1) Encephalopathy acute: Code(s): G93.40 - Encephalopathy, unspecified Status: Acute Assessment and Plan: While still on Precedex, patient was noted to be somewhat oriented up until 01/21. Librium on hold since 01/21. Precedex was weaned off 01/25. Has been on Thiamine and Folate. Was on a low dose Seroquel but this has been stopped as well. Patient has remained encephalopathic since being off Precedex. Neurology following. EEG 01/27 showing abnormal record due to the presence of bihemispheric theta and delta activity. These abnormalities are suggestive of organic or metabolic encephalopathy or postictal state. CT brain from 01/27 showing no acute findings. MRI brain 01/28 showing no acute findings. Ammonia level negative. LP showing TP 597, R767, W40 with 96% lymphocytes. Path showing chronic inflammation. Gram stain showing moderate WBC but no MO. BCx 01/28 NGTD. UCx negative. Sputum Cx pending. CSF Cx NGTD. Appreciate ID input; Ampicillin stopped. Continue current IV abx and anti-virals. (2) Acute respiratory failure: Code(s): J96.00 - Acute respiratory failure, unspecified whether with hypoxia or hypercapnia Status: Acute Assessment and Plan: Patient was obtunded with tachypnea and concern that he was unable to protect his airway so elected for intubation 01/29/21. Minimize sedation. Appreciate apprentice pattern maker input. (3) Septicemia: Code(s): A41.9 - Sepsis, unspecified organism Status: Acute Assessment and Plan: Present on admission and supported by fever, tachycardia, and tachypnea in the setting of ENRIKE bacteremia. Seen in ED on 01/13 and sent home but BCx 01/13 returned positive for Staphylococcus aureus and he returned to the ED on 01/14 and received 1 dose of cefepime and vancomycin and was admitted. Dr. Sorensen was consulted and he recommended vancomycin and Ancef. BCx from 01/13 and 01/14 both growing ENRIKE so abx narrowed to Ancef. TTE 01/14 showing no vegetations. Lumbar CT showing no acute findings. Repeat BCx 01/16 (1of2) were still positive. BCx 01/21 NGTD. Source unclear but possibly skin. CALIN 01/22 showing no signs of endocarditis. Given his encephalopathy as detailed above, he was started on meningitic treatment and MRI brain and LP ordered. As above. Antibiotic #17 days. (4) Alcohol withdrawal delirium: Code(s): F10.231 - Alcohol dependence with withdrawal delirium Status: Acute Assessment and Plan: Patient A&O x4 on admission but seemed a bit confused. He then developed acute delirium from alcohol withdrawal 01/15 and moved to ICU for Precedex. CT brain normal. While still on Precedex, patient was awake and able to talk with staff (somewhat oriented up until 01/21). Librium on hold since 01/21. Precedex was weaned off 01/25. Has been on Thiamine and Folate. Was on a low dose Seroquel but this has been stopped as well. Patient has remained encephalopathic since being off Precedex. As above. (5) Atrial fibrillation: Code(s): I48.91 - Unspecified atrial fibrillation Status: Acute Assessment and Plan: EKG on admission consistent with MAT. Metoprolol started. Echo with EF 55-60% with normal diastolic dysfunction and mild pulm HTN. TSH normal. Patient developed AFib after admission. Heparin drip started but changed to Lovenox. Cardioversion 01/22 successfully back to NSR. Still with PACs with MAT and/or AFib on tele. Continue tele. Appreciate Cardiology input. Continue metoprolol and full dose Lovenox. (6) Hyponatremia: Code(s): E87.1 - Hypo-osmolality and hyponatremia Status: Acute Assessment and Plan: Sodium was 135 on 12/31/2020 but down to 129 on 01/13. Probably multifactorial from his Celexa, HCTZ, beer potomania and/or dehydration. Jesús low at 17. He received appropriate IV fluids and Na normalized until 01/29 when it dropped to 130. N
[2021-01-30] MEDS: MAGNESIUM SULF 2 GM/WATER 50ML 2 GM/50 ML BAG IVPB (11:14)
[2021-01-30 11:19] LABS: Vancomycin Trough 15.9 ug/mL (10.0-20.0)
--- NOTE | 2021-01-30 12:43 | WPDINTPN ---
Progress Note: A&P Assessment and Plan (1) Acute respiratory failure: Code(s): J96.00 - Acute respiratory failure, unspecified whether with hypoxia or hypercapnia Status: Acute Assessment and Plan: Patient encephalopathic/obtunded to protect his airway intubated the patient on 3020 for talking to his -patient currently on CMV mode of ventilation with 30% FiO2, peep of 5 -chest x-ray and ABGs reviewed -patient currently on fentanyl and Versed infusion for sedation, did not tolerate propofol yesterday. Will start weaning fentanyl Versed and try daily sedation vacation (2) Encephalopathy acute: Code(s): G93.40 - Encephalopathy, unspecified Status: Acute Assessment and Plan: Likely multifactorial could be related viral encephalitis/meningitis given CSF analysis, toxic metabolic encephalopathy secondary to infection, alcohol related Wernicke's encephalopathy, electrolyte imbalance -continue antibacterial and antivirals -CSF HSV PCR, fungal culture pending -appreciate infectious disease input % was discontinued (3) Bacteremia: Code(s): R78.81 - Bacteremia Status: Acute Assessment and Plan: ENRIKE bacteremia 01/13/2021 -infectious disease following the patient, continue Ancef (initiated on 01/15/2021) -transthoracic echocardiogram 01/14/2021: Showed normal LV size with moderate concentric hypertrophy and good systolic function, EF 55-60%. Normal diastolic dysfunction. Left atrium moderately enlarged, mild pulmonary hypertension with RVSP of 39 mmHg, no vegetations seen. - 01/14/2021 blood cultures also positive Staph aureus 2/2 bottles -01/16/2021 blood cultures staph aureus 1 of 2 bottless -01/21/2021 blood cultures negative x2 - Lumbar CT showing no acute findings -CALIN on 01/22/2021 showed no evidence of endocarditis -repeated blood cultures on 01/21/2021 negative to date -repeat blood cultures 01/28/2021 negative x2 (4) Sepsis: Code(s): A41.9 - Sepsis, unspecified organism Status: Acute Assessment and Plan: Sepsis due staph bacteremia -patient tachycardic tachypneic which also be secondary to alcohol withdrawal secondary to adrenergic surge -patient is afebrile -continue antibiotics as above (5) Tachyarrhythmia: Code(s): R00.0 - Tachycardia, unspecified Status: Acute Assessment and Plan: EKG on 0 01/17 showed atrial fibrillation, -initial EKG did show multifocal atrial tachycardia but now in AFib with and rate controlled. -p.r.n. hydralazine for blood pressures -restarted today therapeutic Lovenox (it was on a for LP done on 01/28/2021) -currently is regulated, could be AMA T versus AFib rate controlled -cardioversion on 01/22/2021 with successful conversion to sinus rhythm (6) Alcoholism: Code(s): F10.20 - Alcohol dependence, uncomplicated Status: Acute Assessment and Plan: Patient is a chronic alcoholic, has not been drinking 2-3 days prior to admission as he was not feeling too well. (patient drinks approximately 18 beers per day) -transferred to the ICU on 01/15/2021 for alcohol withdrawal with possible delirium tremens, received multiple doses of Ativan and Haldol in the IMU -continue thiamine, folic acid (7) Hyponatremia: Code(s): E87.1 - Hypo-osmolality and hyponatremia Status: Acute Assessment and Plan: Hyponatremia multifactorial, Lasix was ordered, -maintenance IV fluids have been discontinued -continue to monitor Additional Plan Patient has a Dobbhoff tube, tolerating tube feeds, increase to goal Discuss with patient's at bedside and updated her with patient's condition, plan of care. I answered all questions.. Code status: Full code Critical care time spent: 36 minutes This dictation may have been done utilizing a voice recognition system. Attempts have been made to correct errors. However, there may be uncorrected grammatical, spelling, and recognition errors pr
[2021-01-30 18:58] LABS: Cryptococcus Antigen Not Detected (Not Detected); Cryptococcus Specimen Source CSF
[2021-01-31] VITALS (36 sets, daily range): BP systolic 90–165; BP diastolic 52–90; PULSE 68–99; RESP 14–17; TEMP 37.3–38.1; O2SAT 100
[2021-01-31 04:41] LABS: Basophils Absolute Auto 0.1 K/mm3 (0.0-0.1); Basophils Percent Auto 0.7 % (0.2-1.2); Eosinophils Absolute Auto 0.2 K/mm3 (0-0.3); Eosinophils Percent Auto 1.8 % (0-4.4); Hematocrit 27.9 % (42.0-52.0); Hemoglobin 9.3 g/dL (14.0-18.0); Immature Granulocyte Percent A 1.1 % (0-0.5); Lymphocytes Absolute Auto 1.54 K/mm3 (0.9-3.2); Lymphocytes Percent Auto 17.1 % (18.3-44.2); Mean Corpuscular HGB Conc 33.3 g/dl (32-36); Monocytes Absolute Auto 0.8 K/mm3 (0.1-0.6); Monocytes Percent Auto 8.4 % (2.6-8.5); Neutrophils Absolute Auto 6.4 K/mm3 (1.3-6.7); Neutrophils Percent Auto 70.9 % (45.5-73.1); Platelet Count Result 453 k/mm3 (150-375)
[2021-01-31 04:52] LABS: Alveolar/Arterial O2 Gradient 67.8 mmHg; Base Excess ABG 4.6 mEq/l (+/-2.0); Carboxyhemoglobin 0.1 % THb (0-2.0); Fractional Inspired Oxygen 30 %; HCO3 ABG 27.9 mEq/l (22.0-26.0); Methemoglobin ABG 0.4 %THb (0-1.5); Oxygen Content ABG 14.1 %vol (16.0-22.0); Oxygen Saturation ABG 98.2 % (95.0-100.0); Oxyhemoglobin 96.5 % THb (90.0-100.0); PCO2 ABG 36.5 mmHg (35.0-45.0); PO2 ABG 103.2 mmHg (80.0-100.0); PO2 FiO2 Ratio Arterial Blood 3.44 %; Total Hemoglobin 10.3 g/dL (12.0-18.0); pH ABG 7.501 (7.350-7.450)
[2021-01-31 04:54] LABS: Device VENTILATOR; Modified Allen's Test Pass; Site Drawn RIGHT RADIAL
[2021-01-31 04:55] LABS: Arterial Blood Gas PEEP 5 cmH2O; Arterial Blood Gas Tidal Volume 480 ml; Arterial Blood Gas Vent Mode CMV; Arterial Blood Gas Ventilator rate 14 /MIN
[2021-01-31 05:22] LABS: Alanine Aminotransferase 56 U/L (4-50); Albumin Level 2.5 g/dL (3.5-5.1); Alkaline Phosphatase 101 U/L (38-126); Anion Gap 3 mmol/L (8-16); Aspartate Amino Transferase 64 U/L (17-59); Bilirubin,Total 0.2 mg/dL (0.2-1.3); Blood Urea Nitrogen 24 mg/dL (9-20); Calcium 8.2 mg/dL (8.4-10.2); Carbon Dioxide 29 mmol/L (22-30); Chloride 95 mmol/L (98-107); Estimated CRCL calculation 67 ml/min; Estimated Glomerular Filt Rate > 60; Glucose 123 mg/dL (75-110); Phosphorus 3.5 mg/dL (2.5-4.5); Potassium 4.1 mmol/L (3.4-5.0); Sodium 127 mmol/L (137-145)
[2021-01-31] MEDS: MIDAZOLAM 100MG/NS 100ML(*CRX) 100 MG/100 ML BAG IV CONT (05:55)
[2021-01-31] MEDS: FENTANYL 2,500MCG/NS250ML(*CRX 2,500 MCG/250 ML BAG 7.5 MCG IV CONT (05:57)
[2021-01-31] MEDS: ACYCLOVIR SODIUM IVPB 800 MG in DEXTROSE 5% IN WATER 250 ML 266 MG IVPB ×3 (05:58→21:01)
[2021-01-31] MEDS: THIAMINE HCL 200 MG/2 ML VIAL 100 MG IV PUSH (08:00)
[2021-01-31] MEDS: ENOXAPARIN 80 MG/0.8 ML SYRINGE SUB-Q ×2 (08:01→20:54)
[2021-01-31] MEDS: PANTOPRAZOLE SODIUM IV 40 MG VIAL IV PUSH (08:01)
[2021-01-31] MEDS: FOLIC ACID 1 MG/0.2 ML INJ IV PUSH (08:02)
[2021-01-31] MEDS: ASPIRIN 81 MG CHEWABLE TABLET FEED TUBE (08:08)
[2021-01-31] MEDS: METOPROLOL TARTRATE 50 MG TAB PO ×2 (08:08→20:55)
--- NOTE | 2021-01-31 08:31 | PM.IMPN ---
Progress Note: A&P Assessment and Plan (1) Encephalopathy acute: Code(s): G93.40 - Encephalopathy, unspecified Status: Acute Assessment and Plan: While still on Precedex, patient was noted to be somewhat oriented up until 01/21. Librium on hold since 01/21. Precedex was weaned off 01/25. Has been on Thiamine and Folate. Was on a low dose Seroquel but this has been stopped as well. Patient has remained encephalopathic since being off Precedex. Neurology following. EEG 01/27 showing abnormal record due to the presence of bihemispheric theta and delta activity. These abnormalities are suggestive of organic or metabolic encephalopathy or postictal state. CT brain from 01/27 showing no acute findings. MRI brain 01/28 showing no acute findings. Ammonia level negative. LP showing TP 597, [id number], WBC40 with 96% lymphocytes. Path showing chronic inflammation. Gram stain showing moderate WBC but no MO. BCx 01/28 NGTD. UCx negative. Sputum Cx pending. CSF Cx NGTD. Crypto Ag negative. Appreciate ID input; Ampicillin stopped. Continue current IV abx and anti-virals. (2) Acute respiratory failure: Code(s): J96.00 - Acute respiratory failure, unspecified whether with hypoxia or hypercapnia Status: Acute Assessment and Plan: Patient was obtunded with tachypnea and concern that he was unable to protect his airway so elected for intubation 01/29/21. On minimal settings. Was on Fentanyl 25 yesterday but had increasing agitation overnight and fentanyl increased to 75. Back down to 50 and remaining calm. Remains on Versed 2. CXR essentially clear. Appreciate educational psychology professor input. (3) Septicemia: Code(s): A41.9 - Sepsis, unspecified organism Status: Acute Assessment and Plan: Present on admission and supported by fever, tachycardia, and tachypnea in the setting of ENRIKE bacteremia. Seen in ED on 01/13 and sent home but BCx 01/13 returned positive for Staph aureus and he returned to the ED on 01/14 and received 1 dose of cefepime and vancomycin and was admitted. Dr. Sorensen was consulted and he recommended vancomycin and Ancef. BCx from 01/13 and 01/14 both growing ENRIKE so abx narrowed to Ancef. TTE 4/15 showing no vegetations. Lumbar CT showing no acute findings. Repeat BCx 01/16 (1of2) were still positive. BCx 01/21 NGTD. Source unclear but possibly skin. CALIN 01/22 showing no signs of endocarditis. Given his encephalopathy as detailed above, he was started on meningitic treatment and MRI brain and LP ordered. As above. Antibiotic #18/ 28 days. (4) Alcohol withdrawal delirium: Code(s): F10.231 - Alcohol dependence with withdrawal delirium Status: Acute Assessment and Plan: Patient was A&O x4 on admission but seemed a bit confused. He then developed acute delirium from alcohol withdrawal 01/15 and moved to ICU for Precedex. CT brain normal. While still on Precedex, patient was awake and able to talk with staff (somewhat oriented up until 01/21). Librium on hold since 01/21. Precedex was weaned off 01/25. Has been on Thiamine and Folate. Was on a low dose Seroquel but this has been stopped as well. Patient has remained encephalopathic since being off Precedex. As above. (5) Atrial fibrillation: Code(s): I48.91 - Unspecified atrial fibrillation Status: Acute Assessment and Plan: EKG on admission consistent with MAT. Metoprolol started. Echo with EF 55-60% with normal diastolic dysfunction and mild pulm HTN. TSH normal. Patient developed AFib after admission. Heparin drip started but changed to Lovenox. CALIN with Cardioversion 01/22 successfully back to NSR. Still with PACs with occasional MAT (AFib felt less likely). Noted 20 beat run of regular tachycardia either NSVT or AFlutter. Mag 2.0 and Potassium 4.1. Continue tele. Appreciate Cardiology input. Continue metoprolol and full dose Lovenox. (6) Hyponatremia: Code(s): E87.1 - H
[2021-01-31] MEDS: SODIUM CHLORIDE 0.9% IV 500 ML 999 ML IV CONT (09:26)
[2021-01-31] MEDS: dexmedeTOMIDine 400 MCG/100 ML 400 MCG/100 ML BAG IV CONT (10:40)
--- NOTE | 2021-01-31 12:53 | WPDINTPN ---
Progress Note: A&P Assessment and Plan (1) Acute respiratory failure: Code(s): J96.00 - Acute respiratory failure, unspecified whether with hypoxia or hypercapnia Status: Acute Assessment and Plan: Patient encephalopathic/obtunded to protect his airway intubated the patient on 3020 for talking to his -patient currently on CMV mode of ventilation with 30% FiO2, peep of 5 -chest x-ray and ABGs reviewed -patient currently on fentanyl and Versed infusion for sedation, will start Precedex infusion, wean fentanyl and Versed to off -the goal is to do daily sedation vacation become the patient to evaluate his mental status. (2) Encephalopathy acute: Code(s): G93.40 - Encephalopathy, unspecified Status: Acute Assessment and Plan: Likely multifactorial could be related viral encephalitis/meningitis given CSF analysis, toxic metabolic encephalopathy secondary to infection, alcohol related Wernicke's encephalopathy, electrolyte imbalance -continue antibacterial and antivirals -CSF HSV PCR, fungal culture pending -appreciate infectious disease input % was discontinued (3) Bacteremia: Code(s): R78.81 - Bacteremia Status: Acute Assessment and Plan: ENRIKE bacteremia 01/13/2021 -infectious disease following the patient, continue Ancef (initiated on 01/15/2021) -transthoracic echocardiogram 01/14/2021: Showed normal LV size with moderate concentric hypertrophy and good systolic function, EF 55-60%. Normal diastolic dysfunction. Left atrium moderately enlarged, mild pulmonary hypertension with RVSP of 39 mmHg, no vegetations seen. - 01/14/2021 blood cultures also positive Staph aureus 2/2 bottles -01/16/2021 blood cultures staph aureus 1 of 2 bottless -01/21/2021 blood cultures negative x2 - Lumbar CT showing no acute findings -CALIN on 01/22/2021 showed no evidence of endocarditis -repeated blood cultures on 01/21/2021 negative to date -repeat blood cultures 01/28/2021 negative x2 (4) Sepsis: Code(s): A41.9 - Sepsis, unspecified organism Status: Acute Assessment and Plan: Sepsis due staph bacteremia -patient tachycardic tachypneic which also be secondary to alcohol withdrawal secondary to adrenergic surge -patient is afebrile -continue antibiotics as above (5) Tachyarrhythmia: Code(s): R00.0 - Tachycardia, unspecified Status: Acute Assessment and Plan: EKG on 0 01/17 showed atrial fibrillation, -initial EKG did show multifocal atrial tachycardia but now in AFib with and rate controlled. -p.r.n. hydralazine for blood pressures -restarted today therapeutic Lovenox (it was on a for LP done on 01/28/2021) -currently is regulated, could be MAT versus AFib rate controlled -cardioversion on 01/22/2021 with successful conversion to sinus rhythm (6) Alcoholism: Code(s): F10.20 - Alcohol dependence, uncomplicated Status: Acute Assessment and Plan: Patient is a chronic alcoholic, has not been drinking 2-3 days prior to admission as he was not feeling too well. (patient drinks approximately 18 beers per day) -transferred to the ICU on 01/15/2021 for alcohol withdrawal with possible delirium tremens, received multiple doses of Ativan and Haldol in the IMU -continue thiamine, folic acid (7) Hyponatremia: Code(s): E87.1 - Hypo-osmolality and hyponatremia Status: Acute Assessment and Plan: Hyponatremia multifactorial, Lasix was ordered, -maintenance IV fluids have been discontinued -continue to monitor Additional Plan Patient has a Dobbhoff tube, tolerating tube feeds, increase to goal Discuss with patient's at bedside and updated her with patient's condition, plan of care. I answered all questions.. Code status: Full code Critical care time spent: 33 minutes This dictation may have been done utilizing a voice recognition system. Attempts have been made to correct errors. However, there may be uncorrect
[2021-01-31 12:54] LABS: Herpes Simplex Type 1 DNA PCR Not Detected (Not Detected); Herpes Simplex Type 2 DNA PCR Not Detected (Not Detected)
[2021-01-31] MEDS: hydrALAZINE HCL 20 MG/ML VIAL 10 MG IV PUSH (18:22)
[2021-01-31] MEDS: dexmedeTOMIDine 400 MCG/100 ML 400 MCG/100 ML BAG 6.27 MCG IV CONT (23:47)
[2021-02-01] VITALS (35 sets, daily range): BP systolic 83–145; BP diastolic 46–82; PULSE 60–98; RESP 9–28; TEMP 36.9–38.2; O2SAT 99–100
[2021-02-01] MEDS: ACETAMINOPHEN 325 MG TABLET 650 MG FEED TUBE (00:27)
[2021-02-01 04:06] LABS: Alveolar/Arterial O2 Gradient 42.6 mmHg; Base Excess ABG 4.6 mEq/l (+/-2.0); Carboxyhemoglobin 0.2 % THb (0-2.0); Fractional Inspired Oxygen 30 %; HCO3 ABG 27.6 mEq/l (22.0-26.0); Methemoglobin ABG 0.2 %THb (0-1.5); Oxygen Content ABG 14.6 %vol (16.0-22.0); Oxygen Saturation ABG 98.9 % (95.0-100.0); Oxyhemoglobin 97.4 % THb (90.0-100.0); PCO2 ABG 35.1 mmHg (35.0-45.0); PO2 ABG 130.1 mmHg (80.0-100.0); PO2 FiO2 Ratio Arterial Blood 4.34 %; Reduced Hemoglobin 2.2 %THb (0-5.0); Total Hemoglobin 10.5 g/dL (12.0-18.0)
[2021-02-01 04:07] LABS: Site Drawn LEFT RADIAL; pH ABG 7.513 (7.350-7.450)
[2021-02-01 04:08] LABS: Arterial Blood Gas PEEP 5 cmH2O; Arterial Blood Gas Tidal Volume 430 ml; Arterial Blood Gas Vent Mode CMV; Arterial Blood Gas Ventilator rate 14 /MIN; Device VENTILATOR; Modified Allen's Test Pass
[2021-02-01 04:35] LABS: Basophils Percent Auto 0.5 % (0.2-1.2); Eosinophils Absolute Auto 0.1 K/mm3 (0-0.3); Eosinophils Percent Auto 1.5 % (0-4.4); Hematocrit 26.2 % (42.0-52.0); Hemoglobin 8.9 g/dL (14.0-18.0); Immature Granulocyte Absolute 0.11 K/mm3 (0.00-0.031); Immature Granulocyte Percent A 1.2 % (0-0.5); Lymphocytes Absolute Auto 1.23 K/mm3 (0.9-3.2); Lymphocytes Percent Auto 13.9 % (18.3-44.2); Mean Corpuscular Hemoglobin 31.1 pg (26-34); Mean Corpuscular Volume 91.6 fl (80-100); Mean Platelet Volume 8.9 fl (7.4-10.4); Monocytes Absolute Auto 0.8 K/mm3 (0.1-0.6); Monocytes Percent Auto 8.8 % (2.6-8.5); Neutrophils Absolute Auto 6.5 K/mm3 (1.3-6.7); Neutrophils Percent Auto 74.1 % (45.5-73.1); Platelet Count Result 401 k/mm3 (150-375); Red Blood Count 2.86 M/mm3 (4.6-6.20); Red Cell Distribution Width 12.1 % (11.5-14.5); White Blood Count 8.8 K/mm3 (4.5-10.0)
[2021-02-01 04:50] LABS: Alanine Aminotransferase 60 U/L (4-50); Albumin Level 2.7 g/dL (3.5-5.1); Alkaline Phosphatase 130 U/L (38-126); Anion Gap 4 mmol/L (8-16); Aspartate Amino Transferase 51 U/L (17-59); Bilirubin,Total 0.3 mg/dL (0.2-1.3); Blood Urea Nitrogen 23 mg/dL (9-20); CRP 7.7 mg/dL (<1.0); Calcium 8.7 mg/dL (8.4-10.2); Carbon Dioxide 30 mmol/L (22-30); Chloride 95 mmol/L (98-107); Estimated CRCL calculation 67 ml/min; Estimated Glomerular Filt Rate > 60; Glucose 131 mg/dL (75-110); Phosphorus 3.7 mg/dL (2.5-4.5); Potassium 4.3 mmol/L (3.4-5.0); Sodium 129 mmol/L (137-145)
[2021-02-01] MEDS: ACYCLOVIR SODIUM IVPB 800 MG in DEXTROSE 5% IN WATER 250 ML 266 MG IVPB (05:15)
[2021-02-01] MEDS: lisinopriL 20 MG TABLET FEED TUBE (07:59)
[2021-02-01] MEDS: METOPROLOL TARTRATE 50 MG TAB PO ×2 (07:59→20:02)
[2021-02-01] MEDS: ASPIRIN 81 MG CHEWABLE TABLET FEED TUBE (07:59)
[2021-02-01] MEDS: ENOXAPARIN 80 MG/0.8 ML SYRINGE SUB-Q ×2 (07:59→20:03)
[2021-02-01] MEDS: PANTOPRAZOLE SODIUM IV 40 MG VIAL IV PUSH ×2 (07:59→20:07)
[2021-02-01] MEDS: THIAMINE HCL 200 MG/2 ML VIAL 100 MG IV PUSH (07:59)
[2021-02-01] MEDS: FOLIC ACID 1 MG/0.2 ML INJ IV PUSH (08:15)
--- NOTE | 2021-02-01 08:35 | PM.IMPN ---
Progress Note: A&P Assessment and Plan (1) Encephalopathy acute: Code(s): G93.40 - Encephalopathy, unspecified Status: Acute Assessment and Plan: While still on Precedex, patient was noted to be somewhat oriented up until 01/21. Librium on hold since 01/21. Precedex was weaned off 01/25. Has been on Thiamine and Folate. Was on a low dose Seroquel but this has been stopped as well. Patient has remained encephalopathic since being off Precedex. Neurology following. EEG 01/27 showing abnormal record due to the presence of bihemispheric theta and delta activity. These abnormalities are suggestive of organic or metabolic encephalopathy or postictal state. CT brain from 01/27 showing no acute findings. MRI brain 01/28 showing no acute findings. Ammonia level negative. LP showing TP 597, FNQ926, WBC40 with 96% lymphocytes. Path showing chronic inflammation. Gram stain showing moderate WBC but no MO; fungal smear showing no organisms. BCx 01/28 NGTD. UCx negative. Sputum Cx negative x2. CSF Cx NGTD. Crypto Ag negative. WBC remains normal; CRP better today. Lactate elevated at 29. HSV PCR negative. Consider chronic encephalopathy possibly HIE. Appreciate ID input; Ampicillin stopped 01/29. Continue current IV abx; stop anti-virals. (2) Acute respiratory failure: Code(s): J96.00 - Acute respiratory failure, unspecified whether with hypoxia or hypercapnia Status: Acute Assessment and Plan: Patient was obtunded with tachypnea and concern that he was unable to protect his airway so elected for intubation 01/29/21. On minimal settings with PEEP 5 and 30% FiO2. Was on Fentanyl and Versed due to restlessness. He has been converted to Precedex 01/31/21. CXR with bibasilar disease. Appreciate salvage clerk input. Wean off sedation as tolerated. (3) Septicemia: Code(s): A41.9 - Sepsis, unspecified organism Status: Acute Assessment and Plan: Present on admission and supported by fever, tachycardia, and tachypnea in the setting of ENRIKE bacteremia. Seen in ED on 01/13 and sent home but BCx 01/13 returned positive for Staph aureus and he returned to the ED on 01/14 and received 1 dose of cefepime and vancomycin and was admitted. Dr. Sorensen was consulted and he recommended vancomycin and Ancef. BCx from 01/13 and 01/14 both growing ENRIKE so abx narrowed to Ancef. TTE 01/14 showing no vegetations. Lumbar CT showing no acute findings. Repeat BCx 01/16 (1of2) were still positive. BCx 01/21 NGTD. Source unclear but possibly skin. CALIN 01/22 showing no signs of endocarditis. Given his encephalopathy as detailed above, he was started on meningitic treatment on 01/27 and MRI brain and LP ordered. As above. Antibiotic # days. (4) Anemia: Code(s): D64.9 - Anemia, unspecified Status: Acute Assessment and Plan: Patient's hemoglobin was normal on admission but dropped more recently to the 11-12 range. On January 30, hemoglobin dropped to 9.9 trended down 8.9 today. IV. He is also full-dose Lovenox and aspirin. No evidence of acute blood loss. No gross blood in stool per RN. Guaiac stools. Increased Protonix. Follow HH. Consider retroperitoneal bleed. (5) Alcohol withdrawal delirium: Code(s): F10.231 - Alcohol dependence with withdrawal delirium Status: Acute Assessment and Plan: Patient was A&O x4 on admission but seemed a bit confused. He then developed acute delirium from alcohol withdrawal 01/15 and moved to ICU for Precedex. CT brain normal. While still on Precedex, patient was awake and able to talk with staff (somewhat oriented up until 01/21). Librium on hold since 01/21. Precedex was weaned off 01/25. Has been on Thiamine and Folate. Was on a low dose Seroquel but this has been stopped as well. Patient had remained encephalopathic since being off Precedex. As above. (6) Atrial fibrillation: Code(s): I48.91 - Unspecified atrial f
--- NOTE | 2021-02-01 09:22 | WPDINTPN ---
Progress Note: A&P Assessment and Plan (1) Acute respiratory failure: Code(s): J96.00 - Acute respiratory failure, unspecified whether with hypoxia or hypercapnia Status: Acute Assessment and Plan: Patient encephalopathic/obtunded to protect his airway intubated the patient on 3020 for talking to his -patient currently on CMV mode of ventilation with 30% FiO2, peep of 5 -chest x-ray and ABGs reviewed -switch to ASV mode of ventilation - On Precedex infusion The goal is to wake the patient up as much as possible (2) Encephalopathy acute: Code(s): G93.40 - Encephalopathy, unspecified Status: Acute Assessment and Plan: Likely multifactorial could be related viral encephalitis/meningitis given CSF analysis, toxic metabolic encephalopathy secondary to infection, alcohol related Wernicke's encephalopathy, electrolyte imbalance -continue antibacterial and antivirals -CSF HSV PCR, fungal culture pending -appreciate infectious disease input -on ceftriaxone, vancomycin -acyclovir was discontinued 02/01/2021 (3) Bacteremia: Code(s): R78.81 - Bacteremia Status: Acute Assessment and Plan: ENRIKE bacteremia 01/13/2021 -infectious disease following the patient, -transthoracic echocardiogram 01/14/2021: Showed normal LV size with moderate concentric hypertrophy and good systolic function, EF 55-60%. Normal diastolic dysfunction. Left atrium moderately enlarged, mild pulmonary hypertension with RVSP of 39 mmHg, no vegetations seen. - 01/14/2021 blood cultures also positive Staph aureus 2/2 bottles -01/16/2021 blood cultures staph aureus 1 of 2 bottless -01/21/2021 blood cultures negative x2 - Lumbar CT showing no acute findings -CALIN on 01/22/2021 showed no evidence of endocarditis -repeated blood cultures on 01/21/2021 negative to date -repeat blood cultures 01/28/2021 negative x2 (4) Sepsis: Code(s): A41.9 - Sepsis, unspecified organism Status: Acute Assessment and Plan: Sepsis due staph bacteremia -patient tachycardic tachypneic which also be secondary to alcohol withdrawal secondary to adrenergic surge -patient is afebrile -continue antibiotics as above (5) Tachyarrhythmia: Code(s): R00.0 - Tachycardia, unspecified Status: Acute Assessment and Plan: EKG on 0 4/18 showed atrial fibrillation, -initial EKG did show multifocal atrial tachycardia but now in AFib with and rate controlled. -p.r.n. hydralazine for blood pressures -restarted today therapeutic Lovenox (it was on a for LP done on 01/28/2021) -currently in sinus rhythm, rate controlled -cardioversion on 01/22/2021 with successful conversion to sinus rhythm (6) Alcoholism: Code(s): F10.20 - Alcohol dependence, uncomplicated Status: Acute Assessment and Plan: Patient is a chronic alcoholic, has not been drinking 2-3 days prior to admission as he was not feeling too well. (patient drinks approximately 18 beers per day) -transferred to the ICU on 01/15/2021 for alcohol withdrawal with possible delirium tremens, received multiple doses of Ativan and Haldol in the IMU -continue thiamine, folic acid (7) Hyponatremia: Code(s): E87.1 - Hypo-osmolality and hyponatremia Status: Acute Assessment and Plan: Hyponatremia multifactorial, -maintenance IV fluids have been discontinued -continue to monitor Additional Plan Patient has a Dobbhoff tube, tolerating tube feeds, increase to goal Discuss with patient's at bedside and updated her with patient's condition, plan of care. I answered all questions.. Code status: Full code Critical care time spent: 33 minutes This dictation may have been done utilizing a voice recognition system. Attempts have been made to correct errors. However, there may be uncorrected grammatical, spelling, and recognition errors present. Due to a high probability of clinically significant, life threatening deterio
--- NOTE | 2021-02-01 10:15 | PM.PNCARD ---
Progress Note: A&P Additional Plan 65-year-old man who had atrial fib/RVR in the setting of alcoholic delirium tremens. He is still in the ICU intubated although improving gradually. With metoprolol he is maintaining sinus rhythm. We will continue to follow peripherally until he is more stable medically. Nic Gregorio MD [facility] Subjective Date/time seen: Date of service: 02/01/21 10:15 Interval history: 65-year-old man with: Evidence on telemetry initially of multifocal atrial tachycardia than zee atrial fibrillation in the setting of alcoholic delirium tremens. Patient is now out of ICU on the floor is maintaining sinus rhythm following CALIN cardioversion earlier this week. He is being treated with metoprolol. The patient remains intubated sedated in the ICU. Sedation is being weaned and he is more alert today seems to be relatively comfortable on the ventilator. Maintaining normal sinus rhythm with metoprolol no cardiac dysrhythmias Exam Const: General: comfortable and no acute distress HENMT: Mouth: Yes moist mucous membranes Eyes: Sclera: sclerae normal Pupils: Equal, round and reactive pupils present Neck: Neck: supple Resp: Effort & Inspection: normal respiratory effort Other: Few scattered rhonchi are noted Cardio: Rate: regular rate Rhythm: regular rhythm GI: GI Palp: Yes Soft to palpation Auscultation: normal bowel sounds Extrem: General: normal to inspection Objective Data Vital Signs Vital Signs: Vital Signs - 24 hr 01/31/21 10:22 01/31/21 11:31 01/31/21 11:32 Temperature Pulse Rate 78 77 77 Respiratory Rate 14 14 Blood Pressure Pulse Oximetry 100 01/31/21 12:00 01/31/21 12:20 01/31/21 12:51 Temperature 37.7 C H Pulse Rate 82 75 74 Respiratory Rate 14 14 14 Blood Pressure 95/52 L Pulse Oximetry 100 01/31/21 12:52 01/31/21 12:53 01/31/21 14:00 Temperature Pulse Rate 74 77 78 Respiratory Rate 14 14 14 Blood Pressure 131/90 Pulse Oximetry 100 01/31/21 14:20 01/31/21 16:00 01/31/21 16:35 Temperature 38.1 C H Pulse Rate 76 85 98 Respiratory Rate 14 Blood Pressure 140/82 Pulse Oximetry 100 100 100 01/31/21 18:00 01/31/21 18:18 01/31/21 19:10 Temperature 37.6 C H Pulse Rate 88 77 99 Respiratory Rate 14 14 17 Blood Pressure 165/84 H 132/69 Pulse Oximetry 100 100 01/31/21 19:56 01/31/21 20:00 01/31/21 20:55 Temperature Pulse Rate 89 95 90 Respiratory Rate 15 Blood Pressure Pulse Oximetry 100 100 01/31/21 22:00 01/31/21 23:00 01/31/21 23:47 Temperature Pulse Rate 72 73 71 Respiratory Rate 16 16 Blood Pressure 94/60 L Pulse Oximetry 100 100 02/01/21 00:00 02/01/21 00:27 02/01/21 01:00 Temperature 38.2 C H 38.2 C H 37.2 C Pulse Rate 62 Respiratory Rate 14 Blood Pressure 83/55 L 107/73 Pulse Oximetry 100 02/01/21 01:27 02/01/21 02:00 02/01/21 02:01 Temperature 37.2 C Pulse Rate 67 69 Respiratory Rate 28 H Blood Pressure 99/48 L Pulse Oximetry 100 100 02/01/21 04:00 02/01/21 04:45 02/01/21 05:15 Temperature Pulse Rate 72 79 91 Respiratory Rate 17 19 Blood Pressure 122/68 Pulse Oximetry 100 100 02/01/21 05:25 02/01/21 06:00 02/01/21 06:44 Temperature 36.9 C Pulse Rate 60 81 Respiratory Rate 14 23 H Blood Pressure 106/49 L Pulse Oximetry 100 02/01/21 07:31 02/01/21 07:59 02/01/21 08:00 Temperature 36.9 C Pulse Rate 82 84 82 Respiratory Rate 14 18 Blood Pressure 119/61 Pulse Oximetry 100 100 02/01/21 10:00 Temperature Pulse Rate 68 Respiratory Rate Blood Pressure Pulse Oximetry Intake/Output Intake/Output: Intake & Output 01/29/21 01/30/21 01/31/21 02/01/21 23:59 23:59 23:59 23:59 Intake Total 3431 3140 3531 1666 Output Total 2525 1800 1500 1225 Balance 906 1340 2031 441 Meds/Results Medications: Active Medications Generic Name Dose Route Start Last Admin Trade Name Freq PRN Reason Stop Do
--- NOTE | 2021-02-01 11:11 | PCDIET ---
Nutrition Follow-Up Complete: Inadequate oral intake related to poor appetite as evidenced by intakes 15-40%. Patient to consume 75% of meals/supplements or greater. Goal: Goal not currently appropriate due to mechanical ventilation and NPO New Goal: Total intake will meet estimated nutrition needs Pt current nutrition is Jevity 1.5@70ml/hr Nutrition recommendation: agree Last recorded weight is 86.9 kg, down slightly from assessed weight of 87.2kg Bowel Motility: 01/30 (recommend motility agent of magnesium citrate if no BM in the next 48hrs) Labs Reviewed: Hgb 8.9, Hct 26.2, Na 129, BUN 23, Glucose 131, AST/ALT 60/130, C reactive 7.7, Protein 6.0, Albumin 2.7 Meds Noted:Precedex, Fentanyl, Folic Acid, Lopressor, Versed, Protonix, Thiamin, Vancomycin Additional Notes: Pt at goal of Jevity 1.5 at 70ml/hr providing 2310 kcals, 97g protein, and 1170ml of free water. I/O + at 2031ml today. Pt was intubated on . Plans to reduce precedex for possible extubation trial tomorrow. Pt following commands. Occult blood stool ordered today. Little edema in hands but no other skin issues. We will reassess tomorrow.
[2021-02-01] MEDS: dexmedeTOMIDine 400 MCG/100 ML 400 MCG/100 ML BAG 6.27 MCG IV CONT (11:35)
[2021-02-01 12:19] LABS: Hematocrit 25.6 % (42.0-52.0); Hemoglobin 8.7 g/dL (14.0-18.0)
[2021-02-01 14:16] LABS: VDRL Quantitative CSF Nonreactive (Nonreactive)
[2021-02-01 18:17] LABS: Hematocrit 26.8 % (42.0-52.0); Hemoglobin 9.3 g/dL (14.0-18.0)
[2021-02-01] MEDS: SCOPOLAMINE 1.5 MG PATCH TRANSDERM (21:57)
[2021-02-01] MEDS: WATER, STERILE FOR INJECTION 10 ML VIAL XX (21:59)
[2021-02-02] VITALS (34 sets, daily range): BP systolic 99–154; BP diastolic 56–88; PULSE 61–90; RESP 9–43; TEMP 36.9–37.6; O2SAT 94–100
[2021-02-02 00:37] LABS: Vancomycin Trough 9.6 ug/mL (10.0-20.0)
[2021-02-02 01:07] LABS: Hematocrit 25.7 % (42.0-52.0); Hemoglobin 8.6 g/dL (14.0-18.0)
[2021-02-02] MEDS: dexmedeTOMIDine 400 MCG/100 ML 400 MCG/100 ML BAG 10.45 MCG IV CONT (03:50)
[2021-02-02 04:21] LABS: Alveolar/Arterial O2 Gradient 78.2 mmHg; Base Excess ABG 4.8 mEq/l (+/-2.0); Carboxyhemoglobin 0.2 % THb (0-2.0); Fractional Inspired Oxygen 30 %; HCO3 ABG 27.7 mEq/l (22.0-26.0); Methemoglobin ABG 0.3 %THb (0-1.5); Oxygen Content ABG 13.7 %vol (16.0-22.0); Oxygen Saturation ABG 97.9 % (95.0-100.0); Oxyhemoglobin 96.3 % THb (90.0-100.0); PCO2 ABG 34.6 mmHg (35.0-45.0); PO2 FiO2 Ratio Arterial Blood 3.17 %; Reduced Hemoglobin 3.2 %THb (0-5.0)
[2021-02-02 04:23] LABS: Modified Allen's Test Unable to perform; Site Drawn RIGHT RADIAL; pH ABG 7.522 (7.350-7.450)
[2021-02-02 04:24] LABS: Arterial Blood Gas Minute Volume 7 LPM; Arterial Blood Gas PEEP 5 cmH2O; Arterial Blood Gas Vent Mode ASV; Device VENTILATOR
[2021-02-02 05:18] LABS: Basophils Absolute Auto 0.1 K/mm3 (0.0-0.1); Basophils Percent Auto 0.5 % (0.2-1.2); Eosinophils Absolute Auto 0.2 K/mm3 (0-0.3); Eosinophils Percent Auto 2.3 % (0-4.4); Hematocrit 27.8 % (42.0-52.0); Hemoglobin 9.1 g/dL (14.0-18.0); Immature Granulocyte Absolute 0.05 K/mm3 (0.00-0.031); Immature Granulocyte Percent A 0.5 % (0-0.5); Lymphocytes Absolute Auto 1.05 K/mm3 (0.9-3.2); Lymphocytes Percent Auto 11.5 % (18.3-44.2); Mean Corpuscular HGB Conc 32.7 g/dl (32-36); Mean Corpuscular Volume 94.6 fl (80-100); Mean Platelet Volume 9.6 fl (7.4-10.4); Monocytes Absolute Auto 0.8 K/mm3 (0.1-0.6); Monocytes Percent Auto 8.4 % (2.6-8.5); Neutrophils Percent Auto 76.8 % (45.5-73.1); Platelet Count Result 443 k/mm3 (150-375); Red Blood Count 2.94 M/mm3 (4.6-6.20); Red Cell Distribution Width 12.2 % (11.5-14.5); White Blood Count 9.1 K/mm3 (4.5-10.0)
[2021-02-02 05:41] LABS: Alanine Aminotransferase 77 U/L (4-50); Albumin Level 2.8 g/dL (3.5-5.1); Alkaline Phosphatase 135 U/L (38-126); Anion Gap 3 mmol/L (8-16); Aspartate Amino Transferase 64 U/L (17-59); Bilirubin,Total 0.1 mg/dL (0.2-1.3); Blood Urea Nitrogen 20 mg/dL (9-20); CRP 7.6 mg/dL (<1.0); Calcium 8.8 mg/dL (8.4-10.2); Carbon Dioxide 33 mmol/L (22-30); Chloride 94 mmol/L (98-107); Estimated CRCL calculation 83 ml/min; Estimated Glomerular Filt Rate > 60; Glucose 112 mg/dL (75-110); Magnesium 1.9 mg/dL (1.6-2.3); Phosphorus 3.6 mg/dL (2.5-4.5); Potassium 4.4 mmol/L (3.4-5.0); Sodium 130 mmol/L (137-145)
[2021-02-02] MEDS: ENOXAPARIN 80 MG/0.8 ML SYRINGE SUB-Q ×2 (08:11→21:02)
[2021-02-02] MEDS: PANTOPRAZOLE SODIUM IV 40 MG VIAL IV PUSH ×2 (08:12→21:03)
[2021-02-02] MEDS: THIAMINE HCL 200 MG/2 ML VIAL 100 MG IV PUSH (08:12)
[2021-02-02] MEDS: ASPIRIN 81 MG CHEWABLE TABLET FEED TUBE (08:12)
[2021-02-02] MEDS: METOPROLOL TARTRATE 50 MG TAB PO ×2 (08:12→21:03)
[2021-02-02] MEDS: FOLIC ACID 1 MG/0.2 ML INJ IV PUSH (08:41)
--- NOTE | 2021-02-02 10:29 | WPDINTPN ---
Progress Note: A&P Assessment and Plan (1) Acute respiratory failure: Code(s): J96.00 - Acute respiratory failure, unspecified whether with hypoxia or hypercapnia Status: Acute Assessment and Plan: Patient encephalopathic/obtunded to protect his airway intubated the patient on 3020 for talking to his -patient currently on CMV mode of ventilation with 30% FiO2, peep of 5 -chest x-ray and ABGs reviewed -I tried patient on pressure support ventilation today but patient kept on making apnea alarm and going into back up assist control mode -continue ASV mode of ventilation. Decrease minute ventilation to 80% of goal - On minimal Precedex infusion The goal is to wake the patient up as much as possible. Hold all other sedative (2) Encephalopathy acute: Code(s): G93.40 - Encephalopathy, unspecified Status: Acute Assessment and Plan: Likely multifactorial could be related viral encephalitis/meningitis given CSF analysis, toxic metabolic encephalopathy secondary to infection, alcohol related Wernicke's encephalopathy, electrolyte imbalance -ammonia and TSH level were normal -continue antibacterial and antivirals -elevated CSF protein and lymphocytosis -CSF HSV PCR, cryptococcus were negative -bacterial and fungal culture negative till now -appreciate infectious disease input -on ceftriaxone, vancomycin -acyclovir was discontinued 02/01/2021 (3) Bacteremia: Code(s): R78.81 - Bacteremia Status: Acute Assessment and Plan: ENRIKE bacteremia 01/13/2021 -infectious disease following the patient, -transthoracic echocardiogram 01/14/2021: Showed normal LV size with moderate concentric hypertrophy and good systolic function, EF 55-60%. Normal diastolic dysfunction. Left atrium moderately enlarged, mild pulmonary hypertension with RVSP of 39 mmHg, no vegetations seen. -CALIN on 01/22/2021 showed no evidence of endocarditis - 01/14/2021 blood cultures also positive Staph aureus 2/2 bottles -01/16/2021 blood cultures staph aureus 1 of 2 bottles -01/21/2021 blood cultures negative x2 -repeat blood cultures 01/28/2021 negative x2 - Lumbar CT showing no acute findings -CT chest abdomen pelvis were also nondiagnostic (4) Sepsis: Code(s): A41.9 - Sepsis, unspecified organism Status: Acute Assessment and Plan: Sepsis due staph bacteremia -patient is afebrile now -continue antibiotics as above (5) Tachyarrhythmia: Code(s): R00.0 - Tachycardia, unspecified Status: Acute Assessment and Plan: EKG on 01/17 showed atrial fibrillation, -initial EKG did show multifocal atrial tachycardia but now in AFib with and rate controlled. -cardioversion on 01/22/2021 with successful conversion to sinus rhythm -continue therapeutic Lovenox -currently in sinus rhythm, rate controlled (6) Alcoholism: Code(s): F10.20 - Alcohol dependence, uncomplicated Status: Acute Assessment and Plan: Patient is a chronic alcoholic, has not been drinking 2-3 days prior to admission as he was not feeling too well. (patient drinks approximately 18 beers per day) -transferred to the ICU on 01/15/2021 for alcohol withdrawal with possible delirium tremens, received multiple doses of Ativan and Haldol in the IMU -continue thiamine, folic acid.. Switched to per tube (7) Hyponatremia: Code(s): E87.1 - Hypo-osmolality and hyponatremia Status: Acute Assessment and Plan: Hyponatremia multifactorial, improved -maintenance IV fluids have been discontinued -continue to monitor (8) Edema: Code(s): R60.9 - Edema, unspecified Status: Acute Assessment and Plan: Will repeat left lower extremity venous Dopplers Additional Plan Patient has a Dobbhoff tube, tolerating tube feeds Discuss with patient's at bedside and updated her with patient's condition, plan of care. I answered all questions. Code status: Full code Critical care
--- NOTE | 2021-02-02 11:35 | WPDNEUROPN ---
Review of Systems Review of Systems: All systems reviewed & are unremarkable except as noted in HPI and below Exam Narrative: Exam Narrative: examination today revealed him to be intubated lying in bed with spontaneous movements of head from side to side intermittently on simple sternal rub patient moved the upper and lower extremities as well and also with supraorbital pressure he moved his eyes and when I asked with a urine pain he shook his head, he tried to stick his tongue out when I asked him to stick the tongue out and he moved his head from side to side in front of his who was concerned about his neurological status. I explained to her even if I obtain the EEG it definitely going to show brain activity which would be compatible with encephalopathic state the only advantage will have if he considering the possibility of the seizures but he is feeling the pain he is moving the eyes from side to side and is trying to stick the tongue out when I asked all these signs are that he is there and the EEG is not going to show any difference he is getting all the aunt appropriate treatment I concur with those treatments but I will follow along with you thanks again Objective Data Vital Signs Vital Signs: Vital Signs - 24 hr 02/01/21 12:00 02/01/21 13:55 02/01/21 14:00 Temperature 37.4 C Pulse Rate 70 67 62 Respiratory Rate 15 9 L Blood Pressure 117/65 116/63 Pulse Oximetry 100 100 100 02/01/21 14:01 02/01/21 15:55 02/01/21 16:00 Temperature 37.2 C Pulse Rate 62 75 74 Respiratory Rate 9 L 15 14 Blood Pressure 141/80 H Pulse Oximetry 100 02/01/21 17:21 02/01/21 17:58 02/01/21 18:00 Temperature Pulse Rate 71 93 96 Respiratory Rate 26 H 25 H Blood Pressure 145/82 H Pulse Oximetry 100 100 02/01/21 19:25 02/01/21 20:00 02/01/21 20:02 Temperature 37.6 C Pulse Rate 89 89 88 Respiratory Rate 13 13 Blood Pressure 130/78 Pulse Oximetry 99 99 02/01/21 20:07 02/01/21 20:29 02/01/21 22:00 Temperature Pulse Rate 89 72 77 Respiratory Rate 23 H 14 Blood Pressure 96/46 L Pulse Oximetry 100 100 02/01/21 23:15 02/02/21 00:00 02/02/21 00:30 Temperature 37.6 C H Pulse Rate 75 81 81 Respiratory Rate 43 H 43 H Blood Pressure 110/61 Pulse Oximetry 100 100 98 02/02/21 02:00 02/02/21 02:02 02/02/21 02:43 Temperature Pulse Rate 71 61 75 Respiratory Rate 24 H 18 Blood Pressure 126/64 Pulse Oximetry 99 100 02/02/21 03:05 02/02/21 03:50 02/02/21 04:00 Temperature 36.9 C Pulse Rate 72 78 76 Respiratory Rate 26 H 15 17 Blood Pressure 133/66 Pulse Oximetry 99 02/02/21 05:07 02/02/21 05:29 02/02/21 05:47 Temperature Pulse Rate 75 64 62 Respiratory Rate 12 11 L Blood Pressure Pulse Oximetry 98 02/02/21 06:00 02/02/21 07:48 02/02/21 07:59 Temperature Pulse Rate 72 78 72 Respiratory Rate 13 Blood Pressure 127/64 Pulse Oximetry 98 98 98 02/02/21 08:00 02/02/21 08:11 02/02/21 08:12 Temperature 37.6 C H Pulse Rate 71 76 76 Respiratory Rate 17 14 Blood Pressure 125/60 Pulse Oximetry 100 02/02/21 09:05 02/02/21 09:12 02/02/21 10:00 Temperature Pulse Rate 76 63 72 Respiratory Rate 9 L 16 Blood Pressure 99/56 L Pulse Oximetry 98 98 02/02/21 10:29 02/02/21 10:31 Temperature Pulse Rate 68 67 Respiratory Rate 19 Blood Pressure Pulse Oximetry 97 Intake/Output Intake/Output: Intake & Output 01/30/21 01/31/21 02/01/21 02/02/21 23:59 23:59 23:59 23:59 Intake Total 3140 3531 2790.3 1018.7 Output Total 1800 1500 2775 825 Balance 1340 2031 15.3 193.7 Meds/Results Medications: Active Medications Generic Name Dose Route Start Last Admin Trade Name Freq PRN Reason Stop Dose Admin Acetaminophen 650 mg 01/24/21 12:48 02/01/21 00:27 Acetaminophen 325 Mg Tablet FEED TUBE 650 mg Q6H PRN Administration Mild Pain (1-3) or Fever Albuterol 2.5 mg 01/23/21 12:00 01/29/21 15:02
[2021-02-02] MEDS: CYANOCOBALAMIN 1,000 MCG TABLET 1000 MCG PO (12:13)
--- NOTE | 2021-02-02 12:22 | PCFNICU ---
ICU Rounding Note: Pt current nutrition is Jevity 1.5 at 70 ml/hr Last recorded weight is 87.2 kg. Bowel Motility:+BM reported 01/30 Labs Reviewed:Na 130,Alb 2.8,Glu 112,Hgb 9.1 Meds Noted: Precedex,Folic Acid, Lopressor,Lovenox, Protonix, Thiamin, Vancomycin Additional Notes: Nutrition follow up. Patient had breathing trial today, will remain on mechanical vent at this time. Tube feedings resumed of Jevity 1.5 at 70 ml/hr and tolerated. Skin-edema noted. Following daily in ICU rounds. Assessing/reassessing every Monday and Monday.
--- NOTE | 2021-02-02 14:37 | PM.IMPN ---
Progress Note: A&P Assessment and Plan (1) Encephalopathy acute: Code(s): G93.40 - Encephalopathy, unspecified Status: Acute Assessment and Plan: See below. Investigation up until now are as follows. CT brain from 01/27 showing no acute findings. MRI brain 01/28 showing no acute findings. Ammonia level negative. LP showing TP 597, HRF118, WBC40 with 96% lymphocytes. Path showing chronic inflammation. Gram stain showing moderate WBC but no MO; fungal smear showing no organisms. BCx 01/28 NGTD. UCx negative. Sputum Cx negative x2. CSF Cx NGTD. Crypto Ag negative. HSV PCR negative. (2) Acute respiratory failure: Code(s): J96.00 - Acute respiratory failure, unspecified whether with hypoxia or hypercapnia Status: Acute Assessment and Plan: Patient was intubation on 01/29/21. Pt trying to wean off and extubate. (3) Septicemia: Code(s): A41.9 - Sepsis, unspecified organism Status: Acute Assessment and Plan: likely secondary to ENRIKE bacteremia. Seen by ID continue rocephin and vancomycin (4) Anemia: Code(s): D64.9 - Anemia, unspecified Status: Acute Assessment and Plan: Patient's hemoglobin was normal on admission, hb staying at 9 (5) Alcohol withdrawal delirium: Code(s): F10.231 - Alcohol dependence with withdrawal delirium Status: Acute Assessment and Plan: Interval history: Patient was A&O x4 on admission but seemed a bit confused. He then developed acute delirium from alcohol withdrawal 01/15 and moved to ICU for Precedex. CT brain normal. While still on Precedex, patient was awake and able to talk with staff (somewhat oriented up until 01/21). Librium on hold since 01/21. Precedex was weaned off 01/25. Has been on Thiamine and Folate. Was on a low dose Seroquel but this has been stopped as well. Patient had remained encephalopathic since being off Precedex. (6) Atrial fibrillation: Code(s): I48.91 - Unspecified atrial fibrillation Status: Acute Assessment and Plan: Interval histotry EKG on admission consistent with MAT. Metoprolol started. Echo with EF 55-60% with normal diastolic dysfunction and mild pulm HTN. TSH normal. Patient developed AFib after admission. Continue tele. Appreciate Cardiology input. Continue metoprolol and full dose Lovenox. (7) Hypertension: Code(s): I10 - Essential (primary) hypertension Status: Acute Assessment and Plan: Bp is 112/70 (8) Hyponatremia: Code(s): E87.1 - Hypo-osmolality and hyponatremia Status: Acute Assessment and Plan: Sodium is 130. (9) Alcoholism: Code(s): F10.20 - Alcohol dependence, uncomplicated Status: Acute Assessment and Plan: stated patient only drinks beer and can drink 12-18 beers per day. (10) DVT prophylaxis: Code(s): Z29.9 - Encounter for prophylactic measures, unspecified Status: Acute Assessment and Plan: Therapeutic Lovenox Additional Plan Subjective Date/time seen: 02/02/21 14:37 Interval history: Interval history: 65yo male with alcoholism and HTN here for bacteremia. 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 BCx drawn returned positive for ENRIKE and patient directed back to the ED on 01/14 and admitted. He developed DTs and ultimately moved to ICU on 01/15 and started on Precedex. AFIb developed requiring CALIN with cardioversion 01/22. Off librium 01/21, off Precedex on 01/25. Patient has remained obtunded since being off Precedex. Brain MRI 01/28 showing no acute findings. LP on 01/28 showing elevated TP, nml glucose, WBC 40 mostly lymphocytes. Moved back to ICU on 01/28 and intubated 01/29. Pt continues to wean of the ventilator hope for extubation tomorrow. by the bedside. Very suppor
[2021-02-03] VITALS (24 sets, daily range): BP systolic 115–163; BP diastolic 43–89; PULSE 67–91; RESP 15–38; TEMP 37.1–38.1; O2SAT 96–100
[2021-02-03 04:36] LABS: Alveolar/Arterial O2 Gradient 109.5 mmHg; Base Excess ABG 5.3 mEq/l (+/-2.0); Fractional Inspired Oxygen 40 %; HCO3 ABG 28.8 mEq/l (22.0-26.0); Oxygen Content ABG 14.4 %vol (16.0-22.0); Oxygen Saturation ABG 98.9 % (95.0-100.0); Oxyhemoglobin 97.6 % THb (90.0-100.0); PCO2 ABG 37.9 mmHg (35.0-45.0); PO2 ABG 132.1 mmHg (80.0-100.0); Total Hemoglobin 10.3 g/dL (12.0-18.0); pH ABG 7.499 (7.350-7.450)
[2021-02-03 04:37] LABS: Device VENTILATOR; Modified Allen's Test Pass; Site Drawn RIGHT RADIAL
[2021-02-03 04:38] LABS: Arterial Blood Gas Minute Volume 6 LPM; Arterial Blood Gas PEEP 5 cmH2O; Arterial Blood Gas Vent Mode ASV
[2021-02-03 05:01] LABS: Basophils Absolute Auto 0.1 K/mm3 (0.0-0.1); Basophils Percent Auto 0.6 % (0.2-1.2); Eosinophils Absolute Auto 0.3 K/mm3 (0-0.3); Eosinophils Percent Auto 3.3 % (0-4.4); Hematocrit 26.9 % (42.0-52.0); Hemoglobin 8.9 g/dL (14.0-18.0); Immature Granulocyte Absolute 0.07 K/mm3 (0.00-0.031); Immature Granulocyte Percent A 0.8 % (0-0.5); Lymphocytes Absolute Auto 1.05 K/mm3 (0.9-3.2); Lymphocytes Percent Auto 11.3 % (18.3-44.2); Mean Corpuscular HGB Conc 33.1 g/dl (32-36); Mean Corpuscular Hemoglobin 30.7 pg (26-34); Mean Corpuscular Volume 92.8 fl (80-100); Mean Platelet Volume 9.4 fl (7.4-10.4); Monocytes Absolute Auto 0.8 K/mm3 (0.1-0.6); Monocytes Percent Auto 8.5 % (2.6-8.5); Neutrophils Percent Auto 75.5 % (45.5-73.1); Platelet Count Result 453 k/mm3 (150-375); Red Cell Distribution Width 12.4 % (11.5-14.5); White Blood Count 9.3 K/mm3 (4.5-10.0)
[2021-02-03 05:17] LABS: Alanine Aminotransferase 92 U/L (4-50); Albumin Level 2.8 g/dL (3.5-5.1); Alkaline Phosphatase 139 U/L (38-126); Anion Gap 2 mmol/L (8-16); Aspartate Amino Transferase 71 U/L (17-59); Bilirubin,Total < 0.1 mg/dL (0.2-1.3); Blood Urea Nitrogen 18 mg/dL (9-20); CRP 6.4 mg/dL (<1.0); Calcium 8.8 mg/dL (8.4-10.2); Carbon Dioxide 34 mmol/L (22-30); Chloride 95 mmol/L (98-107); Estimated CRCL calculation 83 ml/min; Estimated Glomerular Filt Rate > 60; Glucose 143 mg/dL (75-110); Magnesium 1.9 mg/dL (1.6-2.3); Phosphorus 3.8 mg/dL (2.5-4.5); Potassium 4.4 mmol/L (3.4-5.0); Sodium 131 mmol/L (137-145)
--- NOTE | 2021-02-03 07:10 | WPDINTPN ---
Progress Note: A&P Assessment and Plan (1) Acute respiratory failure: Code(s): J96.00 - Acute respiratory failure, unspecified whether with hypoxia or hypercapnia Status: Acute Assessment and Plan: Patient encephalopathic/obtunded to protect his airway intubated the patient on 3020 for talking to his -patient currently on ASV mode of ventilation with 30% FiO2, peep of 5 -chest x-ray and ABGs reviewed -patient failed pressure support weaning trial this morning. Despite setting it at 10/5 he continued to go into apnea alarm when he falls asleep -continue ASV mode of ventilation. Decrease minute ventilation to 80% of goal -off all sedation The goal is to wake the patient up as much as possible. Continue to Hold all other sedative (2) Encephalopathy acute: Code(s): G93.40 - Encephalopathy, unspecified Status: Acute Assessment and Plan: Likely multifactorial could be related viral encephalitis/meningitis given CSF analysis, toxic metabolic encephalopathy secondary to infection, alcohol related Wernicke's encephalopathy, electrolyte imbalance -ammonia and TSH level were normal -continue antibacterial and antivirals -elevated CSF protein and lymphocytosis -CSF HSV PCR, cryptococcus were negative -bacterial and fungal culture negative till now -appreciate infectious disease input -on ceftriaxone, vancomycin -acyclovir was discontinued 02/01/2021 -vitamin B12 was added as per neurology recommendations yesterday (3) Bacteremia: Code(s): R78.81 - Bacteremia Status: Acute Assessment and Plan: ENRIKE bacteremia 01/13/2021 -infectious disease following the patient, -transthoracic echocardiogram 01/14/2021: Showed normal LV size with moderate concentric hypertrophy and good systolic function, EF 55-60%. Normal diastolic dysfunction. Left atrium moderately enlarged, mild pulmonary hypertension with RVSP of 39 mmHg, no vegetations seen. -CALIN on 01/22/2021 showed no evidence of endocarditis - 01/14/2021 blood cultures also positive Staph aureus 2/2 bottles -01/16/2021 blood cultures staph aureus 1 of 2 bottles -01/21/2021 blood cultures negative x2 -repeat blood cultures 01/28/2021 negative x2 - Lumbar CT showing no acute findings -CT chest abdomen pelvis were also nondiagnostic (4) Sepsis: Code(s): A41.9 - Sepsis, unspecified organism Status: Acute Assessment and Plan: Sepsis due staph bacteremia -patient is afebrile now -continue antibiotics as above (5) Tachyarrhythmia: Code(s): R00.0 - Tachycardia, unspecified Status: Acute Assessment and Plan: EKG on 01/17 showed atrial fibrillation, -initial EKG did show multifocal atrial tachycardia but now in AFib with and rate controlled. -cardioversion on 01/22/2021 with successful conversion to sinus rhythm -continue therapeutic Lovenox -currently in sinus rhythm, rate controlled (6) Alcoholism: Code(s): F10.20 - Alcohol dependence, uncomplicated Status: Acute Assessment and Plan: Patient is a chronic alcoholic, has not been drinking 2-3 days prior to admission as he was not feeling too well. (patient drinks approximately 18 beers per day) -transferred to the ICU on 01/15/2021 for alcohol withdrawal with possible delirium tremens, received multiple doses of Ativan and Haldol in the IMU -continue thiamine, folic acid.. Switched to per tube (7) Hyponatremia: Code(s): E87.1 - Hypo-osmolality and hyponatremia Status: Acute Assessment and Plan: Hyponatremia multifactorial, improved -maintenance IV fluids have been discontinued -continue to monitor (8) Edema: Code(s): R60.9 - Edema, unspecified Status: Acute Assessment and Plan: left lower extremity venous Dopplers was repeated and was negative for DVT Additional Plan Patient has a Dobbhoff tube, tolerating tube feeds Code status: Full code DVT prophylaxis -Lovenox therapeutic d
[2021-02-03] MEDS: FOLIC ACID 1 MG TABLET PO (07:42)
[2021-02-03] MEDS: CYANOCOBALAMIN 1,000 MCG TABLET 1000 MCG PO (07:42)
[2021-02-03] MEDS: THIAMINE HCL 100 MG TABLET PO (07:42)
[2021-02-03] MEDS: ASPIRIN 81 MG CHEWABLE TABLET FEED TUBE (07:42)
[2021-02-03] MEDS: METOPROLOL TARTRATE 50 MG TAB PO ×2 (07:43→21:00)
[2021-02-03] MEDS: ENOXAPARIN 80 MG/0.8 ML SYRINGE SUB-Q ×2 (07:43→21:00)
[2021-02-03] MEDS: PANTOPRAZOLE SODIUM IV 40 MG VIAL IV PUSH ×2 (07:43→21:00)
[2021-02-03] MEDS: ACETAMINOPHEN 325 MG TABLET 650 MG FEED TUBE (08:02)
--- NOTE | 2021-02-03 10:59 | PCFNICU ---
ICU Rounding Note: Pt current nutrition is Jevity 1.5 at 70 ml/hr Last recorded weight is 86.2kg, down from 87.2kg on admit. Bowel Motility: +BM 5/5 Labs Reviewed: Na 130,Alb 2.8,Hct 26.9,Hgb 8.9 Meds Noted: Rocephin,Folic Acid, Vit B, Vanco,Lopressor,Lovenox, Protonix, Tylenol. Additional Notes: Patient remains on mechanical vent. More alert today, following commands. Tolerating tube feedings of Jevity 1.5 at 70 ml/hr at goal rate. Skin-good. Fever this morning, Tylenol given. Following daily in ICU rounds. Assessing/reassessing every Monday and Monday.
--- NOTE | 2021-02-03 11:29 | WPDNEUROPN ---
Objective Data Vital Signs Vital Signs: Vital Signs - 24 hr 02/02/21 12:00 02/02/21 12:13 02/02/21 13:57 Temperature 37.4 C Pulse Rate 69 70 78 Respiratory Rate 16 13 Blood Pressure 112/60 Pulse Oximetry 97 97 02/02/21 14:00 02/02/21 16:00 02/02/21 16:39 Temperature 37.3 C Pulse Rate 72 71 72 Respiratory Rate 16 14 Blood Pressure 112/70 121/65 Pulse Oximetry 97 100 96 02/02/21 18:00 02/02/21 20:00 02/02/21 20:15 Temperature 36.9 C Pulse Rate 78 75 79 Respiratory Rate 22 H 14 Blood Pressure 154/70 H 120/65 Pulse Oximetry 99 95 97 02/02/21 21:03 02/02/21 22:00 02/02/21 23:10 Temperature Pulse Rate 78 64 65 Respiratory Rate 14 Blood Pressure 142/88 H Pulse Oximetry 97 99 02/03/21 00:00 02/03/21 01:55 02/03/21 02:00 Temperature 37.2 C Pulse Rate 70 80 72 Respiratory Rate 16 18 Blood Pressure 122/89 137/68 Pulse Oximetry 98 99 98 02/03/21 04:00 02/03/21 05:00 02/03/21 06:00 Temperature 37.2 C Pulse Rate 72 74 70 Respiratory Rate 20 20 Blood Pressure 139/71 128/61 Pulse Oximetry 100 99 98 02/03/21 07:43 02/03/21 07:47 02/03/21 08:00 Temperature 38.1 C H Pulse Rate 73 74 81 Respiratory Rate 31 H Blood Pressure 119/74 Pulse Oximetry 98 98 02/03/21 08:02 02/03/21 08:25 02/03/21 09:17 Temperature 38.1 C H 38.1 C H Pulse Rate 68 Respiratory Rate Blood Pressure Pulse Oximetry 97 02/03/21 11:12 Temperature Pulse Rate 72 Respiratory Rate Blood Pressure Pulse Oximetry 97 Intake/Output Intake/Output: Intake & Output 01/31/21 02/01/21 02/02/21 02/03/21 23:59 23:59 23:59 23:59 Intake Total 3531 2790.3 3031.7 1470 Output Total 1500 2775 2675 850 Balance 2031 15.3 356.7 620 Meds/Results Medications: Active Medications Generic Name Dose Route Start Last Admin Trade Name Freq PRN Reason Stop Dose Admin Acetaminophen 650 mg 01/24/21 12:48 02/03/21 08:02 Acetaminophen 325 Mg Tablet FEED TUBE 650 mg Q6H PRN Administration Mild Pain (1-3) or Fever Albuterol 2.5 mg 01/23/21 12:00 01/29/21 15:02 Albuterol Sulfate Neb 2.5 Mg/0.5 Ml Inh INHALATION 2.5 mg Q6HRT PRN Administration Dyspnea Aspirin 81 mg 01/24/21 08:00 02/03/21 07:42 Aspirin 81 Mg Chewable Tablet FEED TUBE 81 mg DAILY@0800 APRYL Administration Cyanocobalamin 1,000 mcg 02/02/21 11:00 02/03/21 07:42 Cyanocobalamin 1,000 Mcg Tablet PO 1,000 mcg QAM APRYL Administration Enoxaparin Sodium 80 mg 01/29/21 10:30 02/03/21 07:43 Enoxaparin 80 Mg/0.8 Ml Syringe SUB-Q 80 mg Q12HR APRYL Administration Folic Acid 1 mg 02/03/21 09:00 02/03/21 07:42 Folic Acid 1 Mg Tablet PO 1 mg DAILY APRYL Administration Hydralazine HCl 10 mg 01/20/21 09:40 01/31/21 18:22 Hydralazine Hcl 20 Mg/Ml Vial IV PUSH 10 mg Q4H PRN Administration Blood Pressure - High Ceftriaxone Sodium 2 gm in 100 mls @ 200 mls/hr 01/27/21 12:00 02/03/21 01:04 Rocephin 2 Gm/D5w 100 Ml IVPB Infused Q12H APRYL Infusion Vancomycin HCl 1,500 mg in 500 mls @ 333.333 mls/hr 02/02/21 02:00 02/03/21 02:51 Vancomycin 1,500 Mg/D5w 500 Ml IVPB Infused Q12H APRYL Infusion Dexmedetomidine HCl 400 mcg in 100 mls @ 0 mls/hr 02/02/21 12:20 Precedex 400 Mcg/100 Ml IV CONT .Q0M [facility] Protocol Metoprolol Tartrate 50 mg 01/24/21 09:35 02/03/21 07:43 Metoprolol Tartrate 50 Mg Tab PO 50 mg Q12HR APRYL Administration Metoprolol Tartrate 5 mg 01/25/21 18:43 01/29/21 06:06 Metoprolol Tartrate Inj 5 Mg/5 Ml Vial IV PUSH 5 mg Q2HR PRN Administration increased heart rate Multi-Ingred Cream/Lotion/Oil/Oint 1 applic 01/29/21 09:00 02/03/21 07:43 Mineral Oil/Petrolatum,White 1 Applic EACH EYE 1 applic Q12HR APRYL Administration Pantoprazole Sodium 40 mg 02/01/21 21:00 02/03/21 07:43 Pantoprazole Sodium Iv 40 Mg Vial IV PUSH 40 mg Q12HR APRYL Administration Scopolamine 1.5 mg 05
--- NOTE | 2021-02-03 13:13 | WPDINFPN2 ---
Progress Note: A&P Assessment and Plan (1) Bacteremia: Code(s): R78.81 - Bacteremia Status: Acute Assessment and Plan: 1. ENRIKE bacteremia with infection, skin source likely, microbiologic cure. 2. Alcoholism 3. Abnormal CSF and decreased LOC, no infection suspected as all micro testing is no growth/non reactive. Non infectious causes should be considered instead 4. Breakthrough fever, resolved. Normal catherine on 2 tracheal cultures. REC (antibiotic #21 / 28 days) Continue Ctx in place of the cefazolin #8 / 15. Off other antimicrobials. Disc above with family at bedside, and I will defer to Neurology other diagnoses/treatments. Subjective Date/time seen: 02/03/21 13:13 Interval history: eyes open Exam Narrative: Exam Narrative: t max 38.1 core Const: General: no acute distress Eyes: General: appearance normal, both eyes and all related structures Resp: Effort & Inspection: normal respiratory effort Auscultation: clear to auscultation bilaterally Cardio: Rate: regular rate Rhythm: regular rhythm Heart sounds: no murmurs GI: Inspection: non-distended GI Palp: Yes Soft to palpation and No Tenderness to palpation present (GI) Skin: General skin exam: no rashes or lesions noted Objective Data Vital Signs Vital Signs: Vital Signs - 24 hr 02/02/21 13:57 02/02/21 14:00 02/02/21 16:00 Temperature 37.3 C Pulse Rate 78 72 71 Respiratory Rate 16 14 Blood Pressure 112/70 121/65 Pulse Oximetry 97 97 100 02/02/21 16:39 02/02/21 18:00 02/02/21 20:00 Temperature 36.9 C Pulse Rate 72 78 75 Respiratory Rate 22 H 14 Blood Pressure 154/70 H 120/65 Pulse Oximetry 96 99 95 02/02/21 20:15 02/02/21 21:03 02/02/21 22:00 Temperature Pulse Rate 79 78 64 Respiratory Rate 14 Blood Pressure 142/88 H Pulse Oximetry 97 97 02/02/21 23:10 02/03/21 00:00 02/03/21 01:55 Temperature 37.2 C Pulse Rate 65 70 80 Respiratory Rate 16 Blood Pressure 122/89 Pulse Oximetry 99 98 99 02/03/21 02:00 02/03/21 04:00 02/03/21 05:00 Temperature 37.2 C Pulse Rate 72 72 74 Respiratory Rate 18 20 Blood Pressure 137/68 139/71 Pulse Oximetry 98 100 99 02/03/21 06:00 02/03/21 07:43 02/03/21 07:47 Temperature Pulse Rate 70 73 74 Respiratory Rate 20 Blood Pressure 128/61 Pulse Oximetry 98 98 02/03/21 08:00 02/03/21 08:02 02/03/21 08:25 Temperature 38.1 C H 38.1 C H Pulse Rate 81 68 Respiratory Rate 31 H Blood Pressure 119/74 Pulse Oximetry 98 97 02/03/21 09:17 02/03/21 11:12 Temperature 38.1 C H Pulse Rate 72 Respiratory Rate Blood Pressure Pulse Oximetry 97 Intake/Output Intake/Output: Intake & Output 01/31/21 02/01/21 02/02/21 02/03/21 23:59 23:59 23:59 23:59 Intake Total 3531 2790.3 3031.7 1470 Output Total 1500 2775 2675 850 Balance 2031 15.3 356.7 620 Meds/Results Medications: Active Medications Generic Name Dose Route Start Last Admin Trade Name Freq PRN Reason Stop Dose Admin Acetaminophen 650 mg 01/24/21 12:48 02/03/21 08:02 Acetaminophen 325 Mg Tablet FEED TUBE 650 mg Q6H PRN Administration Mild Pain (1-3) or Fever Albuterol 2.5 mg 01/23/21 12:00 01/29/21 15:02 Albuterol Sulfate Neb 2.5 Mg/0.5 Ml Inh INHALATION 2.5 mg Q6HRT PRN Administration Dyspnea Aspirin 81 mg 01/24/21 08:00 02/03/21 07:42 Aspirin 81 Mg Chewable Tablet FEED TUBE 81 mg DAILY@0800 APRYL Administration Cyanocobalamin 1,000 mcg 02/02/21 11:00 02/03/21 07:42 Cyanocobalamin 1,000 Mcg Tablet PO 1,000 mcg QAM APRYL Administration Enoxaparin Sodium 80 mg 01/29/21 10:30 02/03/21 07:43 Enoxaparin 80 Mg/0.8 Ml Syringe SUB-Q 80 mg Q12HR APRYL Administration Folic Acid 1 mg 02/03/21 09:00 02/03/21 07:42 Folic Acid 1 Mg Tablet PO 1 mg DAILY APRYL Administration Hydralazine HCl 10 mg 01/20/21 09:40 01/31/21 18:22 Hydralazine Hcl 20 Mg/Ml Vial IV PUSH 10 mg Q4H PRN Administra
--- NOTE | 2021-02-03 15:37 | PM.IMPN ---
Progress Note: A&P Assessment and Plan (1) Encephalopathy acute: Code(s): G93.40 - Encephalopathy, unspecified Status: Acute Assessment and Plan: See below. Investigation up until now are as follows. CT brain from 01/27 showing no acute findings. MRI brain 01/28 showing no acute findings. Ammonia level negative. LP showing TP 597, VTK069, WBC40 with 96% lymphocytes. Path showing chronic inflammation. Gram stain showing moderate WBC but no MO; fungal smear showing no organisms. BCx 01/28 NGTD. UCx negative. Sputum Cx negative x2. CSF Cx NGTD. Crypto Ag negative. HSV PCR negative. (2) Acute respiratory failure: Code(s): J96.00 - Acute respiratory failure, unspecified whether with hypoxia or hypercapnia Status: Acute Assessment and Plan: Patient was intubation on 01/29/21. Pt trying to wean off and extubate. (3) Septicemia: Code(s): A41.9 - Sepsis, unspecified organism Status: Acute Assessment and Plan: likely secondary to ENRIKE bacteremia. Seen by ID, rocephin and vancomycin have been discontinued. (4) Anemia: Code(s): D64.9 - Anemia, unspecified Status: Acute Assessment and Plan: Patient's hemoglobin was normal on admission, hb staying at 9 (5) Alcohol withdrawal delirium: Code(s): F10.231 - Alcohol dependence with withdrawal delirium Status: Acute Assessment and Plan: Interval history: Patient was A&O x4 on admission but seemed a bit confused. He then developed acute delirium from alcohol withdrawal 01/15 and moved to ICU for Precedex. CT brain normal. While still on Precedex, patient was awake and able to talk with staff (somewhat oriented up until 01/21). Librium on hold since 01/21. Precedex was weaned off 01/25. Has been on Thiamine and Folate. Was on a low dose Seroquel but this has been stopped as well. Patient had remained encephalopathic since being off Precedex. (6) Atrial fibrillation: Code(s): I48.91 - Unspecified atrial fibrillation Status: Acute Assessment and Plan: Interval histotry EKG on admission consistent with MAT. Metoprolol started. Echo with EF 55-60% with normal diastolic dysfunction and mild pulm HTN. TSH normal. Patient developed AFib after admission. Continue tele. Appreciate Cardiology input. Continue metoprolol and full dose Lovenox. (7) Hypertension: Code(s): I10 - Essential (primary) hypertension Status: Acute Assessment and Plan: Bp is 112/70 (8) Hyponatremia: Code(s): E87.1 - Hypo-osmolality and hyponatremia Status: Acute Assessment and Plan: Sodium is 131. (9) Alcoholism: Code(s): F10.20 - Alcohol dependence, uncomplicated Status: Acute Assessment and Plan: stated patient only drinks beer and can drink 12-18 beers per day. (10) DVT prophylaxis: Code(s): Z29.9 - Encounter for prophylactic measures, unspecified Status: Acute Assessment and Plan: Therapeutic Lovenox Additional Plan Subjective Date/time seen: 02/03/21 15:37 Interval history: Interval history: 65yo male with alcoholism and HTN here for bacteremia. 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 BCx drawn returned positive for ENRIKE and patient directed back to the ED on 01/14 and admitted. He developed DTs and ultimately moved to ICU on 01/15 and started on Precedex. AFIb developed requiring CALIN with cardioversion 01/22. Off librium 01/21, off Precedex on 01/25. Patient has remained obtunded since being off Precedex. Brain MRI 01/28 showing no acute findings. LP on 01/28 showing elevated TP, normal glucose, WBC 40 mostly lymphocytes. Moved back to ICU on 01/28 and intubated 01/29. Pt continues to wean of the ventilator hope for extubation . by the larisa
[2021-02-04] VITALS (25 sets, daily range): BP systolic 117–156; BP diastolic 65–91; PULSE 66–81; RESP 12–33; TEMP 36.2–38.6; O2SAT 95–97
[2021-02-04 04:38] LABS: Hematocrit 27.8 % (42.0-52.0); Hemoglobin 9.4 g/dL (14.0-18.0); Mean Corpuscular HGB Conc 33.8 g/dl (32-36); Mean Corpuscular Hemoglobin 31.4 pg (26-34); Mean Platelet Volume 8.9 fl (7.4-10.4); Platelet Count Result 483 k/mm3 (150-375); Red Blood Count 2.99 M/mm3 (4.6-6.20); Red Cell Distribution Width 12.6 % (11.5-14.5); White Blood Count 9.2 K/mm3 (4.5-10.0)
[2021-02-04 04:58] LABS: Alanine Aminotransferase 99 U/L (4-50); Albumin Level 2.9 g/dL (3.5-5.1); Alkaline Phosphatase 142 U/L (38-126); Anion Gap 3 mmol/L (8-16); Aspartate Amino Transferase 62 U/L (17-59); Bilirubin,Total 0.3 mg/dL (0.2-1.3); Blood Urea Nitrogen 20 mg/dL (9-20); Calcium 8.7 mg/dL (8.4-10.2); Carbon Dioxide 32 mmol/L (22-30); Chloride 96 mmol/L (98-107); Estimated CRCL calculation 94 ml/min; Estimated Glomerular Filt Rate > 60; Glucose 131 mg/dL (75-110); Magnesium 1.9 mg/dL (1.6-2.3); Sodium 131 mmol/L (137-145)
[2021-02-04 05:18] LABS: Alveolar/Arterial O2 Gradient 68.2 mmHg; Base Excess ABG 5.2 mEq/l (+/-2.0); Fractional Inspired Oxygen 30 %; Oxygen Content ABG 14.1 %vol (16.0-22.0); Oxygen Saturation ABG 98.3 % (95.0-100.0); PCO2 ABG 34.6 mmHg (35.0-45.0); Total Hemoglobin 10.2 g/dL (12.0-18.0)
[2021-02-04 05:19] LABS: Device VENTILATOR; Modified Allen's Test Pass; Site Drawn LEFT RADIAL; pH ABG 7.526 (7.350-7.450)
[2021-02-04 05:22] LABS: Arterial Blood Gas Minute Volume 6 LPM; Arterial Blood Gas PEEP 5 cmH2O; Arterial Blood Gas Vent Mode ASV
--- NOTE | 2021-02-04 06:56 | PC.NURSE ---
At approximately 0215 A.M. The Hospitalist was contacted regarding the central line. Hospitalist stated that he is not authorized to do any invasive procedures but the E.R. Doctors have proper authorization to assess the line. This RN, contacted and spoke with both charge nurse and powerhouse mechanic apprentice for further instruction.
--- NOTE | 2021-02-04 07:15 | PC.NURSE ---
Dr. Dunn contacted at approximately 0241 a.m. on 02/04/2021 to update on patient status. Central line is continuing to leak fluid back out and staff is unable to start an additional peripheral on patient. Blood pressures are continuing to remain low and hospitalist is unable to assess central line. Dr. Dunn recommended staff to contact the ER physician to trouble shoot the Central line. Orders to continue running Vasopressors through peripheral IV access until Central line is patent.
--- NOTE | 2021-02-04 07:19 | PC.NURSE ---
At 0250 A.M. on 02/04/2021, The ER was contacted and warehouse man spoke with Dr. Desouza. Dr. Desouza to see patient and address central line.
[2021-02-04] MEDS: SCOPOLAMINE 1.5 MG PATCH TRANSDERM (08:48)
[2021-02-04] MEDS: PANTOPRAZOLE SODIUM IV 40 MG VIAL IV PUSH ×2 (08:48→20:33)
[2021-02-04] MEDS: ENOXAPARIN 80 MG/0.8 ML SYRINGE SUB-Q ×2 (08:48→20:32)
[2021-02-04] MEDS: METOPROLOL TARTRATE 50 MG TAB PO ×2 (08:48→20:33)
[2021-02-04] MEDS: THIAMINE HCL 100 MG TABLET PO (08:49)
[2021-02-04] MEDS: CYANOCOBALAMIN 1,000 MCG TABLET 1000 MCG PO (08:49)
[2021-02-04] MEDS: FOLIC ACID 1 MG TABLET PO (08:49)
[2021-02-04] MEDS: ASPIRIN 81 MG CHEWABLE TABLET FEED TUBE (08:49)
--- NOTE | 2021-02-04 09:22 | WPDINTPN ---
Progress Note: A&P Assessment and Plan (1) Acute respiratory failure: Code(s): J96.00 - Acute respiratory failure, unspecified whether with hypoxia or hypercapnia Status: Acute Assessment and Plan: Patient encephalopathic/obtunded to protect his airway intubated the patient on 3020 for talking to his -patient currently on ASV mode of ventilation with 30% FiO2, peep of 5 -chest x-ray and ABGs reviewed -patient failed pressure support weaning trial yesterday. Patient placed back on weaning trial again today - continue ASV mode of ventilation if he fails weaning trial again today. Decrease minute ventilation to 60% of goal -off all sedation The goal is to wake the patient up as much as possible. Continue to Hold all other sedative (2) Encephalopathy acute: Code(s): G93.40 - Encephalopathy, unspecified Status: Acute Assessment and Plan: Likely multifactorial could be related viral encephalitis/meningitis given CSF analysis, toxic metabolic encephalopathy secondary to infection, alcohol related Wernicke's encephalopathy, electrolyte imbalance -ammonia and TSH level were normal -continue antibacterial and antivirals -elevated CSF protein and lymphocytosis -CSF HSV PCR, cryptococcus were negative -bacterial and fungal culture negative till now -appreciate infectious disease input -on ceftriaxone per ID -acyclovir was discontinued 02/01/2021, vancomycin discontinued 02/03 -vitamin B12 was added as per neurology recommendations yesterday (3) Bacteremia: Code(s): R78.81 - Bacteremia Status: Acute Assessment and Plan: ENRIKE bacteremia 01/13/2021 -infectious disease following the patient. Patient on Rocephin -transthoracic echocardiogram 01/14/2021: Showed normal LV size with moderate concentric hypertrophy and good systolic function, EF 55-60%. Normal diastolic dysfunction. Left atrium moderately enlarged, mild pulmonary hypertension with RVSP of 39 mmHg, no vegetations seen. -CALIN on 01/22/2021 showed no evidence of endocarditis - 01/14/2021 blood cultures also positive Staph aureus 2/2 bottles -01/16/2021 blood cultures staph aureus 1 of 2 bottles -01/21/2021 blood cultures negative x2 -repeat blood cultures 01/28/2021 negative x2 - Lumbar CT showing no acute findings -CT chest abdomen pelvis were also nondiagnostic (4) Sepsis: Code(s): A41.9 - Sepsis, unspecified organism Status: Acute Assessment and Plan: Sepsis due staph bacteremia -patient is afebrile now -continue antibiotics as above (5) Tachyarrhythmia: Code(s): R00.0 - Tachycardia, unspecified Status: Acute Assessment and Plan: EKG on 01/17 showed atrial fibrillation, -initial EKG did show multifocal atrial tachycardia but now in AFib with and rate controlled. -cardioversion on 01/22/2021 with successful conversion to sinus rhythm -continue therapeutic Lovenox -currently in sinus rhythm, rate controlled (6) Alcoholism: Code(s): F10.20 - Alcohol dependence, uncomplicated Status: Acute Assessment and Plan: Patient is a chronic alcoholic, has not been drinking 2-3 days prior to admission as he was not feeling too well. (patient drinks approximately 18 beers per day) -transferred to the ICU on 01/15/2021 for alcohol withdrawal with possible delirium tremens, received multiple doses of Ativan and Haldol in the IMU -continue thiamine, folic acid.. Switched to per tube (7) Hyponatremia: Code(s): E87.1 - Hypo-osmolality and hyponatremia Status: Acute Assessment and Plan: Hyponatremia multifactorial, improved and stable -maintenance IV fluids have been discontinued -continue to monitor (8) Edema: Code(s): R60.9 - Edema, unspecified Status: Acute Assessment and Plan: left lower extremity venous Dopplers was repeated and was negative for DVT Additional Plan Patient has a Dobbhoff tube, tolerating tube feeds Code st
[2021-02-04 09:44] LABS: Base Excess ABG 5.3 mEq/l (+/-2.0); Device VENTILATOR; Fractional Inspired Oxygen 30 %; HCO3 ABG 29.5 mEq/l (22.0-26.0); Modified Allen's Test Pass; Oxygen Content ABG 13.9 %vol (16.0-22.0); Oxygen Saturation ABG 97.9 % (95.0-100.0); Oxyhemoglobin 96.6 % THb (90.0-100.0); PCO2 ABG 41.5 mmHg (35.0-45.0); PO2 ABG 101.1 mmHg (80.0-100.0); PO2 FiO2 Ratio Arterial Blood 3.37 %; Site Drawn RIGHT RADIAL; Total Hemoglobin 10.1 g/dL (12.0-18.0); pH ABG 7.469 (7.350-7.450)
[2021-02-04 09:45] LABS: Arterial Blood Gas PEEP 5 cmH2O; Arterial Blood Gas Pressure Support 5 cmH2O; Arterial Blood Gas Vent Mode SPONTANEOUS
--- NOTE | 2021-02-04 11:38 | PCDIET ---
ICU Rounding Note: Pt current nutrition is Jevity 1.5 at 70ml/hr Nutrition recommendation: agree Last recorded weight is 85.1kg, down slightly from assessed wt of 87.2kg Bowel Motility: BM 02/03 Labs Reviewed:Glucose 131, AST/ALT 62/99, Na 131, Albumin 2.9, Hgb/Hct 9.4/27.8 Meds Noted: Protonix, B12, Rocephin, Albuterol, Folic Acid, Lopressor, B1 Additional Notes: Pt extubation failed yesterday. Plans to try tomorrow potentially. Pt abdomen soft, tolerating feeds at goal. Skin is intact. -120 I/O. Following daily in ICU rounds. Assessing/reassessing q T/F.
[2021-02-04] MEDS: ACETAMINOPHEN 325 MG TABLET 650 MG FEED TUBE (12:38)
--- NOTE | 2021-02-04 16:08 | PM.IMPN ---
Progress Note: A&P Assessment and Plan (1) Encephalopathy acute: Code(s): G93.40 - Encephalopathy, unspecified Status: Acute Assessment and Plan: See below. Investigation up until now are as follows. CT brain from 01/27 showing no acute findings. MRI brain 01/28 showing no acute findings. Ammonia level negative. LP showing TP 597, [id number], WBC40 with 96% lymphocytes. Path showing chronic inflammation. Gram stain showing moderate WBC but no MO; fungal smear showing no organisms. BCx 01/28 NGTD. UCx negative. Sputum Cx negative x2. CSF Cx NGTD. Crypto Ag negative. HSV PCR negative. (2) Acute respiratory failure: Code(s): J96.00 - Acute respiratory failure, unspecified whether with hypoxia or hypercapnia Status: Acute Assessment and Plan: Patient was intubation on 01/29/21. Pt trying to wean off and extubate. (3) Septicemia: Code(s): A41.9 - Sepsis, unspecified organism Status: Acute Assessment and Plan: likely secondary to ENRIKE bacteremia. Seen by ID, vancomycin have been discontinued. Rocephin is active (4) Anemia: Code(s): D64.9 - Anemia, unspecified Status: Acute Assessment and Plan: Patient's hemoglobin was normal on admission, hb staying at 9 (5) Alcohol withdrawal delirium: Code(s): F10.231 - Alcohol dependence with withdrawal delirium Status: Acute Assessment and Plan: Interval history: Patient was A&O x4 on admission but seemed a bit confused. He then developed acute delirium from alcohol withdrawal 01/15 and moved to ICU for Precedex. CT brain normal. While still on Precedex, patient was awake and able to talk with staff (somewhat oriented up until 01/21). Librium on hold since 01/21. Precedex was weaned off 01/25. Has been on Thiamine and Folate. Was on a low dose Seroquel but this has been stopped as well. Patient had remained encephalopathic since being off Precedex. (6) Atrial fibrillation: Code(s): I48.91 - Unspecified atrial fibrillation Status: Acute Assessment and Plan: Interval histotry EKG on admission consistent with MAT. Metoprolol started. Echo with EF 55-60% with normal diastolic dysfunction and mild pulm HTN. TSH normal. Patient developed AFib after admission. Continue tele. Appreciate Cardiology input. Continue metoprolol and full dose Lovenox. (7) Hypertension: Code(s): I10 - Essential (primary) hypertension Status: Acute Assessment and Plan: Bp is 112/70 (8) Hyponatremia: Code(s): E87.1 - Hypo-osmolality and hyponatremia Status: Acute Assessment and Plan: Sodium is 131. (9) Alcoholism: Code(s): F10.20 - Alcohol dependence, uncomplicated Status: Acute Assessment and Plan: stated patient only drinks beer and can drink 12-18 beers per day. (10) DVT prophylaxis: Code(s): Z29.9 - Encounter for prophylactic measures, unspecified Status: Acute Assessment and Plan: Therapeutic Lovenox Additional Plan Subjective Date/time seen: 02/04/21 16:08 Interval history: Interval history: 65yo male with alcoholism and HTN here for bacteremia. Patient initially seen in ED repairer evaporator hours of 01/13 for body aches, low back pain and fever and felt to have sinusitis and d/c home with Levaquin. BCx drawn returned positive for ENRIKE and patient directed back to the ED on 01/14 and admitted. He developed DTs and ultimately moved to ICU on 01/15 and started on Precedex. AFIb developed requiring CALIN with cardioversion 01/22. Off librium 01/21, off Precedex on 01/25. Patient has remained obtunded since being off Precedex. Brain MRI 01/28 showing no acute findings. LP on 01/28 showing elevated TP, normal glucose, WBC 40 mostly lymphocytes. Moved back to ICU on 01/28 and intubated 01/29. Pt continues to wean of the ventilator hope for extubation . by
[2021-02-05] VITALS (19 sets, daily range): BP systolic 108–175; BP diastolic 63–88; PULSE 70–93; RESP 13–33; TEMP 36.4–38.1; O2SAT 93–97
[2021-02-05] MEDS: ACETAMINOPHEN 325 MG TABLET 650 MG FEED TUBE ×2 (04:00→11:13)
[2021-02-05 04:33] LABS: Hematocrit 30.5 % (42.0-52.0); Mean Corpuscular HGB Conc 32.8 g/dl (32-36); Mean Corpuscular Hemoglobin 30.9 pg (26-34); Mean Corpuscular Volume 94.1 fl (80-100); Platelet Count Result 465 k/mm3 (150-375); Red Blood Count 3.24 M/mm3 (4.6-6.20); Red Cell Distribution Width 12.8 % (11.5-14.5); White Blood Count 10.3 K/mm3 (4.5-10.0)
[2021-02-05 04:43] LABS: Alanine Aminotransferase 88 U/L (4-50); Albumin Level 3.1 g/dL (3.5-5.1); Alkaline Phosphatase 146 U/L (38-126); Anion Gap 3 mmol/L (8-16); Aspartate Amino Transferase 46 U/L (17-59); Bilirubin,Total 0.5 mg/dL (0.2-1.3); Blood Urea Nitrogen 22 mg/dL (9-20); Calcium 9.2 mg/dL (8.4-10.2); Carbon Dioxide 32 mmol/L (22-30); Chloride 96 mmol/L (98-107); Estimated CRCL calculation 94 ml/min; Estimated Glomerular Filt Rate > 60; Glucose 117 mg/dL (75-110); Potassium 5.1 mmol/L (3.4-5.0); Sodium 131 mmol/L (137-145)
[2021-02-05 04:48] LABS: Alveolar/Arterial O2 Gradient 79.3 mmHg; Carboxyhemoglobin 0.3 % THb (0-2.0); Fractional Inspired Oxygen 30 %; Methemoglobin ABG 0.4 %THb (0-1.5); Oxygen Content ABG 17.2 %vol (16.0-22.0); Oxygen Saturation ABG 97.1 % (95.0-100.0); Oxyhemoglobin 95.8 % THb (90.0-100.0); PCO2 ABG 41.8 mmHg (35.0-45.0); PO2 ABG 85.5 mmHg (80.0-100.0); PO2 FiO2 Ratio Arterial Blood 2.85 %; Reduced Hemoglobin 3.5 %THb (0-5.0); Total Hemoglobin 12.7 g/dL (12.0-18.0); pH ABG 7.488 (7.350-7.450)
[2021-02-05 04:49] LABS: Device VENTILATOR; Modified Allen's Test Pass; Site Drawn LEFT RADIAL
[2021-02-05 04:50] LABS: Arterial Blood Gas PEEP 5 cmH2O; Arterial Blood Gas Vent Mode ASV
--- NOTE | 2021-02-05 08:57 | WPDINTPN ---
Progress Note: A&P Assessment and Plan (1) Acute respiratory failure: Code(s): J96.00 - Acute respiratory failure, unspecified whether with hypoxia or hypercapnia Status: Acute Assessment and Plan: Patient encephalopathic/obtunded to protect his airway intubated the patient on 3020 for talking to his -patient currently on ASV mode of ventilation with 30% FiO2, peep of 5 -chest x-ray and ABGs reviewed -patient failed pressure support weaning trial again yesterday. Patient placed back on weaning trial again today. Will try to extubate if patient does well - continue ASV mode of ventilation if he fails weaning trial again today. ASV set at minute ventilation 60% of goal -off all sedation. The goal is to wake the patient up as much as possible. Continue to Hold all other sedative (2) Encephalopathy acute: Code(s): G93.40 - Encephalopathy, unspecified Status: Acute Assessment and Plan: Likely multifactorial could be related viral encephalitis/meningitis given CSF analysis, toxic metabolic encephalopathy secondary to infection, alcohol related Wernicke's encephalopathy, electrolyte imbalance -ammonia and TSH level were normal -continue antibacterial and antivirals -elevated CSF protein and lymphocytosis -CSF HSV PCR, cryptococcus were negative -bacterial and fungal culture negative till now -appreciate infectious disease input -on ceftriaxone per ID -acyclovir was discontinued 02/01/2021, vancomycin discontinued 02/03 -vitamin B12 was added as per neurology recommendations yesterday -improving (3) Bacteremia: Code(s): R78.81 - Bacteremia Status: Acute Assessment and Plan: ENRIKE bacteremia 01/13/2021 -infectious disease following the patient. Patient on Rocephin -transthoracic echocardiogram 01/14/2021: Showed normal LV size with moderate concentric hypertrophy and good systolic function, EF 55-60%. Normal diastolic dysfunction. Left atrium moderately enlarged, mild pulmonary hypertension with RVSP of 39 mmHg, no vegetations seen. -CALIN on 01/22/2021 showed no evidence of endocarditis - 01/14/2021 blood cultures also positive Staph aureus 2/2 bottles -01/16/2021 blood cultures staph aureus 1 of 2 bottles -01/21/2021 blood cultures negative x2 -repeat blood cultures 01/28/2021 negative x2 - Lumbar CT showing no acute findings -CT chest abdomen pelvis were also nondiagnostic (4) Sepsis: Code(s): A41.9 - Sepsis, unspecified organism Status: Acute Assessment and Plan: Sepsis due staph bacteremia -patient is afebrile now -continue antibiotics as above (5) Tachyarrhythmia: Code(s): R00.0 - Tachycardia, unspecified Status: Acute Assessment and Plan: EKG on 01/17 showed atrial fibrillation, -initial EKG did show multifocal atrial tachycardia but now in AFib with and rate controlled. -cardioversion on 01/22/2021 with successful conversion to sinus rhythm -continue therapeutic Lovenox -currently in sinus rhythm, rate controlled (6) Alcoholism: Code(s): F10.20 - Alcohol dependence, uncomplicated Status: Acute Assessment and Plan: Patient is a chronic alcoholic, has not been drinking 2-3 days prior to admission as he was not feeling too well. (patient drinks approximately 18 beers per day) -transferred to the ICU on 01/15/2021 for alcohol withdrawal with possible delirium tremens, received multiple doses of Ativan and Haldol in the IMU -continue thiamine, folic acid.. Switched to per tube (7) Hyponatremia: Code(s): E87.1 - Hypo-osmolality and hyponatremia Status: Acute Assessment and Plan: Hyponatremia multifactorial, improved and stable -maintenance IV fluids have been discontinued -continue to monitor (8) Edema: Code(s): R60.9 - Edema, unspecified Status: Acute Assessment and Plan: left lower extremity venous Dopplers was repeated and was negative for DVT (9) Hyperkalemi
[2021-02-05 09:36] LABS: Alveolar/Arterial O2 Gradient 90.7 mmHg; Base Excess ABG 5.4 mEq/l (+/-2.0); Fractional Inspired Oxygen 30 %; HCO3 ABG 27.5 mEq/l (22.0-26.0); Oxygen Content ABG 15.1 %vol (16.0-22.0); Oxygen Saturation ABG 97.6 % (95.0-100.0); Oxyhemoglobin 95.9 % THb (90.0-100.0); PCO2 ABG 31.6 mmHg (35.0-45.0); PO2 ABG 86.1 mmHg (80.0-100.0); PO2 FiO2 Ratio Arterial Blood 2.87 %; Total Hemoglobin 11.1 g/dL (12.0-18.0)
[2021-02-05 09:37] LABS: pH ABG 7.557 (7.350-7.450)
[2021-02-05 09:38] LABS: Arterial Blood Gas PEEP 5 cmH2O; Arterial Blood Gas Vent Mode SPONTANEOUS; Device VENTILATOR; Modified Allen's Test Pass; Site Drawn LEFT RADIAL
[2021-02-05 09:39] LABS: Arterial Blood Gas Pressure Support 10 cmH2O
[2021-02-05] MEDS: METOPROLOL TARTRATE 50 MG TAB PO ×2 (09:44→20:46)
[2021-02-05] MEDS: CYANOCOBALAMIN 1,000 MCG TABLET 1000 MCG PO (09:44)
[2021-02-05] MEDS: ASPIRIN 81 MG CHEWABLE TABLET FEED TUBE (09:44)
[2021-02-05] MEDS: THIAMINE HCL 100 MG TABLET PO (09:44)
[2021-02-05] MEDS: FOLIC ACID 1 MG TABLET PO (09:44)
[2021-02-05] MEDS: SODIUM CHLORIDE 0.9% IV 500 ML IV CONT (09:45)
[2021-02-05] MEDS: ENOXAPARIN 80 MG/0.8 ML SYRINGE SUB-Q ×2 (09:45→20:46)
[2021-02-05] MEDS: PANTOPRAZOLE SODIUM IV 40 MG VIAL IV PUSH ×2 (09:45→20:46)
[2021-02-05] MEDS: SODIUM POLYSTYRENE SULFONONATE 15 GM/60 ML BTL 30 GM PO (11:14)
--- NOTE | 2021-02-05 11:51 | PCDIET ---
Nutrition Follow-Up Complete: Inadequate oral intake related to poor appetite as evidenced by intakes 15-40%. Patient to consume 75% of meals/supplements or greater. Goal: Goal unable to be met today; recommend continuing goal Pt current nutrition is Jevity 1.5 at 70ml/hr Nutrition recommendation: agree for now; recommend advancing to heart healthy diet if appropriate after speech eval Last recorded weight is 86 kg, steady from assessed wt of 87.2kg Bowel Motility: 02/03 Labs Reviewed:Na 131, Glucose 131, AST/ALT 62/99 Meds Noted: B12, B1, Folic Acid, Lopressor, Protonix Additional Notes: Pt has been extubated. Enteral nutrition held to prevent aspiration. Plans to advance diet tomorrow after speech eval. If pt does not pass swallow eval, recommend continuation of Jevity 1.5 at 70ml/hr via NG. Pt has been tolerating tube feeds well. We will continue to monitor for diet advancement as well as wt, labs, BMs every three days.
--- NOTE | 2021-02-05 12:56 | PM.IMPN ---
Progress Note: A&P Assessment and Plan (1) Encephalopathy acute: Code(s): G93.40 - Encephalopathy, unspecified Status: Acute Assessment and Plan: Improving. Investigation up until now are as follows. CT brain from 01/27 showing no acute findings. MRI brain 01/28 showing no acute findings. Ammonia level negative. LP showing TP 597, [id number], WBC40 with 96% lymphocytes. Path showing chronic inflammation. Gram stain showing moderate WBC but no MO; fungal smear showing no organisms. BCx 01/28 NGTD. UCx negative. Sputum Cx negative x2. CSF Cx NGTD. Crypto Ag negative. HSV PCR negative. Pt treated with iv acyclovir, iv vancomycin and iv rocephin much improvement since admission. Start PT/OT (2) Acute respiratory failure: Code(s): J96.00 - Acute respiratory failure, unspecified whether with hypoxia or hypercapnia Status: Acute Assessment and Plan: Patient was extubated successfully today. (3) Septicemia: Code(s): A41.9 - Sepsis, unspecified organism Status: Acute Assessment and Plan: likely secondary to ENRIKE bacteremia. Seen by ID, vancomycin have been discontinued. Rocephin is active (4) Anemia: Code(s): D64.9 - Anemia, unspecified Status: Acute Assessment and Plan: Patient's hemoglobin was normal on admission, hb staying at 10 (5) Alcohol withdrawal delirium: Code(s): F10.231 - Alcohol dependence with withdrawal delirium Status: Acute Assessment and Plan: Interval history: Patient was A&O x4 on admission but seemed a bit confused. He then developed acute delirium from alcohol withdrawal 01/15 and moved to ICU for Precedex. CT brain normal. Pt is still encephalitic but much improved since admission, moving more alert some communication and conversation. (6) Atrial fibrillation: Code(s): I48.91 - Unspecified atrial fibrillation Status: Acute Assessment and Plan: Interval histotry EKG on admission consistent with MAT. Metoprolol started. Echo with EF 55-60% with normal diastolic dysfunction and mild pulm HTN. TSH normal. Patient developed AFib after admission. Continue tele. Appreciate Cardiology input. Continue metoprolol and full dose Lovenox. (7) Hypertension: Code(s): I10 - Essential (primary) hypertension Status: Acute Assessment and Plan: Bp is 144/79 (8) Hyponatremia: Code(s): E87.1 - Hypo-osmolality and hyponatremia Status: Acute Assessment and Plan: Sodium is 131. (9) Alcoholism: Code(s): F10.20 - Alcohol dependence, uncomplicated Status: Acute Assessment and Plan: stated patient only drinks beer and can drink 12-18 beers per day. (10) DVT prophylaxis: Code(s): Z29.9 - Encounter for prophylactic measures, unspecified Status: Acute Assessment and Plan: Therapeutic Lovenox Additional Plan Subjective Date/time seen: 02/05/21 12:56 Interval history: Interval history: 65yo male with alcoholism and HTN here for bacteremia. Patient initially seen in ED stenocaptioner hours of 01/13 for body aches, low back pain and fever and felt to have sinusitis and d/c home with Levaquin. BCx drawn returned positive for ENRIKE and patient directed back to the ED on 01/14 and admitted. He developed DTs and ultimately moved to ICU on 01/15 and started on Precedex. AFIb developed requiring CALIN with cardioversion 01/22. Off librium 01/21, off Precedex on 01/25. Brain MRI 01/28 showing no acute findings. LP on 01/28 showing elevated TP, normal glucose, WBC 40 mostly lymphocytes. Moved back to ICU on 01/28 and intubated 01/29. Pt is successfully extubate today. Review of Systems Review of Systems: ROS unobtainable: Yes unobtainable due to medical condition Exam Narrative: Exam Narrative: Gen - extubated HEENT - NGT Chest - lungs clear CV - regular heart sounds
--- NOTE | 2021-02-05 15:59 | PCSTNOTE ---
Please refer to the Bedside Swallow Evaluation in the EMR. Please note, silent aspiration cannot be ruled out at bedside.
[2021-02-06] VITALS (17 sets, daily range): BP systolic 116–167; BP diastolic 70–97; PULSE 67–93; RESP 18–30; TEMP 36.6–37.1; O2SAT 95–100
[2021-02-06 04:58] LABS: Hematocrit 27.2 % (42.0-52.0); Mean Corpuscular HGB Conc 33.1 g/dl (32-36); Mean Corpuscular Hemoglobin 30.6 pg (26-34); Mean Corpuscular Volume 92.5 fl (80-100); Mean Platelet Volume 9.2 fl (7.4-10.4); Platelet Count Result 530 k/mm3 (150-375); Red Blood Count 2.94 M/mm3 (4.6-6.20); Red Cell Distribution Width 12.6 % (11.5-14.5); White Blood Count 8.9 K/mm3 (4.5-10.0)
[2021-02-06 05:51] LABS: Alanine Aminotransferase 82 U/L (4-50); Albumin Level 2.9 g/dL (3.5-5.1); Alkaline Phosphatase 129 U/L (38-126); Anion Gap 3 mmol/L (8-16); Aspartate Amino Transferase 44 U/L (17-59); Bilirubin,Total 0.4 mg/dL (0.2-1.3); Blood Urea Nitrogen 20 mg/dL (9-20); Carbon Dioxide 33 mmol/L (22-30); Chloride 96 mmol/L (98-107); Estimated CRCL calculation 83 ml/min; Estimated Glomerular Filt Rate > 60; Glucose 106 mg/dL (75-110); Magnesium 1.9 mg/dL (1.6-2.3); Potassium 4.1 mmol/L (3.4-5.0); Sodium 132 mmol/L (137-145)
--- NOTE | 2021-02-06 09:18 | WPDINTPN ---
Progress Note: A&P Assessment and Plan (1) Acute respiratory failure: Code(s): J96.00 - Acute respiratory failure, unspecified whether with hypoxia or hypercapnia Status: Acute Assessment and Plan: Patient encephalopathic/obtunded to protect his airway intubated the patient on 01/29 Patient extubated 02/05 after successful weaning trial He saturating well and maintaining oxygenation and saturation on room air Incentive spirometry and up in chair today (2) Encephalopathy acute: Code(s): G93.40 - Encephalopathy, unspecified Status: Acute Assessment and Plan: Likely multifactorial could be related viral encephalitis/meningitis given CSF analysis, toxic metabolic encephalopathy secondary to infection, alcohol related Wernicke's encephalopathy, electrolyte imbalance -ammonia and TSH level were normal -elevated CSF protein and lymphocytosis -CSF HSV PCR, cryptococcus were negative -bacterial and fungal culture negative till now -appreciate infectious disease input -on ceftriaxone per ID -acyclovir was discontinued 02/01/2021, vancomycin discontinued 02/03 -vitamin B12 was added as per neurology recommendations yesterday Improved (3) Bacteremia: Code(s): R78.81 - Bacteremia Status: Acute Assessment and Plan: ENRIKE bacteremia 01/13/2021 -infectious disease following the patient. Patient on Rocephin -transthoracic echocardiogram 01/14/2021: Showed normal LV size with moderate concentric hypertrophy and good systolic function, EF 55-60%. Normal diastolic dysfunction. Left atrium moderately enlarged, mild pulmonary hypertension with RVSP of 39 mmHg, no vegetations seen. -CALIN on 01/22/2021 showed no evidence of endocarditis - 01/14/2021 blood cultures also positive Staph aureus 2/2 bottles -01/16/2021 blood cultures staph aureus 1 of 2 bottles -01/21/2021 blood cultures negative x2 -repeat blood cultures 01/28/2021 negative x2 - Lumbar CT showing no acute findings -CT chest abdomen pelvis were also nondiagnostic (4) Sepsis: Code(s): A41.9 - Sepsis, unspecified organism Status: Acute Assessment and Plan: Sepsis due staph bacteremia -patient is afebrile now -continue antibiotics as above (5) Tachyarrhythmia: Code(s): R00.0 - Tachycardia, unspecified Status: Acute Assessment and Plan: EKG on 0 01/17 showed atrial fibrillation, -initial EKG did show multifocal atrial tachycardia but now in AFib with and rate controlled. -cardioversion on 01/22/2021 with successful conversion to sinus rhythm -continue therapeutic Lovenox -currently in sinus rhythm, rate controlled (6) Alcoholism: Code(s): F10.20 - Alcohol dependence, uncomplicated Status: Acute Assessment and Plan: Patient is a chronic alcoholic, has not been drinking 2-3 days prior to admission as he was not feeling too well. (patient drinks approximately 18 beers per day) -transferred to the ICU on 01/15/2021 for alcohol withdrawal with possible delirium tremens, received multiple doses of Ativan and Haldol in the IMU -continue thiamine, folic acid. (7) Hyponatremia: Code(s): E87.1 - Hypo-osmolality and hyponatremia Status: Acute Assessment and Plan: Hyponatremia multifactorial, improved and stable -maintenance IV fluids have been discontinued -continue to monitor (8) Edema: Code(s): R60.9 - Edema, unspecified Status: Acute Assessment and Plan: left lower extremity venous Dopplers was repeated and was negative for DVT (9) Hyperkalemia: Code(s): E87.5 - Hyperkalemia Status: Acute Assessment and Plan: Improved with Kayexalate Additional Plan Code status: Full code DVT prophylaxis -Lovenox therapeutic dose Stress ulcer prophylaxis -Protonix PT OT consult Up in chair Transfer out of ICU today Subjective Date/time seen: 02/06/21 0710 Overnight events reviewed. Patient was extubated yesterday after s
[2021-02-06] MEDS: FOLIC ACID 1 MG TABLET PO (09:50)
[2021-02-06] MEDS: METOPROLOL TARTRATE 50 MG TAB PO ×2 (09:50→20:39)
[2021-02-06] MEDS: THIAMINE HCL 100 MG TABLET PO (09:50)
[2021-02-06] MEDS: CYANOCOBALAMIN 1,000 MCG TABLET 1000 MCG PO (09:50)
[2021-02-06] MEDS: ENOXAPARIN 80 MG/0.8 ML SYRINGE SUB-Q ×2 (09:51→20:39)
[2021-02-06] MEDS: ASPIRIN 81 MG CHEWABLE TABLET FEED TUBE (09:51)
[2021-02-06] MEDS: ACETAMINOPHEN 325 MG TABLET 650 MG FEED TUBE ×2 (09:51→15:30)
[2021-02-06] MEDS: PANTOPRAZOLE SODIUM IV 40 MG VIAL IV PUSH (09:51)
--- NOTE | 2021-02-06 12:20 | WPDNEUROPN ---
Progress Note: A&P Additional Plan improving neurological status with already extubation a completion patient's at the bedside and happy Review of Systems Review of Systems: All systems reviewed & are unremarkable except as noted in HPI and below Exam Narrative: Exam Narrative: patient is awake alert follows instruction in front of his also tries to answer verbally, extraocular movements are full with no nystagmus facial sensation is intact, face symmetrical, moves upper and lower extremities somewhat more on the left side plantar responses are questionable, heart regular lungs with rhonchi and abdomen soft Objective Data Vital Signs Vital Signs: Vital Signs - 24 hr 02/05/21 14:00 02/05/21 16:00 02/05/21 18:00 Temperature 36.4 C Pulse Rate 77 84 88 Respiratory Rate 20 26 H 24 H Blood Pressure 136/83 137/67 159/77 H Pulse Oximetry 96 95 95 02/05/21 20:00 02/05/21 20:46 02/05/21 22:00 Temperature 37.1 C Pulse Rate 91 93 75 Respiratory Rate 27 H 33 H Blood Pressure 146/88 H 130/63 Pulse Oximetry 96 96 02/06/21 00:00 02/06/21 01:59 02/06/21 02:05 Temperature 37.1 C Pulse Rate 77 83 84 Respiratory Rate 28 H 19 Blood Pressure 133/75 120/83 Pulse Oximetry 95 100 100 02/06/21 04:00 02/06/21 05:46 02/06/21 05:49 Temperature 36.7 C Pulse Rate 87 90 93 Respiratory Rate 28 H 30 H Blood Pressure 143/82 H 134/70 Pulse Oximetry 100 100 02/06/21 08:00 02/06/21 08:24 02/06/21 09:50 Temperature 36.6 C Pulse Rate 86 85 Respiratory Rate 22 H Blood Pressure 156/79 H Pulse Oximetry 100 99 02/06/21 10:00 Temperature Pulse Rate 67 Respiratory Rate 18 Blood Pressure 143/97 H Pulse Oximetry 100 Intake/Output Intake/Output: Intake & Output 02/03/21 02/04/21 02/05/21 02/06/21 23:59 23:59 23:59 23:59 Intake Total 2851 1675 1670 50 Output Total 7223 1500 2000 900 Balance 437 651 -368 -429 Meds/Results Medications: Active Medications Generic Name Dose Route Start Last Admin Trade Name Freq PRN Reason Stop Dose Admin Acetaminophen 650 mg 01/24/21 12:48 02/06/21 09:51 Acetaminophen 325 Mg Tablet FEED TUBE 650 mg Q6H PRN Administration Mild Pain (1-3) or Fever Albuterol 2.5 mg 01/23/21 12:00 01/29/21 15:02 Albuterol Sulfate Neb 2.5 Mg/0.5 Ml Inh INHALATION 2.5 mg Q6HRT PRN Administration Dyspnea Aspirin 81 mg 01/24/21 08:00 02/06/21 09:51 Aspirin 81 Mg Chewable Tablet FEED TUBE 81 mg DAILY@0800 APRYL Administration Cyanocobalamin 1,000 mcg 02/02/21 11:00 02/06/21 09:50 Cyanocobalamin 1,000 Mcg Tablet PO 1,000 mcg QAM APRYL Administration Enoxaparin Sodium 80 mg 01/29/21 10:30 02/06/21 09:51 Enoxaparin 80 Mg/0.8 Ml Syringe SUB-Q 80 mg Q12HR APRYL Administration Folic Acid 1 mg 02/03/21 09:00 02/06/21 09:50 Folic Acid 1 Mg Tablet PO 1 mg DAILY APRYL Administration Hydralazine HCl 10 mg 01/20/21 09:40 01/31/21 18:22 Hydralazine Hcl 20 Mg/Ml Vial IV PUSH 10 mg Q4H PRN Administration Blood Pressure - High Ceftriaxone Sodium/Dextrose 1 gm in 50 mls @ 100 mls/hr 02/03/21 21:00 02/05/21 21:17 Rocephin 1 Gm/D5w 50 Ml IVPB Infused Q24H APRYL Infusion Metoprolol Tartrate 50 mg 01/24/21 09:35 02/06/21 09:50 Metoprolol Tartrate 50 Mg Tab PO 50 mg Q12HR APRYL Administration Metoprolol Tartrate 5 mg 01/25/21 18:43 01/29/21 06:06 Metoprolol Tartrate Inj 5 Mg/5 Ml Vial IV PUSH 5 mg Q2HR PRN Administration increased heart rate Pantoprazole Sodium 40 mg 02/01/21 21:00 02/06/21 09:51 Pantoprazole Sodium Iv 40 Mg Vial IV PUSH 40 mg Q12HR APRYL Administration Scopolamine 1.5 mg 02/01/21 09:00 02/04/21 08:48 Scopolamine 1.5 Mg Patch TRANSDERM 1.5 mg Q72HR APRYL Administration Thiamine HCl 100 mg 02/03/21 09:00 02/06/21 09:50 Thiamine Hcl 100 Mg Tablet PO 100 mg QAM APRYL Administration Radiology Results: ITS Impressions C
--- NOTE | 2021-02-06 12:26 | PC.NURSE ---
pt transferred in to room 248 via bed from ICU, at bedside, reviewed plan of care and assessment completed
--- NOTE | 2021-02-06 12:35 | PC.NURSE ---
This patient, Aly Bailey, was transferred to [ [address] [place] [address] 248] on 02/06/21 at 1225. Personal belongings sent with patient. Report given to [ tracy srivastava]. Appropriate documentation sent with patient.
--- NOTE | 2021-02-06 13:02 | PM.IMPN ---
Progress Note: A&P Assessment and Plan (1) Encephalopathy acute: Code(s): G93.40 - Encephalopathy, unspecified Status: Acute Assessment and Plan: See below. Investigation up until now are as follows. CT brain from 01/27 showing no acute findings. MRI brain 01/28 showing no acute findings. Ammonia level negative. LP showing TP 597, [id number], WBC40 with 96% lymphocytes. Path showing chronic inflammation. Gram stain showing moderate WBC but no MO; fungal smear showing no organisms. BCx 01/28 NGTD. UCx negative. Sputum Cx negative x2. CSF Cx NGTD. Crypto Ag negative. HSV PCR negative. (2) Acute respiratory failure: Code(s): J96.00 - Acute respiratory failure, unspecified whether with hypoxia or hypercapnia Status: Acute Assessment and Plan: Patient was intubation on 01/29/21. extubate yesterday, doing well. (3) Septicemia: Code(s): A41.9 - Sepsis, unspecified organism Status: Acute Assessment and Plan: likely secondary to ENRIKE bacteremia. Seen by ID, vancomycin have been discontinued. Rocephin is active (4) Anemia: Code(s): D64.9 - Anemia, unspecified Status: Acute Assessment and Plan: Patient's hemoglobin was normal on admission, hb staying at 9 (5) Alcohol withdrawal delirium: Code(s): F10.231 - Alcohol dependence with withdrawal delirium Status: Acute Assessment and Plan: Interval history: Patient was A&O x4 on admission but seemed a bit confused. He then developed acute delirium from alcohol withdrawal 01/15 and moved to ICU for Precedex. CT brain normal. While still on Precedex, patient was awake and able to talk with staff (somewhat oriented up until 01/21). Librium on hold since 01/21. Precedex was weaned off 01/25. Has been on Thiamine and Folate. Was on a low dose Seroquel but this has been stopped as well. Patient had remained encephalopathic since being off Precedex. But with much improvement. (6) Atrial fibrillation: Code(s): I48.91 - Unspecified atrial fibrillation Status: Acute Assessment and Plan: Interval histotry EKG on admission consistent with MAT. Metoprolol started. Echo with EF 55-60% with normal diastolic dysfunction and mild pulm HTN. TSH normal. Patient developed AFib after admission. Continue tele. Appreciate Cardiology input. Continue metoprolol and full dose Lovenox. (7) Hypertension: Code(s): I10 - Essential (primary) hypertension Status: Acute Assessment and Plan: Bp is 112/70 (8) Hyponatremia: Code(s): E87.1 - Hypo-osmolality and hyponatremia Status: Acute Assessment and Plan: Sodium is 132. (9) Alcoholism: Code(s): F10.20 - Alcohol dependence, uncomplicated Status: Acute Assessment and Plan: stated patient only drinks beer and can drink 12-18 beers per day. (10) DVT prophylaxis: Code(s): Z29.9 - Encounter for prophylactic measures, unspecified Status: Acute Assessment and Plan: Therapeutic Lovenox Additional Plan Subjective Date/time seen: 02/06/21 13:02 Interval history: Interval history: 65yo male with alcoholism and HTN here for bacteremia. 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 BCx drawn returned positive for ENRIKE and patient directed back to the ED on 01/14 and admitted. He developed DTs and ultimately moved to ICU on 01/15 and started on Precedex. AFIb developed requiring CALIN with cardioversion 01/22. Off librium 01/21, off Precedex on 01/25. Brain MRI 01/28 showing no acute findings. LP on 01/28 showing elevated TP, normal glucose, WBC 40 mostly lymphocytes. Moved back to ICU on 01/28 and intubated 01/29. Pt is successfully extubate yesterday, pt looks much better, holding conversation, eating, responsive but weak i
[2021-02-06] MEDS: ALPRAZolam (*CRX) 0.25 MG TABLET PO (15:31)
[2021-02-07] VITALS (18 sets, daily range): BP systolic 106–155; BP diastolic 63–86; PULSE 71–103; RESP 18–20; TEMP 37.1–38.7; O2SAT 93–99
[2021-02-07 06:20] LABS: Hemoglobin 9.5 g/dL (14.0-18.0); Mean Corpuscular HGB Conc 33.9 g/dl (32-36); Mean Corpuscular Hemoglobin 30.8 pg (26-34); Mean Corpuscular Volume 90.9 fl (80-100); Mean Platelet Volume 9.1 fl (7.4-10.4); Platelet Count Result 580 k/mm3 (150-375); Red Blood Count 3.08 M/mm3 (4.6-6.20); Red Cell Distribution Width 12.4 % (11.5-14.5); White Blood Count 10.6 K/mm3 (4.5-10.0)
[2021-02-07 06:37] LABS: Alanine Aminotransferase 63 U/L (4-50); Albumin Level 3.1 g/dL (3.5-5.1); Alkaline Phosphatase 126 U/L (38-126); Anion Gap 7 mmol/L (8-16); Aspartate Amino Transferase 34 U/L (17-59); Bilirubin,Total 0.6 mg/dL (0.2-1.3); Blood Urea Nitrogen 22 mg/dL (9-20); Calcium 9.2 mg/dL (8.4-10.2); Carbon Dioxide 28 mmol/L (22-30); Chloride 95 mmol/L (98-107); Estimated CRCL calculation 74 ml/min; Estimated Glomerular Filt Rate > 60; Glucose 101 mg/dL (75-110); Magnesium 1.8 mg/dL (1.6-2.3); Potassium 3.9 mmol/L (3.4-5.0); Sodium 130 mmol/L (137-145)
[2021-02-07] MEDS: CITALOPRAM HYDROBROMIDE 20 MG TABLET PO (09:01)
[2021-02-07] MEDS: FOLIC ACID 1 MG TABLET PO (09:01)
[2021-02-07] MEDS: METOPROLOL TARTRATE 50 MG TAB PO ×2 (09:01→20:07)
[2021-02-07] MEDS: ENOXAPARIN 80 MG/0.8 ML SYRINGE SUB-Q (09:01)
[2021-02-07] MEDS: ASPIRIN 81 MG CHEWABLE TABLET FEED TUBE (09:01)
[2021-02-07] MEDS: CYANOCOBALAMIN 1,000 MCG TABLET 1000 MCG PO (09:01)
[2021-02-07] MEDS: THIAMINE HCL 100 MG TABLET PO (09:02)
[2021-02-07] MEDS: PANTOPRAZOLE SODIUM IV 40 MG VIAL IV PUSH (09:02)
--- NOTE | 2021-02-07 10:39 | PC.NURSE ---
WORKERS COMPENSATION ADMINISTRATOR reported temp of 101.6. Notified Dr. Mohr. Orders received.
[2021-02-07] MEDS: ACETAMINOPHEN 325 MG TABLET 650 MG FEED TUBE ×2 (10:40→18:54)
--- NOTE | 2021-02-07 11:45 | PCPTNOTE ---
Attempted PT treatment. Hold per RN due to patient fever and lethargy. Will follow. YENIFER AraizaT
--- NOTE | 2021-02-07 12:39 | PM.IMPN ---
Progress Note: A&P Assessment and Plan (1) Encephalopathy acute: Code(s): G93.40 - Encephalopathy, unspecified Status: Acute Assessment and Plan: See below. Investigation up until now are as follows. CT brain from 01/27 showing no acute findings. MRI brain 01/28 showing no acute findings. Ammonia level negative. LP showing TP 597, [id number], WBC40 with 96% lymphocytes. Path showing chronic inflammation. Gram stain showing moderate WBC but no MO; fungal smear showing no organisms. BCx 01/28 NGTD. UCx negative. Sputum Cx negative x2. CSF Cx NGTD. Crypto Ag negative. HSV PCR negative. spike of fever rpt septic screen (2) Acute respiratory failure: Code(s): J96.00 - Acute respiratory failure, unspecified whether with hypoxia or hypercapnia Status: Acute Assessment and Plan: Patient was intubation on 01/29/21. extubated on oxygen prn. (3) Septicemia: Code(s): A41.9 - Sepsis, unspecified organism Status: Acute Assessment and Plan: likely secondary to ENRIKE bacteremia. Seen by ID, vancomycin have been discontinued. Rocephin is active. ID rounding, pt had a spike to fever today. (4) Anemia: Code(s): D64.9 - Anemia, unspecified Status: Acute Assessment and Plan: Patient's hemoglobin was normal on admission, hb staying at 9 (5) Alcohol withdrawal delirium: Code(s): F10.231 - Alcohol dependence with withdrawal delirium Status: Acute Assessment and Plan: Interval history: Patient was A&O x4 on admission but seemed a bit confused. He then developed acute delirium from alcohol withdrawal 01/15 and moved to ICU for Precedex. CT brain normal. No signs of DT on the medical floor. (6) Atrial fibrillation: Code(s): I48.91 - Unspecified atrial fibrillation Status: Acute Assessment and Plan: Interval histotry EKG on admission consistent with MAT. Metoprolol started. Echo with EF 55-60% with normal diastolic dysfunction and mild pulm HTN. TSH normal. Patient developed AFib after admission. Continue tele. Appreciate Cardiology input. Continue metoprolol and full dose Lovenox. transition to oral xarelto (7) Hypertension: Code(s): I10 - Essential (primary) hypertension Status: Acute Assessment and Plan: Bp is 112/70 (8) Hyponatremia: Code(s): E87.1 - Hypo-osmolality and hyponatremia Status: Acute Assessment and Plan: Sodium is 132. (9) Alcoholism: Code(s): F10.20 - Alcohol dependence, uncomplicated Status: Acute Assessment and Plan: stated patient only drinks beer and can drink 12-18 beers per day. (10) DVT prophylaxis: Code(s): Z29.9 - Encounter for prophylactic measures, unspecified Status: Acute Assessment and Plan: Therapeutic Lovenox transiton to oral xarelto (11) Fever: Code(s): R50.9 - Fever, unspecified Status: Acute Assessment and Plan: Pt is having a fever, rpt BC, CXR and UC- septic screen Additional Plan Subjective Date/time seen: 02/07/21 12:39 Interval history: Interval history: 65yo male with alcoholism and HTN here for bacteremia. 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 BCx drawn returned positive for ENRIKE and patient directed back to the ED on 01/14 and admitted. He developed DTs and ultimately moved to ICU on 01/15 and started on Precedex. AFIb developed requiring CALIN with cardioversion 01/22. Off librium 01/21, off Precedex on 01/25. Brain MRI 01/28 showing no acute findings. LP on 01/28 showing elevated TP, normal glucose, WBC 40 mostly lymphocytes. Moved back to ICU on 01/28 and intubated 01/29. Pt is successfully extubate, pt is currently on medical floor. Unfortunately pt looks more confuse today and has a low grade fever. Continue iv
[2021-02-07] MEDS: RIVAROXABAN 15 MG TABLET PO (17:35)
[2021-02-08] VITALS (16 sets, daily range): BP systolic 135–177; BP diastolic 77–93; PULSE 63–93; RESP 18–22; TEMP 37–37.3; O2SAT 97–98
[2021-02-08 05:35] LABS: Hematocrit 27.4 % (42.0-52.0); Hemoglobin 9.2 g/dL (14.0-18.0); Mean Corpuscular HGB Conc 33.6 g/dl (32-36); Mean Corpuscular Hemoglobin 30.4 pg (26-34); Mean Corpuscular Volume 90.4 fl (80-100); Mean Platelet Volume 8.5 fl (7.4-10.4); Platelet Count Result 496 k/mm3 (150-375); Red Blood Count 3.03 M/mm3 (4.6-6.20); Red Cell Distribution Width 12.5 % (11.5-14.5); White Blood Count 9.2 K/mm3 (4.5-10.0)
[2021-02-08 05:57] LABS: Alanine Aminotransferase 51 U/L (4-50); Albumin Level 2.9 g/dL (3.5-5.1); Alkaline Phosphatase 104 U/L (38-126); Anion Gap 6 mmol/L (8-16); Aspartate Amino Transferase 31 U/L (17-59); Bilirubin,Total 0.4 mg/dL (0.2-1.3); Blood Urea Nitrogen 21 mg/dL (9-20); Calcium 8.8 mg/dL (8.4-10.2); Carbon Dioxide 29 mmol/L (22-30); Chloride 97 mmol/L (98-107); Estimated CRCL calculation 83 ml/min; Estimated Glomerular Filt Rate > 60; Glucose 110 mg/dL (75-110); Magnesium 1.7 mg/dL (1.6-2.3); Potassium 3.9 mmol/L (3.4-5.0); Sodium 132 mmol/L (137-145)
[2021-02-08] MEDS: METOPROLOL TARTRATE 50 MG TAB PO ×2 (08:54→20:21)
[2021-02-08] MEDS: THIAMINE HCL 100 MG TABLET PO (08:54)
[2021-02-08] MEDS: CITALOPRAM HYDROBROMIDE 20 MG TABLET PO (08:54)
[2021-02-08] MEDS: FOLIC ACID 1 MG TABLET PO (08:54)
[2021-02-08] MEDS: CYANOCOBALAMIN 1,000 MCG TABLET 1000 MCG PO (08:54)
[2021-02-08] MEDS: PANTOPRAZOLE 40 MG TABLET PO (08:54)
[2021-02-08] MEDS: ASPIRIN 81 MG CHEWABLE TABLET FEED TUBE (08:55)
--- NOTE | 2021-02-08 09:53 | WPDNEURCNPN ---
Assessment and Plan Additional Plan treatment continues as such he is gradually showing signs of improvement but the mental status functions are still not up to par Consult date: 02/08/21 Time Seen: 09:00 HPI: Aly Bailey is a 65 year old male admitted to the hospital for the diagnosis of encephalopathy with acute respiratory failure and subsequently diagnosis of septicemia, anemia, and alcohol withdrawal syndrome and atrial fibrillation has been showing gradual signs of improvement has been treated for septicemia already. On today's visit his routine lab shows WBC 9.2 hemoglobin 9.2 and platelet count of 496, INR 1.8 with a PTT 43.9 blood gases with pH of 7.557 pCO2 31.6 and PO2 86.1 chemistry with sodium of 132 potassium 3.9 BUN 21 UA abnormal but negative for leukocyte Estrace CSF with 14 you created cell 96% lymphocytes 3 monocytes total protein of 597, serology negative crypto CSF negative antigen negative present he is receiving only levofloxacin 750 mg daily Review of Systems Review of Systems: All systems reviewed & are unremarkable except as noted in HPI and below PMFSH Past Medical History Medical History Alcohol abuse Anxiety Gout Hypertension Osteoarthritis Wrists, knees. Surgical History Surgical History History of basal cell carcinoma excision Removed from the chest, arm, shoulder. History of cholecystectomy History of tonsillectomy Family History Family History Father Hypertension Cerebrovascular accident Mother Hypertension Other Diabetes mellitus Social History Social History Social History: Surrogate decision maker: Brenda Bailey, spouse. Code status: Full code. Smoking status: Never smoker Alcohol intake: current Drinks per week: 35 Substance use: never Substance use type: marijuana Additional living arrangements comments: Lives in [place] with his . 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 Gender identity (if verbalized by the patient): Male Spiritual care concerns: No Meds Home Medications and Allergies Home Medications Medication Instructions Recorded Confirmed Type allopurinol 100 mg PO QAM 12/31/20 01/18/21 History cholecalciferol (vitamin D3) 25 mcg PO DAILY 12/31/20 01/14/21 History citalopram 20 mg PO QAM 12/31/20 01/14/21 History lisinopril-hydrochlorothiazide 1 tablet PO QAM 12/31/20 01/14/21 History loratadine [Claritin] 10 mg PO DAILY 12/31/20 01/14/21 History cyclobenzaprine 10 mg PO TID PRN #21 tablet 01/13/21 01/14/21 Rx hydrocodone-acetaminophen 1 tablet PO Q6H PRN 3 Days #12 01/13/21 01/14/21 Rx tablet levofloxacin 750 mg PO DAILY 7 Days #7 tablet 01/13/21 01/14/21 Rx Allergies Allergy/AdvReac Type Severity Reaction Status Date / Time No Known Allergies Allergy Mild Verified 01/13/21 01:13 Vital Signs Vital Signs - 24 hr 02/07/21 10:00 02/07/21 10:40 02/07/21 11:40 Temperature 38.7 C H 38.7 C H 38.7 C H Pulse Rate 79 Respiratory Rate 20 Blood Pressure 155/71 H Pulse Oximetry 99 02/07/21 12:00 02/07/21 12:52 02/07/21 14:00 Temperature 38.2 C H 38.4 C H Pulse Rate 85 80 Respiratory Rate 20 Blood Pressure 106/65 Pulse Oximetry 98 02/07/21 16:00 02/07/21 18:00 02/07/21 18:54 Temperature 38.4 C H 38.4 C H Pulse Rate 90 91 Respiratory Rate 18 Blood Pressure 148/86 H Pulse Oximetry 96 02/07/21 19:02 02/07/21 19:54 02/07/21 20:00 Temperature 37.7 C H 37.8 C H Pulse Rate 93 Respiratory Rate Blood Pressure Pulse Oximetry 97 02/07/21 20:07 02/07/21 22:00 02/08/21 00:00 Temperature 37.1 C Pulse Rate 91 84 70 Respiratory Rate 18 Blood Pressure 152/85 H Pulse Oximetry 97 02/08/21 02:00 02/08/21 04:00 02/08
--- NOTE | 2021-02-08 11:22 | WPDINFPN2 ---
Progress Note: A&P Assessment and Plan (1) Bacteremia: Code(s): R78.81 - Bacteremia Status: Acute Assessment and Plan: 1. ENRIKE bacteremia with infection, skin source likely, microbiologic cure. 2. Alcoholism 3. Abnormal CSF and decreased LOC, no infection 4. Breakthrough fever, persists at times. Aspiration syndrome? Wbc normal, lungs clear and no resp distress REC (antibiotic #26 / 28 days) Continue Ctx through 02/10 tentatively. Subjective Date/time seen: 02/08/21 11:22 Interval history: up in chair, with assistance. No diarrhea. IV sites ok. Food has minimal taste. Exam Narrative: Exam Narrative: t max 38.7 Const: General: no acute distress HENMT: Mouth: Yes dry mucous membranes Other: seborrheic dermatitis, no thrush Eyes: General: appearance normal, both eyes and all related structures Resp: Effort & Inspection: normal respiratory effort Auscultation: clear to auscultation bilaterally Cardio: Rate: regular rate Rhythm: regular rhythm Heart sounds: no murmurs GI: Inspection: non-distended GI Palp: Yes Soft to palpation, No Tenderness to palpation present (GI) and No Guarding due to palpation present (GI) Urinary Catheter: Urinary Catheter: patent and draining and urine clear Skin: General skin exam: normal color Objective Data Vital Signs Vital Signs: Vital Signs - 24 hr 02/07/21 11:40 02/07/21 12:00 02/07/21 12:52 Temperature 38.7 C H 38.2 C H Pulse Rate 85 Respiratory Rate Blood Pressure Pulse Oximetry 02/07/21 14:00 02/07/21 16:00 02/07/21 18:00 Temperature 38.4 C H 38.4 C H Pulse Rate 80 90 91 Respiratory Rate 20 18 Blood Pressure 106/65 148/86 H Pulse Oximetry 98 96 02/07/21 18:54 02/07/21 19:02 02/07/21 19:54 Temperature 38.4 C H 37.7 C H 37.8 C H Pulse Rate Respiratory Rate Blood Pressure Pulse Oximetry 02/07/21 20:00 02/07/21 20:07 02/07/21 22:00 Temperature 37.1 C Pulse Rate 93 91 84 Respiratory Rate 18 Blood Pressure 152/85 H Pulse Oximetry 97 97 02/08/21 00:00 02/08/21 02:00 02/08/21 04:00 Temperature 37.1 C Pulse Rate 70 69 90 Respiratory Rate 20 Blood Pressure 152/77 H Pulse Oximetry 98 02/08/21 06:00 02/08/21 08:00 02/08/21 08:13 Temperature 37.2 C Pulse Rate 82 89 90 Respiratory Rate 18 Blood Pressure 157/84 H Pulse Oximetry 97 02/08/21 08:54 02/08/21 10:00 Temperature 37.0 C Pulse Rate 63 66 Respiratory Rate 18 Blood Pressure 135/80 Pulse Oximetry 98 Intake/Output Intake/Output: Intake & Output 02/05/21 02/06/21 02/07/21 02/08/21 23:59 23:59 23:59 23:59 Intake Total 2318 695 5026 420 Output Total 1999 1650 1200 550 Balance -330 -1210 -10 -130 Meds/Results Medications: Active Medications Generic Name Dose Route Start Last Admin Trade Name Freq PRN Reason Stop Dose Admin Acetaminophen 650 mg 02/07/21 18:57 Acetaminophen 325 Mg Tablet BY MOUTH Q6H PRN Mild Pain (1-3) or Fever Albuterol 2.5 mg 01/23/21 12:00 01/29/21 15:02 Albuterol Sulfate Neb 2.5 Mg/0.5 Ml Inh INHALATION 2.5 mg Q6HRT PRN Administration Dyspnea Alprazolam 0.25 mg 02/06/21 15:04 02/06/21 15:31 Alprazolam (*Crx) 0.25 Mg Tablet PO 0.25 mg TID PRN Administration Anxiety Aspirin 81 mg 01/24/21 08:00 02/08/21 08:55 Aspirin 81 Mg Chewable Tablet FEED TUBE 81 mg DAILY@0800 APRYL Administration Citalopram Hydrobromide 20 mg 02/07/21 09:00 02/08/21 08:54 Citalopram Hydrobromide 20 Mg Tablet PO 20 mg QAM APRYL Administration Cyanocobalamin 1,000 mcg 02/02/21 11:00 02/08/21 08:54 Cyanocobalamin 1,000 Mcg Tablet PO 1,000 mcg QAM APRYL Administration Folic Acid 1 mg 02/03/21 09:00 02/08/21 08:54 Folic Acid 1 Mg Tablet PO 1 mg DAILY APRYL Administration Ceftriaxone Sodium/Dextrose 1 gm in 50 mls @ 100 mls/hr 02/03/21 21:00 02/07/21 20:33 Rocephin 1 Gm/D5w 50 Ml IVPB Infused Q24H APRYL Inf
--- NOTE | 2021-02-08 12:36 | PM.IMPN ---
Progress Note: A&P Assessment and Plan (1) Encephalopathy acute: Code(s): G93.40 - Encephalopathy, unspecified Status: Acute Assessment and Plan: See below. Investigation up until now are as follows. CT brain from 01/27 showing no acute findings. MRI brain 01/28 showing no acute findings. Ammonia level negative. LP showing TP 597, [id number], WBC40 with 96% lymphocytes. Path showing chronic inflammation. Gram stain showing moderate WBC but no MO; fungal smear showing no organisms. BCx 01/28 NGTD. UCx negative. Sputum Cx negative x2. CSF Cx NGTD. Crypto Ag negative. HSV PCR negative. Gustavo of fever yesterday septic screen collected Confusion secondary to encephalitis Fever secondary to encephalitis (2) Acute respiratory failure: Code(s): J96.00 - Acute respiratory failure, unspecified whether with hypoxia or hypercapnia Status: Acute Assessment and Plan: Patient was intubation on 01/29/21. extubated on oxygen prn. (3) Septicemia: Code(s): A41.9 - Sepsis, unspecified organism Status: Acute Assessment and Plan: likely secondary to ENRIKE bacteremia. Seen by ID, vancomycin have been discontinued. Rocephin is active. ID rounding, pt continues to have small spikes with fever. (4) Anemia: Code(s): D64.9 - Anemia, unspecified Status: Acute Assessment and Plan: Patient's hemoglobin was normal on admission, hb staying at 9 (5) Alcohol withdrawal delirium: Code(s): F10.231 - Alcohol dependence with withdrawal delirium Status: Acute Assessment and Plan: Interval history: Patient was A&O x4 on admission but seemed a bit confused. He then developed acute delirium from alcohol withdrawal 01/15 and moved to ICU for Precedex. CT brain normal. No signs of DT on the medical floor. (6) Atrial fibrillation: Code(s): I48.91 - Unspecified atrial fibrillation Status: Acute Assessment and Plan: Interval histotry EKG on admission consistent with MAT. Metoprolol started. Echo with EF 55-60% with normal diastolic dysfunction and mild pulm HTN. TSH normal. Patient developed AFib after admission. Continue tele. Appreciate Cardiology input. Continue metoprolol and full dose Lovenox. transition to oral xarelto (7) Hypertension: Code(s): I10 - Essential (primary) hypertension Status: Acute Assessment and Plan: Bp is 112/70 (8) Hyponatremia: Code(s): E87.1 - Hypo-osmolality and hyponatremia Status: Acute Assessment and Plan: Sodium is 132. (9) Alcoholism: Code(s): F10.20 - Alcohol dependence, uncomplicated Status: Acute Assessment and Plan: stated patient only drinks beer and can drink 12-18 beers per day. (10) DVT prophylaxis: Code(s): Z29.9 - Encounter for prophylactic measures, unspecified Status: Acute Assessment and Plan: Therapeutic Lovenox transiton to oral xarelto (11) Fever: Code(s): R50.9 - Fever, unspecified Status: Acute Assessment and Plan: Pt had fever yesterday - rpt BC, CXR and UC- septic screen Additional Plan Subjective Date/time seen: 02/08/21 12:36 Interval history: Interval history: 65yo male with alcoholism and HTN here for bacteremia. 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 BCx drawn returned positive for ENRIKE and patient directed back to the ED on 01/14 and admitted. He developed DTs and ultimately moved to ICU on 01/15 and started on Precedex. AFIb developed requiring CALIN with cardioversion 01/22. Off librium 01/21, off Precedex on 01/25. Brain MRI 01/28 showing no acute findings. LP on 01/28 showing elevated TP, normal glucose, WBC 40 mostly lymphocytes. Moved back to ICU on 01/28 and intubated 01/29. Pt is successfully extubate, pt is
--- NOTE | 2021-02-08 13:48 | PCNFU ---
Nutrition Follow-Up Complete: Inadequate oral intake related to poor appetite as evidenced by intakes 15-40%. Goal: Patient to consume 75% of meals/supplements or greater. Limited progress towards goal. We will continue current goal. Pt current nutrition is soft and bite sized, level 6. Last recorded weight is 80.4 kg,down from 87.2 kg on admit. Bowel Motility:+BM reported 02/08 Labs Reviewed:BUN 21,Na 132,Alb 2.9,Hct 27.4,Hgb 9.2 Meds Noted:Folic Acid, Thiamine, Vit B12, Lopressor, Xanax,Celexa,Rocephin,Xarelto, Protonix. Additional Notes: Nutrition follow up. Patient is confused, refusing meals, low grade fever. Bedside Swallow Eval 02/05-recommending soft and bite sized, Level 6. Diet supplements: frozen nutritional treat TID providing an additional 300 kcals and 9 gms protein. PO intake encouraged. Monitoring: Follow up in 3 days.
[2021-02-08] MEDS: RIVAROXABAN 15 MG TABLET PO (17:42)
[2021-02-09] VITALS (14 sets, daily range): BP systolic 144–182; BP diastolic 68–85; PULSE 67–107; RESP 18–22; TEMP 36.4–37.5; O2SAT 92–100
[2021-02-09 05:47] LABS: Hematocrit 27.5 % (42.0-52.0); Hemoglobin 9.3 g/dL (14.0-18.0); Mean Corpuscular HGB Conc 33.8 g/dl (32-36); Mean Corpuscular Hemoglobin 30.6 pg (26-34); Mean Corpuscular Volume 90.5 fl (80-100); Mean Platelet Volume 8.4 fl (7.4-10.4); Platelet Count Result 516 k/mm3 (150-375); Red Blood Count 3.04 M/mm3 (4.6-6.20); Red Cell Distribution Width 12.3 % (11.5-14.5); White Blood Count 9.2 K/mm3 (4.5-10.0)
[2021-02-09 05:53] LABS: Anion Gap 8 mmol/L (8-16); Blood Urea Nitrogen 22 mg/dL (9-20); Calcium 9.3 mg/dL (8.4-10.2); Carbon Dioxide 26 mmol/L (22-30); Chloride 98 mmol/L (98-107); Estimated CRCL calculation 83 ml/min; Estimated Glomerular Filt Rate > 60; Glucose 104 mg/dL (75-110); Potassium 3.8 mmol/L (3.4-5.0); Sodium 132 mmol/L (137-145)
[2021-02-09] MEDS: THIAMINE HCL 100 MG TABLET PO (08:55)
[2021-02-09] MEDS: CYANOCOBALAMIN 1,000 MCG TABLET 1000 MCG PO (08:55)
[2021-02-09] MEDS: CITALOPRAM HYDROBROMIDE 20 MG TABLET PO (08:55)
[2021-02-09] MEDS: ASPIRIN 81 MG CHEWABLE TABLET FEED TUBE (08:55)
[2021-02-09] MEDS: FOLIC ACID 1 MG TABLET PO (08:55)
[2021-02-09] MEDS: METOPROLOL TARTRATE 50 MG TAB PO ×2 (08:55→19:58)
[2021-02-09] MEDS: PANTOPRAZOLE 40 MG TABLET PO (08:55)
--- NOTE | 2021-02-09 09:08 | PM.IMPN ---
Progress Note: A&P Assessment and Plan (1) Encephalopathy acute: Code(s): G93.40 - Encephalopathy, unspecified Status: Acute Assessment and Plan: Acute metabolic encephalopathy See below. Investigation up until now are as follows. CT brain from 01/27 showing no acute findings. MRI brain 01/28 showing no acute findings. Ammonia level negative. LP showing TP 597, [id number], WBC40 with 96% lymphocytes. Path showing chronic inflammation. Gram stain showing moderate WBC but no MO; fungal smear showing no organisms. BCx 01/28 NGTD. UCx negative. Sputum Cx negative x2. CSF Cx NGTD. Crypto Ag negative. HSV PCR negative. Gustavo of fever yesterday septic screen collected Probably patient has acute encephalitis probably viral and bacterial pneumonia present on admission neurology following ID following (2) Acute respiratory failure: Code(s): J96.00 - Acute respiratory failure, unspecified whether with hypoxia or hypercapnia Status: Acute Assessment and Plan: Patient was intubation on 01/29/21. extubated on oxygen prn. (3) Septicemia: Code(s): A41.9 - Sepsis, unspecified organism Status: Acute Assessment and Plan: likely secondary to ENRIKE bacteremia. Seen by ID, vancomycin have been discontinued. Continue antibiotic (4) Anemia: Code(s): D64.9 - Anemia, unspecified Status: Acute Assessment and Plan: Patient's hemoglobin was normal on admission, hb staying at 9 probably dilution continue to monitor (5) Alcohol withdrawal delirium: Code(s): F10.231 - Alcohol dependence with withdrawal delirium Status: Acute Assessment and Plan: Status post Precedex and Librium. (6) Atrial fibrillation: Code(s): I48.91 - Unspecified atrial fibrillation Status: Acute Assessment and Plan: Interval histotry EKG on admission consistent with MAT. Metoprolol started. Echo with EF 55-60% with normal diastolic dysfunction and mild pulm HTN. TSH normal. Patient developed AFib after admission. Continue tele. Appreciate Cardiology input. metoprolol and full dose Lovenox. transition to oral xarelto status post cardioversion (7) Hypertension: Code(s): I10 - Essential (primary) hypertension Status: Acute Assessment and Plan: Continue to monitor (8) Hyponatremia: Code(s): E87.1 - Hypo-osmolality and hyponatremia Status: Acute Assessment and Plan: Fluid restriction (9) Alcoholism: Code(s): F10.20 - Alcohol dependence, uncomplicated Status: Acute Assessment and Plan: patient only drinks beer 12-18 beers per day. (10) DVT prophylaxis: Code(s): Z29.9 - Encounter for prophylactic measures, unspecified Status: Acute Assessment and Plan: Continue anticoagulation (11) Fever: Code(s): R50.9 - Fever, unspecified Status: Acute Assessment and Plan: Had episodes of fever-chest x-ray shows patchy infiltrate Additional Plan Subjective Date/time seen: 02/09/21 09:08 Interval history: Interval history: 65yo male with alcoholism and HTN here for bacteremia. Patient initially seen in ED [employer] hours of 01/13 for body aches, low back pain and fever and felt to have sinusitis and d/c home with Levaquin. BCx drawn returned positive for ENRIKE and patient directed back to the ED on 01/14 and admitted. He developed DTs and ultimately moved to ICU on 01/15 and started on Precedex. AFIb developed requiring CALIN with cardioversion 01/22. Off librium 01/21, off Precedex on 01/25. Brain MRI 01/28 showing no acute findings. LP on 01/28 showing elevated TP, normal glucose, WBC 40 mostly lymphocytes. Moved back to ICU on 01/28 and intubated 01/29. Pt is successfully extubate, pt is currently on medical floor. Current antibiotic ID following Chest x-ray shows pneumonia Patient denies headache facial asymmetry or abdominal pain
[2021-02-09] MEDS: RIVAROXABAN 15 MG TABLET PO (18:01)
[2021-02-10] VITALS (15 sets, daily range): BP systolic 151–176; BP diastolic 72–82; PULSE 63–98; RESP 20–21; TEMP 36.3–37.2; O2SAT 92–100
[2021-02-10] MEDS: ASPIRIN 81 MG CHEWABLE TABLET FEED TUBE (09:12)
[2021-02-10] MEDS: CITALOPRAM HYDROBROMIDE 20 MG TABLET PO (09:12)
[2021-02-10] MEDS: METOPROLOL TARTRATE 50 MG TAB PO ×2 (09:13→20:51)
[2021-02-10] MEDS: FOLIC ACID 1 MG TABLET PO (09:13)
[2021-02-10] MEDS: PANTOPRAZOLE 40 MG TABLET PO (09:13)
[2021-02-10] MEDS: CYANOCOBALAMIN 1,000 MCG TABLET 1000 MCG PO (09:13)
[2021-02-10] MEDS: THIAMINE HCL 100 MG TABLET PO (09:14)
--- NOTE | 2021-02-10 09:44 | PM.IMPN ---
Progress Note: A&P Assessment and Plan (1) Encephalopathy acute: Code(s): G93.40 - Encephalopathy, unspecified Status: Acute Assessment and Plan: Acute metabolic encephalopathy See below. Investigation up until now are as follows. CT brain from 01/27 showing no acute findings. MRI brain 01/28 showing no acute findings. Ammonia level negative. LP showing TP 597, [id number], WBC40 with 96% lymphocytes. Path showing chronic inflammation. Gram stain showing moderate WBC but no MO; fungal smear showing no organisms. BCx 01/28 NGTD. UCx negative. Sputum Cx negative x2. CSF Cx NGTD. Crypto Ag negative. HSV PCR negative. Gustavo of fever yesterday septic screen collected Probably patient has acute encephalitis probably viral and bacterial pneumonia present on admission neurology following ID following (2) Acute respiratory failure: Code(s): J96.00 - Acute respiratory failure, unspecified whether with hypoxia or hypercapnia Status: Acute Assessment and Plan: Patient was intubation on 01/29/21. extubated on oxygen prn. (3) Septicemia: Code(s): A41.9 - Sepsis, unspecified organism Status: Acute Assessment and Plan: likely secondary to ENRIKE bacteremia. Seen by ID, vancomycin have been discontinued. Chest x-ray also shows pneumonia currently on Levaquin (4) Anemia: Code(s): D64.9 - Anemia, unspecified Status: Acute Assessment and Plan: Patient's hemoglobin was normal on admission, hb staying at 9 probably dilution continue to monitor (5) Alcohol withdrawal delirium: Code(s): F10.231 - Alcohol dependence with withdrawal delirium Status: Acute Assessment and Plan: Status post Precedex and Librium. (6) Atrial fibrillation: Code(s): I48.91 - Unspecified atrial fibrillation Status: Acute Assessment and Plan: Interval histotry EKG on admission consistent with MAT. Metoprolol started. Echo with EF 55-60% with normal diastolic dysfunction and mild pulm HTN. TSH normal. Patient developed AFib after admission. Continue tele. Appreciate Cardiology input. metoprolol and full dose Lovenox. transition to oral xarelto status post cardioversion (7) Hypertension: Code(s): I10 - Essential (primary) hypertension Status: Acute Assessment and Plan: Continue to monitor (8) Hyponatremia: Code(s): E87.1 - Hypo-osmolality and hyponatremia Status: Acute Assessment and Plan: Fluid restriction monitor CMP (9) Alcoholism: Code(s): F10.20 - Alcohol dependence, uncomplicated Status: Acute Assessment and Plan: patient only drinks beer 12-18 beers per day. (10) DVT prophylaxis: Code(s): Z29.9 - Encounter for prophylactic measures, unspecified Status: Acute Assessment and Plan: Continue anticoagulation (11) Fever: Code(s): R50.9 - Fever, unspecified Status: Acute Assessment and Plan: Had episodes of fever-chest x-ray shows patchy infiltrate most likely pneumococcal pneumonia Additional Plan Subjective Date/time seen: 02/10/21 09:44 Interval history: Patient seen and examined Patient still have episodes of intermittent confusion Have skin rash Fever has improved Patient denies fever headache chest pain shortness of breath I am seeing the patient for acute encephalopathy Exam Narrative: Exam Narrative: Alert Chest decreased air entry bilateral Abdomen nontender nondistended CVS S1 + S2 Lower extremity edema Objective Data Vital Signs Vital Signs: Vital Signs - 24 hr 02/09/21 10:00 02/09/21 12:00 02/09/21 14:00 Temperature 98.5 F 98.5 F Pulse Rate 67 81 71 Respiratory Rate 20 20 Blood Pressure 144/79 H 153/85 H Pulse Oximetry 98 100 02/09/21 16:00 02/09/21 18:00 02/09/21 19:58 Temperature 98.4 F Pulse Rate 88 70 84 Respiratory Rate 20 Blood Pressure 148/82 H
--- NOTE | 2021-02-10 11:32 | WPDNEUROPN ---
Progress Note: A&P Assessment and Plan (1) Encephalopathy acute: Code(s): G93.40 - Encephalopathy, unspecified Status: Acute Additional Plan gradual improvement in the mental status but is still not back to the normal, happen to be in the room she is aware and also discussed with her, will repeat the EEG Review of Systems Review of Systems: All systems reviewed & are unremarkable except as noted in HPI and below Exam Const: General: cooperative, comfortable, alert, awake, anxious and confusion Nutritional Appearance: average body habitus Orientation/consciousness: oriented to person Limitations: behavioral limitations and physical limitations HENMT: Head: normocephalic General nose exam: Normal external nose present Face and sinus: normal facial exam Mouth: Yes Normal oral and palatal mucosa present Eyes: General: appearance normal, both eyes and all related structures Visual Carrizales: normal visual carrizales by confrontation Alignment and Position: alignment normal Periorbital: periorbital findings normal Eyelids: eyelids normal Conjunctivae: conjunctivae normal Sclera: sclerae normal Cornea: corneas normal EOM: EOMs intact bilaterally Neck: Neck: full ROM Resp: Effort & Inspection: normal respiratory effort Auscultation: clear to auscultation bilaterally Cardio: Rate: regular rate Rhythm: regular rhythm Neuro: General: oriented to person Cranial nerves: Yes CN's II-XII intact bilaterally, Yes Facial sensation intact/muscles of mastication intact, Yes Bilaterally intact EOM present, Yes Nystagmus not present, Yes Normal facial strength present and Yes Midline tongue present Cognition (Neuro): abnormal cognition Speech: Abnormal speech present Gait exam (Neuro): Unable to assess gait Motor exam (neuro): Abnormal motor strength present Sensory Exam: Sensory deficit (Neuro) Deep tendon reflexes (DTR's): Right triceps reflex intensity grade: 1+, Left triceps reflex intensity grade: 1+, Rt Biceps (C5, C6): 1+, Left biceps reflex intensity grade: 1+, Right brachioradialis reflex intensity grade: 1+, Left brachioradialis reflex intensity grade: 1+, Right patellar reflex intensity grade: 1+, Left patellar reflex intensity grade: 1+, Right ankle reflex intensity grade: 1+ and Left ankle reflex intensity grade: 1+ Plantar Reflex Responses: equivocal: bilateral Psych: Appearance: disheveled Mental Status: other Speech and movement: Slowed speech present (Psych) Affect: Animated affect present Attitude: cooperative Thought process: Flight of ideas present Thought content: Yes Derealization present Insight: Poor insight present (Psych) Judgement: Poor judgement present (Psych) Objective Data Vital Signs Vital Signs: Vital Signs - 24 hr 02/09/21 12:00 02/09/21 14:00 02/09/21 16:00 Temperature 36.9 C Pulse Rate 81 71 88 Respiratory Rate 20 Blood Pressure 153/85 H Pulse Oximetry 100 02/09/21 18:00 02/09/21 19:58 02/09/21 20:00 Temperature 36.9 C Pulse Rate 70 84 88 Respiratory Rate 20 20 Blood Pressure 148/82 H Pulse Oximetry 100 92 02/09/21 20:38 02/10/21 00:00 02/10/21 00:44 Temperature 36.4 C L 36.3 C L Pulse Rate 80 86 98 Respiratory Rate 20 20 Blood Pressure 163/82 H 151/75 H Pulse Oximetry 92 98 02/10/21 04:00 02/10/21 05:16 02/10/21 08:00 Temperature 36.4 C L Pulse Rate 83 63 93 Respiratory Rate 20 Blood Pressure 164/72 H Pulse Oximetry 92 02/10/21 09:13 02/10/21 11:25 Temperature Pulse Rate 95 Respiratory Rate Blood Pressure Pulse Oximetry 94 Intake/Output Intake/Output: Intake & Output 02/07/21 02/08/21 02/09/21 02/10/21 23:59 23:59 23:59 23:59 Intake Total 1190 590 630 530 Output Total 1200 1000 1150 400 [facility] -10 -[phone] -520 130 Meds/Results Medications: Active Medications Generic Name Dose Route Start Last Admin Trade Name Freq PRN Reason Stop Dose Admin Acetaminophen 650 mg 02/07/21 18:57 Acetaminoph
--- NOTE | 2021-02-10 11:43 | PCNFU ---
Nutrition Follow-Up Complete: Inadequate oral intake related to poor appetite as evidenced by intakes 15-40%. Goal: Patient to consume 75% of meals/supplements or greater. Progressing towards goal. We will continue current goal. Pt current nutrition is Soft and Bite Sized, Level 6 with Frozen Nutritional Treat TID and Ensure compact BID. Last recorded weight is 76.6 kg,down from 87.2 kg. Bowel Motility: + BM reported 02/09 Labs Reviewed:02/09: Na 132,BUN 22,Hct 27.5,Hgb 9.3 Meds Noted:Folic Acid, Vit B 12, Thiamine, Lopressor, Zanax, Rocephin,Xarelto, Celexa, Protonix. Additional Notes: Nutrition follow up. Spoke with patient today. Discussed oral intake at breakfast-75% of meal with 240 ml of liquids. Patient was a feeder. Discussed food likes today. MD orders to liberalize diet soft and bite sized, Level 6 and add on Ensure compact BID for an additional 220 kcals and 9 gms protein. PO intake encouraged. Patient was up in a chair, working with therapy today. Monitoring: Follow up in 3 days.
[2021-02-10 11:54] LABS: Basophils Absolute Auto 0.1 K/mm3 (0.0-0.1); Basophils Percent Auto 0.8 % (0.2-1.2); Eosinophils Absolute Auto 0.3 K/mm3 (0-0.3); Eosinophils Percent Auto 3.1 % (0-4.4); Hematocrit 28.8 % (42.0-52.0); Hemoglobin 9.7 g/dL (14.0-18.0); Immature Granulocyte Absolute 0.08 K/mm3 (0.00-0.031); Immature Granulocyte Percent A 0.8 % (0-0.5); Lymphocytes Absolute Auto 1.35 K/mm3 (0.9-3.2); Lymphocytes Percent Auto 12.9 % (18.3-44.2); Mean Corpuscular HGB Conc 33.7 g/dl (32-36); Mean Platelet Volume 8.8 fl (7.4-10.4); Monocytes Absolute Auto 0.9 K/mm3 (0.1-0.6); Monocytes Percent Auto 8.3 % (2.6-8.5); Neutrophils Absolute Auto 7.8 K/mm3 (1.3-6.7); Neutrophils Percent Auto 74.1 % (45.5-73.1); Platelet Count Result 586 k/mm3 (150-375); Red Blood Count 3.13 M/mm3 (4.6-6.20); Red Cell Distribution Width 12.6 % (11.5-14.5); White Blood Count 10.5 K/mm3 (4.5-10.0)
[2021-02-10 12:09] LABS: Alanine Aminotransferase 44 U/L (4-50); Albumin Level 3.1 g/dL (3.5-5.1); Alkaline Phosphatase 93 U/L (38-126); Anion Gap 5 mmol/L (8-16); Aspartate Amino Transferase 31 U/L (17-59); Bilirubin,Total 0.2 mg/dL (0.2-1.3); Blood Urea Nitrogen 22 mg/dL (9-20); Calcium 9.2 mg/dL (8.4-10.2); Carbon Dioxide 29 mmol/L (22-30); Chloride 97 mmol/L (98-107); Estimated CRCL calculation 83 ml/min; Estimated Glomerular Filt Rate > 60; Glucose 161 mg/dL (75-110); Potassium 3.9 mmol/L (3.4-5.0); Sodium 131 mmol/L (137-145)
[2021-02-10] MEDS: RIVAROXABAN 15 MG TABLET PO (18:20)
[2021-02-10] MEDS: ALPRAZolam (*CRX) 0.25 MG TABLET PO (22:55)
[2021-02-10] MEDS: ACETAMINOPHEN 325 MG TABLET 650 MG BY MOUTH (22:55)
[2021-02-11] VITALS (13 sets, daily range): BP systolic 120–181; BP diastolic 47–94; PULSE 69–97; RESP 18–21; TEMP 36.3–37.1; O2SAT 70–100
--- NOTE | 2021-02-11 09:24 | WPDNEUROLOGY ---
Neurology EEG Report General Information Date of Study: 02/11/21 TEST EEG DIAGNOSIS encephalopathy CONDITION OF RECORDING drowsy and sleep EEG NUMBER [id number] CLINICAL HISTORY this is a repeat EEG on a patient who was brought into hospital for altered mental status. clinically mental status is improved over the last 2 weeks but is still not back to baseline EEG DESCRIPTION basic resting occipital frequency consists of moderate amount of low to medium voltage 8 to 10 hertz per 2nd alpha admixed with low to medium voltage 5 to 7 hertz per 2nd theta. Bilateral symmetrical sleep activity seen admixed with intermittent theta and occasional delta activity. Hyperventilation not done. photic stimulation not done. Non paroxysmal.nonfocal .nonlateralizing. IMPRESSION abnormal record due to the presence of bihemispheric theta and delta activity during wakefulness but there is no evidence of any paroxysmal activity. Compared to the previous tracing this EEG shows significant improvement but is still compatible with improving metabolic encephalopathy without evidence of any paroxysmal discharge.
[2021-02-11] MEDS: THIAMINE HCL 100 MG TABLET PO (09:30)
[2021-02-11] MEDS: FOLIC ACID 1 MG TABLET PO (09:30)
[2021-02-11] MEDS: CITALOPRAM HYDROBROMIDE 20 MG TABLET PO (09:30)
[2021-02-11] MEDS: CYANOCOBALAMIN 1,000 MCG TABLET 1000 MCG PO (09:30)
[2021-02-11] MEDS: PANTOPRAZOLE 40 MG TABLET PO (09:30)
[2021-02-11] MEDS: ASPIRIN 81 MG CHEWABLE TABLET PO (09:30)
[2021-02-11] MEDS: METOPROLOL TARTRATE 50 MG TAB PO ×2 (09:30→21:39)
--- NOTE | 2021-02-11 09:50 | PM.IMPN ---
Progress Note: A&P Assessment and Plan (1) Encephalopathy acute: Code(s): G93.40 - Encephalopathy, unspecified Status: Acute Assessment and Plan: Acute metabolic encephalopathy See below. Investigation up until now are as follows. CT brain from 01/27 showing no acute findings. MRI brain 01/28 showing no acute findings. Ammonia level negative. LP showing TP 597, QHO222, WBC40 with 96% lymphocytes. Path showing chronic inflammation. Gram stain showing moderate WBC but no MO; fungal smear showing no organisms. BCx 01/28 NGTD. UCx negative. Sputum Cx negative x2. CSF Cx NGTD. Crypto Ag negative. HSV PCR negative. Gustavo of fever yesterday septic screen collected Probably patient has acute encephalitis probably viral and bacterial pneumonia present on admission neurology following plan for repeat EEG Discuss with neurology regarding patient was presented with back pain and positive blood culture may need MRI neurology is evaluating the need for the MRI of the lumbar spine (2) Acute respiratory failure: Code(s): J96.00 - Acute respiratory failure, unspecified whether with hypoxia or hypercapnia Status: Acute Assessment and Plan: Patient was intubation on 01/29/21. extubated on oxygen prn. (3) Septicemia: Code(s): A41.9 - Sepsis, unspecified organism Status: Acute Assessment and Plan: likely secondary to ENRIKE bacteremia. Seen by ID, vancomycin have been discontinued. Chest x-ray also shows pneumonia currently on IV Rocephin continue until 02/13/2021 can be switched to oral if patient ready for discharge after EEG and MRI (4) Anemia: Code(s): D64.9 - Anemia, unspecified Status: Acute Assessment and Plan: Patient's hemoglobin was normal on admission, hb staying at 9 probably dilution continue to monitor (5) Alcohol withdrawal delirium: Code(s): F10.231 - Alcohol dependence with withdrawal delirium Status: Acute Assessment and Plan: Status post Precedex and Librium. (6) Atrial fibrillation: Code(s): I48.91 - Unspecified atrial fibrillation Status: Acute Assessment and Plan: Interval histotry EKG on admission consistent with MAT. Metoprolol started. Echo with EF 55-60% with normal diastolic dysfunction and mild pulm HTN. TSH normal. Patient developed AFib after admission. Continue tele. Appreciate Cardiology input. metoprolol and full dose Lovenox. currently on oral xarelto status post cardioversion (7) Hypertension: Code(s): I10 - Essential (primary) hypertension Status: Acute Assessment and Plan: Continue to monitor (8) Hyponatremia: Code(s): E87.1 - Hypo-osmolality and hyponatremia Status: Acute Assessment and Plan: Fluid restriction monitor CMP (9) Alcoholism: Code(s): F10.20 - Alcohol dependence, uncomplicated Status: Acute Assessment and Plan: patient only drinks beer 12-18 beers per day. (10) DVT prophylaxis: Code(s): Z29.9 - Encounter for prophylactic measures, unspecified Status: Acute Assessment and Plan: Continue anticoagulation (11) Fever: Code(s): R50.9 - Fever, unspecified Status: Acute Assessment and Plan: Had episodes of fever-chest x-ray shows patchy infiltrate most likely pneumococcal pneumonia continue antibiotic as above Additional Plan Anticipate discharge in the next 24-48 hours to rehab Subjective Date/time seen: 02/11/21 09:50 Interval history: If 65 years old male with past medical history of hypertension alcoholism last alcohol intake was more than 6 months ago according to the patient patient presented to the hospital with low back pain and body aches patient was treated for sinusitis and was discharged home on Levaquin from the ER later that and the night patient was found to have positive MSSA blood culture and was asked to come to the ER
[2021-02-11 10:12] LABS: Basophils Absolute Auto 0.1 K/mm3 (0.0-0.1); Basophils Percent Auto 0.8 % (0.2-1.2); Eosinophils Absolute Auto 0.3 K/mm3 (0-0.3); Eosinophils Percent Auto 2.5 % (0-4.4); Hematocrit 30.4 % (42.0-52.0); Immature Granulocyte Absolute 0.06 K/mm3 (0.00-0.031); Immature Granulocyte Percent A 0.6 % (0-0.5); Lymphocytes Absolute Auto 1.85 K/mm3 (0.9-3.2); Lymphocytes Percent Auto 17.5 % (18.3-44.2); Mean Corpuscular HGB Conc 32.9 g/dl (32-36); Mean Corpuscular Hemoglobin 30.2 pg (26-34); Mean Corpuscular Volume 91.8 fl (80-100); Mean Platelet Volume 8.8 fl (7.4-10.4); Monocytes Absolute Auto 0.8 K/mm3 (0.1-0.6); Monocytes Percent Auto 7.3 % (2.6-8.5); Neutrophils Absolute Auto 7.6 K/mm3 (1.3-6.7); Neutrophils Percent Auto 71.3 % (45.5-73.1); Platelet Count Result 526 k/mm3 (150-375); Red Blood Count 3.31 M/mm3 (4.6-6.20); Red Cell Distribution Width 12.4 % (11.5-14.5); White Blood Count 10.6 K/mm3 (4.5-10.0)
[2021-02-11 10:24] LABS: Alanine Aminotransferase 44 U/L (4-50); Albumin Level 3.3 g/dL (3.5-5.1); Alkaline Phosphatase 97 U/L (38-126); Anion Gap 3 mmol/L (8-16); Aspartate Amino Transferase 31 U/L (17-59); Bilirubin,Total 0.4 mg/dL (0.2-1.3); Blood Urea Nitrogen 17 mg/dL (9-20); Calcium 9.3 mg/dL (8.4-10.2); Carbon Dioxide 30 mmol/L (22-30); Chloride 97 mmol/L (98-107); Estimated CRCL calculation 94 ml/min; Estimated Glomerular Filt Rate > 60; Glucose 127 mg/dL (75-110); Potassium 3.9 mmol/L (3.4-5.0); Sodium 130 mmol/L (137-145)
--- NOTE | 2021-02-11 11:25 | PC.NURSE ---
To MRI per stretcher
--- NOTE | 2021-02-11 12:35 | PC.NURSE ---
Return from Radiology per stretcher
--- NOTE | 2021-02-11 13:39 | PC.NURSE ---
Dr Llamas notified of mri of back results
[2021-02-11] MEDS: RIVAROXABAN 15 MG TABLET PO (16:30)
--- NOTE | 2021-02-11 17:05 | PM.DS ---
DS: Admitting Diagnosis Admitting Diagnosis Admitting Diagnosis: Positive blood culture DS: Discharge Diagnosis Discharge Diagnosis (1) Encephalopathy acute: Code(s): G93.40 - Encephalopathy, unspecified Status: Acute Assessment and Plan: Acute metabolic encephalopathy . Investigation up until now are as follows. CT brain from 01/27 showing no acute findings. MRI brain 01/28 showing no acute findings. Ammonia level negative. LP showing TP 597, [id number], WBC40 with 96% lymphocytes. Path showing chronic inflammation. Gram stain showing moderate WBC but no MO; fungal smear showing no organisms. BCx 01/28 NGTD. UCx negative. Sputum Cx negative x2. CSF Cx NGTD. Crypto Ag negative. HSV PCR negative. Gustavo of fever yesterday septic screen collected Probably patient has acute probably acute meningitis osteomyelitis of the spine and bacterial pneumonia repeat EEG shows and encephalopathic (2) Acute respiratory failure: Code(s): J96.00 - Acute respiratory failure, unspecified whether with hypoxia or hypercapnia Status: Acute Assessment and Plan: Patient was intubation on 01/29/21. extubated on oxygen prn. (3) Septicemia: Code(s): A41.9 - Sepsis, unspecified organism Status: Acute Assessment and Plan: likely secondary to ENRIKE bacteremia. Seen by ID, vancomycin have been discontinued. Chest x-ray also shows pneumonia currently on IV Rocephin continue patient was on IV antibiotics since 01/14/21 patient was started on IV vancomycin and Ancef then was switched to IV Rocephin the plan was course of 28 days of IV antibiotics MRI of the spine was done concern for diskitis and fluid collection discussed with neurosurgeon patient will be transferred for evaluation (4) Anemia: Code(s): D64.9 - Anemia, unspecified Status: Acute Assessment and Plan: Most likely anemia of chronic disease workup as outpatient (5) Alcohol withdrawal delirium: Code(s): F10.231 - Alcohol dependence with withdrawal delirium Status: Acute Assessment and Plan: Status post Precedex and Librium. Improving patient still has intermittent episodes of confusion most likely multifactorial secondary to infection chronic alcohol abuse probable dementia (6) Atrial fibrillation: Code(s): I48.91 - Unspecified atrial fibrillation Status: Acute Assessment and Plan: Interval histotry EKG on admission consistent with MAT. Metoprolol started. Echo with EF 55-60% with normal diastolic dysfunction and mild pulm HTN. TSH normal. Patient developed AFib after admission. Continue tele. Appreciate Cardiology input. metoprolol and full dose Lovenox. currently on oral xarelto status post cardioversion (7) Hypertension: Code(s): I10 - Essential (primary) hypertension Status: Acute Assessment and Plan: Continue to monitor (8) Hyponatremia: Code(s): E87.1 - Hypo-osmolality and hyponatremia Status: Acute Assessment and Plan: Fluid restriction monitor CMP (9) Alcoholism: Code(s): F10.20 - Alcohol dependence, uncomplicated Status: Acute Assessment and Plan: patient only drinks beer 12-18 beers per day. (10) DVT prophylaxis: Code(s): Z29.9 - Encounter for prophylactic measures, unspecified Status: Acute Assessment and Plan: Continue anticoagulation (11) Fever: Code(s): R50.9 - Fever, unspecified Status: Acute Assessment and Plan: Had episodes of fever-chest x-ray shows patchy infiltrate most likely pneumococcal pneumonia continue antibiotic DS: Summary Hospital Course Hospital Course: 65 years old male with past medical history of chronic alcoholism presented to the ER with back pain leg pain not feeling well patient was sent home after blood culture was done blood culture came back positive patient was cold and to the ER CT scan of the lum
--- NOTE | 2021-02-11 17:13 | WPDNEUROPN ---
Objective Data Vital Signs Vital Signs: Vital Signs - 24 hr 02/10/21 18:00 02/10/21 20:00 02/10/21 20:51 Temperature 36.6 C Pulse Rate 84 87 80 Respiratory Rate 20 Blood Pressure 163/81 H Pulse Oximetry 97 02/10/21 22:00 02/11/21 00:00 02/11/21 02:00 Temperature 37.2 C 36.8 C Pulse Rate 89 80 73 Respiratory Rate 21 H 21 H Blood Pressure 176/80 H 162/82 H Pulse Oximetry 100 100 02/11/21 04:00 02/11/21 06:00 02/11/21 09:30 Temperature 36.6 C Pulse Rate 79 83 90 Respiratory Rate 20 Blood Pressure 181/94 H Pulse Oximetry 99 02/11/21 09:48 02/11/21 14:00 Temperature 36.9 C 37.1 C Pulse Rate 84 97 Respiratory Rate 18 20 Blood Pressure 143/77 H 120/58 L Pulse Oximetry 98 70 L Intake/Output Intake/Output: Intake & Output 02/08/21 02/09/21 02/10/21 02/11/21 23:59 23:59 23:59 23:59 Intake Total 590 630 920 700 Output Total 1000 1150 950 600 Balance -410 -520 -30 100 Meds/Results Medications: Active Medications Generic Name Dose Route Start Last Admin Trade Name Freq PRN Reason Stop Dose Admin Acetaminophen 650 mg 02/07/21 18:57 02/10/21 22:55 Acetaminophen 325 Mg Tablet BY MOUTH 650 mg Q6H PRN Administration Mild Pain (1-3) or Fever Albuterol 2.5 mg 01/23/21 12:00 01/29/21 15:02 Albuterol Sulfate Neb 2.5 Mg/0.5 Ml Inh INHALATION 2.5 mg Q6HRT PRN Administration Dyspnea Alprazolam 0.25 mg 02/06/21 15:04 02/10/21 22:55 Alprazolam (*Crx) 0.25 Mg Tablet PO 0.25 mg TID PRN Administration Anxiety Aspirin 81 mg 02/11/21 08:00 02/11/21 09:30 Aspirin 81 Mg Chewable Tablet PO 81 mg DAILY@0800 APRYL Administration Citalopram Hydrobromide 20 mg 02/07/21 09:00 02/11/21 09:30 Citalopram Hydrobromide 20 Mg Tablet PO 20 mg QAM APRYL Administration Cyanocobalamin 1,000 mcg 02/02/21 11:00 02/11/21 09:30 Cyanocobalamin 1,000 Mcg Tablet PO 1,000 mcg QAM APRYL Administration Folic Acid 1 mg 02/03/21 09:00 02/11/21 09:30 Folic Acid 1 Mg Tablet PO 1 mg DAILY APRYL Administration Ceftriaxone Sodium/Dextrose 1 gm in 50 mls @ 100 mls/hr 02/03/21 21:00 02/10/21 21:20 Rocephin 1 Gm/D5w 50 Ml IVPB Infused Q24H APRYL Infusion Metoprolol Tartrate 50 mg 01/24/21 09:35 02/11/21 09:30 Metoprolol Tartrate 50 Mg Tab PO 50 mg Q12HR APRYL Administration Pantoprazole Sodium 40 mg 02/08/21 09:00 02/11/21 09:30 Pantoprazole 40 Mg Tablet PO 40 mg QAM APRYL Administration Rivaroxaban 15 mg 02/07/21 17:00 02/11/21 16:30 Rivaroxaban 15 Mg Tablet PO 15 mg DAILY@1700 APRYL Administration Thiamine HCl 100 mg 02/03/21 09:00 02/11/21 09:30 Thiamine Hcl 100 Mg Tablet PO 100 mg QAM APRYL Administration Radiology Results: ITS Impressions Chest CTA 01/14/21 08:39 IMPRESSION: 1. No pulmonary emboli. 2. Trace right pleural effusion. 3. Minimal dependent atelectasis. Lumbar Spine CT 01/14/21 08:45 IMPRESSION: 1. No acute lumbar findings. 2. L5-S1 grade 1 anterolisthesis, bilateral spondylolysis, moderate to severe disc disease and right neural foraminal stenosis. 3. Less spondylosis other levels. Abdomen Ultrasound 01/14/21 14:08 IMPRESSION: 1. Normal right upper quadrant ultrasound status post cholecystectomy. Tube Placement 01/23/21 14:22 IMPRESSION: 1. Fluoroscopy guided nasoenteric tube placement with tip in the second portion of the duodenum. Head CT 01/27/21 12:58 IMPRESSION: 1. No acute intracranial abnormality. Brain MRI 01/28/21 11:43 IMPRESSION: 1. Normal aging brain. Lumbar Puncture Fluoroscopy 01/28/21 14:23 IMPRESSION: 1. Successful fluoro-guided lumbar puncture. Traumatic tap. Abdomen X-Ray 01/29/21 08:55 IMPRESSION: 1: Feeding tube tip in the duodenum. Venous Doppler Study 02/02/21 10:56 IMPRESSION: 1. Patent left lower extremity veins. No evidence of deep venous thro
[2021-02-11] MEDS: ACETAMINOPHEN 325 MG TABLET 650 MG BY MOUTH (21:38)
[2021-02-11] MEDS: ALPRAZolam (*CRX) 0.25 MG TABLET PO (21:38)
[2021-02-12] VITALS (7 sets, daily range): BP systolic 125–185; BP diastolic 70–84; PULSE 61–80; RESP 18–21; TEMP 36.4–36.9; O2SAT 100
[2021-02-12] MEDS: CITALOPRAM HYDROBROMIDE 20 MG TABLET PO (07:59)
[2021-02-12] MEDS: ASPIRIN 81 MG CHEWABLE TABLET PO (07:59)
[2021-02-12] MEDS: THIAMINE HCL 100 MG TABLET PO (08:00)
[2021-02-12] MEDS: CYANOCOBALAMIN 1,000 MCG TABLET 1000 MCG PO (08:00)
[2021-02-12] MEDS: FOLIC ACID 1 MG TABLET PO (08:00)
[2021-02-12] MEDS: PANTOPRAZOLE 40 MG TABLET PO (08:00)
[2021-02-12] MEDS: METOPROLOL TARTRATE 50 MG TAB PO (08:00)
[2021-02-12 11:10] LABS: Basophils Absolute Auto 0.1 K/mm3 (0.0-0.1); Basophils Percent Auto 0.7 % (0.2-1.2); Eosinophils Absolute Auto 0.3 K/mm3 (0-0.3); Eosinophils Percent Auto 2.7 % (0-4.4); Hematocrit 31.4 % (42.0-52.0); Hemoglobin 10.4 g/dL (14.0-18.0); Immature Granulocyte Percent A 0.9 % (0-0.5); Lymphocytes Absolute Auto 1.59 K/mm3 (0.9-3.2); Lymphocytes Percent Auto 14.7 % (18.3-44.2); Mean Corpuscular HGB Conc 33.1 g/dl (32-36); Mean Corpuscular Hemoglobin 30.5 pg (26-34); Mean Corpuscular Volume 92.1 fl (80-100); Mean Platelet Volume 8.7 fl (7.4-10.4); Monocytes Absolute Auto 0.9 K/mm3 (0.1-0.6); Monocytes Percent Auto 8.1 % (2.6-8.5); Neutrophils Absolute Auto 7.9 K/mm3 (1.3-6.7); Neutrophils Percent Auto 72.9 % (45.5-73.1); Platelet Count Result 573 k/mm3 (150-375); Red Blood Count 3.41 M/mm3 (4.6-6.20); Red Cell Distribution Width 12.6 % (11.5-14.5); White Blood Count 10.8 K/mm3 (4.5-10.0)
[2021-02-12 11:23] LABS: Alanine Aminotransferase 42 U/L (4-50); Albumin Level 3.4 g/dL (3.5-5.1); Alkaline Phosphatase 93 U/L (38-126); Anion Gap 2 mmol/L (8-16); Aspartate Amino Transferase 35 U/L (17-59); Bilirubin,Total 0.2 mg/dL (0.2-1.3); Blood Urea Nitrogen 18 mg/dL (9-20); Calcium 9.3 mg/dL (8.4-10.2); Carbon Dioxide 33 mmol/L (22-30); Chloride 97 mmol/L (98-107); Estimated CRCL calculation 94 ml/min; Estimated Glomerular Filt Rate > 60; Glucose 119 mg/dL (75-110); Potassium 4.1 mmol/L (3.4-5.0); Sodium 132 mmol/L (137-145)
--- NOTE | 2021-02-12 12:10 | PCNFU ---
Nutrition Follow-Up Complete: Inadequate oral intake related to poor appetite as evidenced by intakes 15-40%. Goal: Patient to consume 75% of meals/supplements or greater. Limited progress towards goal. We will continue current goal. Pt current nutrition is soft and bite sized, Level 6 with Ensure compact BID and Frozen Nutritional Treat TID. Last recorded weight is 75.6 kg up from 75.1 kg on 02/11. Bowel Motility: +BM reported 02/12 Labs Reviewed:BUN 2,Na 132,Alb 3.4,Hct 31.4,Hgb 10.4 Meds Noted:Rocephin, Folic Acid, Thiamine, Lopressor,Protonix,Xarelto. Additional Notes: Patient seen today for nutrition follow up. Spoke with patient's today, she states they have a transfer in for [place]. MRI showed diskitis and possible fluid collection. Patient ate about 35% of breakfast today. Overall intake has improved but continue to encourage PO intake. Agree with diet orders. Monitoring: Follow up in 3 days.
--- NOTE | 2021-02-12 12:33 | PM.IMPN ---
Progress Note: A&P Assessment and Plan (1) Encephalopathy acute: Code(s): G93.40 - Encephalopathy, unspecified Status: Acute Assessment and Plan: Acute metabolic encephalopathy . Investigation up until now are as follows. CT brain from 01/27 showing no acute findings. MRI brain 01/28 showing no acute findings. Ammonia level negative. LP showing TP 597, LUC647, WBC40 with 96% lymphocytes. Path showing chronic inflammation. Gram stain showing moderate WBC but no MO; fungal smear showing no organisms. BCx 01/28 NGTD. UCx negative. Sputum Cx negative x2. CSF Cx NGTD. Crypto Ag negative. HSV PCR negative. Septic screen collected Sepsis secondary to acute meningitis osteomyelitis of the spine and bacterial pneumonia, repeat EEG show encephalitis (2) Acute respiratory failure: Code(s): J96.00 - Acute respiratory failure, unspecified whether with hypoxia or hypercapnia Status: Acute Assessment and Plan: Patient was intubation on 01/29/21. extubated, Now on oxygen prn. (3) Septicemia: Code(s): A41.9 - Sepsis, unspecified organism Status: Acute Assessment and Plan: Likely secondary to ENRIKE bacteremia. Seen by ID. Chest x-ray also shows pneumonia currently on IV Rocephin continue patient was on IV antibiotics since 01/14/21 patient was started on IV vancomycin and Ancef then was switched to IV Rocephin the plan was course of 28 days of IV Rocephin MRI of the spine was done concern for diskitis and fluid collection discussed with neurosurgeon patient will be transferred for evaluation (4) Anemia: Code(s): D64.9 - Anemia, unspecified Status: Acute Assessment and Plan: Most likely anemia of chronic disease workup as outpatient (5) Alcohol withdrawal delirium: Code(s): F10.231 - Alcohol dependence with withdrawal delirium Status: Acute Assessment and Plan: Improving patient still has intermittent episodes of confusion most likely multifactorial secondary to infection chronic alcohol abuse probable dementia (6) Atrial fibrillation: Code(s): I48.91 - Unspecified atrial fibrillation Status: Acute Assessment and Plan: Interval history EKG on admission consistent with MAT (7) Hypertension: Code(s): I10 - Essential (primary) hypertension Status: Acute Assessment and Plan: Continue to monitor (8) Hyponatremia: Code(s): E87.1 - Hypo-osmolality and hyponatremia Status: Acute Assessment and Plan: Fluid restriction monitor CMP (9) Alcoholism: Code(s): F10.20 - Alcohol dependence, uncomplicated Status: Acute Assessment and Plan: patient only drinks beer 12-18 beers per day. (10) DVT prophylaxis: Code(s): Z29.9 - Encounter for prophylactic measures, unspecified Status: Acute Assessment and Plan: Continue anticoagulation (11) Fever: Code(s): R50.9 - Fever, unspecified Status: Acute Assessment and Plan: Had episodes of fever. Sepsis secondary to acute meningitis osteomyelitis of the spine and bacterial pneumonia, repeat EEG show encephalitis Subjective Date/time seen: 02/12/21 12:33 Interval history: Interval history: 65yo male with alcoholism and HTN here for bacteremia. Patient initially seen in ED gas manager hours of 01/13 for body aches, low back pain and fever and felt to have sinusitis and d/c home with Levaquin. BCx drawn returned positive for ENRIKE and patient directed back to the ED on 01/14 and admitted. He developed DTs and ultimately moved to ICU on 01/15 and started on Precedex. AFIb developed requiring CALIN with cardioversion 01/22. Off librium 01/21, off Precedex on 01/25. Brain MRI 01/28 showing no acute findings. LP on 01/28 showing elevated TP, normal glucose, WBC 40 mostly lymphocytes. Moved back to ICU on 01/28 and intubated 01/29. Pt is successfully extubate, pt is currently on
--- NOTE | 2021-02-12 13:50 | PCPTNOTE ---
PT received orders to hold PT. PT will hold and await further orders to resume.
== END 2021-02-12 13:30 | disposition short-term general hospital (02) | DRG 871 ==
LOC: ANHED 08:46 → ANHIMU 12:03 → ANHICU 01-15 14:24 → ANHIMU 01-27 23:28 → ANH2MED 02-08 09:00 → ANHICU 02-15 15:42 → ANHIMU 02-15 15:42
PROVIDERS: Internal Medicine; Internal Medicine Cardiovascular Disease; Internal Medicine Infectious Disease; Physician Assistant; Admitting Provider Family Medicine; Emergency Provider General Practice; PCP Student in an Organized Health Care Education/Training Program; Visit Provider Family Medicine
PROC: B24BZZ4 Ultrasonography of Heart with Aorta, Transesophageal (ICD-10-PCS; CPT 93312; principal; 2021-01-22 10:45)
PROC: 5A2204Z Restoration of Cardiac Rhythm, Single (ICD-10-PCS; 2021-01-22 10:45)
DX: A41.01 Sepsis due to Methicillin susceptible Staphylococcus aureus (principal); G93.41 Metabolic encephalopathy; J96.01 Acute respiratory failure with hypoxia; R65.21 Severe sepsis with septic shock; J15.9 Unspecified bacterial pneumonia; F10.231 Alcohol dependence with withdrawal delirium; E87.1 Hypo-osmolality and hyponatremia; A87.9 Viral meningitis, unspecified; A86 Unspecified viral encephalitis; M46.24 Osteomyelitis of vertebra, thoracic region; E86.0 Dehydration; D63.8 Anemia in other chronic diseases classified elsewhere; R00.0 Tachycardia, unspecified; I48.91 Unspecified atrial fibrillation; I10 Essential (primary) hypertension; F41.9 Anxiety disorder, unspecified; M19.032 Primary osteoarthritis, left wrist; D69.59 Other secondary thrombocytopenia; M19.031 Primary osteoarthritis, right wrist; M17.0 Bilateral primary osteoarthritis of knee; M10.9 Gout, unspecified; Z85.828 Personal history of other malignant neoplasm of skin; Z90.49 Acquired absence of other specified parts of digestive tract; T43.225A Adverse effect of selective serotonin reuptake inhibitors, initial encounter; T50.2X5A Adverse effect of carbonic-anhydrase inhibitors, benzothiadiazides and other diuretics, initial encounter
CPT/HCPCS: 31500; 36415; 36600; 43752; 62328; 70450; 70553; 71045; 71275; 72131; 72157; 72158; 74018; 74177; 76705; 80048; 80053; 80069; 80074; 80202; 81001; 82140; 82375; 82570; 82607; 82746; 82805; 82945; 82948; 83036; 83050; 83605; 83735; 83930; 83935; 84100; 84157; 84295; 84300; 84443; 84484; 85014; 85018; 85025; 85027; 85055; 85380; 85610; 85730; 86140; 86403; 86592; 87015; 87040; 87070; 87077; 87086; 87102; 87116; 87147; 87181; 87186; 87205; 87206; 87529; 87804; 88108; 89051; 92610; 92960; 93005; 93306; 93312; 93320; 93325; 93970; 93971; 94002; 94003; 94640; 95816; 96361; 96365; 96366; 96367; 96375; 96376; 97110; 97162; 97163; 97165; 97166; 97530; 97535; 99284; 99285; A9270; A9577; C9113; C9803; J0131; J0133; J0290; J0330; J0360; J0690; J0692; J0696; J1170; J1630; J1644; J1650; J1885; J1940; J1956; J2060; J2250; J2270; J2704; J3010; J3370; J3411; J3475; J3480; J7030; J7040; J7060; J7120; Q9967; U0003; U0005

== ENCOUNTER 2021-06-09 10:00 | Outpatient (RCR) | payer MEDICARE, SELFPAY ==
--- NOTE | 2021-05-10 17:11 | PTOPEVAL ---
PHYSICAL THERAPY EVALUATION Thank you for referring Aly Bailey to [facility].? Juan C was evaluated for the dx of low back pain with recent serious spinal infection. The patient is scheduled to be seen for therapy? 2 x/week for 4 weeks. Please review, sign, date and return this plan of care ADRIENNE. I agree with and certify that the following plan of care is medically necessary. Referring Physician Date Attending Provider: Kee Vinson, DO *PT Outpatient Evaluation Start: 05/10/21 14:05 Freq: Status: Active Protocol: Document 05/10/21 14:05 RINKU (Rec: 05/10/21 14:58 MLV [id number]) Therapy Assessment Status Assessment Status Assessment Status Evaluation Evaluation Information Problem Diagnosis low back pain Onset 10/2020 Cause no injury Additional Evaluation Detail Patient began having back pain in October of 2020 and was suppose to have his knee replaced in December but had back complications. The pt began feeling bad , went to the ER and was admitted and went into a coma. He was hospitalized 48 days for a spinal infection. He was and is still on an antibiotic with a continuing active infection but much less. The patient continues to have pain at the lower sacral bone, and has rj. hands/tricep area numbness/ tingling/electric sensation and has numbness/tingling at rj. forfeet. Patient also has right espinal splint pain that comes and goes. Before the infection, the pt was very active with work, house rehab projects, yard work, cooks/ cleans. 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 The patient would like to have less back pain with daily activity. The patient also wants to have less pain for sleeping better. Diagnostic Tests X-Rays For This Problem Yes MRI For
--- NOTE | 2021-06-09 11:53 | PTOPEVAL ---
PHYSICAL THERAPY DISCHARGE Thank you for referring Aly Bailey to [facility].? The patient has completed his PT for the dx of low back pain/recent infection of spine. Goals are met. DC PT. Please review, sign, date and return this plan of care ADRIENNE. I agree with and certify that the following plan of care is medically necessary. Referring Physician Date Attending Provider: Kee Vinson, DO *PT Outpatient Discharge Start: 05/10/21 14:05 Freq: Status: Active Protocol: Document 06/09/21 10:19 MLV (Rec: 06/09/21 10:53 [facility] [id number]) Therapy Assessment Status Assessment Status Assessment Status Discharge Evaluation Information Problem Diagnosis low back pain Onset 10/2020 Cause no injury Additional Evaluation Detail The patient feels he is still painful in his knees and back and still takes pain meds to control symptoms. The patient has been building up his normal daily activity and house projects as tolerated. The patient denies trouble with his exercises and feels he can continue on his own. Pain Assessment Timing of Pain Assessment Timing of Pain Assessment Assessment Pain Scale Pain Scale Used Numeric (1 - 10) Self Report Pain Assessment Lower Back Reported Pain Level 1 Pain Description Tightness Other Pain Description rj knee pain 0 in sitting, 3 after household projects Pain Score Pain Score 1: Self Report Interventions Used Interventions Used By Clinicians Electrical Stimulation,Manual Therapy Techniques Pain Relief Interventions Used By Exercise,Inactivity/Rest, Patient Medication Cervical and Lumbar ROM Lumbar ROM Lumbar Flexion Active Ankle Query Text:Hands to: Lumbar Extension (0-40) 30 Query Text:Active in Degrees Lumbar Lateral Flexion Right (0-40) 35 Query Text:Active in Degrees Lumbar Lateral Flexion Left (0-40) 35 Query Text:Active in Degrees Lateral Rotation Right (0-45) 45 Query Text:Active in Degrees Lateral Rotation Left (0-45) 45 Query Text:Active in Degrees Lower Extremity Range of Motion General Lower Extremity Range of Motion Reason Not Measured WFL/Left,WFL/Right Gross Lower Extremity Range of Motion knee active motion 5-139' left, Comments 1-140' (extension improved at rj. knees) Muscle Length Testing
== END 2021-06-10 08:55 | disposition home or self-care (01) ==
LOC: ANHPT 10:00
PROVIDERS: PCP Student in an Organized Health Care Education/Training Program; Visit Provider Student in an Organized Health Care Education/Training Program
DX: M46.47 Discitis, unspecified, lumbosacral region (principal); E44.0 Moderate protein-calorie malnutrition; G06.1 Intraspinal abscess and granuloma; G93.41 Metabolic encephalopathy
CPT/HCPCS: 97014; 97110; 97140; 97162; G0283

== ENCOUNTER 2023-09-17 09:26 | Emergency (ER) | payer MEDICARE, SELFPAY ==
--- NOTE | 2023-09-17 09:34 | ED.MALEGU ---
HPI - Male Genitourinary General Chief complaint: Urogenital-Male Stated complaint: urinary issue Time Seen by Provider: 09/17/23 10:22 Source: patient and RN notes reviewed Mode of arrival: ambulatory Limitations: no limitations History of Present Illness HPI Narrative: 68-year-old male presents with concern for urinary frequency, urgency, foul-smelling urine. Reports chills and fever last night. Reports he had dark colored urine since he was catheterized after a knee replacement on September 05. He denies abdominal pain, back pain MD Complaint: other (Urine frequency) Related Data Home Medications Medication Instructions Recorded Confirmed allopurinol 100 mg tablet 100 mg PO QAM 12/31/20 09/17/23 cholecalciferol (vitamin D3) 25 25 mcg PO DAILY 12/31/20 09/17/23 mcg (1,000 unit) tablet citalopram 20 mg tablet 20 mg PO QAM 12/31/20 09/17/23 lisinopril 20 1 tablet PO QAM 12/31/20 09/17/23 mg-hydrochlorothiazide 12.5 mg tablet loratadine 10 mg tablet (Claritin) 10 mg PO DAILY 12/31/20 09/17/23 Allergies Allergy/AdvReac Type Severity Reaction Status Date / Time No Known Allergies Allergy Mild Verified 09/17/23 10:11 Review of Systems Review of Systems: CONSTITUTIONAL: Denies malaise, chills, sweats, or fever. CARDIOVASCULAR: Denies chest pain, palpitations, or edema. RESPIRATORY: Denies cough or dyspnea. GASTROINTESTINAL: Denies abdominal pain, nausea, vomiting, diarrhea GENITOURINARY: Reports dysuria, frequency, urgency, suprapubic pressure. Denies flank pain or hematuria. SKIN: Denies rash or itching. Patient is postop knee incision is well approximated without erythema, edema, warmth, drainage MUSCULOSKELETAL: Denies back pain or myalgia. All systems reviewed & are unremarkable except as noted in HPI and below PMFSH Past Medical History Medical History Alcohol abuse Anxiety Gout Hypertension Osteoarthritis Wrists, knees. Surgical History Surgical History History of basal cell carcinoma excision Removed from the chest, arm, shoulder. History of cholecystectomy History of tonsillectomy Family History Family History Father Hypertension Cerebrovascular accident Mother Hypertension Other Diabetes mellitus Social History Social History Social History: Surrogate decision maker: Brenda Bailey, spouse. Code status: Full code. Smoking status: Never smoker Alcohol intake: current Drinks per week: 35 Substance use: never Substance use type: marijuana Living arrangements: with family Additional living arrangements comments: Lives in [place] with his . 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 Gender identity (if verbalized by the patient): Male Spiritual care concerns: No Comments At time of signature, agree with nursing past medical, surgical, social and family history. There is no relevant family history pertinent to the presenting complaint Exam Narrative: GENERAL: Well-appearing, well-nourished, and in no acute distress. HEAD: Normocephalic. EYES: PERRLA, conjunctivae clear. NECK: Supple. No lymphadenopathy CHEST: Clear to auscultation. No respiratory distress. HEART: Regular rate and rhythm. ABDOMEN: Soft, nontender upon palpation, nondistended, normal active bowel sounds, no palpable or pulsatile masses, no guarding. No CVA tenderness SKIN: Warm, dry, no rash. NEURO: Alert and oriented x3. PSYCH: Normal mood and affect Course Course Emergency Course: Patient is aware of diagnosis, understands and agrees to treatment plan. Anticipatory guidance given. Patient agrees to follow-up as directed and is aware of reasons to seek care at the emergency department. Portions of this record may have been created
[2023-09-17 09:51] VITALS: BP 125/65; PULSE 80; RESP 16; TEMP 37.1; O2SAT 99
== END 2023-09-17 10:40 | disposition home or self-care (01) ==
PROVIDERS: Emergency Provider Nurse Practitioner
DX: N39.0 Urinary tract infection, site not specified (principal); B96.20 Unspecified Escherichia coli [E. coli] as the cause of diseases classified elsewhere; F41.9 Anxiety disorder, unspecified; M10.9 Gout, unspecified; I10 Essential (primary) hypertension; M19.032 Primary osteoarthritis, left wrist; M19.031 Primary osteoarthritis, right wrist; M17.0 Bilateral primary osteoarthritis of knee
CPT/HCPCS: 81003; 87077; 87086; 87186; 99213; G0463